=== PATIENT | female | born 1955 | race Caucasian/White ===

== ENCOUNTER 2018-02-09 13:46 | Outpatient (CLI) | payer OTHER ==
[~2018-02-09] VITALS: Ht 149.9 cm; Wt 61.7 kg
[~2018-02-09 13:46] MED LIST: CELE200C PO; GABA-488 PO; METO100T12 PO; METO50TA15 PO; MIRA50TA PO; PRIM50TA PO; ROSU10TA PO; TRAZ-190 PO; VALS80TA31 PO; VORT10TA PO
== END 2018-02-09 13:51 | disposition home or self-care (01) ==
LOC: PREOP 13:46
PROVIDERS: ATTEND Surgery
DX: Z01.818 Encounter for other preprocedural examination (principal)

== ENCOUNTER 2018-02-14 08:10 | Day surgery (SDC) | payer OTHER ==
[~2018-02-14] VITALS: Ht 149.9 cm; Wt 61.7 kg
--- OUTSIDE RECORDS SUMMARY | 2018-02-14 08:14 | XMS REPORT ---
Author Author ZORAIDA ACEVEDO Organization [facility] Address [address] [place] [address] Care Team Providers Care Feed Mill Supervisor Name Role Phone ZORAIDA ACEVEDO Unavailable PROBLEMS Type Condition ICD9-CM Code ONX15-RY Code Onset Dates Condition Status SNOMED Code Problem GERD (gastroesophageal reflux disease) K21.9 Active 688680125 Problem Tremor, unspecified R25.1 Active 62941484 Problem Family history of diabetes mellitus Z83.3 Active 580800921 Problem Anxiety F41.9 Active 73475397 Problem Arthralgia, unspecified joint M25.50 Active 35126050 Problem Back pain M54.9 Active 646235036 Problem Dysthymic disorder F34.1 Active 73190750 Problem Essential hypertension I10 Active 93749619 Problem Coarse tremors G25.2 Active 17387201 Problem Carpal tunnel syndrome 354.0 Active 07748979 Problem Polycythemia D75.1 Active 103875884 Problem Overactive bladder N32.81 Active 298553298 Problem Abnormal LFTs R79.89 Active 331346451 Problem Peripheral neuropathy G62.9 Active 62046426 Problem Hyperlipidemia E78.5 Active 29282941 Problem Reactive airway disease J45.909 Active 938226622680 Problem Insomnia G47.00 Active 611181103 Problem Female stress incontinence N39.3 Active 33616392 Problem Depression F32.9 Active 39241153 ALLERGIES No Information ENCOUNTERS Encounter Location Date Diagnosis [facility] [address] [facility] [id number], [place] [address] Jan, [facility] [address] [id number] [address] Jan, Overactive bladder N32.81 [facility] [address] [id number], [place] [address] Jan, Polycythemia D75.1 [place] [id number] [place] [address] 8[address] Jan, Polycythemia D75.1 [place] [address] [address] Dec, Unintentional weight loss R63.4 ; Diarrhea, unspecified type R19.7 ; Generalized abdominal pain R10.84 and Tobacco abuse Z72.[address] [address] Oct, Overactive bladder N32.81 and Reactive airway disease J45.[address] [address]- [address] Oct, Anxiety F41.9 and Financial problems Z59.[address] [address]- [address] Oct, Chest pain, unspecified type R07.9 ; Shortness of breath R06.02 ; Diarrhea, unspecified type R19.7 and Acute non-recurrent maxillary sinusitis J01.[address] [address]- [address] August, Hyperlipidemia E78.5 ; Essential hypertension I10 ; Tremor, unspecified R25.1 ; Overactive bladder N32.81 and Arthralgia, unspecified joint M25.[address] [address] May, Viral illness B34.[address] [address]- [address] Apr, Essential hypertension I10 ; Tremor, unspecified R25.1 ; Overactive bladder N32.81 ; Hyperlipidemia E78.5 and Reactive airway disease J45.[address] [address]- [address] Mar, [address] [place] [address] Feb, Dysthymic disorder F34.1 [place] [address] [address]- [address] Dec, Depression F32.9 ; Abnormal LFTs R79.89 ; Tremor, unspecified R25.1 and Essential hypertension I10 [place] [address] [address]- 3790 Nov, Abnormal LFTs R79.89 [place] [address] 09[address]- 0243 Nov, Overactive bladder N32.81 [place] [address] 35943- 4381 Nov, Dysthymic disorder F34.1 [place] [address] [address]- 4230 Nov, Abnormal LFTs R79.89 ; Overactive bladder N32.81 ; Essential hypertension I10 ; Hyperlipidemia E78.5 ; Elevated LFTs R79.89 ; Arthralgia, unspecified joint M25.50 ; Dysthymic disorder F34.1 and Reactive airway disease J45.909 [place] [address] [address]- [address] Jul, [place] [id number] [place] [address]- 7707 Jul, Reactive airway disease J45.909 and Depression F32.9 [place] [address] [address]94- 3508 Jul, Left arm pain M79.602 and Chest wall pain R07.89 [place] [address] [address]- [address] Jun, Abnormal LFTs R79.89 [place] [address] [address]74- 7029 Jun, Abnormal LFTs R79.89 [place] [id number] [place] [address] 22396- 1477 Jun, Essential hypertension I10 ; Tremor, unspecified R25.1 ; Hyperlipidemia E78.5 ; Reactive airway disease J45.909 ; Arthralgia, unspecified joint M25.50 and Abnormal LFTs R79.89 [place] [id number] [place] [address] 25858- 7244 May, Female stress incontinence N39.3 ; Hyperlipidemia E78.5 ; Peripheral neuropathy G62.9 ; Essential hypertension I10 ; Depression F32.9 and Tremor, unspecified R25.1 [place] [address] [address]- 3[address] May, Tremor, unspecified R25.1 ; Female stress incontinence N39.3 ; Hyperlipidemia E78.5 ; Peripheral neuropathy G62.9 ; Dysthymic disorder F34.1 ; Essential hypertension I10 ; GERD (gastroesophageal reflux disease) K21.9 and Depression F32.9 [place] [id number] [place] [address] 10138- 3113 Apr, Depression F32.9 [place] [address] 0[address]30- 6622 Mar, Sore throat J02.9 ; Coarse tremors G25.2 and Essential hypertension I10 [place] [address] 07702- 9069 Feb, Essential (primary) hypertension I10 ; Female stress incontinence N39.3 and Reactive airway disease J45.909 [place] [id number] [place] [address] 96328- 1328 Nov, Reactive airway disease J45.909 [place] [id number] [place] [address] 76107- 6591 Nov, Dysuria R30.0 ; Urinary tract infection, site unspecified N39.0 ; Tremor R25.1 ; Female stress incontinence N39.3 ; Reactive airway disease J45.909 ; Essential (primary) hypertension I10 and Carpal tunnel syndrome, unspecified laterality G56.00 [facility] [address] [address]- 1641 Nov, Female stress incontinence N39.3 [facility] [id number] [place] [address] 04741- 6117 Nov, [facility] [address] [address] Oct, Urinary tract infection, site not specified N39.0 ; Dysuria R30.0 and Hematuria, unspecified R31.9 [place] [address] 02486- 2609 Oct, Hypertension I10 ; Hyperlipidemia E78.5 and Headache, unspecified headache type R51 [place] [address] 79907- 2040 Sep, [place] [address] 24096- 1746 August, Female stress incontinence N39.3 [place] [address] 14547- 7761 August, Headache, unspecified headache type R51 [place] [address] 46241- 8816 August, Hyperglycemia R73.9 ; Overactive bladder N32.81 and Headache , unspecified headache type R51 [place] [address] [address]- 5435 Jul, Dysthymic disorder F34.1 [place] [address] 12595- 1003 Jul, Depression F32.9 [place] [address] 72613- 3705 Jul, Depression F32.9 and Back pain M54.9 [place] [address] 74166- 4269 Jul, Dysthymic disorder F34.1 [place] [address] 52332- 7627 Jul, Depression F32.9 ; Female stress incontinence N39.3 ; Hypertension I10 ; Hyperlipidemia E78.5 ; Tremor, unspecified R25.1 ; Peripheral neuropathy G62.9 ; Reactive airway disease J45.909 ; GERD ( gastroesophageal reflux disease) K21.9 ; Insomnia G47.00 and Family history of diabetes mellitus Z83.3 [place] [address] 30[address]- 9899 Apr, [place] [address] 6[address]21- 8124 Feb, [place] [address] 38237- 6134 Feb, Essential hypertension I10 ; Encounter for immunization Z23 ; Dysthymia F34.1 ; Tremor, unspecified R25.1 and Carpal tunnel syndrome, unspecified laterality G56.00 [place] [address] 71924- 4334 Feb, [place] [address] [address]82- 4790 Dec, Bronchitis [address] [place] [address] 19378- 9097 Nov, [place] [address] 62731- 3948 Nov, [place] [address] 97175- 4750 Oct, Overweight 278.02 [place] [address] 05553- 5335 Oct, [place] [address] 53146- 1683 Oct, Back pain 724.5 ; Hypertension 401.[address] [facility] [address] [facility] [id number], [place] [address] Sep, [facility] [address], [place] [address] August, [facility] [address], [place] [address] August, [facility] [address] [facility] [id number], [place] [address] August, Nicotine dependence 305.1 ; Back pain 724.[address] [facility] [address] [facility] [id number], [place] [address]23 Jul, [facility] [address], [place] [address]444 Jul, [facility] [address] [id number], [place] [address] 4188 Jun, [facility] [address], [place] [address] Jun, [facility] [address], [place] [address]- 0843 Jun, [facility] [address] [id number], [place] [address]- 5013 Jun, [facility] [address] [id number], [place] [address]- [address] Apr, [facility] [address] [id number] [address] Apr, [facility] [address] [id number], [place] [address]- 5173 Mar, [facility] [address] [id number] [address] Mar, [facility] [id number] [address]34 Mar, [facility] [address] [id number] [place] [address]- 2712 Mar, [facility] [place] [facility] [address] [id number] [place] [address] Mar, [facility] [place] [facility] [address] [id number] [place] [address] Mar, [facility] [place] [facility] [address] [id number] [place] [address]- 4027 Mar, [facility] [place] [facility] [address] [id number] [place] [address]- 4555 Mar, [facility] [place] [facility] [address] [id number] [place] [address]- 4497 Mar, [facility] [place] [facility] [address] [id number] [place] [address]- 4805 Mar, [facility] [place] [facility] [address] [id number] [place] [address]- 8806 Mar, [facility] [place] [facility] [address] [id number] [place] [address]- 0844 Mar, [facility] [place] [facility] [address] [facility] [id number] [place] [address]- 9262 Feb, [facility] [place] [facility] [address] [id number] [place] [address]- 3251 Feb, [facility] [place] [facility] [address] [id number] [place] [address]- 9877 Feb, [facility] [place] [facility] [address] [id number] [place] [address]- 9224 Feb, [facility] [place] [facility] [address] [id number] [place] [address]- 2330 Jan, [facility] [place] [facility] [address] [id number] [place] [address]- 3483 Jan, [facility] [place] [facility] [address] [id number] [place] [address]- 5850 30 Dec, 2013 [facility] [place] [facility] [address] [id number] [place] [address]- 9282 30 Dec, 2013 [facility] [place] [facility] [address] [id number] [place] [address]- 7599 Dec, 2013 [facility] [place] [facility] [address] [id number] [place] [address]- 2382 22 Dec, 2013 [facility] [place] [facility] [address] [id number] [place] [address]- 6475 08 Dec, 2013 [facility] [place] [facility] [address] [id number] [place] [address]- 3053 08 Dec, 2013 [facility] [place] [facility] [address] [id number] [place] [address]- 8848 Dec, 2013 [facility] [place] [facility] [address] [id number] [place] [address]- 1197 Dec, 2013 [facility] [place] [facility] [address] [id number] [place] [address]- 3295 Dec, 2013 [facility] [place] [facility] [address] [id number] [place] [address]- 1256 Dec, 2013 [facility] [place] [facility] [address] [id number] [place] [address]- 8496 Nov, [facility] [place] [facility] [address] [id number] [place] [address]- 9038 Nov, [facility] [place] [facility] [address] [id number] [place] [address]- 9134 Nov, [facility] [place] [facility] [address] [id number] [place] [address]- 1147 Nov, [facility] [place] [facility] [address] [id number] [place] [address]- 8174 Nov, [facility] [place] [facility] [address] [id number] [place] [address]- 9188 Nov, [facility] [place] [facility] [address] [id number] [place] [address]- 1645 Nov, [facility] [place] [facility] [address] [id number] [place] [address]- 8446 Nov, [facility] [place] [facility] [address] [id number] [place] [address]- 5332 Nov, [facility] [place] [facility] [address] [id number] [place] [address]- 6317 Nov, [facility] [place] [facility] [address] [id number] [place] [address]- 1615 Nov, [facility] [place] [facility] [address] [id number] [place] [address]- 0840 Nov, [facility] [place] [facility] [address] [id number] [place] [address]- 4540 Oct, [facility] [place] [facility] [address] [id number] [place] [address]- 5932 Oct, [facility] [place] [facility] [address] [id number] [place] [address]- 1462 August, [facility] [place] [facility] [address] [id number] [place] [address]- 3426 August, [facility] [place] [facility] [address] [id number] [place] [address]- 8928 Jul, [facility] [place] [facility] [address] [id number] [place] [address]- 1587 Jul, [facility] [place] [facility] [address] [id number] [place] [address]- 8595 Jun, [facility] [place] [facility] [address] [id number] [place] [address]- 1123 Jun, [facility] [place] [facility] [address] [id number] [place] [address]- 7338 Jun, [facility] [place] [facility] [address] [id number] [place] [address]- 2546 11 Jun, 2013 [facility] [address] [id number] [place] [address]- 1956 07 Jun, 2013 [facility] [place] [facility] [address] [id number] [place] [address]- 2546 07 Jun, 2013 [facility] [address] [id number] [place] [address]- 1386 Apr, [facility] [address] [id number] [place] [address]- 5256 Apr, [facility] [address] [id number] [place] [address]- 2351 Mar, [facility] [address] [id number] [place] [address]- 1996 Mar, [facility] [address] [id number] [place] [address]- 6221 Mar, [facility] [address] [id number] [place] [address]- 8273 Mar, [facility] [address] [id number] [place] [address]- 1824 Mar, [facility] [address] [id number] [place] [address]- 8978 Mar, [facility] [place] [facility] [address] [id number] [place] [address]- 5636 Mar, [facility] [address] [id number] [place] [address]- 1176 Mar, [facility] [place] [facility] [address] [id number] [place] [address]- 2546 Mar, [facility] [place] [facility] [address] [id number] [place] [address]- 2546 Mar, [facility] [place] [facility] [address] [id number] [place] [address]- 1861 Feb, [facility] [place] [facility] [address] [id number] [place] [address]- 0537 Feb, [facility] [place] [facility] [address] [id number] [place] [address]- 7324 Jan, [facility] [place] [facility] [address] [id number] [place] [address]- 0531 Jan, [facility] [place] [facility] [address] [id number] [place] [address]- 4577 Jan, [facility] [place] [facility] [address] [id number] [place] [address]- 6601 Nov, [facility] [place] [facility] [address] [id number] [place] [address]- 0577 Nov, [facility] [place] [facility] [address] [id number] [place] [address]- 6187 Nov, [facility] [place] [facility] [address] [id number] [place] [address]- 4744 Nov, [facility] [place] [facility] [address] [id number] [place] [address]- 7195 Apr, [facility] [place] [facility] [address] [id number] [place] [address]- 6255 Mar, [facility] [place] [facility] [address] [id number] [place] [address]- 9643 Mar, [facility] [place] [facility] [address] [id number], [place] [address]- 5692 Mar, [facility] [place] [facility] [address] [id number] [place] [address]- 5862 Mar, [facility] [place] [facility] [address] [id number] [place] [address]- 4308 Mar, [facility] [place] [facility] [address] [id number] [place] [address]- 9535 May, [facility] [place] [facility] [address] [id number], [place] [address]- [address] Mar, [facility] [address], [place] [address]- [address]163 Mar, [facility] [address], [place] [address]- 3713 Mar, [facility] [address], [place] [address]- 3076 Mar, [facility] [address] 84[address] Mar, [facility] [address], [place] [address]- [address]16 Feb, [facility] [address], [place] [address]- 64[address] Feb, [facility] [address], [place] [address]- 9604 Jan, IMMUNIZATIONS No Known Immunizations SOCIAL HISTORY Never Assessed REASON FOR VISIT therapeutic phlebotomy order PLAN OF CARE VITAL SIGNS MEDICATIONS Unknown Medications RESULTS No Results PROCEDURES No Known procedures INSTRUCTIONS MEDICATIONS ADMINISTERED No Known Medications MEDICAL (GENERAL) HISTORY Type Description Date Medical History hypertension Medical History chronic obstructive pulmonary disease (COPD) Medical History depression Medical History anxiety Medical History breast cancer (?) documented snf use of Tamoxifen in [facility] Medical History past hx of drug & ETOH abuse Surgical History appendectomy Surgical History cholecystectomy Surgical History carpal tunnel release Hospitalization History surgeries
--- OUTSIDE RECORDS SUMMARY | 2018-02-14 08:14 | XMS REPORT ---
Author Author ZORAIDA ACEVEDO Organization [facility] Address [address] [place] [address] Care Team Providers Care Pad Machine Feeder Name Role Phone ZORAIDA ACEVEDO Unavailable PROBLEMS Type Condition ICD9-CM Code SPK85-[place] Code Onset Dates Condition Status SNOMED Code Problem GERD (gastroesophageal reflux disease) K21.9 Active 940165013 Problem Tremor, unspecified R25.1 Active 99453294 Problem Family history of diabetes mellitus Z83.3 Active 996149222 Problem Anxiety F41.9 Active 60242909 Problem Arthralgia, unspecified joint M25.50 Active 97688548 Problem Back pain M54.9 Active 727886690 Problem Dysthymic disorder F34.1 Active 46901910 Problem Essential hypertension I10 Active 77715005 Problem Coarse tremors G25.2 Active 40941933 Problem Carpal tunnel syndrome 354.0 Active 16148785 Problem Polycythemia D75.1 Active 689031220 Problem Overactive bladder N32.81 Active 779668678 Problem Abnormal LFTs R79.89 Active 998729012 Problem Peripheral neuropathy G62.9 Active 11730371 Problem Hyperlipidemia E78.5 Active 03271998 Problem Reactive airway disease J45.909 Active 588699314068 Problem Insomnia G47.00 Active 121698140 Problem Female stress incontinence N39.3 Active 52025479 Problem Depression F32.9 Active 83143367 ALLERGIES No Information ENCOUNTERS Encounter Location Date Diagnosis [facility] [address] [facility] [id number] [address] Jan, [facility] [address] [id number] [address] Jan, Overactive bladder N32.81 [facility] [address] [id number], [place] [address] Jan, Polycythemia D75.1 [place] [id number] [place] [address] 94[address] Jan, Polycythemia D75.1 [place] [address] [address]- [address] Dec, Unintentional weight loss R63.4 ; Diarrhea, unspecified type R19.7 ; Generalized abdominal pain R10.84 and Tobacco abuse Z72.[address] [address]- [address] Oct, Overactive bladder N32.81 and Reactive airway disease J45.[address] [address]- 0850 Oct, Anxiety F41.9 and Financial problems Z59.[address] [address]- [address] Oct, Chest pain, unspecified type R07.9 ; Shortness of breath R06.02 ; Diarrhea, unspecified type R19.7 and Acute non-recurrent maxillary sinusitis J01.[address] [address]- [address] August, Hyperlipidemia E78.5 ; Essential hypertension I10 ; Tremor, unspecified R25.1 ; Overactive bladder N32.81 and Arthralgia, unspecified joint M25.[address] [address]- [address] May, Viral illness B34.[address] [address]- [address] Apr, Essential hypertension I10 ; Tremor, unspecified R25.1 ; Overactive bladder N32.81 ; Hyperlipidemia E78.5 and Reactive airway disease J45.[address] [address]- [address] Mar, [address] [place] [address] Feb, Dysthymic disorder F34.1 [place] [address] [address]- 99[address] Dec, Depression F32.9 ; Abnormal LFTs R79.89 ; Tremor, unspecified R25.1 and Essential hypertension I10 [place] [address] 7[address]- 0741 Nov, Abnormal LFTs R79.89 [place] [address] 13141- 6721 Nov, Overactive bladder N32.81 [place] [address] 44076- 9791 Nov, Dysthymic disorder F34.1 [place] [address] 22498- 3661 Nov, Abnormal LFTs R79.89 ; Overactive bladder N32.81 ; Essential hypertension I10 ; Hyperlipidemia E78.5 ; Elevated LFTs R79.89 ; Arthralgia, unspecified joint M25.50 ; Dysthymic disorder F34.1 and Reactive airway disease J45.909 [place] [address] 33196- 5098 Jul, [place] [id number] [place] [address]- 9627 Jul, Reactive airway disease J45.909 and Depression F32.9 [place] [address] 57[address]- 1874 Jul, Left arm pain M79.602 and Chest wall pain R07.89 [place] [address] 17794- 8603 Jun, Abnormal LFTs R79.89 [place] [address] 73[address]- 3761 Jun, Abnormal LFTs R79.89 [place] [id number] [place] [address] 49016- 2328 Jun, Essential hypertension I10 ; Tremor, unspecified R25.1 ; Hyperlipidemia E78.5 ; Reactive airway disease J45.909 ; Arthralgia, unspecified joint M25.50 and Abnormal LFTs R79.89 [place] [id number] [place] [address] 80323- 0296 May, Female stress incontinence N39.3 ; Hyperlipidemia E78.5 ; Peripheral neuropathy G62.9 ; Essential hypertension I10 ; Depression F32.9 and Tremor, unspecified R25.1 [place] [address] 48023- 0862 May, Tremor, unspecified R25.1 ; Female stress incontinence N39.3 ; Hyperlipidemia E78.5 ; Peripheral neuropathy G62.9 ; Dysthymic disorder F34.1 ; Essential hypertension I10 ; GERD (gastroesophageal reflux disease) K21.9 and Depression F32.9 [place] [id number] [place] [address] 9[address]30- 2877 Apr, Depression F32.9 [place] [address] 62713- 1180 Mar, Sore throat J02.9 ; Coarse tremors G25.2 and Essential hypertension I10 [place] [address] 38239- 8004 Feb, Essential (primary) hypertension I10 ; Female stress incontinence N39.3 and Reactive airway disease J45.909 [place] [id number] [place] [address] 70456- 6739 Nov, Reactive airway disease J45.909 [place] [id number] [place] [address] 17950- 9812 Nov, Dysuria R30.0 ; Urinary tract infection, site unspecified N39.0 ; Tremor R25.1 ; Female stress incontinence N39.3 ; Reactive airway disease J45.909 ; Essential (primary) hypertension I10 and Carpal tunnel syndrome, unspecified laterality G56.00 [facility] [address] 51402- 3101 Nov, Female stress incontinence N39.3 [facility] [id number] [place] [address] 49080- 0217 Nov, [facility] [address] [address] -[address] Oct, Urinary tract infection, site not specified N39.0 ; Dysuria R30.0 and Hematuria, unspecified R31.9 [place] [address] 20937- 9579 Oct, Hypertension I10 ; Hyperlipidemia E78.5 and Headache, unspecified headache type R51 [place] [address] 43299- 8384 Sep, [place] [address] 99528- 5242 August, Female stress incontinence N39.3 [place] [address] 40610- 4174 August, Headache, unspecified headache type R51 [place] [address] 94234- 3459 August, Hyperglycemia R73.9 ; Overactive bladder N32.81 and Headache , unspecified headache type R51 [place] [address] 53118- 4014 Jul, Dysthymic disorder F34.1 [place] [address] 73038- 0611 Jul, Depression F32.9 [place] [address] 98854- 6672 Jul, Depression F32.9 and Back pain M54.9 [place] [address] 36316- 9288 Jul, Dysthymic disorder F34.1 [place] [address] 83574- 0521 Jul, Depression F32.9 ; Female stress incontinence N39.3 ; Hypertension I10 ; Hyperlipidemia E78.5 ; Tremor, unspecified R25.1 ; Peripheral neuropathy G62.9 ; Reactive airway disease J45.909 ; GERD ( gastroesophageal reflux disease) K21.9 ; Insomnia G47.00 and Family history of diabetes mellitus Z83.3 [place] [address] 47497- 8098 Apr, [place] [address] 37465- 1648 Feb, [place] [address] 38292- 8845 Feb, Essential hypertension I10 ; Encounter for immunization Z23 ; Dysthymia F34.1 ; Tremor, unspecified R25.1 and Carpal tunnel syndrome, unspecified laterality G56.00 [place] [address] 95202- 7989 Feb, [place] [address] 16741- 5048 Dec, Bronchitis 490 [place] [address] 32295- 5602 Nov, [place] [address] 32951- 8380 Nov, [place] [address] 92707- 9059 Oct, Overweight 278.02 [place] [address] 05392- 1478 Oct, [place] [address] 55887- 4641 Oct, Back pain 724.5 ; Hypertension 401.9 and Nicotine addiction 305.1 [facility] [address] [facility] [id number] [address] Sep, [facility] [address], [place] [address] August, [facility] [address], [place] [address] 97[address] August, [facility] [address] [facility] [id number], [place] [address] 8[address] August, Nicotine dependence 305.1 ; Back pain 724.5 and Overweight 278.02 [facility] [address] [facility] [id number], [place] [address] 8[address] Jul, [facility] [address], [place] [address]- 2645 Jul, [facility] [address] [id number], [place] [address]- 5[address] Jun, [facility] [address], [place] [address]- 3715 Jun, [facility] [address], [place] [address]- 2345 Jun, [facility] [address] [id number], [place] [address]- 6404 Jun, [facility] [address] [id number], [place] [address]- 2238 Apr, [facility] [address] [id number] 9539 Apr, [facility] [id number], [place] [address]- 0707 Mar, [facility] [address] [id number] [address] Mar, [facility] [id number] [place] [address]- 0632 Mar, [facility] [address] [id number] [place] [address]- 3206 Mar, [facility] [place] [facility] [address] [id number] [place] [address] Mar, [facility] [place] [facility] [address] [id number] [place] [address] Mar, [facility] [place] [facility] [address] [id number] [place] [address]- 2343 Mar, [facility] [place] [facility] [address] [id number] [place] [address]- 7605 Mar, [facility] [place] [facility] [address] [id number] [place] [address]- 3094 Mar, [facility] [place] [facility] [address] [id number] [place] [address]- 3647 Mar, [facility] [place] [facility] [address] [id number] [place] [address]- 0707 Mar, [facility] [place] [facility] [address] [id number] [place] [address]- 8703 Mar, [facility] [place] [facility] [address] [facility] [id number] [place] [address]- 3013 Feb, [facility] [place] [facility] [address] [id number] [place] [address]- 2456 Feb, [facility] [place] [facility] [address] [id number] [place] [address]- 6399 Feb, [facility] [place] [facility] [address] [id number] [place] [address]- 4361 Feb, [facility] [place] [facility] [address] [id number] [place] [address]- 9614 Jan, [facility] [place] [facility] [address] [id number] [place] [address]- 8168 Jan, [facility] [place] [facility] [address] [id number] [place] [address]- 0520 30 Dec, 2013 [facility] [place] [facility] [address] [id number] [place] [address]- 0121 30 Dec, 2013 [facility] [place] [facility] [address] [id number] [place] [address]- 1280 Dec, 2013 [facility] [place] [facility] [address] [id number] [place] [address]- 2395 22 Dec, 2013 [facility] [place] [facility] [address] [id number] [place] [address]- 9072 08 Dec, 2013 [facility] [place] [facility] [address] [id number] [place] [address]- 5602 08 Dec, 2013 [facility] [place] [facility] [address] [id number] [place] [address]- 7182 Dec, 2013 [facility] [place] [facility] [address] [id number] [place] [address]- 4592 Dec, 2013 [facility] [place] [facility] [address] [id number] [place] [address]- 7720 Dec, 2013 [facility] [place] [facility] [address] [id number] [place] [address]- 6453 Dec, 2013 [facility] [place] [facility] [address] [id number] [place] [address]- 2458 Nov, [facility] [place] [facility] [address] [id number] [place] [address]- 4329 Nov, [facility] [place] [facility] [address] [id number] [place] [address]- 9723 Nov, [facility] [place] [facility] [address] [id number] [place] [address]- 9449 Nov, [facility] [place] [facility] [address] [id number] [place] [address]- 2203 Nov, [facility] [place] [facility] [address] [id number] [place] [address]- 5101 Nov, [facility] [place] [facility] [address] [id number] [place] [address]- 9862 Nov, [facility] [place] [facility] [address] [id number] [place] [address]- 5902 Nov, [facility] [place] [facility] [address] [id number] [place] [address]- 6211 Nov, [facility] [place] [facility] [address] [id number] [place] [address]- 1827 Nov, [facility] [place] [facility] [address] [id number] [place] [address]- 2502 Nov, [facility] [place] [facility] [address] [id number] [place] [address]- 3193 Nov, [facility] [place] [facility] [address] [id number] [place] [address]- 7010 Oct, [facility] [place] [facility] [address] [id number] [place] [address]- 8693 Oct, [facility] [place] [facility] [address] [id number] [place] [address]- 2762 August, [facility] [place] [facility] [address] [id number] [place] [address]- 0014 August, [facility] [place] [facility] [address] [id number] [place] [address]- 9490 Jul, [facility] [place] [facility] [address] [id number] [place] [address]- 2568 Jul, [facility] [place] [facility] [address] [id number] [place] [address]- 4641 Jun, [facility] [place] [facility] [address] [id number] [place] [address]- 4876 Jun, [facility] [place] [facility] [address] [id number] [place] [address]- 5011 Jun, [facility] [place] [facility] [address] [id number] [place] [address]- 2546 11 Jun, 2013 [facility] [address] [id number] [place] [address]- 6556 07 Jun, 2013 [facility] [place] [facility] [address] [id number] [place] [address]- 2546 07 Jun, 2013 [facility] [address] [id number] [place] [address]- 6266 Apr, [facility] [address] [id number] [place] [address]- 6736 Apr, [facility] [address] [id number] [place] [address]- 1721 Mar, [facility] [address] [id number] [place] [address]- 7496 Mar, [facility] [address] [id number] [place] [address]- 1685 Mar, [facility] [address] [id number] [place] [address]- 0566 Mar, [facility] [address] [id number] [place] [address]- 3513 Mar, [facility] [address] [id number] [place] [address]- 1707 Mar, [facility] [place] [facility] [address] [id number] [place] [address]- 4706 Mar, [facility] [address] [id number] [place] [address]- 1226 Mar, [facility] [place] [facility] [address] [id number] [place] [address]- 2546 Mar, [facility] [place] [facility] [address] [id number] [place] [address]- 2546 Mar, [facility] [place] [facility] [address] [id number] [place] [address]- 1832 Feb, [facility] [place] [facility] [address] [id number] [place] [address]- 1017 Feb, [facility] [place] [facility] [address] [id number] [place] [address]- 6544 Jan, [facility] [place] [facility] [address] [id number] [place] [address]- 6428 Jan, [facility] [place] [facility] [address] [id number] [place] [address]- 7511 Jan, [facility] [place] [facility] [address] [id number] [place] [address]- 1120 Nov, [facility] [place] [facility] [address] [id number] [place] [address]- 7228 Nov, [facility] [place] [facility] [address] [id number] [place] [address]- 4929 Nov, [facility] [place] [facility] [address] [id number] [place] [address]- 9972 Nov, [facility] [place] [facility] [address] [id number] [place] [address]- 9516 Apr, [facility] [place] [facility] [address] [id number] [place] [address]- 5783 Mar, [facility] [place] [facility] [address] [id number] [place] [address]- 3408 Mar, [facility] [place] [facility] [address] [id number], [place] [address]- 8055 Mar, [facility] [place] [facility] [address] [id number] [place] [address]- 2682 Mar, [facility] [place] [facility] [address] [id number] [place] [address]- 5580 Mar, [facility] [place] [facility] [address] [id number] [place] [address]- 6114 May, [facility] [place] [facility] [address] [facility] [id number], [place] [address]- 7440 Mar, [facility] [address] [id number], [place] [address]- 4400 Mar, [facility] [address] [id number] 1039 Mar, [facility] [address] 1874 Mar, [facility] [address]- 8636 Mar, [facility] [address] 0529 Feb, [facility] [address], [place] [address]- 5302 Feb, [facility] [address], [place] [address]- 5294 Jan, IMMUNIZATIONS No Known Immunizations SOCIAL HISTORY Never Assessed REASON FOR VISIT PALS-Myrbetric PLAN OF CARE VITAL SIGNS MEDICATIONS Medication Instructions Dosage Frequency Start Date End Date Duration Status Myrbetriq 50 MG Orally Once a day 1 tablet 24h August, 90 days Active RESULTS No Results PROCEDURES No Known procedures INSTRUCTIONS MEDICATIONS ADMINISTERED No Known Medications MEDICAL (GENERAL) HISTORY Type Description Date Medical History hypertension Medical History chronic obstructive pulmonary disease (COPD) Medical History depression Medical History anxiety Medical History breast cancer (?) documented jail use of Tamoxifen in [facility] Medical History past hx of drug & ETOH abuse Surgical History appendectomy Surgical History cholecystectomy Surgical History carpal tunnel release Hospitalization History surgeries
--- OUTSIDE RECORDS SUMMARY | 2018-02-14 08:15 | XMS REPORT ---
Author Author ZORAIDA ACEVEDO Organization [facility] Address [address] [place] [address] Care Team Providers Care Respiratory Therapy Aide Name Role Phone ZORAIDA ACEVEDO Unavailable PROBLEMS Type Condition ICD9-CM Code GQB96-MP Code Onset Dates Condition Status SNOMED Code Problem GERD (gastroesophageal reflux disease) K21.9 Active 469181005 Problem Tremor, unspecified R25.1 Active 60710792 Problem Family history of diabetes mellitus Z83.3 Active 263188853 Problem Anxiety F41.9 Active 37867214 Problem Arthralgia, unspecified joint M25.50 Active 31633378 Problem Back pain M54.9 Active 857254989 Problem Dysthymic disorder F34.1 Active 12664920 Problem Essential hypertension I10 Active 17659733 Problem Coarse tremors G25.2 Active 24049110 Problem Carpal tunnel syndrome 354.0 Active 31000466 Problem Polycythemia D75.1 Active 022713300 Problem Overactive bladder N32.81 Active 680403775 Problem Abnormal LFTs R79.89 Active 013691928 Problem Peripheral neuropathy G62.9 Active 84230426 Problem Hyperlipidemia E78.5 Active 96133234 Problem Reactive airway disease J45.909 Active 112146696876 Problem Insomnia G47.00 Active 764803680 Problem Female stress incontinence N39.3 Active 95459354 Problem Depression F32.9 Active 16396597 ALLERGIES No Information ENCOUNTERS Encounter Location Date Diagnosis [facility] [address] [facility] [id number] [address] Jan, [facility] [address] [id number] [address] Jan, Overactive bladder N32.81 [facility] [address] [id number] [address] Jan, Polycythemia D75.1 [place] [id number] [place] [address] 6[address] Jan, Polycythemia D75.1 [place] [address] [address] Dec, Unintentional weight loss R63.4 ; Diarrhea, unspecified type R19.7 ; Generalized abdominal pain R10.84 and Tobacco abuse Z72.[address] [address] Oct, Overactive bladder N32.81 and Reactive airway disease J45.[address] [address]- [address] Oct, Anxiety F41.9 and Financial problems Z59.[address] [address]- [address] Oct, Chest pain, unspecified type R07.9 ; Shortness of breath R06.02 ; Diarrhea, unspecified type R19.7 and Acute non-recurrent maxillary sinusitis J01.[address] [address]- [address] August, Hyperlipidemia E78.5 ; Essential hypertension I10 ; Tremor, unspecified R25.1 ; Overactive bladder N32.81 and Arthralgia, unspecified joint M25.[address] [address] May, Viral illness B34.[address] [address]- [address] Apr, Essential hypertension I10 ; Tremor, unspecified R25.1 ; Overactive bladder N32.81 ; Hyperlipidemia E78.5 and Reactive airway disease J45.[address] [address]- [address] Mar, [address] [place] [address] 26[address] Feb, Dysthymic disorder F34.1 [place] [address] [address]- [address]90 Dec, Depression F32.9 ; Abnormal LFTs R79.89 ; Tremor, unspecified R25.1 and Essential hypertension I10 [place] [address] [address]- 4989 Nov, Abnormal LFTs R79.89 [place] [address] 46[address]- 0535 Nov, Overactive bladder N32.81 [place] [address] 31946- 6648 Nov, Dysthymic disorder F34.1 [place] [address] [address]289- 6765 Nov, Abnormal LFTs R79.89 ; Overactive bladder N32.81 ; Essential hypertension I10 ; Hyperlipidemia E78.5 ; Elevated LFTs R79.89 ; Arthralgia, unspecified joint M25.50 ; Dysthymic disorder F34.1 and Reactive airway disease J45.909 [place] [address] [address]- [address] Jul, [place] [id number] [place] [address] 8[address]67- 6243 Jul, Reactive airway disease J45.909 and Depression F32.9 [place] [address] 235[address]- 2932 Jul, Left arm pain M79.602 and Chest wall pain R07.89 [place] [address] [address]- 8[address] Jun, Abnormal LFTs R79.89 [place] [address] 5[address]21- 4346 Jun, Abnormal LFTs R79.89 [place] [id number] [place] [address] 94[address]- 8926 Jun, Essential hypertension I10 ; Tremor, unspecified R25.1 ; Hyperlipidemia E78.5 ; Reactive airway disease J45.909 ; Arthralgia, unspecified joint M25.50 and Abnormal LFTs R79.89 [place] [id number] [place] [address] 80618- 8983 May, Female stress incontinence N39.3 ; Hyperlipidemia E78.5 ; Peripheral neuropathy G62.9 ; Essential hypertension I10 ; Depression F32.9 and Tremor, unspecified R25.1 [place] [address] [address]- 2765 May, Tremor, unspecified R25.1 ; Female stress incontinence N39.3 ; Hyperlipidemia E78.5 ; Peripheral neuropathy G62.9 ; Dysthymic disorder F34.1 ; Essential hypertension I10 ; GERD (gastroesophageal reflux disease) K21.9 and Depression F32.9 [place] [id number] [place] [address] 29984- 1648 Apr, Depression F32.9 [place] [address] 7[address]- 3225 Mar, Sore throat J02.9 ; Coarse tremors G25.2 and Essential hypertension I10 [place] [address] 9[address]97- 6557 Feb, Essential (primary) hypertension I10 ; Female stress incontinence N39.3 and Reactive airway disease J45.909 [place] [id number] [place] [address] 00677- 2688 Nov, Reactive airway disease J45.909 [place] [id number] [place] [address] 20971- 0734 Nov, Dysuria R30.0 ; Urinary tract infection, site unspecified N39.0 ; Tremor R25.1 ; Female stress incontinence N39.3 ; Reactive airway disease J45.909 ; Essential (primary) hypertension I10 and Carpal tunnel syndrome, unspecified laterality G56.00 [facility] [address] [address]- 9832 Nov, Female stress incontinence N39.3 [facility] [id number] [place] [address] 45272- 0750 Nov, [facility] [address] [address] Oct, Urinary tract infection, site not specified N39.0 ; Dysuria R30.0 and Hematuria, unspecified R31.9 [place] [address] 924[address]- 8388 Oct, Hypertension I10 ; Hyperlipidemia E78.5 and Headache, unspecified headache type R51 [place] [address] 04052- 2921 Sep, [place] [address] 269[address]- 2938 August, Female stress incontinence N39.3 [place] [address] 69715- 0483 August, Headache, unspecified headache type R51 [place] [address] 52381- 6044 August, Hyperglycemia R73.9 ; Overactive bladder N32.81 and Headache , unspecified headache type R51 [place] [address] 62373- 8162 Jul, Dysthymic disorder F34.1 [place] [address] 86366- 1731 Jul, Depression F32.9 [place] [address] 99955- 5002 Jul, Depression F32.9 and Back pain M54.9 [place] [address] 96067- 1417 Jul, Dysthymic disorder F34.1 [place] [address] 76084- 7901 Jul, Depression F32.9 ; Female stress incontinence N39.3 ; Hypertension I10 ; Hyperlipidemia E78.5 ; Tremor, unspecified R25.1 ; Peripheral neuropathy G62.9 ; Reactive airway disease J45.909 ; GERD ( gastroesophageal reflux disease) K21.9 ; Insomnia G47.00 and Family history of diabetes mellitus Z83.3 [place] [address] 8[address]- 0301 Apr, [place] [address] 50[address]- 6813 Feb, [place] [address] 34[address]- 7109 Feb, Essential hypertension I10 ; Encounter for immunization Z23 ; Dysthymia F34.1 ; Tremor, unspecified R25.1 and Carpal tunnel syndrome, unspecified laterality G56.00 [place] [address] 17976- 1581 Feb, [place] [address] 01257- 0223 Dec, Bronchitis 490 [place] [address] 99868- 2212 Nov, [place] [address] 70990- 9544 Nov, [place] [address] 64794- 2769 Oct, Overweight 278.02 [place] [address] 69769- 1453 Oct, [place] [address] 29362- 9620 Oct, Back pain 724.5 ; Hypertension 401.9 and Nicotine addiction 305.1 [facility] [address] [facility] [id number], [place] [address] 26[address] Sep, [facility] [address] [address] 26[address] August, [facility] [address] [address] 0914 August, [facility] [address] [facility] [id number], [place] [address] August, Nicotine dependence 305.1 ; Back pain 724.5 and Overweight 278.02 [facility] [address] [facility] [id number], [place] [address] 7842 Jul, [facility] [address] [address] 6[address] Jul, [facility] [id number] [address]- 6187 Jun, [facility] [address] [address]- 3774 Jun, [facility] [address] [address]- 9733 Jun, [facility] [address] [id number] [address]- 4022 Jun, [facility] [id number] [address]- 2556 Apr, [facility] [address] [id number] [address] Apr, [facility] [id number] [address]- 8234 Mar, [facility] [address] [id number] [address] Mar, [facility] [id number] [place] [address]- 9851 Mar, [facility] [address] [id number] [place] [address]- 3390 Mar, [facility] [place] [facility] [address] [id number] [place] [address] Mar, [facility] [place] [facility] [address] [id number] [place] [address] Mar, [facility] [place] [facility] [address] [id number] [place] [address]- 0612 Mar, [facility] [place] [facility] [address] [id number] [place] [address]- 0868 Mar, [facility] [place] [facility] [address] [id number] [place] [address]- 2009 Mar, [facility] [place] [facility] [address] [id number] [place] [address]- 3651 Mar, [facility] [place] [facility] [address] [id number] [place] [address]- 3169 Mar, [facility] [place] [facility] [address] [id number] [place] [address]- 3907 Mar, [facility] [place] [facility] [address] [facility] [id number] [place] [address]- 1697 Feb, [facility] [place] [facility] [address] [id number] [place] [address]- 5851 Feb, [facility] [place] [facility] [address] [id number] [place] [address]- 8503 Feb, [facility] [place] [facility] [address] [id number] [place] [address]- 0792 Feb, [facility] [place] [facility] [address] [id number] [place] [address]- 7888 Jan, [facility] [place] [facility] [address] [id number] [place] [address]- 5798 Jan, [facility] [place] [facility] [address] [id number] [place] [address]- 7272 30 Dec, 2013 [facility] [place] [facility] [address] [id number] [place] [address]- 8867 30 Dec, 2013 [facility] [place] [facility] [address] [id number] [place] [address]- 5610 Dec, 2013 [facility] [place] [facility] [address] [id number] [place] [address]- 1738 22 Dec, 2013 [facility] [place] [facility] [address] [id number] [place] [address]- 8836 08 Dec, 2013 [facility] [place] [facility] [address] [id number] [place] [address]- 4137 08 Dec, 2013 [facility] [place] [facility] [address] [id number] [place] [address]- 7597 Dec, 2013 [facility] [place] [facility] [address] [id number] [place] [address]- 4231 Dec, 2013 [facility] [place] [facility] [address] [id number] [place] [address]- 8802 Dec, 2013 [facility] [place] [facility] [address] [id number] [place] [address]- 7347 Dec, 2013 [facility] [place] [facility] [address] [id number] [place] [address]- 0915 Nov, [facility] [place] [facility] [address] [id number] [place] [address]- 6967 Nov, [facility] [place] [facility] [address] [id number] [place] [address]- 3678 Nov, [facility] [place] [facility] [address] [id number] [place] [address]- 5419 Nov, [facility] [place] [facility] [address] [id number] [place] [address]- 2421 Nov, [facility] [place] [facility] [address] [id number] [place] [address]- 3844 Nov, [facility] [place] [facility] [address] [id number] [place] [address]- 3238 Nov, [facility] [place] [facility] [address] [id number] [place] [address]- 6367 Nov, [facility] [place] [facility] [address] [id number] [place] [address]- 1674 Nov, [facility] [place] [facility] [address] [id number] [place] [address]- 0008 Nov, [facility] [place] [facility] [address] [id number] [place] [address]- 1205 Nov, [facility] [place] [facility] [address] [id number] [place] [address]- 3887 Nov, [facility] [place] [facility] [address] [id number] [place] [address]- 7590 Oct, [facility] [place] [facility] [address] [id number] [place] [address]- 9408 Oct, [facility] [place] [facility] [address] [id number] [place] [address]- 8232 August, [facility] [place] [facility] [address] [id number] [place] [address]- 8756 August, [facility] [place] [facility] [address] [id number] [place] [address]- 3934 Jul, [facility] [place] [facility] [address] [id number] [place] [address]- 4961 Jul, [facility] [place] [facility] [address] [id number] [place] [address]- 4338 Jun, [facility] [place] [facility] [address] [id number] [place] [address]- 4214 Jun, [facility] [place] [facility] [address] [id number] [place] [address]- 4012 Jun, [facility] [place] [facility] [address] [id number] [place] [address]- 2546 11 Jun, 2013 [facility] [address] [id number] [place] [address]- 1946 07 Jun, 2013 [facility] [place] [facility] [address] [id number] [place] [address]- 2546 07 Jun, 2013 [facility] [address] [id number] [place] [address]- 3646 Apr, [facility] [address] [id number] [place] [address]- 0236 Apr, [facility] [address] [id number] [place] [address]- 8773 Mar, [facility] [address] [id number] [place] [address]- 6746 Mar, [facility] [address] [id number] [place] [address]- 1531 Mar, [facility] [address] [id number] [place] [address]- 0610 Mar, [facility] [address] [id number] [place] [address]- 5674 Mar, [facility] [address] [id number] [place] [address]- 6843 Mar, [facility] [place] [facility] [address] [id number] [place] [address]- 2736 Mar, [facility] [address] [id number] [place] [address]- 6866 Mar, [facility] [place] [facility] [address] [id number] [place] [address]- 2546 Mar, [facility] [place] [facility] [address] [id number] [place] [address]- 2546 Mar, [facility] [place] [facility] [address] [id number] [place] [address]- 2589 Feb, [facility] [place] [facility] [address] [id number] [place] [address]- 2826 Feb, [facility] [place] [facility] [address] [id number] [place] [address]- 6116 Jan, [facility] [place] [facility] [address] [id number] [place] [address]- 2411 Jan, [facility] [place] [facility] [address] [id number] [place] [address]- 9308 Jan, [facility] [place] [facility] [address] [id number] [place] [address]- 5120 Nov, [facility] [place] [facility] [address] [id number] [place] [address]- 5893 Nov, [facility] [place] [facility] [address] [id number] [place] [address]- 6558 Nov, [facility] [place] [facility] [address] [id number] [place] [address]- 6859 Nov, [facility] [place] [facility] [address] [id number] [place] [address]- 6153 Apr, [facility] [place] [facility] [address] [id number] [place] [address]- 2156 Mar, [facility] [place] [facility] [address] [id number] [place] [address]- 7400 Mar, [facility] [place] [facility] [address] [id number] [address]- 6216 Mar, [facility] [place] [facility] [address] [id number] [place] [address]- 3622 Mar, [facility] [place] [facility] [address] [id number] [place] [address]- 6418 Mar, [facility] [place] [facility] [address] [id number] [place] [address]- 4150 May, [facility] [place] [facility] [address] [facility] [id number], [place] [address]- 3525 Mar, [facility] [address] [id number] [address]- 2854 Mar, [facility] [id number] [address]- 3052 Mar, [facility] [address] 4833 Mar, [facility] [address], [place] [address]- 5893 Mar, [facility] [address] [address]- 3552 Feb, [facility] [address] [address]- 3779 Feb, [facility] [address], [place] [address]- 0617 Jan, IMMUNIZATIONS No Known Immunizations SOCIAL HISTORY Never Assessed REASON FOR VISIT Lab results PLAN OF CARE VITAL SIGNS MEDICATIONS Medication Instructions Dosage Frequency Start Date End Date Duration Status Baby Aspirin 81 MG Orally Once a day 1 tablet 24h Jan, 30 day(s ) Active RESULTS No Results PROCEDURES No Known procedures INSTRUCTIONS MEDICATIONS ADMINISTERED No Known Medications MEDICAL (GENERAL) HISTORY Type Description Date Medical History hypertension Medical History chronic obstructive pulmonary disease (COPD) Medical History depression Medical History anxiety Medical History breast cancer (?) documented halfway use of Tamoxifen in [facility] Medical History past hx of drug & ETOH abuse Surgical History appendectomy Surgical History cholecystectomy Surgical History carpal tunnel release Hospitalization History surgeries
--- OUTSIDE RECORDS SUMMARY | 2018-02-14 08:15 | XMS REPORT ---
Author Author ZORAIDA ACEVEDO Organization [facility] Address [address] [place] [address] Care Team Providers Care Business Performance Advisor Name Role Phone ZORAIDA ACEVEDO Unavailable PROBLEMS Type Condition ICD9-CM Code VUE84-BX Code Onset Dates Condition Status SNOMED Code Problem GERD (gastroesophageal reflux disease) K21.9 Active 217306534 Problem Tremor, unspecified R25.1 Active 28082721 Problem Family history of diabetes mellitus Z83.3 Active 428730713 Problem Anxiety F41.9 Active 55250732 Problem Arthralgia, unspecified joint M25.50 Active 53165524 Problem Back pain M54.9 Active 045628911 Problem Dysthymic disorder F34.1 Active 47166545 Problem Essential hypertension I10 Active 15399900 Problem Coarse tremors G25.2 Active 04538983 Problem Abnormal LFTs R79.89 Active 979174322 Problem Carpal tunnel syndrome 354.0 Active 25818864 Problem Overactive bladder N32.81 Active 062566445 Problem Reactive airway disease J45.909 Active 174333826117 Problem Hyperlipidemia E78.5 Active 81513722 Problem Female stress incontinence N39.3 Active 50660116 Problem Insomnia G47.00 Active 666015781 Problem Peripheral neuropathy G62.9 Active 55336414 Problem Depression F32.9 Active 43193104 ALLERGIES No Known Allergies ENCOUNTERS Encounter Location Date Diagnosis [facility] [address] [id number] [address] Dec, [facility] [address] [id number] [address] Oct, Overactive bladder N32.81 and Reactive airway disease J45.909 [facility] [address] [id number] [address] 11 Jun, 2018 Anxiety F41.9 and Financial problems Z59.8 [place] [id number] [place] [address]19[address]184 Oct, Chest pain, unspecified type R07.9 ; Shortness of breath R06.02 ; Diarrhea, unspecified type R19.7 and Acute non-recurrent maxillary sinusitis J01.00 [place] [address] [address] August, Hyperlipidemia E78.5 ; Essential hypertension I10 ; Tremor, unspecified R25.1 ; Overactive bladder N32.81 and Arthralgia, unspecified joint M25.50 [place] [address] [address]- [address] May, Viral illness B34.9 [place] [address] [address] Apr, Essential hypertension I10 ; Tremor, unspecified R25.1 ; Overactive bladder N32.81 ; Hyperlipidemia E78.5 and Reactive airway disease J45.909 [place] [id number] [place] [address] 25521- 9911 Mar, [place] [address] [address]- [address] Feb, Dysthymic disorder F34.1 [place] [id number] [place] [address] 78747- 9271 Dec, Depression F32.9 ; Abnormal LFTs R79.89 ; Tremor, unspecified R25.1 and Essential hypertension I10 [place] [id number] [place] [address] 07053- 2978 Nov, Abnormal LFTs R79.89 [place] [address] 20013- 6766 Nov, Overactive bladder N32.81 [place] [address] 87240- 3279 Nov, Dysthymic disorder F34.1 [place] [id number] [place] [address] 22433- 1491 Nov, Abnormal LFTs R79.89 ; Overactive bladder N32.81 ; Essential hypertension I10 ; Hyperlipidemia E78.5 ; Elevated LFTs R79.89 ; Arthralgia, unspecified joint M25.50 ; Dysthymic disorder F34.1 and Reactive airway disease J45.909 [place] [address] [address]365- 9543 Jul, [place] [address] 32567- 1607 Jul, Reactive airway disease J45.909 and Depression F32.9 [place] [address] 95354- 8094 Jul, Left arm pain M79.602 and Chest wall pain R07.89 [place] [address] 47289- 8024 Jun, Abnormal LFTs R79.89 [place] [address] 82129- 0870 Jun, Abnormal LFTs R79.89 [place] [id number] [place] [address] 83935- 2633 Jun, Essential hypertension I10 ; Tremor, unspecified R25.1 ; Hyperlipidemia E78.5 ; Reactive airway disease J45.909 ; Arthralgia, unspecified joint M25.50 and Abnormal LFTs R79.89 [place] [id number] [place] [address] 58993- 0801 May, Female stress incontinence N39.3 ; Hyperlipidemia E78.5 ; Peripheral neuropathy G62.9 ; Essential hypertension I10 ; Depression F32.9 and Tremor, unspecified R25.1 [place] [id number] [place] [address] 61651- 4956 May, Tremor, unspecified R25.1 ; Female stress incontinence N39.3 ; Hyperlipidemia E78.5 ; Peripheral neuropathy G62.9 ; Dysthymic disorder F34.1 ; Essential hypertension I10 ; GERD (gastroesophageal reflux disease) K21.9 and Depression F32.9 [facility] [id number] [place] [address] 73435- 9557 Apr, Depression F32.9 [place] [address] 39013- 1063 Mar, Sore throat J02.9 ; Coarse tremors G25.2 and Essential hypertension I10 [place] [address] 47550- 4993 Feb, Essential (primary) hypertension I10 ; Female stress incontinence N39.3 and Reactive airway disease J45.909 [place] [id number] [place] [address] 52022- 1781 Nov, Reactive airway disease J45.909 [place] [id number] [place] [address] 50727- 5492 Nov, Dysuria R30.0 ; Urinary tract infection, site unspecified N39.0 ; Tremor R25.1 ; Female stress incontinence N39.3 ; Reactive airway disease J45.909 ; Essential (primary) hypertension I10 and Carpal tunnel syndrome, unspecified laterality G56.00 [facility] [id number] [place] [address] 20624- 5883 Nov, Female stress incontinence N39.3 [facility] [id number] [place] [address] 76164- 0968 Nov, [facility] [id number] [place] [address] 73810 -3419 Oct, Urinary tract infection, site not specified N39.0 ; Dysuria R30.0 and Hematuria, unspecified R31.9 [facility] [id number] [place] [address] 69577- 2817 Oct, Hypertension I10 ; Hyperlipidemia E78.5 and Headache, unspecified headache type R51 [place] [id number] [place] [address] 68190- 8815 Sep, [place] [address] 25098- 2747 August, Female stress incontinence N39.3 [place] [address] 28654- 2730 August, Headache, unspecified headache type R51 [place] [address] 19263- 2663 August, Hyperglycemia R73.9 ; Overactive bladder N32.81 and Headache , unspecified headache type R51 [place] [address] 09811- 6445 14 Jul, 2015 Dysthymic disorder F34.1 [place] [address] 54903- 7434 13 Jul, 2015 Depression F32.9 [place] [address] 07021- 8375 12 Jul, 2015 Depression F32.9 and Back pain M54.9 [place] [address] 52924- 3135 07 Jul, 2015 Dysthymic disorder F34.1 [place] [address] 16239- 4518 07 Jul, 2015 Depression F32.9 ; Female stress incontinence N39.3 ; Hypertension I10 ; Hyperlipidemia E78.5 ; Tremor, unspecified R25.1 ; Peripheral neuropathy G62.9 ; Reactive airway disease J45.909 ; GERD ( gastroesophageal reflux disease) K21.9 ; Insomnia G47.00 and Family history of diabetes mellitus Z83.3 [place] [id number] [place] [address] 10222- 4949 Apr, [place] [address] 66017- 8436 Feb, [facility] [id number] [place] [address] 85658- 7633 Feb, Essential hypertension I10 ; Encounter for immunization Z23 ; Dysthymia F34.1 ; Tremor, unspecified R25.1 and Carpal tunnel syndrome, unspecified laterality G56.00 [facility] [id number] [place] [address] 79001- 3131 Feb, [facility] [id number] [place] [address] 13448- 1313 Dec, Bronchitis 490 [facility] [address] 278883- 1978 Nov, [facility] [id number] [place] [address] 35243- 4756 Nov, [facility] [id number] [place] [address] 68566- 6182 Oct, Overweight 278.02 [facility] [id number] [place] [address] 15414- 4688 Oct, [facility] [id number] [place] [address] 46462- 8642 Oct, Back pain 724.5 ; Hypertension 401.9 and Nicotine addiction 305.1 [facility] [id number] [place] [address] 19380- 6989 Sep, [facility] [id number] [place] [address] 67145- 3837 August, [facility] [id number] [place] [address] 64703- 0214 August, [facility] [id number] [place] [address] 80344- 4474 August, Nicotine dependence 305.1 ; Back pain 724.5 and Overweight 278.02 [facility] [id number] [place] [address] 05484- 6115 14 Jul, 2014 [facility] [place] [facility] [address] [id number] [place] [address]- 1318 13 Jul, 2014 [facility] [place] [facility] [address] [id number] [place] [address]- 2437 17 Jun, 2014 [facility] [place] [facility] [address] [id number] [place] [address]- 5614 Jun, [facility] [place] [facility] [address] [id number] [place] [address]- 8687 Jun, [facility] [place] [facility] [address] [id number] [place] [address]- 0649 Jun, [facility] [place] [facility] [address] [id number] [place] [address]- 7439 Apr, [facility] [place] [facility] [address] [id number] [place] [address]- 6076 Apr, [facility] [place] [facility] [address] [id number] [place] [address]- 0525 Mar, [facility] [place] [facility] [address] [id number] [place] [address]- 5871 Mar, [facility] [place] [facility] [address] [id number] [place] [address]- 2994 Mar, [facility] [place] [facility] [address] [id number] [place] [address]- 8817 Mar, [facility] [place] [facility] [address] [id number] [address]- 5851 Mar, [facility] [place] [facility] [address] [id number] [place] [address]- 7676 Mar, [facility] [place] [facility] [address] [id number] [place] [address]- 1482 Mar, [facility] [place] [facility] [address] [id number] [place] [address]- 2760 Mar, [facility] [place] [facility] [address] [id number] [place] [address]- 9556 09 Mar, 2014 [facility] [place] [facility] [address] [id number] [place] [address]- 5133 Mar, [facility] [place] [facility] [address] [id number] [place] [address]- 6493 Mar, [facility] [place] [facility] [address] [id number] [place] [address]- 9936 Mar, [facility] [place] [facility] [address] [id number] [place] [address]- 2025 Feb, [facility] [place] [facility] [address] [id number] [place] [address]- 9721 Feb, [facility] [place] [facility] [address] [id number] [place] [address]- 0960 Feb, [facility] [place] [facility] [address] [id number] [place] [address]- 0681 Feb, [facility] [place] [facility] [address] [id number] [place] [address]- 2610 Jan, [facility] [place] [facility] [address] [id number] [place] [address]- 3632 Jan, [facility] [place] [facility] [address] [id number] [place] [address]- 3502 30 Dec, 2013 [facility] [place] [facility] [address] [id number] [place] [address]- 5078 30 Sep, 2013 [facility] [place] [facility] [address] [id number] [place] [address]- 2549 22 Sep, 2013 [facility] [place] [facility] [address] [id number] [place] [address]- 4825 22 Dec, 2013 [facility] [place] [facility] [address] [id number] [place] [address]- 3384 08 Sep, 2013 [facility] [place] [facility] [address] [id number] [place] [address]- 1133 08 Sep, 2013 [facility] [place] [facility] [address] [id number] [place] [address]- 3862 Dec, 2013 [facility] [place] [facility] [address] [id number] [place] [address]- 5045 Dec, [facility] [place] [facility] [address] [id number] [place] [address]- 9218 Dec, [facility] [place] [facility] [address] [id number] [place] [address]- 4088 Dec, [facility] [place] [facility] [address] [id number] [place] [address]- 1463 Nov, [facility] [place] [facility] [address] [id number] [place] [address]- 9830 Nov, [facility] [place] [facility] [address] [id number] [place] [address]- 5914 Nov, [facility] [place] [facility] [address] [id number] [place] [address]- 1037 Nov, [facility] [place] [facility] [address] [id number] [place] [address]- 5943 Nov, [facility] [place] [facility] [address] [id number] [place] [address]- 5681 Nov, [facility] [place] [facility] [address] [id number] [place] [address]- 4552 Nov, [facility] [place] [facility] [address] [id number] [place] [address]- 2461 Nov, [facility] [place] [facility] [address] [id number] [place] [address]- 6188 Nov, [facility] [place] [facility] [address] [id number] [place] [address]- 3344 Nov, [facility] [place] [facility] [address] [id number] [place] [address]- 1530 Nov, [facility] [place] [facility] [address] [id number] [place] [address]- 2546 Nov, [facility] [place] [facility] [address] [id number] [place] [address]- 6476 Oct, [facility] [place] [facility] [address] [id number] [place] [address]- 6236 Oct, [facility] [place] [facility] [address] [id number] [place] [address]- 5086 August, [facility] [place] [facility] [address] [id number] [place] [address]- 3716 August, [facility] [place] [facility] [address] [id number] [place] [address]- 0586 Jul, [facility] [place] [facility] [address] [id number] [place] [address]- 1588 Jul, [facility] [place] [facility] [address] [id number] [place] [address]- 6172 Jun, [facility] [place] [facility] [address] [id number] [place] [address]- 2311 Jun, [facility] [place] [facility] [address] [id number] [place] [address]- 6383 Jun, [facility] [place] [facility] [address] [id number] [place] [address]- 3213 Jun, [facility] [place] [facility] [address] [id number] [place] [address]- 3543 Jun, [facility] [place] [facility] [address] [id number] [place] [address]- 1278 Jun, [facility] [place] [facility] [address] [id number] [place] [address]- 6275 Apr, [facility] [place] [facility] [address] [id number] [place] [address]- 1936 Apr, [facility] [place] [facility] [address] [id number] [place] [address]- 2276 Mar, [facility] [place] [facility] [address] [id number] [place] [address]- 7468 Mar, [facility] [address] [id number] [place] [address]- 2746 Mar, [facility] [address] [id number] [place] [address]- 4796 Mar, [facility] [address] [id number] [place] [address]- 1056 Mar, [facility] [address] [id number] [place] [address]- 7263 Mar, [facility] [address] [id number] [place] [address]- 1978 Mar, [facility] [address] [id number] [place] [address]- 2816 Mar, [facility] [address] [id number] [place] [address]- 4866 Mar, [facility] [address] [id number] [place] [address]- 1149 Mar, [facility] [address] [id number] [place] [address]- 4618 Feb, [facility] [address] [id number] [place] [address]- 0142 Feb, [facility] [address] [id number] [place] [address]- 2306 Jan, [facility] [address] [id number] [place] [address]- 9116 Jan, [facility] [place] [facility] [address] [id number] [place] [address]- 8136 30 Jan, 2013 [facility] [address] [id number] [place] [address]- 2546 Nov, [facility] [address] [id number] [place] [address]- 4023 Nov, [facility] [address] [id number] [place] [address]- 2726 Nov, [facility] [place] [facility] [address] [id number] [place] [address]- 1116 Nov, [facility] [place] [facility] [address] [id number] [place] [address]- 7256 Apr, [facility] [place] [facility] [address] [id number] [place] [address]- 5806 Mar, [facility] [address] [id number] [place] [address]- 9236 Mar, [facility] [place] [facility] [address] [id number] [place] [address]- 1636 Mar, [facility] [place] [facility] [address] [id number] [place] [address]- 7276 Mar, [facility] [place] [facility] [address] [id number] [place] [address]- 0481 Mar, [facility] [place] [facility] [address] [id number] [place] [address]- 0314 May, [facility] [place] [facility] [address] [id number] [place] [address]- 3900 Mar, [facility] [place] [facility] [address] [id number] [place] [address] 2546 Mar, [facility] [place] [facility] [address] [id number] [place] [address]- 2545 Mar, [facility] [place] [facility] [address] [id number] [place] [address]- 7506 Mar, [facility] [place] [facility] [address] [id number] [place] [address]- 3026 Mar, [facility] [place] [facility] [address] [id number] [place] [address]- 3839 Feb, [facility] [place] [facility] [address] [id number] [place] [address]- 4026 Feb, [facility] [address] [facility] [address] [id number] [place] [address]- 0760 Jan, IMMUNIZATIONS No Known Immunizations SOCIAL HISTORY Never Assessed REASON FOR VISIT Depression WB-MA, PT has a sinus infection that has been present the past 2 weeks, PT has shortness of breath and appears lethargic with little energy PLAN OF CARE Activity Details Follow Up 2 - 3 Days Reason:sinusitis Pending Test CMP Pending Test CBC Future/Pending Procedure EKG, TRACING (IN-HOUSE) VITAL SIGNS Height 60 in 2017-10-31 Weight 148 lbs 2017-10-31 Temperature 99.4 degrees Fahrenheit 2017-10-31 Heart Rate 96 bpm 2017-10-31 Respiratory Rate 20 2017-10-31 Oximetry on room air:92 % 2017-10-31 BMI 28.90 kg/m2 2017-10-31 Blood pressure systolic 134 mmHg 2017-10-31 Blood pressure diastolic 88 mmHg 2017-10-31 MEDICATIONS Medication Instructions Dosage Frequency Start Date End Date Duration Status Trintellix 10 MG Orally Once a day 1 tablet 24h Nov, 90 days Active Cyclobenzaprine HCl 5 MG TAKE ONE TABLET BY MOUTH ONCE DAILY NEEDED FOR HEADACHE 20 Active Trazodone HCl 100 MG Orally Once a day 1 tablet at bedtime 24h 30 days Active Zofran 8 MG Orally twice a day as needed 1/2 - 1 tablet May, Active Diovan 80 MG Orally Once a day 1 tablet 24h Jun, 30 days Active Metoprolol Tartrate 50 mg Orally Twice a day 1 tablet (Take with 100mg Tablet ) 12h Nov, 90 days Active Celebrex 200 mg Orally Once a day 1 capsule with food 24h 90 days Active Crestor 10 mg Orally Once a day 1 tablet 24h Jun, 90 days Active Loxapine Succinate 10 MG Orally Twice a day 1 capsule 12h 30 days Active Zyrtec Allergy 10 MG Orally Once a day 1 tablet 24h 30 days Active Breo Ellipta 100-25 MCG/INH Inhalation Once a day 1 puff 24h Jun, Active Myrbetriq 50 mg Orally Once a day 1 tablet 24h August, 90 days Active Neurontin 300 MG Orally Once a day 1 capsule at bedtime 24h August, 30 days Active Levaquin 500 mg Orally Once a day 1 tablet 24h Oct, Oct, 10 day(s) Active Primidone 50 mg Orally Once a day 1 tablet 24h Mar, 90 days Active Combivent Respimat 20-100 MCG/ACT Inhalation Four times a day 1 puff 6h Nov, Active Metoprolol Tartrate 100 MG Orally Twice a day 1 tablet (Take with 50mg Tablet) 12h 90 days Active RESULTS Name Result Date Reference Range Xray : KUB (IN HOUSE) 2017-10-31 Xray : Chest 2 View (IN HOUSE) 2017-10-31 PROCEDURES Procedure Date Ordered Result Body Site ELECTROCARDIOGRAM, TRACING October 31, 2017 X-RAY EXAM CHEST 2 VIEWS October 31, 2017 COMPREHEN METABOLIC PANEL October 31, 2017 X-RAY EXAM ABDOMEN 1 VIEW October 31, 2017 COMPLETE CBC W/AUTO DIFF WBC October 31, 2017 INSTRUCTIONS MEDICATIONS ADMINISTERED No Known Medications MEDICAL (GENERAL) HISTORY Type Description Date Medical History hypertension Medical History chronic obstructive pulmonary disease (COPD) Medical History depression Medical History anxiety Medical 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
--- OUTSIDE RECORDS SUMMARY | 2018-02-14 08:16 | XMS REPORT ---
Author Author ZORAIDA ACEVEDO Organization [facility] Address [address] [place] [address] Care Team Providers Care Bulb Planter Name Role Phone ZORAIDA ACEVEDO Unavailable PROBLEMS Type Condition ICD9-CM Code QYM49-CX Code Onset Dates Condition Status SNOMED Code Problem GERD (gastroesophageal reflux disease) K21.9 Active 274350340 Problem Tremor, unspecified R25.1 Active 41518542 Problem Family history of diabetes mellitus Z83.3 Active 930916232 Problem Anxiety F41.9 Active 07730260 Problem Arthralgia, unspecified joint M25.50 Active 65448507 Problem Back pain M54.9 Active 823150619 Problem Dysthymic disorder F34.1 Active 75182746 Problem Essential hypertension I10 Active 77669431 Problem Coarse tremors G25.2 Active 94092997 Problem Abnormal LFTs R79.89 Active 593818694 Problem Carpal tunnel syndrome 354.0 Active 41872248 Problem Overactive bladder N32.81 Active 188872997 Problem Reactive airway disease J45.909 Active 440009973622 Problem Hyperlipidemia E78.5 Active 28696035 Problem Female stress incontinence N39.3 Active 18663997 Problem Insomnia G47.00 Active 160928848 Problem Peripheral neuropathy G62.9 Active 96420299 Problem Depression F32.9 Active 92060447 ALLERGIES No Known Allergies ENCOUNTERS Encounter Location Date Diagnosis [facility] [address] [id number], [place] [address] Dec, [facility] [address] [id number] [address] Oct, Overactive bladder N32.81 and Reactive airway disease J45.909 [facility] [address] [id number] [address] 11 Jun, 2018 Anxiety F41.9 and Financial problems Z59.8 [place] [place] [id number] [place] [address]160- 1230 Oct, Chest pain, unspecified type R07.9 ; Shortness of breath R06.02 ; Diarrhea, unspecified type R19.7 and Acute non-recurrent maxillary sinusitis J01.00 [place] [address] [address] August, Hyperlipidemia E78.5 ; Essential hypertension I10 ; Tremor, unspecified R25.1 ; Overactive bladder N32.81 and Arthralgia, unspecified joint M25.50 [place] [address] [address]- [address] May, Viral illness B34.9 [place] [address] 63[address]- 4223 Apr, Essential hypertension I10 ; Tremor, unspecified R25.1 ; Overactive bladder N32.81 ; Hyperlipidemia E78.5 and Reactive airway disease J45.909 [place] [id number] [place] [address] 93700- 0848 Mar, [place] [address] 18305- 8671 Feb, Dysthymic disorder F34.1 [place] [id number] [place] [address] 34008- 5315 Dec, Depression F32.9 ; Abnormal LFTs R79.89 ; Tremor, unspecified R25.1 and Essential hypertension I10 [place] [id number] [place] [address] 14651- 6618 Nov, Abnormal LFTs R79.89 [place] [address] 96005- 8384 Nov, Overactive bladder N32.81 [place] [address] 08850- 3193 Nov, Dysthymic disorder F34.1 [place] [id number] [place] [address] 47463- 0538 Nov, Abnormal LFTs R79.89 ; Overactive bladder N32.81 ; Essential hypertension I10 ; Hyperlipidemia E78.5 ; Elevated LFTs R79.89 ; Arthralgia, unspecified joint M25.50 ; Dysthymic disorder F34.1 and Reactive airway disease J45.909 [place] [address] 7[address]38- 1436 Jul, [place] [address] 04209- 4438 Jul, Reactive airway disease J45.909 and Depression F32.9 [place] [address] 39702- 0811 Jul, Left arm pain M79.602 and Chest wall pain R07.89 [place] [address] 42669- 0145 Jun, Abnormal LFTs R79.89 [place] [address] 38759- 0007 Jun, Abnormal LFTs R79.89 [place] [id number] [place] [address] 86669- 9942 Jun, Essential hypertension I10 ; Tremor, unspecified R25.1 ; Hyperlipidemia E78.5 ; Reactive airway disease J45.909 ; Arthralgia, unspecified joint M25.50 and Abnormal LFTs R79.89 [place] [id number] [place] [address] 97458- 4571 May, Female stress incontinence N39.3 ; Hyperlipidemia E78.5 ; Peripheral neuropathy G62.9 ; Essential hypertension I10 ; Depression F32.9 and Tremor, unspecified R25.1 [place] [id number] [place] [address] 25569- 0779 May, Tremor, unspecified R25.1 ; Female stress incontinence N39.3 ; Hyperlipidemia E78.5 ; Peripheral neuropathy G62.9 ; Dysthymic disorder F34.1 ; Essential hypertension I10 ; GERD (gastroesophageal reflux disease) K21.9 and Depression F32.9 [facility] [id number] [place] [address] 46018- 9035 Apr, Depression F32.9 [place] [address] 82218- 9800 Mar, Sore throat J02.9 ; Coarse tremors G25.2 and Essential hypertension I10 [place] [address] 60017- 4156 Feb, Essential (primary) hypertension I10 ; Female stress incontinence N39.3 and Reactive airway disease J45.909 [place] [id number] [place] [address] 83388- 1116 Nov, Reactive airway disease J45.909 [place] [id number] [place] [address] 12643- 2651 Nov, Dysuria R30.0 ; Urinary tract infection, site unspecified N39.0 ; Tremor R25.1 ; Female stress incontinence N39.3 ; Reactive airway disease J45.909 ; Essential (primary) hypertension I10 and Carpal tunnel syndrome, unspecified laterality G56.00 [facility] [id number] [place] [address] 53646- 9909 Nov, Female stress incontinence N39.3 [facility] [id number] [place] [address] 37740- 0558 Nov, [facility] [id number] [place] [address] 0[address]70 -7159 Oct, Urinary tract infection, site not specified N39.0 ; Dysuria R30.0 and Hematuria, unspecified R31.9 [facility] [id number] [place] [address] 37054- 9730 Oct, Hypertension I10 ; Hyperlipidemia E78.5 and Headache, unspecified headache type R51 [place] [id number] [place] [address] 20722- 3340 Sep, [place] [address] 95605- 2129 August, Female stress incontinence N39.3 [place] [address] 16541- 3667 August, Headache, unspecified headache type R51 [place] [address] 36424- 9701 August, Hyperglycemia R73.9 ; Overactive bladder N32.81 and Headache , unspecified headache type R51 [place] [address] 22168- 7378 14 Jul, 2015 Dysthymic disorder F34.1 [place] [address] 80840- 0066 13 Jul, 2015 Depression F32.9 [place] [address] 91491- 5812 12 Jul, 2015 Depression F32.9 and Back pain M54.9 [place] [address] 49312- 8811 07 Jul, 2015 Dysthymic disorder F34.1 [place] [address] 43091- 1936 07 Jul, 2015 Depression F32.9 ; Female stress incontinence N39.3 ; Hypertension I10 ; Hyperlipidemia E78.5 ; Tremor, unspecified R25.1 ; Peripheral neuropathy G62.9 ; Reactive airway disease J45.909 ; GERD ( gastroesophageal reflux disease) K21.9 ; Insomnia G47.00 and Family history of diabetes mellitus Z83.3 [place] [id number] [place] [address] 68337- 4188 Apr, [place] [address] 46223- 1376 Feb, [facility] [id number] [place] [address] 74255- 9738 Feb, Essential hypertension I10 ; Encounter for immunization Z23 ; Dysthymia F34.1 ; Tremor, unspecified R25.1 and Carpal tunnel syndrome, unspecified laterality G56.00 [facility] [id number] [place] [address] 98943- 1029 Feb, [facility] [id number] [place] [address] 56310- 0470 Dec, Bronchitis 490 [facility] [address] 669794- 6622 Nov, [facility] [id number] [place] [address] 15552- 7673 Nov, [facility] [id number] [place] [address] 74335- 2154 Oct, Overweight 278.02 [facility] [id number] [place] [address] 79392- 7942 Oct, [facility] [id number] [place] [address] 83650- 6044 Oct, Back pain 724.5 ; Hypertension 401.9 and Nicotine addiction 305.1 [facility] [id number] [place] [address] 11947- 4110 Sep, [facility] [id number] [place] [address] 18594- 7258 August, [facility] [id number] [place] [address] 54820- 7454 August, [facility] [id number] [place] [address] 63145- 9366 August, Nicotine dependence 305.1 ; Back pain 724.5 and Overweight 278.02 [facility] [id number] [place] [address] 58719- 2927 14 Jul, 2014 [facility] [place] [facility] [address] [id number] [place] [address]- 4015 13 Jul, 2014 [facility] [place] [facility] [address] [id number] [place] [address]- 2411 17 Jun, 2014 [facility] [place] [facility] [address] [id number] [place] [address]- 3484 Jun, [facility] [place] [facility] [address] [id number] [place] [address]- 8699 Jun, [facility] [place] [facility] [address] [id number] [place] [address]- 6782 Jun, [facility] [place] [facility] [address] [id number] [place] [address]- 3391 Apr, [facility] [place] [facility] [address] [id number] [place] [address]- 3907 Apr, [facility] [place] [facility] [address] [id number] [place] [address]- 0638 Mar, [facility] [place] [facility] [address] [id number] [place] [address]- 9528 Mar, [facility] [place] [facility] [address] [id number] [place] [address]- 0394 Mar, [facility] [place] [facility] [address] [id number] [place] [address]- 9288 Mar, [facility] [place] [facility] [address] [id number], [place] [address]- 3308 Mar, [facility] [place] [facility] [address] [id number] [place] [address]- 1587 Mar, [facility] [place] [facility] [address] [id number] [place] [address]- 0012 Mar, [facility] [place] [facility] [address] [id number] [place] [address]- 4783 Mar, [facility] [place] [facility] [address] [id number] [place] [address]- 3682 09 Mar, 2014 [facility] [place] [facility] [address] [id number] [place] [address]- 0186 Mar, [facility] [place] [facility] [address] [id number] [place] [address]- 7529 Mar, [facility] [place] [facility] [address] [id number] [place] [address]- 8882 Mar, [facility] [place] [facility] [address] [id number] [place] [address]- 2895 Feb, [facility] [place] [facility] [address] [id number] [place] [address]- 3003 Feb, [facility] [place] [facility] [address] [id number] [place] [address]- 0622 Feb, [facility] [place] [facility] [address] [id number] [place] [address]- 1542 Feb, [facility] [place] [facility] [address] [id number] [place] [address]- 3461 Jan, [facility] [place] [facility] [address] [id number] [place] [address]- 2204 Jan, [facility] [place] [facility] [address] [facility] [id number] [place] [address]- 9624 30 Dec, 2013 [facility] [place] [facility] [address] [id number] [place] [address]- 9670 30 Sep, 2013 [facility] [place] [facility] [address] [id number] [place] [address]- 2543 22 Sep, 2013 [facility] [place] [facility] [address] [id number] [place] [address]- 4750 22 Dec, 2013 [facility] [place] [facility] [address] [id number] [place] [address]- 1204 08 Sep, 2013 [facility] [place] [facility] [address] [id number] [place] [address]- 5577 08 Sep, 2013 [facility] [place] [facility] [address] [id number] [place] [address]- 4910 Dec, 2013 [facility] [place] [facility] [address] [id number] [place] [address]- 3976 Dec, [facility] [place] [facility] [address] [id number] [place] [address]- 9622 Dec, [facility] [place] [facility] [address] [id number] [place] [address]- 6175 Dec, [facility] [place] [facility] [address] [id number] [place] [address]- 5024 Nov, [facility] [place] [facility] [address] [id number] [place] [address]- 7622 Nov, [facility] [place] [facility] [address] [id number] [place] [address]- 5374 Nov, [facility] [place] [facility] [address] [id number] [place] [address]- 6886 Nov, [facility] [place] [facility] [address] [id number] [place] [address]- 8565 Nov, [facility] [place] [facility] [address] [id number] [place] [address]- 5606 Nov, [facility] [place] [facility] [address] [id number] [place] [address]- 9536 Nov, [facility] [place] [facility] [address] [id number] [place] [address]- 9338 Nov, [facility] [place] [facility] [address] [id number] [place] [address]- 7095 Nov, [facility] [place] [facility] [address] [id number] [place] [address]- 9236 Nov, [facility] [place] [facility] [address] [id number] [place] [address]- 4416 Nov, [facility] [place] [facility] [address] [id number] [place] [address]- 2546 Nov, [facility] [place] [facility] [address] [id number] [place] [address]- 7409 Oct, [facility] [place] [facility] [address] [id number] [place] [address]- 1166 Oct, [facility] [place] [facility] [address] [id number] [place] [address]- 9526 August, [facility] [place] [facility] [address] [id number] [place] [address]- 7216 August, [facility] [place] [facility] [address] [id number] [place] [address]- 7023 Jul, [facility] [place] [facility] [address] [id number] [place] [address]- 1355 Jul, [facility] [place] [facility] [address] [id number] [place] [address]- 7900 Jun, [facility] [place] [facility] [address] [id number] [place] [address]- 7044 Jun, [facility] [place] [facility] [address] [id number] [place] [address]- 8165 Jun, [facility] [place] [facility] [address] [id number] [place] [address]- 1701 Jun, [facility] [place] [facility] [address] [id number] [place] [address]- 9834 Jun, [facility] [place] [facility] [address] [id number] [place] [address]- 0237 Jun, [facility] [place] [facility] [address] [id number] [place] [address]- 9571 Apr, [facility] [place] [facility] [address] [id number] [place] [address]- 8104 Apr, [facility] [place] [facility] [address] [id number] [place] [address]- 2286 Mar, [facility] [place] [facility] [address] [id number] [place] [address]- 7704 Mar, [facility] [address] [id number] [place] [address]- 5376 Mar, [facility] [address] [id number] [place] [address]- 0896 Mar, [facility] [address] [id number] [place] [address]- 5296 Mar, [facility] [address] [id number] [place] [address]- 1000 Mar, [facility] [address] [id number] [place] [address]- 5474 Mar, [facility] [address] [id number] [place] [address]- 1646 Mar, [facility] [address] [id number] [place] [address]- 6436 Mar, [facility] [address] [id number] [place] [address]- 4235 Mar, [facility] [address] [id number] [place] [address]- 2008 Feb, [facility] [address] [id number] [place] [address]- 9553 Feb, [facility] [address] [id number] [place] [address]- 1016 Jan, [facility] [address] [id number] [place] [address]- 3046 Jan, [facility] [place] [facility] [address] [id number] [place] [address]- 4256 30 Jan, 2013 [facility] [address] [id number] [place] [address]- 2546 Nov, [facility] [address] [id number] [place] [address]- 4136 Nov, [facility] [address] [id number] [place] [address]- 2248 Nov, [facility] [place] [facility] [address] [id number] [place] [address]- 0216 Nov, [facility] [place] [facility] [address] [id number] [place] [address]- 5226 Apr, [facility] [place] [facility] [address] [id number] [place] [address]- 4286 Mar, [facility] [address] [id number] [place] [address]- 3286 Mar, [facility] [place] [facility] [address] [id number] [place] [address]- 2606 Mar, [facility] [place] [facility] [address] [id number] [place] [address]- 6856 Mar, [facility] [place] [facility] [address] [id number] [place] [address]- 7467 Mar, [facility] [place] [facility] [address] [id number] [place] [address]- 6221 May, [facility] [place] [facility] [address] [id number] [place] [address]- 5529 Mar, [facility] [place] [facility] [address] [id number] [place] [address] 2546 Mar, [facility] [place] [facility] [address] [id number] [place] [address]- 2547 Mar, [facility] [place] [facility] [address] [id number] [place] [address]- 8636 Mar, [facility] [place] [facility] [address] [id number] [place] [address]- 5796 Mar, [facility] [place] [facility] [address] [id number] [place] [address]- 8665 Feb, [facility] [place] [facility] [address] [id number] [place] [address]- 1586 Feb, [facility] [address] [facility] [id number], [place] [address]- 1621 Jan, IMMUNIZATIONS No Known Immunizations SOCIAL HISTORY Never Assessed REASON FOR VISIT Chest f/u -penelope,MA, head hurts, ears hurt, sore throat PLAN OF CARE Activity Details Follow Up 4 Weeks Reason:hypertension VITAL SIGNS Height 60 in 2017-11-02 Weight 148.5 lbs 2017-11-02 Temperature 98.3 degrees Fahrenheit 2017-11-02 Heart Rate 93 bpm 2017-11-02 Respiratory Rate 20 2017-11-02 BMI 29.00 kg/m2 2017-11-02 Blood pressure systolic 160 mmHg 2017-11-02 Blood pressure diastolic 102 mmHg 2017-11-02 MEDICATIONS Medication Instructions Dosage Frequency Start Date End Date Duration Status Neurontin 300 MG Orally Once a day 1 capsule at bedtime 24h August, 30 days Active Loxapine Succinate 10 MG Orally Twice a day 1 capsule 12h 30 days Active Zofran 8 MG Orally twice a day as needed 1/2 - 1 tablet May, Active Trazodone HCl 100 MG Orally Once a day 1 tablet at bedtime 24h 30 days Active Crestor 10 mg Orally Once a day 1 tablet 24h Jun, 90 days Active Myrbetriq 50 mg Orally Once a day 1 tablet 24h August, 90 days Active Levaquin 500 mg Orally Once a day 1 tablet 24h Oct, Oct, 10 day(s) Active Diovan 80 MG Orally Once a day 1 tablet 24h Jun, 30 days Active Primidone 50 mg Orally Once a day 1 tablet 24h Mar, 90 days Active Zyrtec Allergy 10 MG Orally Once a day 1 tablet 24h 30 days Active Combivent Respimat 20-100 MCG/ACT Inhalation Four times a day 1 puff 6h Nov, Active Metoprolol Tartrate 50 mg Orally Twice a day 1 tablet (Take with 100mg Tablet ) 12h Nov, 90 days Active Trintellix 10 MG Orally Once a day 1 tablet 24h Nov, 90 days Active Cyclobenzaprine HCl 5 MG TAKE ONE TABLET BY MOUTH ONCE DAILY NEEDED FOR HEADACHE 20 Active Celebrex 200 mg Orally Once a day 1 capsule with food 24h 90 days Active Breo Ellipta 100-25 MCG/INH Inhalation Once a day 1 puff 24h 13 Jun, 2016 Active Metoprolol Tartrate 100 MG Orally Twice a day 1 tablet (Take with 50mg Tablet) 12h 90 days Active RESULTS No Results PROCEDURES No Known procedures INSTRUCTIONS MEDICATIONS ADMINISTERED No Known Medications MEDICAL (GENERAL) HISTORY Type Description Date Medical History hypertension Medical History chronic obstructive pulmonary disease (COPD) Medical History depression Medical History anxiety Medical History breast cancer (?) documented fpc use of Tamoxifen in [facility] Medical History past hx of drug & ETOH abuse Surgical History appendectomy Surgical History cholecystectomy Surgical History carpal tunnel release Hospitalization History surgeries
--- OUTSIDE RECORDS SUMMARY | 2018-02-14 08:16 | XMS REPORT ---
Author Author ZORAIDA ACEVEDO Organization [facility] Address [address] [place] [address] Care Team Providers Care Prop Sawyer Name Role Phone ZORAIDA ACEVEOD Unavailable PROBLEMS Type Condition ICD9-CM Code TST96-RC Code Onset Dates Condition Status SNOMED Code Problem GERD (gastroesophageal reflux disease) K21.9 Active 819608018 Problem Tremor, unspecified R25.1 Active 06528911 Problem Family history of diabetes mellitus Z83.3 Active 471013145 Problem Anxiety F41.9 Active 06174194 Problem Arthralgia, unspecified joint M25.50 Active 70627507 Problem Back pain M54.9 Active 353650475 Problem Dysthymic disorder F34.1 Active 56013616 Problem Essential hypertension I10 Active 78269794 Problem Coarse tremors G25.2 Active 56105497 Problem Abnormal LFTs R79.89 Active 313162657 Problem Carpal tunnel syndrome 354.0 Active 49422487 Problem Overactive bladder N32.81 Active 187886304 Problem Reactive airway disease J45.909 Active 850133937043 Problem Hyperlipidemia E78.5 Active 01316130 Problem Female stress incontinence N39.3 Active 57418429 Problem Insomnia G47.00 Active 957299017 Problem Peripheral neuropathy G62.9 Active 80795618 Problem Depression F32.9 Active 81599506 ALLERGIES No Information ENCOUNTERS Encounter Location Date Diagnosis [facility] [id number] [address] Dec, [facility] [id number] [place] [address]254- [address]239 Oct, Overactive bladder N32.81 and Reactive airway disease J45.909 [facility] [address] [id number], [place] [address] Oct, Anxiety F41.9 and Financial problems Z59.8 [place] [id number] [place] [address]2284- 7751 Oct, Chest pain, unspecified type R07.9 ; Shortness of breath R06.02 ; Diarrhea, unspecified type R19.7 and Acute non-recurrent maxillary sinusitis J01.00 [place] [address] [address] August, Hyperlipidemia E78.5 ; Essential hypertension I10 ; Tremor, unspecified R25.1 ; Overactive bladder N32.81 and Arthralgia, unspecified joint M25.50 [place] [address] [address]- [address] May, Viral illness B34.9 [place] [address] [address]- [address] Apr, Essential hypertension I10 ; Tremor, unspecified R25.1 ; Overactive bladder N32.81 ; Hyperlipidemia E78.5 and Reactive airway disease J45.909 [place] [id number] [place] [address] 48657- 7926 Mar, [place] [address] [address]- [address] Feb, Dysthymic disorder F34.1 [place] [id number] [place] [address] 93321- 0363 Dec, Depression F32.9 ; Abnormal LFTs R79.89 ; Tremor, unspecified R25.1 and Essential hypertension I10 [place] [id number] [place] [address] 83468- 8647 Nov, Abnormal LFTs R79.89 [place] [address] [address]- 2274 Nov, Overactive bladder N32.81 [place] [id number] [place] [address] 89993- 5214 Nov, Dysthymic disorder F34.1 [place] [id number] [place] [address] 34310- 0324 Nov, Abnormal LFTs R79.89 ; Overactive bladder N32.81 ; Essential hypertension I10 ; Hyperlipidemia E78.5 ; Elevated LFTs R79.89 ; Arthralgia, unspecified joint M25.50 ; Dysthymic disorder F34.1 and Reactive airway disease J45.909 [place] [address] [address]- [address]93 Jul, [place] [address] 35647- 1230 Jul, Reactive airway disease J45.909 and Depression F32.9 [place] [address] 44159- 0831 Jul, Left arm pain M79.602 and Chest wall pain R07.89 [place] [address] 40702- 3809 Jun, Abnormal LFTs R79.89 [place] [address] 64243- 1155 Jun, Abnormal LFTs R79.89 [place] [id number] [place] [address] 08483- 7143 Jun, Essential hypertension I10 ; Tremor, unspecified R25.1 ; Hyperlipidemia E78.5 ; Reactive airway disease J45.909 ; Arthralgia, unspecified joint M25.50 and Abnormal LFTs R79.89 [place] [id number] [place] [address] 93460- 3834 May, Female stress incontinence N39.3 ; Hyperlipidemia E78.5 ; Peripheral neuropathy G62.9 ; Essential hypertension I10 ; Depression F32.9 and Tremor, unspecified R25.1 [place] [id number] [place] [address] 78663- 6741 13 May, 2016 Tremor, unspecified R25.1 ; Female stress incontinence N39.3 ; Hyperlipidemia E78.5 ; Peripheral neuropathy G62.9 ; Dysthymic disorder F34.1 ; Essential hypertension I10 ; GERD (gastroesophageal reflux disease) K21.9 and Depression F32.9 [facility] [id number] [place] [address] 13938- 8610 Apr, Depression F32.9 [place] [id number] 6[address]- 1855 Mar, Sore throat J02.9 ; Coarse tremors G25.2 and Essential hypertension I10 [place] [address] 71584- 4084 Feb, Essential (primary) hypertension I10 ; Female stress incontinence N39.3 and Reactive airway disease J45.909 [place] [id number] [place] [address] 85404- 2124 Nov, Reactive airway disease J45.909 [place] [address] 72364- 5170 Nov, Dysuria R30.0 ; Urinary tract infection, site unspecified N39.0 ; Tremor R25.1 ; Female stress incontinence N39.3 ; Reactive airway disease J45.909 ; Essential (primary) hypertension I10 and Carpal tunnel syndrome, unspecified laterality G56.00 [facility] [id number] [place] [address] 69227- 7516 Nov, Female stress incontinence N39.3 [facility] [id number] [place] [address] 50953- 7124 Nov, [facility] [id number] [place] [address] 63822 -1359 Oct, Urinary tract infection, site not specified N39.0 ; Dysuria R30.0 and Hematuria, unspecified R31.9 [facility] [id number] [place] [address] 24589- 0577 Oct, Hypertension I10 ; Hyperlipidemia E78.5 and Headache, unspecified headache type R51 [place] [id number] [place] [address] 15507- 2980 Sep, [place] [address] 03393- 3989 August, Female stress incontinence N39.3 [place] [address] 97152- 8306 August, Headache, unspecified headache type R51 [place] [address] 10015- 4907 August, Hyperglycemia R73.9 ; Overactive bladder N32.81 and Headache , unspecified headache type R51 [place] [address] 63710- 7020 14 Jul, 2015 Dysthymic disorder F34.1 [place] [address] 23412- 1668 13 Jul, 2015 Depression F32.9 [place] [address] 36851- 5043 12 Jul, 2015 Depression F32.9 and Back pain M54.9 [place] [id number] [place] [address] 72297- 2604 Jul, Dysthymic disorder F34.1 [place] [address] 20983- 4643 07 Jul, 2015 Depression F32.9 ; Female stress incontinence N39.3 ; Hypertension I10 ; Hyperlipidemia E78.5 ; Tremor, unspecified R25.1 ; Peripheral neuropathy G62.9 ; Reactive airway disease J45.909 ; GERD ( gastroesophageal reflux disease) K21.9 ; Insomnia G47.00 and Family history of diabetes mellitus Z83.3 [place] [id number] [place] [address] 81402- 1072 Apr, [place] [address] 31061- 3758 Feb, [facility] [id number] [place] [address] 12212- 6441 Feb, Essential hypertension I10 ; Encounter for immunization Z23 ; Dysthymia F34.1 ; Tremor, unspecified R25.1 and Carpal tunnel syndrome, unspecified laterality G56.00 [facility] [id number] [place] [address] 05284- 0032 Feb, [facility] [address] 00557- 4384 Dec, Bronchitis 490 [facility] [address] 483889- 7030 Nov, [facility] [id number] [place] [address] 21548- 8024 Nov, [facility] [id number] [place] [address] 94612- 3312 Oct, Overweight 278.02 [facility] [id number] [place] [address] 53119- 9277 Oct, [facility] [id number] [place] [address] 96421- 2584 Oct, Back pain 724.5 ; Hypertension 401.9 and Nicotine addiction 305.1 [facility] [id number] [place] [address] 83454- 7997 Sep, [facility] [id number] [place] [address] 00902- 5738 August, [facility] [id number] [place] [address] 92374- 2169 August, [facility] [id number] [place] [address] 28899- 1474 August, Nicotine dependence 305.1 ; Back pain 724.5 and Overweight 278.02 [facility] [id number] [place] [address] 69017- 9678 14 Jul, 2014 [facility] [place] [facility] [address] [id number] [place] [address]- 6412 13 Jul, 2014 [facility] [place] [facility] [address] [id number] [place] [address]- 3237 17 Jun, 2014 [facility] [place] [facility] [address] [id number] [place] [address]- 8687 17 Jun, 2014 [facility] [place] [facility] [address] [id number] [place] [address]- 6977 Jun, [facility] [place] [facility] [address] [id number] [place] [address]- 9028 Jun, [facility] [place] [facility] [address] [id number] [place] [address]- 3465 Apr, [facility] [place] [facility] [address] [id number] [place] [address]- 5949 Apr, [facility] [place] [facility] [address] [id number] [place] [address]- 5606 Mar, [facility] [place] [facility] [address] [id number] [place] [address]- 5678 Mar, [facility] [place] [facility] [address] [id number] [place] [address]- 9272 Mar, [facility] [place] [facility] [address] [id number] [place] [address]- 1607 Mar, [facility] [place] [facility] [address] [id number], [place] [address]- 0298 Mar, [facility] [place] [facility] [address] [id number] [place] [address] Mar, [facility] [place] [facility] [address] [id number] [place] [address]- 2912 Mar, [facility] [place] [facility] [address] [id number] [place] [address]- 6852 Mar, [facility] [place] [facility] [address] [id number] [place] [address]- 0812 09 Mar, 2014 [facility] [place] [facility] [address] [id number] [place] [address]- 3542 Mar, [facility] [place] [facility] [address] [id number] [place] [address]- 3358 Mar, [facility] [place] [facility] [address] [id number] [place] [address]- 4815 Mar, [facility] [place] [facility] [address] [id number] [place] [address]- 0191 Feb, [facility] [place] [facility] [address] [id number] [place] [address]- 2681 Feb, [facility] [place] [facility] [address] [id number] [place] [address]- 3020 Feb, [facility] [place] [facility] [address] [id number] [place] [address]- 6012 Feb, [facility] [place] [facility] [address] [id number] [place] [address]- 6426 Jan, [facility] [place] [facility] [address] [id number] [place] [address]- 8832 Jan, [facility] [place] [facility] [address] [id number] [place] [address]- 0089 30 Dec, 2013 [facility] [place] [facility] [address] [id number] [place] [address]- 1562 30 Dec, 2013 [facility] [place] [facility] [address] [id number] [place] [address]- 5282 22 Dec, 2013 [facility] [place] [facility] [address] [id number] [place] [address]- 3498 22 Dec, 2013 [facility] [place] [facility] [address] [id number] [place] [address]- 8696 08 Dec, 2013 [facility] [place] [facility] [address] [id number] [place] [address]- 4609 08 Dec, 2013 [facility] [place] [facility] [address] [id number] [place] [address]- 6042 Dec, 2013 [facility] [place] [facility] [address] [id number] [place] [address]- 0045 Dec, [facility] [place] [facility] [address] [id number] [place] [address]- 2695 Dec, [facility] [place] [facility] [address] [id number] [place] [address]- 3484 Dec, [facility] [place] [facility] [address] [id number] [place] [address]- 1183 Nov, [facility] [place] [facility] [address] [id number] [place] [address]- 2898 Nov, [facility] [place] [facility] [address] [id number] [place] [address]- 9305 Nov, [facility] [place] [facility] [address] [id number] [place] [address]- 0336 Nov, [facility] [place] [facility] [address] [id number] [place] [address]- 5730 Nov, [facility] [place] [facility] [address] [id number] [place] [address]- 5890 Nov, [facility] [place] [facility] [address] [id number] [place] [address]- 8263 Nov, [facility] [place] [facility] [address] [id number] [place] [address]- 8634 Nov, [facility] [place] [facility] [address] [id number] [place] [address]- 2353 Nov, [facility] [place] [facility] [address] [id number] [place] [address]- 4165 Nov, [facility] [place] [facility] [address] [id number] [place] [address]- 3709 Nov, [facility] [place] [facility] [address] [id number] [place] [address]- 1196 Nov, [facility] [place] [facility] [address] [id number] [place] [address]- 2883 Oct, [facility] [place] [facility] [address] [id number] [place] [address]- 3416 Oct, [facility] [place] [facility] [address] [id number] [place] [address]- 6086 August, [facility] [place] [facility] [address] [id number] [place] [address]- 4406 August, [facility] [place] [facility] [address] [id number] [place] [address]- 9677 Jul, [facility] [place] [facility] [address] [id number] [place] [address]- 7886 Jul, [facility] [place] [facility] [address] [id number] [place] [address]- 9596 Jun, [facility] [place] [facility] [address] [id number] [place] [address]- 7322 Jun, [facility] [place] [facility] [address] [id number] [place] [address]- 2063 Jun, [facility] [place] [facility] [address] [id number] [place] [address]- 8311 Jun, [facility] [place] [facility] [address] [id number] [place] [address]- 1917 Jun, [facility] [place] [facility] [address] [id number] [place] [address]- 3312 Jun, [facility] [place] [facility] [address] [id number] [place] [address]- 6806 Apr, [facility] [place] [facility] [address] [id number] [place] [address]- 7996 Apr, [facility] [place] [facility] [address] [id number] [place] [address]- 8936 Mar, [facility] [place] [facility] [address] [id number] [place] [address]- 8487 Mar, [facility] [address] [id number] [place] [address]- 5686 Mar, [facility] [address] [id number] [place] [address]- 8066 Mar, [facility] [address] [id number] [place] [address]- 9996 Mar, [facility] [address] [id number] [place] [address]- 9757 Mar, [facility] [address] [id number] [place] [address]- 0537 Mar, [facility] [address] [id number] [place] [address]- 8533 Mar, [facility] [address] [id number] [place] [address]- 6154 Mar, [facility] [address] [id number] [place] [address]- 5187 Mar, [facility] [address] [id number] [place] [address]- 6659 Feb, [facility] [address] [id number] [place] [address]- 1109 Feb, [facility] [address] [id number] [place] [address]- 6176 Jan, [facility] [address] [id number] [place] [address]- 5304 Jan, [facility] [place] [facility] [address] [id number] [place] [address]- 7716 30 Jan, 2013 [facility] [place] [facility] [address] [id number] [place] [address]- 2546 Nov, [facility] [address] [id number] [place] [address]- 7196 Nov, [facility] [address] [id number] [place] [address]- 0156 Nov, [facility] [place] [facility] [address] [id number] [place] [address]- 5226 Nov, [facility] [place] [facility] [address] [id number] [place] [address]- 8626 Apr, [facility] [place] [facility] [address] [id number] [place] [address]- 6166 Mar, [facility] [place] [facility] [address] [id number] [place] [address]- 8246 Mar, [facility] [place] [facility] [address] [id number] [place] [address]- 0586 Mar, [facility] [place] [facility] [address] [id number] [place] [address]- 4906 Mar, [facility] [place] [facility] [address] [id number] [place] [address]- 0716 Mar, [facility] [place] [facility] [address] [id number] [place] [address]- 1884 May, [facility] [place] [facility] [address] [id number] [place] [address]- 6186 Mar, [facility] [place] [facility] [address] [id number] [place] [address] 2546 Mar, [facility] [place] [facility] [address] [id number], [place] [address] 2546 Mar, [facility] [place] [facility] [address] [id number] [place] [address]- 2546 Mar, [facility] [place] [facility] [address] [id number] [place] [address]- 2546 Mar, [facility] [place] [facility] [address] [facility] [id number], [place] [address]- 1556 Feb, [facility] [place] [facility] [address] [id number], [place] [address]- 6126 Feb, [facility] [address] [facility] [id number] [place] [address]- 3932 Jan, IMMUNIZATIONS No Known Immunizations SOCIAL HISTORY Never Assessed REASON FOR VISIT PALS/ Breo & Myrbetric PLAN OF CARE VITAL SIGNS MEDICATIONS Medication Instructions Dosage Frequency Start Date End Date Duration Status Myrbetriq 50 MG Orally Once a day 1 tablet 24h August, 90 days Active Breo Ellipta 100-25 MCG/INH Inhalation Once a day 1 puff 24h Jun, 90 days Active RESULTS No Results PROCEDURES No Known procedures INSTRUCTIONS MEDICATIONS ADMINISTERED No Known Medications MEDICAL (GENERAL) HISTORY Type Description Date Medical History hypertension Medical History chronic obstructive pulmonary disease (COPD) Medical History depression Medical History anxiety Medical History breast cancer (?) documented fci use of Tamoxifen in S Medical History past hx of drug & ETOH abuse Surgical History appendectomy Surgical History cholecystectomy Surgical History carpal tunnel release Hospitalization History surgeries
--- OUTSIDE RECORDS SUMMARY | 2018-02-14 08:17 | XMS REPORT ---
Author Author ZORAIDA ACEVEDO Organization [facility] Address [address] [place] [address] Care Team Providers Care Outside Cutter Name Role Phone ZORAIDA ACEVEDO Unavailable PROBLEMS Type Condition ICD9-CM Code MGW01-HA Code Onset Dates Condition Status SNOMED Code Problem GERD (gastroesophageal reflux disease) K21.9 Active 787144836 Problem Tremor, unspecified R25.1 Active 04939105 Problem Family history of diabetes mellitus Z83.3 Active 784047170 Problem Anxiety F41.9 Active 71308434 Problem Arthralgia, unspecified joint M25.50 Active 24492570 Problem Back pain M54.9 Active 355123408 Problem Dysthymic disorder F34.1 Active 56945380 Problem Essential hypertension I10 Active 87873898 Problem Coarse tremors G25.2 Active 95623426 Problem Abnormal LFTs R79.89 Active 282950784 Problem Carpal tunnel syndrome 354.0 Active 87616693 Problem Overactive bladder N32.81 Active 874254879 Problem Reactive airway disease J45.909 Active 572851906619 Problem Hyperlipidemia E78.5 Active 67227002 Problem Female stress incontinence N39.3 Active 50978014 Problem Insomnia G47.00 Active 852121645 Problem Peripheral neuropathy G62.9 Active 00603892 Problem Depression F32.9 Active 90348018 ALLERGIES No Information ENCOUNTERS Encounter Location Date Diagnosis [facility] [id number] [address] Dec, [facility] [id number] [place] [address]881- 8324 Oct, Overactive bladder N32.81 and Reactive airway disease J45.909 [facility] [id number] [address] Oct, Anxiety F41.9 and Financial problems Z59.8 [place] [id number] [place] [address] 6[address]40- 4966 Oct, Chest pain, unspecified type R07.9 ; Shortness of breath R06.02 ; Diarrhea, unspecified type R19.7 and Acute non-recurrent maxillary sinusitis J01.00 [place] [address] [address] August, Hyperlipidemia E78.5 ; Essential hypertension I10 ; Tremor, unspecified R25.1 ; Overactive bladder N32.81 and Arthralgia, unspecified joint M25.50 [place] [address] [address]- [address] May, Viral illness B34.9 [place] [address] 34455- 4372 Apr, Essential hypertension I10 ; Tremor, unspecified R25.1 ; Overactive bladder N32.81 ; Hyperlipidemia E78.5 and Reactive airway disease J45.909 [place] [id number] [place] [address] 8[address]19- 9818 Mar, [place] [address] 72785- 8995 Feb, Dysthymic disorder F34.1 [place] [id number] [place] [address] 19173- 5519 Dec, Depression F32.9 ; Abnormal LFTs R79.89 ; Tremor, unspecified R25.1 and Essential hypertension I10 [place] [id number] [place] [address] 91639- 3144 Nov, Abnormal LFTs R79.89 [place] [address] 38385- 7372 Nov, Overactive bladder N32.81 [place] [id number] [place] [address] 07542- 4992 Nov, Dysthymic disorder F34.1 [place] [id number] [place] [address] 33296- 8661 Nov, Abnormal LFTs R79.89 ; Overactive bladder N32.81 ; Essential hypertension I10 ; Hyperlipidemia E78.5 ; Elevated LFTs R79.89 ; Arthralgia, unspecified joint M25.50 ; Dysthymic disorder F34.1 and Reactive airway disease J45.909 [place] [address] 70078- 9397 Jul, [place] [address] 95062- 4793 Jul, Reactive airway disease J45.909 and Depression F32.9 [place] [address] 06325- 5605 Jul, Left arm pain M79.602 and Chest wall pain R07.89 [place] [address] 98048- 3346 Jun, Abnormal LFTs R79.89 [place] [address] 07762- 6934 Jun, Abnormal LFTs R79.89 [place] [id number] [place] [address] 71009- 4095 Jun, Essential hypertension I10 ; Tremor, unspecified R25.1 ; Hyperlipidemia E78.5 ; Reactive airway disease J45.909 ; Abnormal LFTs R79.89 and Arthralgia, unspecified joint M25.50 [place] [id number] [place] [address] 91222- 7880 May, Female stress incontinence N39.3 ; Hyperlipidemia E78.5 ; Peripheral neuropathy G62.9 ; Essential hypertension I10 ; Depression F32.9 and Tremor, unspecified R25.1 [place] [id number] [place] [address] 05780- 9006 13 May, 2016 Tremor, unspecified R25.1 ; Female stress incontinence N39.3 ; Hyperlipidemia E78.5 ; Peripheral neuropathy G62.9 ; Dysthymic disorder F34.1 ; Essential hypertension I10 ; GERD (gastroesophageal reflux disease) K21.9 and Depression F32.9 [facility] [id number] [place] [address] 53955- 1496 Apr, Depression F32.9 [place] [address] 16263- 0994 Mar, Sore throat J02.9 ; Coarse tremors G25.2 and Essential hypertension I10 [place] [address] 10307- 6119 Feb, Essential (primary) hypertension I10 ; Female stress incontinence N39.3 and Reactive airway disease J45.909 [place] [id number] [place] [address] 06570- 1199 Nov, Reactive airway disease J45.909 [place] [address] 30707- 1704 Nov, Dysuria R30.0 ; Urinary tract infection, site unspecified N39.0 ; Tremor R25.1 ; Female stress incontinence N39.3 ; Reactive airway disease J45.909 ; Essential (primary) hypertension I10 and Carpal tunnel syndrome, unspecified laterality G56.00 [facility] [id number] [place] [address] 80717- 8539 Nov, Female stress incontinence N39.3 [facility] [id number] [place] [address] 43418- 8469 Nov, [facility] [id number] [place] [address] 40739 -7044 Oct, Urinary tract infection, site not specified N39.0 ; Dysuria R30.0 and Hematuria, unspecified R31.9 [facility] [id number] [place] [address] 71681- 0696 Oct, Hypertension I10 ; Hyperlipidemia E78.5 and Headache, unspecified headache type R51 [place] [id number] [place] [address] 50972- 7552 Sep, [place] [address] 29314- 7608 August, Female stress incontinence N39.3 [place] [address] 02591- 6274 August, Headache, unspecified headache type R51 [place] [address] 47984- 3667 August, Hyperglycemia R73.9 ; Overactive bladder N32.81 and Headache , unspecified headache type R51 [place] [address] 03857- 2575 14 Jul, 2015 Dysthymic disorder F34.1 [place] [address] 01235- 6545 13 Jul, 2015 Depression F32.9 [place] [address] 08784- 6433 12 Jul, 2015 Depression F32.9 and Back pain M54.9 [place] [id number] [place] [address] 73880- 0717 Jul, Dysthymic disorder F34.1 [place] [address] 03007- 8186 07 Jul, 2015 Depression F32.9 ; Female stress incontinence N39.3 ; Hypertension I10 ; Hyperlipidemia E78.5 ; Tremor, unspecified R25.1 ; Peripheral neuropathy G62.9 ; Reactive airway disease J45.909 ; GERD ( gastroesophageal reflux disease) K21.9 ; Insomnia G47.00 and Family history of diabetes mellitus Z83.3 [place] [id number] [place] [address] 34752- 6415 Apr, [place] [address] 02459- 7652 Feb, [facility] [id number] [place] [address] 45977- 5054 Feb, Encounter for immunization Z23 ; Essential hypertension I10 ; Dysthymia F34.1 ; Tremor, unspecified R25.1 and Carpal tunnel syndrome, unspecified laterality G56.00 [facility] [id number] [place] [address] 81936- 9132 Feb, [facility] [id number] [place] [address] 739378- 9790 Dec, Bronchitis 490 [facility] [address] 020829- 2630 Nov, [facility] [id number] [place] [address] 03999- 0573 Nov, [facility] [id number] [place] [address] 14205- 8958 Oct, Overweight 278.02 [facility] [id number] [place] [address] 70817- 4671 Oct, [facility] [id number] [place] [address] 35521- 6198 Oct, Back pain 724.5 ; Hypertension 401.9 and Nicotine addiction 305.1 [facility] [id number] [place] [address] 94405- 5654 Sep, [facility] [id number] [place] [address] 74478- 4041 August, [facility] [id number] [place] [address] 37609- 6148 August, [facility] [id number] [place] [address] 95205- 9791 August, Nicotine dependence 305.1 ; Back pain 724.5 and Overweight 278.02 [facility] [id number] [place] [address] 81612- 0083 14 Jul, 2014 [facility] [place] [facility] [address] [id number] [place] [address]- 8956 13 Jul, 2014 [facility] [place] [facility] [address] [id number] [place] [address]- 0645 17 Jun, 2014 [facility] [place] [facility] [address] [id number] [place] [address]- 9748 17 Jun, 2014 [facility] [place] [facility] [address] [id number] [place] [address]- 7016 Jun, [facility] [place] [facility] [address] [id number] [place] [address]- 6393 Jun, [facility] [place] [facility] [address] [id number] [place] [address]- 3448 Apr, [facility] [place] [facility] [address] [id number] [place] [address]- 0105 Apr, [facility] [place] [facility] [address] [id number] [place] [address]- 6157 Mar, [facility] [place] [facility] [address] [id number] [place] [address]- 3859 Mar, [facility] [place] [facility] [address] [id number] [place] [address]- 8301 Mar, [facility] [place] [facility] [address] [id number] [place] [address]- 5928 Mar, [facility] [place] [facility] [address] [id number] [address]- 4641 Mar, [facility] [place] [facility] [address] [id number] [place] 8417 Mar, [facility] [place] [facility] [address] [id number] [place] [address]- 4797 Mar, [facility] [place] [facility] [address] [id number] [place] [address]- 7267 Mar, [facility] [place] [facility] [address] [id number] [place] [address]- 7347 09 Mar, 2014 [facility] [place] [facility] [address] [id number] [place] [address]- 5332 Mar, [facility] [place] [facility] [address] [id number] [place] [address]- 4648 Mar, [facility] [place] [facility] [address] [id number] [place] [address]- 4134 Mar, [facility] [place] [facility] [address] [id number] [place] [address]- 9797 Feb, [facility] [place] [facility] [address] [id number] [place] [address]- 2162 Feb, [facility] [place] [facility] [address] [id number] [place] [address]- 6647 Feb, [facility] [place] [facility] [address] [id number] [place] [address]- 4587 Feb, [facility] [place] [facility] [address] [id number] [place] [address]- 6991 Jan, [facility] [place] [facility] [address] [id number] [place] [address]- 3539 Jan, [facility] [place] [facility] [address] [id number] [place] [address]- 6795 30 Dec, 2013 [facility] [place] [facility] [address] [id number] [place] [address]- 4890 30 Dec, 2013 [facility] [place] [facility] [address] [id number] [place] [address]- 6563 22 Dec, 2013 [facility] [place] [facility] [address] [id number] [place] [address]- 7178 22 Dec, 2013 [facility] [place] [facility] [address] [id number] [place] [address]- 8823 08 Dec, 2013 [facility] [place] [facility] [address] [id number] [place] [address]- 5445 08 Dec, 2013 [facility] [place] [facility] [address] [id number] [place] [address]- 8530 Dec, 2013 [facility] [place] [facility] [address] [id number] [place] [address]- 6427 Dec, [facility] [place] [facility] [address] [id number] [place] [address]- 7338 Dec, [facility] [place] [facility] [address] [id number] [place] [address]- 7609 Dec, [facility] [place] [facility] [address] [id number] [place] [address]- 4467 Nov, [facility] [place] [facility] [address] [id number] [place] [address]- 9432 Nov, [facility] [place] [facility] [address] [id number] [place] [address]- 9637 Nov, [facility] [place] [facility] [address] [id number] [place] [address]- 0255 Nov, [facility] [place] [facility] [address] [id number] [place] [address]- 2441 Nov, [facility] [place] [facility] [address] [id number] [place] [address]- 3590 Nov, [facility] [place] [facility] [address] [id number] [place] [address]- 0370 Nov, [facility] [place] [facility] [address] [id number] [place] [address]- 0633 Nov, [facility] [place] [facility] [address] [id number] [place] [address]- 8657 Nov, [facility] [place] [facility] [address] [id number] [place] [address]- 5662 Nov, [facility] [place] [facility] [address] [id number] [place] [address]- 7787 Nov, [facility] [place] [facility] [address] [id number] [place] [address]- 0466 Nov, [facility] [place] [facility] [address] [id number] [place] [address]- 7114 Oct, [facility] [place] [facility] [address] [id number] [place] [address]- 2236 Oct, [facility] [place] [facility] [address] [id number] [place] [address]- 7296 August, [facility] [place] [facility] [address] [id number] [place] [address]- 6816 August, [facility] [place] [facility] [address] [id number] [place] [address]- 1699 Jul, [facility] [place] [facility] [address] [id number] [place] [address]- 0686 Jul, [facility] [place] [facility] [address] [id number] [place] [address]- 9386 Jun, [facility] [place] [facility] [address] [id number] [place] [address]- 6110 Jun, [facility] [place] [facility] [address] [id number] [place] [address]- 4862 Jun, [facility] [place] [facility] [address] [id number] [place] [address]- 5934 Jun, [facility] [place] [facility] [address] [id number] [place] [address]- 1122 Jun, [facility] [place] [facility] [address] [id number] [place] [address]- 7924 Jun, [facility] [place] [facility] [address] [id number] [place] [address]- 1366 Apr, [facility] [place] [facility] [address] [id number] [place] [address]- 2366 Apr, [facility] [place] [facility] [address] [id number] [place] [address]- 2766 Mar, [facility] [place] [facility] [address] [id number] [place] [address]- 5622 Mar, [facility] [address] [id number] [place] [address]- 9806 Mar, [facility] [address] [id number] [place] [address]- 2366 Mar, [facility] [address] [id number] [place] [address]- 8996 Mar, [facility] [address] [id number] [place] [address]- 6133 Mar, [facility] [address] [id number] [place] [address]- 2780 Mar, [facility] [address] [id number] [place] [address]- 1993 Mar, [facility] [address] [id number] [place] [address]- 5879 Mar, [facility] [address] [id number] [place] [address]- 9467 Mar, [facility] [address] [id number] [place] [address]- 8699 Feb, [facility] [address] [id number] [place] [address]- 1061 Feb, [facility] [address] [id number] [place] [address]- 4236 Jan, [facility] [address] [id number] [place] [address]- 3134 Jan, [facility] [place] [facility] [address] [id number] [place] [address]- 8696 30 Jan, 2013 [facility] [place] [facility] [address] [id number] [place] [address]- 2546 Nov, [facility] [address] [id number] [place] [address]- 5656 Nov, [facility] [address] [id number] [place] [address]- 5296 Nov, [facility] [place] [facility] [address] [id number] [place] [address]- 4386 Nov, [facility] [place] [facility] [address] [id number] [place] [address]- 6096 Apr, [facility] [place] [facility] [address] [id number] [place] [address]- 6006 Mar, [facility] [place] [facility] [address] [id number] [place] [address]- 7646 Mar, [facility] [place] [facility] [address] [id number] [place] [address]- 2576 Mar, [facility] [place] [facility] [address] [id number] [place] [address]- 4426 Mar, [facility] [place] [facility] [address] [id number] [place] [address]- 3596 Mar, [facility] [place] [facility] [address] [id number] [place] [address]- 4675 May, [facility] [place] [facility] [address] [id number] [place] [address]- 0646 Mar, [facility] [place] [facility] [address] [id number] [place] [address] 2546 Mar, [facility] [place] [facility] [address] [id number] [address] 2546 Mar, [facility] [place] [facility] [address] [id number] [place] [address]- 2546 Mar, [facility] [place] [facility] [address] [id number] [place] [address]- 2546 Mar, [facility] [place] [facility] [address] [facility] [id number] [address]- 7486 Feb, [facility] [place] [facility] [address] [id number] [address]- 2546 Feb, [facility] [address] [facility] [id number] [place] [address]- 2546 Jan, IMMUNIZATIONS No Known Immunizations SOCIAL HISTORY Never Assessed REASON FOR VISIT Repository Medication PLAN OF CARE VITAL SIGNS MEDICATIONS Medication Instructions Dosage Frequency Start Date End Date Duration Status Celebrex 200 mg Orally Once a day 1 capsule with food 24h 90 days Active Myrbetriq 50 mg Orally Once a day 1 tablet 24h August, 90 days Active Diovan 80 MG Orally Once a day 1 tablet 24h Jun, 30 days Active Primidone 50 mg Orally Once a day 1 tablet 24h Mar, 90 days Active Metoprolol Tartrate 50 mg Orally Twice a day 1 tablet (Take with 100mg Tablet ) 12h Nov, 90 days Active Metoprolol Tartrate 100 MG Orally Twice a day 1 tablet (Take with 50mg Tablet) 12h 90 days Active Crestor 10 mg Orally Once a day 1 tablet 24h Jun, 90 days Active RESULTS No Results PROCEDURES No Known procedures INSTRUCTIONS MEDICATIONS ADMINISTERED No Known Medications MEDICAL (GENERAL) HISTORY Type Description Date Medical History hypertension Medical History chronic obstructive pulmonary disease (COPD) Medical History depression Medical History anxiety Medical History breast cancer (?) documented [facility] use of Tam[facility] in [facility] Medical History past hx of drug & ETOH abuse Surgical History appendectomy Surgical History cholecystectomy Surgical History carpal tunnel release Hospitalization History surgeries
--- OUTSIDE RECORDS SUMMARY | 2018-02-14 08:17 | XMS REPORT ---
Author ZORAIDA Pena Organization [employer] Address Unknown Phone Unavailable Care Team Providers Care Profiler Operator Name Role Phone ZORAIDA ACEVEDO CP Unavailable Allergies No Known Allergies Problems Problem Type Condition Code Onset Dates Condition Status Problem Intestinal infection due to other organism, NEC 008.8 Active Problem Special screening examination, human papillomavirus [HPV] V73.81 Active Problem Routine gynecological examination V72.31 Active Problem Counseling on substance use and abuse V65.42 Active Problem Postmenopausal atrophic vaginitis 627.3 Active Problem Hypertension 401.9 Active Problem Special screening for malignant neoplasms, colon V76.51 Active Problem Special screening for osteoporosis V82.81 Active Problem Screening for malignant neoplasm of the cervix V76.2 Active Problem Unspecified breast screening V76.10 Active Problem Urgency of urination 788.63 Active Problem Female stress incontinence 625.6 Active Problem PPV23 (PNEUMOVAX) DX V03.82 Active Problem Need for prophylactic vaccination and inoculation, Influenza V04.81 Active Problem Urinary tract infection, site not specified 599.0 Active Problem Carpal tunnel syndrome 354.0 Active Problem Acute gastritis without mention of hemorrhage 535.00 Active Problem Acute sinusitis, unspecified 461.9 Active Medications No Known Medications Results No Known Results Summary Purpose [employer] Submission
--- OUTSIDE RECORDS SUMMARY | 2018-02-14 08:17 | XMS REPORT ---
Author BENJI [facility] eClinicalWorks Address Unknown Phone Unavailable Care Team Providers Care Tooth Cutter Spur Name Role Phone BENJI LAUREANO CP Unavailable Allergies, Adverse Reactions, Alerts Substance Reaction Event Type N.K.D.A. Info Not Available Non Drug Allergy Problems Problem Type Condition Code Onset Dates Condition Status Problem Reactive airway disease J45.909 Active Problem Tremor, unspecified R25.1 Active Problem Peripheral neuropathy G62.9 Active Problem Dysthymic disorder F34.1 Active Problem Hypertension I10 Active Problem Back pain M54.9 Active Problem Depression F32.9 Active Problem Hyperlipidemia E78.5 Active Problem Female stress incontinence N39.3 Active Problem Family history of diabetes mellitus Z83.3 Active Assessment Urinary tract infection, site not specified N39.0 Active Problem Carpal tunnel syndrome 354.0 Active Assessment Hematuria, unspecified R31.9 Active Problem Insomnia G47.00 Active Assessment Dysuria R30.0 Active Problem GERD (gastroesophageal reflux disease) K21.9 Active Medications Medication Code System Code Instructions Start Date End Date Status Dosage Celebrex [facility] [address]-46 200 MG Orally Once a day August 05, 2015 1 capsule Loxapine Succinate [facility] [address]-00 10 mg Orally (PLEASE VOUCHER) Once a day 1 capsule Fluoxetine HCl [facility] [address]-81 60 mg Orally Once a day July 31, 2015 1 tablet in the morning Lisinopril [facility] [address]-22 10 MG Orally 2 times a day Apr 02, 2014 2 tablets Metoprolol Tartrate [facility] [address]-01 100 MG Orally Twice a day 1 tablet Symbicort [facility] [address]-97 160-4.5 MCG/ACT Inhalation (PLEASE VOUCHER) 2 times a day 2 puffs Lovastatin [facility] [address]-23 40 mg Orally Once a day Apr 02, 2014 1 tablet Zyrtec Allergy [facility] 94097108719 10 mg Orally Once a day 1 tablet as needed for headache Myrbetriq NDC [address]-16 25 MG Orally Once a day 1 tablet Myrbetriq [facility] [address]-22 50 MG Orally Once a day September 23, 2015 1 tablet Proventil HFA [facility] [address]-71 108 (90 Base) MCG/ACT Inhalation every 4 hrs November 21, 2014 2 puffs as needed Bactrim DS [facility] [address]-70 800-160 MG Orally Twice a day November 01, 2015 November 11, 2015 1 tablet Cyclobenzaprine HCl [facility] [address]-35 5 mg Orally as needed for headache September 16, 2015 1 tablet Neurontin [facility] [address]-63 100 MG Orally Once a day September 16, 2015 3 tablets at bedtime Trazodone HCl [facility] [address]-62 100 MG Orally (PLEASE VOUCHER) Once a day September 10, 2014 1 tablet at bedtime Nexium [facility] [address]-06 40 mg Orally (PLEASE VOUCHER) Once a day June 1 capsule Prozac [facility] [address]-03 20 mg Orally Once a day August 06, 2015 3 capsules in the morning Procedures Procedure Coding System Code Date URINALYSIS, AUTO, W/O SCOPE CPT-4 20023 November 01, 2015 URINE CULTURE/COLONY COUNT CPT-4 29130 November 01, 2015 Office Visit, Est Pt., Level 3 CPT-4 89688 November 01, 2015 Vital Signs Date/Time: November 01, 2015 Cardiac Monitoring Heart Rate 68 bpm Weight 163.2 lbs Height 60 in Blood Pressure Diastolic 88 mmHg Blood Pressure Systolic 150 mmHg Results No Known Results Summary Purpose eClinicalWorks Submission
--- OUTSIDE RECORDS SUMMARY | 2018-02-14 08:17 | XMS REPORT ---
Author Author ZORAIDA ACEVEDO [facility] Address [address] [place] [address] Care Team Providers Care Opener Name Role Phone ZORAIDA ACEVEDO Unavailable PROBLEMS Type Condition ICD9-CM Code FKT13-IY Code Onset Dates Condition Status SNOMED Code Problem Depression F32.9 Active 03761592 Problem Family history of diabetes mellitus Z83.3 Active 246927669 Problem GERD (gastroesophageal reflux disease) K21.9 Active 310761461 Problem Arthralgia, unspecified joint M25.50 Active 39784954 Problem Coarse tremors G25.2 Active 94568546 Problem Dysthymic disorder F34.1 Active 79821741 Problem Tremor, unspecified R25.1 Active 28014514 Problem Essential hypertension I10 Active 25950247 Problem Back pain M54.9 Active 046098872 Problem Carpal tunnel syndrome 354.0 Active 13991598 Problem Overactive bladder N32.81 Active 255387636 Problem Female stress incontinence N39.3 Active 96447423 Problem Peripheral neuropathy G62.9 Active 72622118 Problem Abnormal LFTs R79.89 Active 278027157 Problem Hyperlipidemia E78.5 Active 84354174 Problem Reactive airway disease J45.909 Active 811381009967 Problem Insomnia G47.00 Active 501323644 ALLERGIES No Information SOCIAL HISTORY Never Assessed PLAN OF CARE VITAL SIGNS MEDICATIONS Medication Instructions Dosage Frequency Start Date End Date Duration Status Myrbetriq 50 mg Orally Once a day 1 tablet 24h August, 30 days Active Lovastatin 40 mg Orally Once a day 1 tablet 24h Mar, 30 days Active Neurontin 100 mg Orally Once a day 3 tablets at bedtime 24h August, 30 days Active Metoprolol Tartrate 100 mg Orally Twice a day 1 tablet (Take with 50mg Tablet) 12h 30 days Active Primidone 50 mg Orally Once a day 1 1/2 tablet 24h Mar, 30 days Active Fluoxetine HCl 60 mg Orally Once a day 1 tablet 24h 14 May, 2016 30 days Active Lisinopril 10 mg Orally 2 times a day 2 tablets 12h 09 Mar, 2014 30 days Active Celebrex 200 mg Orally Once a day 1 capsule with food 24h 30 days Active Metoprolol Tartrate 50 mg Orally Twice a day 1 tablet (Take with 100mg Tablet ) 12h 24 Nov, 2015 30 days Active RESULTS No Results PROCEDURES No Known procedures IMMUNIZATIONS No Known Immunizations MEDICAL (GENERAL) HISTORY Type Description Date Medical History hypertension Medical History chronic obstructive pulmonary disease (COPD) Medical History depression Medical History anxiety Medical History breast cancer (?) 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
--- OUTSIDE RECORDS SUMMARY | 2018-02-14 08:17 | XMS REPORT ---
Author Author ZORAIDA ACEVEDO Organization eClinicalWorks Address Unknown Phone Unavailable Care Team Providers Care Quality Control Analyst Name Role Phone ZORAIDA ACEVEDO CP Unavailable Allergies No Known Allergies Problems Problem Type Condition ICD-9 Code Onset Dates Condition Status Problem Intestinal [...] Active Problem Female stress incontinence 625.6 Active Assessment Bronchitis 490 Active Problem PPV23 (PNEUMOVAX) DX V03.82 Active Problem Need for prophylactic vaccination and inoculation, Influenza V04.81 Active Problem Urinary tract infection, site not specified 599.0 Active Problem Carpal tunnel syndrome 354.0 Active Problem Acute gastritis without mention of hemorrhage 535.00 Active Problem Acute sinusitis, unspecified 461.9 Active Medications Medication Code System Code Instructions Start Date End Date Status Dosage Zithromax [facility] [address]-93 250 MG Orally Once a day Dec 26, 2014 Dec 31, 2014 2 tablets on the first day, then 1 tablet daily for 4 days Results No Known Results Summary Purpose eClinicalWorks Submission
--- OUTSIDE RECORDS SUMMARY | 2018-02-14 08:18 | XMS REPORT ---
Author ZORAIDA Pena Organization eClinicalWorks Address Unknown Phone Unavailable Care Team Providers Care Chief Pilot Name Role Phone ZORAIDA ACEVEDO CP Unavailable [...] history of diabetes mellitus Z83.3 Active Assessment Reactive airway disease J45.909 Active Problem Overactive bladder N32.81 Active Problem Carpal tunnel syndrome 354.0 Active Assessment Female stress incontinence N39.3 Active Problem Insomnia G47.00 Active Assessment Essential (primary) hypertension I10 Active Problem GERD (gastroesophageal reflux disease) K21.9 Active Medications Medication Code System Code Instructions Start Date End Date Status Dosage Fluoxetine HCl [facility] [address]-89 60 mg Orally Once a day July 31, 2015 1 tablet in the morning Lovastatin [facility] [address]-49 40 mg Orally Once a day Apr 02, 2014 1 tablet Metoprolol Tartrate [facility] [address]-51 100 MG Orally Twice a day (Take with 50mg Tablet) 1 tablet Neurontin [facility] [address]-12 100 MG Orally Once a day September 16, 2015 3 tablets at bedtime Metoprolol Tartrate [facility] [address]-73 50 mg Orally Twice a day (Take with 100mg Tablet) Dec 17, 2015 1 tablet Lisinopril [facility] [address]-58 10 MG Orally 2 times a day Apr 02, 2014 2 tablets Results No Known Results Summary Purpose eClinicalWorks Submission
--- OUTSIDE RECORDS SUMMARY | 2018-02-14 08:18 | XMS REPORT ---
Author Author ZORAIDA ACEVEDO Organization eClinicalWorks Address Unknown Phone Unavailable Care Team Providers Care Tax Accounting Manager Name Role Phone ZORAIDA ACEVEDO CP Unavailable [...] Instructions Start Date End Date Status Dosage Loxapine Succinate [facility] [address]-20 10 MG Orally Once a day PLEASE VOUCHER Mar 11, 2015 1 capsule Results No Known Results Summary Purpose eClinicalWorks Submission
--- OUTSIDE RECORDS SUMMARY | 2018-02-14 08:18 | XMS REPORT ---
Author Author ZORAIDA ACEVEDO Organization [facility] Address [address] [place] [address] Care Team Providers Care Shaper Hand Name Role Phone ZORAIDA ACEVEDO Unavailable PROBLEMS Type Condition ICD9-CM Code QUK84-MT Code Onset Dates Condition Status SNOMED Code Problem Depression F32.9 Active 74162810 Problem Family history of diabetes mellitus Z83.3 Active 323423218 Problem GERD (gastroesophageal reflux disease) K21.9 Active 234763770 Problem Arthralgia, unspecified joint M25.50 Active 27369689 Problem Coarse tremors G25.2 Active 99345007 Problem Dysthymic disorder F34.1 Active 56235001 Problem Tremor, unspecified R25.1 Active 69273546 Problem Essential hypertension I10 Active 50115694 Problem Back pain M54.9 Active 812433022 Problem Carpal tunnel syndrome 354.0 Active 74291931 Problem Overactive bladder N32.81 Active 745598638 Problem Female stress incontinence N39.3 Active 49273536 Problem Peripheral neuropathy G62.9 Active 53030491 Problem Abnormal LFTs R79.89 Active 031336370 Problem Hyperlipidemia E78.5 Active 02673784 Problem Reactive airway disease J45.909 Active 645863707309 Problem Insomnia G47.00 Active [id number] ALLERGIES No Information ENCOUNTERS Encounter Location Date Diagnosis [facility] [id number] [place] [address] 74210- 6178 May, Viral illness B34.9 [place] [address] [place] [address] 03186- 6157 Apr, Essential hypertension I10 ; Tremor, unspecified R25.1 ; Overactive bladder N32.81 ; Hyperlipidemia E78.5 and Reactive airway disease J45.909 [place] [address] [place] [address] 55988- 7244 Mar, [place] [address] [place] [id number] [place] [address] 25838- 3912 Feb, Dysthymic disorder F34.1 [place] [address] [place] [id number] [place] [address] 26122- 1493 Dec, Depression F32.9 ; Abnormal LFTs R79.89 ; Tremor, unspecified R25.1 and Essential hypertension I10 [place] [address] 32379- 8928 Nov, Abnormal LFTs R79.89 [place] [address] 90203- 8875 Nov, Overactive bladder N32.81 [place] [address] [place] [id number] [place] [address] 06289- 8922 Nov, Dysthymic disorder F34.1 [place] [address] [place] [id number] [place] [address] 46580- 7189 Nov, Abnormal LFTs R79.89 ; Overactive bladder N32.81 ; Essential hypertension I10 ; Hyperlipidemia E78.5 ; Elevated LFTs R79.89 ; Arthralgia, unspecified joint M25.50 ; Dysthymic disorder F34.1 and Reactive airway disease J45.909 [place] [address] [place] [address] 79021- 7008 Jul, [place] [address] [place] [id number] [place] [address] 49693- 2593 Jul, Reactive airway disease J45.909 and Depression F32.9 [place] [address] [place] [id number] [place] [address] 75031- 6668 Jul, Left arm pain M79.602 and Chest wall pain R07.89 [place] [address] [place] [address] 50351- 8223 Jun, Abnormal LFTs R79.89 [place] [address] [place] [id number] [place] [address] 22900- 5032 14 Jun, 2016 Abnormal LFTs R79.89 [place] [address] 30013- 2124 13 Jun, 2016 Essential hypertension I10 ; Tremor, unspecified R25.1 ; Hyperlipidemia E78.5 ; Reactive airway disease J45.909 ; Arthralgia, unspecified joint M25.50 and Abnormal LFTs R79.89 [place] [address] 42671- 2973 May, Female stress incontinence N39.3 ; Hyperlipidemia E78.5 ; Peripheral neuropathy G62.9 ; Essential hypertension I10 ; Depression F32.9 and Tremor, unspecified R25.[address] 19426- 5983 May, Tremor, unspecified R25.1 ; Female stress incontinence N39.3 ; Hyperlipidemia E78.5 ; Peripheral neuropathy G62.9 ; Dysthymic disorder F34.1 ; Essential hypertension I10 ; GERD (gastroesophageal reflux disease) K21.9 and Depression F32.[address] 14277- 9706 Apr, Depression F32.9 [place] [address] 19716- 2350 Mar, Sore throat J02.9 ; Coarse tremors G25.2 and Essential hypertension I10 [place] [address] [place] [id number] [place] [address] 42657- 5047 Feb, Essential (primary) hypertension I10 ; Female stress incontinence N39.3 and Reactive airway disease J45.909 [place] [address] 40468- 2919 Nov, Reactive airway disease J45.909 [place] [address] 82049- 9465 Nov, Dysuria R30.0 ; Urinary tract infection, site unspecified N39.0 ; Tremor R25.1 ; Female stress incontinence N39.3 ; Reactive airway disease J45.909 ; Essential (primary) hypertension I10 and Carpal tunnel syndrome, unspecified laterality G56.00 [facility] [address] [place] [id number] [place] [address] 39164- 8727 Nov, Female stress incontinence N39.3 [facility] [address] 90034- 8354 Nov, [facility] [address] 81453 -0447 Oct, Urinary tract infection, site not specified N39.0 ; Dysuria R30.0 and Hematuria, unspecified R31.9 [place] [address] 28127- 7540 Oct, Hypertension I10 ; Hyperlipidemia E78.5 and Headache, unspecified headache type R51 [place] [address] 98612- 3410 Sep, [place] [address] 83327- 6300 August, Female stress incontinence N39.3 [facility] [address] [place] [id number] [place] [address] 11736- 9143 August, Headache, unspecified headache type R51 [place] [address] 19608- 0575 August, Hyperglycemia R73.9 ; Overactive bladder N32.81 and Headache , unspecified headache type R51 [place] [address] 71547- 3678 14 Jul, 2015 Dysthymic disorder F34.1 [place] [address] [place] [id number] [place] [address] 26345- 9938 13 Jul, 2015 Depression F32.9 [place] [address] 72276- 1681 Jul, Depression F32.9 and Back pain M54.9 [place] [address] 41013- 1682 Jul, Dysthymic disorder F34.1 [place] [address] 25526- 1758 Jul, Depression F32.9 ; Female stress incontinence N39.3 ; Hypertension I10 ; Hyperlipidemia E78.5 ; Tremor, unspecified R25.1 ; Peripheral neuropathy G62.9 ; Reactive airway disease J45.909 ; GERD ( gastroesophageal reflux disease) K21.9 ; Insomnia G47.00 and Family history of diabetes mellitus Z83.3 [place] [address] 58942- 7872 Apr, [place] [address] 37797- 0215 Feb, [place] [address] 87870- 2345 Feb, Essential hypertension I10 ; Encounter for immunization Z23 ; Dysthymia F34.1 ; Tremor, unspecified R25.1 and Carpal tunnel syndrome, unspecified laterality G56.00 [place] [address] 52604- 3402 Feb, [place] [address] 78994- 4178 Dec, Bronchitis 490 [place] [address] 17919- 1412 Nov, [place] [address] 85915- 0176 Nov, [place] [address] 81844- 2787 Oct, Overweight 278.02 [place] [address] 05226- 9859 Oct, [facility] [address] [facility] [id number] [address] 3369 Oct, Back pain 724.5 ; Hypertension 401.9 and Nicotine addiction 305.1 [facility] [address] [facility] [id number], [place] [address]- 4897 Sep, [facility] [address] [facility] [id number], [place] [address]- 0534 August, [facility] [address] [facility] [id number], [place] [address]- 6406 August, [facility] [address] [facility] [id number] [place] [address] 71793- 2900 August, Nicotine dependence 305.1 ; Back pain 724.5 and Overweight 278.02 [facility] [address] [address]- 1209 Jul, [facility] [address] [address]- 9322 Jul, [facility] [address] [address]- 9461 Jun, [facility] [address] [address]- 9418 Jun, [facility] [address] [address]- 2511 Jun, [facility] [address] [address]- 5136 Jun, [facility] [address] [place] [id number] [address]- 8215 Apr, [facility] [address] [facility] [id number], [place] [address]- 4056 Apr, [facility] [address] [place] [id number] [address]- 5040 Mar, [facility] [address] [place] [address]- 8384 Mar, [facility] [place] [facility] [address] [id number] [place] [address]- 4499 Mar, [facility] [place] [facility] [address] [id number] [place] [address]- 9055 Mar, [facility] [place] [facility] [address] [id number] [place] 1552 Mar, [facility] [place] [facility] [address] [id number] [place] [address]- 8810 Mar, [facility] [place] [facility] [address] [id number] [place] 5695 Mar, [facility] [place] [facility] [address] [id number] [place] [address]- 4282 Mar, [facility] [place] [facility] [address] [id number] [place] [address]- 9680 Mar, [facility] [place] [facility] [address] [id number] [place] [address]- 7339 Mar, [facility] [place] [facility] [address] [id number] [place] [address]- 5002 Mar, [facility] [place] [facility] [address] [id number] [place] [address]- 3673 Mar, [facility] [place] [facility] [address] [id number] [place] [address]- 7368 Feb, [facility] [place] [facility] [address] [id number], [place] [address]- 1648 Feb, [facility] [place] [facility] [address] [id number] [place] [address]- 0768 Feb, [facility] [place] [facility] [address] [id number] [place] [address]- 9596 Feb, [facility] [place] [facility] [address] [id number], [place] [address]- 7877 Jan, [facility] [place] [facility] [address] [id number] [place] [address]- 0776 07 Jan, 2014 [facility] [place] [facility] [address] [id number] [place] [address]- 2596 30 Dec, 2013 [facility] [place] [facility] [address] [id number] [place] [address] 2546 30 Dec, 2013 [facility] [place] [facility] [address] [id number] [place] [address] 2546 22 Dec, 2013 [facility] [place] [facility] [address] [id number] [place] [address] 2543 22 Dec, 2013 [facility] [place] [facility] [address] [id number] [place] [address]- 2436 08 Dec, 2013 [facility] [place] [facility] [address] [id number] [place] [address]- 7409 08 Dec, 2013 [facility] [place] [facility] [address] [id number] [place] [address]- 6388 04 Dec, 2013 [facility] [place] [facility] [address] [id number] [place] [address]- 0328 04 Dec, 2013 [facility] [place] [facility] [address] [id number] [place] [address]- 4391 02 Dec, 2013 [facility] [place] [facility] [address] [id number] [place] [address]- 3329 Dec, 2013 [facility] [place] [facility] [address] [id number] [place] [address]- 0220 Nov, [facility] [place] [facility] [address] [id number] [place] [address]- 2547 Nov, [facility] [place] [facility] [address] [id number] [place] [address]- 254 Nov, [facility] [place] [facility] [address] [id number] [place] [address]- 2547 Nov, [facility] [place] [facility] [address] [id number] [place] [address]- 2549 Nov, [facility] [place] [facility] [address] [id number] [place] [address]- 8865 Nov, [facility] [place] [facility] [address] [id number] [place] [address]- 4477 Nov, [facility] [place] [facility] [address] [id number] [place] [address]- 0787 Nov, [facility] [place] [facility] [address] [id number] [place] [address]- 6887 Nov, [facility] [place] [facility] [address] [id number] [place] [address]- 3393 Nov, [facility] [place] [facility] [address] [id number] [place] [address]- 5339 Nov, [facility] [place] [facility] [address] [id number] [place] [address]- 1359 Nov, [facility] [place] [facility] [address] [id number] [place] [address]- 7467 Oct, [facility] [place] [facility] [address] [id number] [place] [address]- 2432 Oct, [facility] [place] [facility] [address] [id number] [place] [address]- 7512 August, [facility] [place] [facility] [address] [id number] [place] [address]- 4024 August, [facility] [place] [facility] [address] [id number] [place] [address]- 8951 Jul, [facility] [place] [facility] [address] [id number] [place] [address]- 8242 Jul, [facility] [place] [facility] [address] [id number] [place] [address]- 5473 Jun, [facility] [place] [facility] [address] [id number] [place] [address]- 3760 Jun, [facility] [place] [facility] [address] [id number] [place] [address]- 5207 11 Jun, 2013 [facility] [address] [id number] [place] [address]- 1546 11 Jun, 2013 [facility] [place] [facility] [address] [id number] [place] [address]- 1516 07 Jun, 2013 [facility] [address] [id number] [place] [address]- 2816 07 Jun, 2013 [facility] [place] [facility] [address] [id number] [place] [address]- 2044 20 Apr, 2013 [facility] [address] [id number] [place] [address]- 3408 Apr, [facility] [address] [id number] [place] [address]- 9024 Mar, [facility] [address] [id number] [place] [address]- 9301 Mar, [facility] [address] [id number] [place] [address]- 1850 Mar, [facility] [place] [facility] [address] [id number] [place] [address]- 0988 Mar, [facility] [address] [id number] [place] [address]- 8384 Mar, [facility] [place] [facility] [address] [id number] [place] [address]- 3676 Mar, [facility] [place] [facility] [address] [id number] [place] [address]- 5246 Mar, [facility] [place] [facility] [address] [id number] [place] [address]- 9566 Mar, [facility] [place] [facility] [address] [id number] [place] [address]- 1386 Mar, [facility] [place] [facility] [address] [id number] [place] [address]- 7618 Mar, [facility] [place] [facility] [address] [id number] [place] [address]- 5464 Feb, [facility] [place] [facility] [address] [id number] [place] [address]- 0932 Feb, [facility] [place] [facility] [address] [id number] [place] [address]- 2018 Jan, [facility] [place] [facility] [address] [id number] [place] [address]- 5549 Jan, [facility] [address] [id number] [place] [address]- 9418 Jan, [facility] [place] [facility] [address] [id number] [place] [address]- 5014 Nov, [facility] [address] [id number] [place] [address]- 5174 Nov, [facility] [address] [id number] [place] [address]- 8149 Nov, [facility] [address] [id number] [place] [address]- 2889 Nov, [facility] [address] [id number] [place] [address]- 1623 Apr, [facility] [place] [facility] [address] [id number] [place] [address]- 1690 Mar, [facility] [place] [facility] [address] [id number] [place] [address]- 4076 Mar, [facility] [place] [facility] [address] [id number] [place] [address]- 4633 Mar, [facility] [place] [facility] [address] [id number] [place] [address]- 7396 Mar, [facility] [place] [facility] [address] [id number] [place] [address]- 2546 Mar, [facility] [place] [facility] [address] [id number], [place] [address]- 4256 May, [facility] [address] 3665 Mar, [facility] [address] [facility] [id number], [place] [address]- 5208 Mar, [facility] [address] [place] [id number] 4999 Mar, [facility] [address] [address]- 2418 Mar, [facility] [id number] [address] Mar, [facility] [address], [place] [address]- 4104 Feb, [facility] [address] [address]- 2050 Feb, [facility] [id number] 8178 Jan, IMMUNIZATIONS No Known Immunizations SOCIAL HISTORY Never Assessed REASON FOR VISIT PALS/Trintellix PLAN OF CARE VITAL SIGNS MEDICATIONS Medication Instructions Dosage Frequency Start Date End Date Duration Status Trintellix 10 MG Orally Once a day 1 tablet 24h Nov, 90 days Active RESULTS No Results PROCEDURES No Known procedures INSTRUCTIONS MEDICATIONS ADMINISTERED No Known Medications MEDICAL (GENERAL) HISTORY Type Description Date Medical History hypertension Medical History chronic obstructive pulmonary disease (COPD) Medical History depression Medical History anxiety Medical History breast cancer (?) documented aerospace technician use of Tamoxifen in [facility] Medical History past hx of drug & ETOH abuse Surgical History appendectomy Surgical History cholecystectomy Surgical History carpal tunnel release Hospitalization History surgeries
--- OUTSIDE RECORDS SUMMARY | 2018-02-14 08:18 | XMS REPORT ---
Author Author ZORAIDA ACEVEDO Organization [employer] Address Unknown Phone Unavailable Care Team Providers Care Furniture Lumber Production Worker Name Role Phone ZORAIDA ACEVEDO CP Unavailable [...] Family history of diabetes mellitus Z83.3 Active Problem Overactive bladder N32.81 Active Problem Carpal tunnel syndrome 354.0 Active Problem Insomnia G47.00 Active Assessment Reactive airway disease J45.909 Active Problem GERD (gastroesophageal reflux disease) K21.9 Active Medications Medication Code System Code Instructions Start Date End Date Status Dosage Proventil HFA [facility] [address]-77 108 (90 Base) MCG/ACT Inhalation every 4 hrs November 21, 2014 2 puffs as needed Results No Known Results Summary Purpose [employer] Submission
--- OUTSIDE RECORDS SUMMARY | 2018-02-14 08:18 | XMS REPORT ---
Author ZORAIDA P[facility] [employer] Address Unknown Phone Unavailable Care Team Providers Care Crew Trainer Name Role Phone ZORAIDA ACEVEDO Unavailable Allergies, Adverse Reactions, Alerts Substance Reaction Event Type N.K.D.A. Info Not Available Non Drug Allergy Problems Problem Type Condition Code Onset Dates Condition Status Problem GERD (gastroesophageal reflux disease) K21.9 Active Problem Peripheral neuropathy G62.9 Active Problem Reactive airway disease J45.909 Active Problem Hypertension I10 Active Assessment Insomnia G47.00 Active Problem Female stress incontinence N39.3 Active Assessment Family history of diabetes mellitus Z83.3 Active Problem Dysthymic disorder F34.1 Active Problem Hyperlipidemia E78.5 Active Problem Tremor, unspecified R25.1 Active Problem Family history of diabetes mellitus Z83.3 Active Problem Depression F32.9 Active Assessment Peripheral neuropathy G62.9 Active Assessment Tremor, unspecified R25.1 Active Assessment GERD (gastroesophageal reflux disease) K21.9 Active Assessment Reactive airway disease J45.909 Active Assessment Female stress incontinence N39.3 Active Assessment Depression F32.9 Active Assessment Hyperlipidemia E78.5 Active Problem Carpal tunnel syndrome 354.0 Active Assessment Hypertension I10 Active Problem Insomnia G47.00 Active Medications Medication Code System Code Instructions Start Date End Date Status Dosage Lovastatin [facility] [address]-79 40 mg Orally Once a day Apr 02, 2014 1 tablet Proventil HFA [facility] [address]-87 108 (90 Base) MCG/ACT Inhalation every 4 hrs November 21, 2014 2 puffs as needed Nexium [facility] [address]-69 40 mg Orally (PLEASE VOUCHER) Once a day June 1 capsule Trazodone HCl [facility] [address]-73 100 MG Orally (PLEASE VOUCHER) Once a day September 10, 2014 1 tablet at bedtime Myrbetriq [facility] [address]-46 25 MG Orally (PLEASE VOUCHER) Once a day Dec 31, 2013 August 30, 2015 1 tablet Fluoxetine NDC 0 60 mg by oral route Once a day Apr 05, 2014 1 Capsule Symbicort [facility] [address]-78 160-4.5 MCG/ACT Inhalation (PLEASE VOUCHER) 2 times a day 2 puffs Lisinopril [facility] [address]-83 20 mg Orally 2 times a day Apr 02, 2014 1 tablet Metoprolol Tartrate [facility] [address]-52 100 MG Orally Twice a day 1 tablet Celebrex [facility] [address]-53 200 mg Apr 05, 2014 1 capsule by Oral route 1 time per day Loxapine Succinate [facility] [address]-04 10 mg Orally (PLEASE VOUCHER) Once a day 1 capsule Procedures Procedure Coding System Code Date COMPREHEN METABOLIC PANEL CPT-4 00622 July 31, 2015 GLYCATED HEMOGLOBIN TEST CPT-4 56017 July 31, 2015 LIPID PANEL CPT-4 65356 July 31, 2015 VENIPUNCT, ROUTINE* CPT-4 86967 July 31, 2015 ASSAY OF INSULIN CPT-4 89109 July 31, 2015 Office Visit, Est Pt., Level 3 CPT-4 91829 July 31, 2015 Vital Signs Date/Time: July 31, 2015 Temperature 99.1 F Weight 156.7 lbs Height 60 in BMI 30.60 Index Blood Pressure Diastolic 84 mmHg Blood Pressure Systolic 142 mmHg Cardiac Monitoring Heart Rate 84 bpm Results No Known Results Summary Purpose [employer] Submission
--- OUTSIDE RECORDS SUMMARY | 2018-02-14 08:19 | XMS REPORT ---
Author Author ZORAIDA ACEVEDO Organization [employer] Address Unknown Phone Unavailable Care Team Providers Care Hazardous Substances Scientist Name Role Phone ZORAIDA ACEVEDO CP Unavailable [...] Instructions Start Date End Date Status Dosage Demond [facility] [place] [id number] 15 MG Dec 31, 2013 0.5 tablet by Oral route 1 time per day take at hs Results No Known Results Summary Purpose [employer] Submission
--- OUTSIDE RECORDS SUMMARY | 2018-02-14 08:19 | XMS REPORT ---
Author Author ZORAIDA ACEVEDO Organization [facility] Address [address] [place] [address] Care Team Providers Care Ed Manager Name Role Phone ZORAIDA ACEVEDO Unavailable PROBLEMS Type Condition ICD9-CM Code [id number] Code Onset Dates Condition Status SNOMED Code Problem Depression F32.9 Active 09326236 Problem Family history of diabetes mellitus Z83.3 Active 240326380 Problem GERD (gastroesophageal reflux disease) K21.9 Active 234222745 Problem Arthralgia, unspecified joint M25.50 Active 74107086 Problem Coarse tremors G25.2 Active 96182345 Problem Dysthymic disorder F34.1 Active 60168703 Problem Tremor, unspecified R25.1 Active 05301183 Problem Essential hypertension I10 Active 12257874 Problem Back pain M54.9 Active 563032174 Problem Carpal tunnel syndrome 354.0 Active 72863292 Problem Overactive bladder N32.81 Active 795083432 Problem Female stress incontinence N39.3 Active 46816702 Problem Peripheral neuropathy G62.9 Active 27371713 Problem Abnormal LFTs R79.89 Active 076656450 Problem Hyperlipidemia E78.5 Active 38110891 Problem Reactive airway disease J45.909 Active 462448898927 Problem Insomnia G47.00 Active 974332021 ALLERGIES No Information SOCIAL HISTORY Never Assessed PLAN OF CARE VITAL SIGNS MEDICATIONS No Known Medications RESULTS No Results PROCEDURES No Known procedures IMMUNIZATIONS No Known Immunizations MEDICAL (GENERAL) HISTORY Type Description Date Medical History hypertension Medical History chronic obstructive pulmonary disease (COPD) Medical History depression Medical History anxiety Medical History breast cancer (?) documented terminal [place] use of Tamoxifen in [place] Medical History past hx of drug & ETOH abuse Surgical History appendectomy Surgical History cholecystectomy Surgical History carpal tunnel release Hospitalization History surgeries
--- OUTSIDE RECORDS SUMMARY | 2018-02-14 08:19 | XMS REPORT ---
Author ZORAIDA Pena [facility] eClinicalWorks Address Unknown Phone Unavailable Care Team Providers Care Car Hostler Name Role Phone ZORAIDA ACEVEDO CP Unavailable Allergies, Adverse Reactions, Alerts Substance Reaction Event Type N.K.D.A. Info Not Available Non Drug Allergy Problems Problem Type Condition Code Onset Dates Condition Status Problem Intestinal infection due to other organism, NEC 008.8 Active Problem Special screening examination, human papillomavirus [HPV] V73.81 Active Problem Routine gynecological examination V72.31 Active Problem Counseling on substance use and abuse V65.42 Active Assessment Dysthymia F34.1 Active Problem Postmenopausal atrophic vaginitis 627.3 Active Assessment Tremor, unspecified R25.1 Active Assessment Carpal tunnel syndrome, unspecified laterality G56.00 Active Problem Hypertension 401.9 Active Problem Special screening for malignant neoplasms, colon V76.51 Active Problem Special screening for osteoporosis V82.81 Active Problem Screening for malignant neoplasm of the cervix V76.2 Active Problem Unspecified breast screening V76.10 Active Problem Urgency of urination 788.63 Active Problem Female stress incontinence 625.6 Active Assessment Encounter for immunization Z23 Active Assessment Essential hypertension I10 Active Problem PPV23 (PNEUMOVAX) DX V03.82 Active Problem Need for prophylactic vaccination and inoculation, Influenza V04.81 Active Problem Urinary tract infection, site not specified 599.0 Active Problem Carpal tunnel syndrome 354.0 Active Problem Acute gastritis without mention of hemorrhage 535.00 Active Problem Acute sinusitis, unspecified 461.9 Active Medications Medication Code System Code Instructions Start Date End Date Status Dosage Symbicort [facility] [address]-27 160-4.5 MCG/ACT Inhalation Twice a day [address] [facility] [address]-22 40 mg Once a day Apr 05, 2014 1 capsule by Oral route 1 time per day Proventil HFA [facility] [address]-30 108 (90 Base) MCG/ACT Inhalation every 4 hrs November 21, 2014 2 puffs as needed Myrbetriq [facility] [address]-46 25 MG Dec 31, 2013 1 Tablet 1 time per day Nexium [facility] [address]-21 40 MG Once a day July 09, 2014 take 1 capsule (40 mg) by oral route once daily Trazodone HCl [facility] [address]-26 100 MG Orally Once a day September 10, 2014 1 tablet at bedtime conjugated estrogens NDC 0 0.625 mg/gram Nov 28, 2013 insert 0.5 gram by vaginal route twice weekly Ventolin HFA [facility] [address]-52 108 (90 Base) MCG/ACT Inhalation every 4 hrs 2 puffs as needed Procedures Procedure Coding System Code Date FLUARIX QUAD (3 & UP)-GSK-2014 CPT-4 70471 Mar 11, 2015 PCV CPT-4 36298 Mar 11, 2015 Office Visit, Est Pt., Level 3 CPT-4 96131 Mar 11, 2015 IMMUNIZATION ADMIN, EACH ADD (please include units) CPT-4 92067 Mar 11, 2015 SINGLE IMMUNIZATION ADMIN CPT-4 23454 Mar 11, 2015 Vital Signs Date/Time: Mar 11, 2015 Temperature 98.7 F Weight 160.7 lbs Height 60 in BMI 31.38 Index Blood Pressure Diastolic 80 mmHg Blood Pressure Systolic 122 mmHg Cardiac Monitoring Heart Rate 62 bpm Results No Known Results Immunizations Vaccine Administration Date FLUARIX QUAD (3 & UP)-GSK-2014Mar 11, 2015 PCV 13 Mar 11, 2015 Summary Purpose eClinicalWorks Submission
--- OUTSIDE RECORDS SUMMARY | 2018-02-14 08:19 | XMS REPORT ---
Author Author ZORAIDA ACEVEDO Organization [facility] Address [address] [place] [address] Care Team Providers Care Electromedical Equipment Technician Name Role Phone ZORAIDA ACEVEDO Unavailable PROBLEMS Type Condition ICD9-CM Code [id number] Code Onset Dates Condition Status SNOMED Code Problem Depression F32.9 Active 41002949 Problem Family history of diabetes mellitus Z83.3 Active 828017598 Problem GERD (gastroesophageal reflux disease) K21.9 Active 280449940 Problem Arthralgia, unspecified joint M25.50 Active 42841953 Problem Coarse tremors G25.2 Active 04924376 Problem Dysthymic disorder F34.1 Active 24608347 Problem Tremor, unspecified R25.1 Active 77173139 Problem Essential hypertension I10 Active 93058314 Problem Back pain M54.9 Active 839229410 Problem Carpal tunnel syndrome 354.0 Active 05368606 Problem Overactive bladder N32.81 Active 340677332 Problem Female stress incontinence N39.3 Active 54941684 Problem Peripheral neuropathy G62.9 Active 91292092 Problem Abnormal LFTs R79.89 Active 224759925 Problem Hyperlipidemia E78.5 Active 37053788 Problem Reactive airway disease J45.909 Active 842695362970 Problem Insomnia G47.00 Active 182640867 ALLERGIES Unknown Allergies SOCIAL HISTORY No smoking Hx information available PLAN OF CARE VITAL SIGNS MEDICATIONS Medication Instructions Dosage Frequency Start Date End Date Duration Status Cyclobenzaprine HCl 5 mg Orally Once a day 1 tablet as needed for headache 24h 20 days Active Zyrtec Allergy 10 MG Orally Once a day 1 tablet 24h 30 days Active Prozac 20 MG Orally Once a day 3 capsules in the morning 24h Jul, 90 days Active Metoprolol Tartrate 100 MG Orally Twice a day (Take with 50mg Tablet) 1 tablet 90 days Active Loxapine Succinate 10 MG Orally Twice a day 1 capsule 12h 30 days Active RESULTS No Results PROCEDURES No Known procedures IMMUNIZATIONS No Known Immunizations
--- OUTSIDE RECORDS SUMMARY | 2018-02-14 08:19 | XMS REPORT ---
Author ZORAIDA Pena [facility] eClinicalWorks Address Unknown Phone Unavailable Care Team Providers Care Camp Housekeeper Name Role Phone ZORAIDA ACEVEDO CP Unavailable [...] history of diabetes mellitus Z83.3 Active Assessment Female stress incontinence N39.3 Active Problem Carpal tunnel syndrome 354.0 Active Problem Insomnia G47.00 Active Problem GERD (gastroesophageal reflux disease) K21.9 Active Medications Medication Code System Code Instructions Start Date End Date Status Dosage Proventil HFA [facility] [address]-68 108 (90 Base) MCG/ACT Inhalation every 4 hrs November 21, 2014 2 puffs as needed Nexium [facility] [address]-27 40 mg Orally (PLEASE VOUCHER) Once a day June 1 capsule Zyrtec Allergy [facility] 18739158395 10 mg Orally Once a day 1 tablet as needed for headache Prozac [facility] [address]-05 20 mg Orally Once a day August 06, 2015 3 capsules in the morning Metoprolol Tartrate [facility] [address]-89 100 MG Orally Twice a day 1 tablet Myrbetriq [facility] [address]-19 50 mg Orally Once a day September 23, 2015 1 tablet Neurontin [facility] [address]-28 100 MG Orally Once a day September 16, 2015 3 tablets at bedtime Fluoxetine HCl [facility] [address]-83 60 mg Orally Once a day July 31, 2015 1 tablet in the morning Cyclobenzaprine HCl [facility] [address]-25 5 mg Orally as needed for headache September 16, 2015 1 tablet Lisinopril [facility] [address]-40 10 MG Orally 2 times a day Apr 02, 2014 2 tablets Myrbetriq [facility] 85143448007 25 MG September 19, 2015 TAKE 1 TABLET (25MG) BY MOUTH DAILY Trazodone HCl [facility] [address]-35 100 MG Orally (PLEASE VOUCHER) Once a day September 10, 2014 1 tablet at bedtime Lovastatin [facility] [address]-67 40 mg Orally Once a day Apr 02, 2014 1 tablet Symbicort [facility] [address]-49 160-4.5 MCG/ACT Inhalation (PLEASE VOUCHER) 2 times a day 2 puffs Loxapine Succinate [facility] [address]-55 10 mg Orally (PLEASE VOUCHER) Once a day 1 capsule Celebrex [facility] [address]-61 200 MG Orally Once a day August 05, 2015 1 capsule Results No Known Results Summary Purpose eClinicalWorks Submission
--- OUTSIDE RECORDS SUMMARY | 2018-02-14 08:19 | XMS REPORT ---
Author Author ZORAIDA ACEVEDO [facility] Address [address] [place] [address] Care Team Providers Care Rn Observation Name Role Phone ZORAIDA ACEVEDO Unavailable PROBLEMS Type Condition ICD9-CM Code [id number] Code Onset Dates Condition Status SNOMED Code Problem Depression F32.9 Active 44744365 Problem Family history of diabetes mellitus Z83.3 Active 362811723 Problem GERD (gastroesophageal reflux disease) K21.9 Active 407188344 Problem Arthralgia, unspecified joint M25.50 Active 12687738 Problem Coarse tremors G25.2 Active 22714800 Problem Dysthymic disorder F34.1 Active 32337900 Problem Tremor, unspecified R25.1 Active 27567921 Problem Essential hypertension I10 Active 50423379 Problem Back pain M54.9 Active 512179003 Problem Carpal tunnel syndrome 354.0 Active 34878825 Problem Overactive bladder N32.81 Active 190368594 Problem Female stress incontinence N39.3 Active 19459440 Problem Peripheral neuropathy G62.9 Active 57353819 Problem Abnormal LFTs R79.89 Active 154539932 Problem Hyperlipidemia E78.5 Active 11938989 Problem Reactive airway disease J45.909 Active 022154212011 Problem Insomnia G47.00 Active 550624488 ALLERGIES No Known Allergies SOCIAL HISTORY Never Assessed PLAN OF CARE Activity Details Follow Up prn Reason: VITAL SIGNS Height 60 in 2016-08-02 Weight 160 lbs 2016-08-02 Temperature 98.2 degrees Fahrenheit 2016-08-02 Heart Rate 64 bpm 2016-08-02 Respiratory Rate 20 2016-08-02 Oximetry on room air:92 % 2016-08-02 BMI 31.24 kg/m2 2016-08-02 Blood pressure systolic 170 mmHg 2016-08-02 Blood pressure diastolic 110 mmHg 2016-08-02 MEDICATIONS Medication Instructions Dosage Frequency Start Date End Date Duration Status Celebrex 200 mg Orally Once a day 1 capsule with food 24h 30 days Active Loxapine Succinate 10 MG Orally Twice a day 1 capsule 12h 30 days Active Myrbetriq 50 mg Orally Once a day 1 tablet 24h August, 30 days Active Metoprolol Tartrate 100 mg Orally Twice a day 1 tablet (Take with 50mg Tablet) 12h 30 days Active Trazodone HCl 100 MG Orally Once a day 1 tablet at bedtime 24h 30 days Active Cyclobenzaprine HCl 5 MG Orally Once a day 1 tablet as needed for headache 24h 30 days Active Metoprolol Tartrate 50 mg Orally Twice a day 1 tablet (Take with 100mg Tablet ) 12h 24 Nov, 2015 30 days Active Diovan 80 MG Orally Once a day 1 tablet 24h Jun, 90 days Active Crestor 10 MG Orally Once a day 1 tablet 24h Jun, 90 days Active Breo Ellipta 100-25 MCG/INH Inhalation Once a day 1 puff 24h Jun, Active Fluoxetine HCl 60 mg Orally Once a day 1 tablet 24h 14 May, 2016 30 days Active Primidone 50 MG Orally Once a day 2 tablet 24h Mar, 30 days Active Neurontin 300 MG Orally Once a day 1 capsule at bedtime 24h August, 30 days Active RESULTS Name Result Date Reference Range Xray : Forearm, Left 2 views (IN HOUSE) 2016-08-02 PROCEDURES Procedure Date Ordered Result Body Site MEASURE BLOOD OXYGEN LEVEL August 02, 2016 X-RAY EXAM OF FOREARM August 02, 2016 IMMUNIZATIONS No Known Immunizations MEDICAL (GENERAL) HISTORY Type Description Date Medical History hypertension Medical History chronic obstructive pulmonary disease (COPD) Medical History depression Medical History anxiety Medical History breast cancer (?) documented senior care use of Tamoxifen in [facility] Medical History past hx of drug & ETOH abuse Surgical History appendectomy Surgical History cholecystectomy Surgical History carpal tunnel release Hospitalization History surgeries
--- OUTSIDE RECORDS SUMMARY | 2018-02-14 08:19 | XMS REPORT ---
Author Author ZORAIDA ACEVEDO [facility] Address [address] [place] [address] Care Team Providers Care Web Content Editor Name Role Phone ZORAIDA ACEVEDO Unavailable PROBLEMS Type Condition ICD9-CM Code [id number] Code Onset Dates Condition Status SNOMED Code Problem Hyperlipidemia E78.5 Active 16657394 Problem Family history of diabetes mellitus Z83.3 Active 861303949 Problem Depression F32.9 Active 15906531 Problem Arthralgia, unspecified joint M25.50 Active 78040906 Problem Coarse tremors G25.2 Active 57676550 Problem Dysthymic disorder F34.1 Active 06684458 Problem Female stress incontinence N39.3 Active 88968184 Problem Essential hypertension I10 Active 34996451 Problem Back pain M54.9 Active 586474849 Problem Abnormal LFTs R79.89 Active 298361963 Problem Overactive bladder N32.81 Active 087391412 Problem GERD (gastroesophageal reflux disease) K21.9 Active 206215268 Problem Reactive airway disease J45.909 Active 319099406631 Problem Carpal tunnel syndrome 354.0 Active 01359505 Problem Peripheral neuropathy G62.9 Active 22590355 Problem Insomnia G47.00 Active 732411190 Problem Tremor, unspecified R25.1 Active 37880584 ALLERGIES Substance Reaction Event Type Date Status N.K.D.A. Unknown Non Drug Allergy Mar, Unknown SOCIAL HISTORY No smoking Hx information available PLAN OF CARE Activity Details Follow Up 4 Weeks Reason:tremor VITAL SIGNS Height 60 in 2016-04-22 Weight 160.5 lbs 2016-04-22 Temperature 98.1 degrees Fahrenheit 2016-04-22 Heart Rate 76 bpm 2016-04-22 Respiratory Rate 20 2016-04-22 BMI 31.34 kg/m2 2016-04-22 Blood pressure systolic 156 mmHg 2016-04-22 Blood pressure diastolic 106 mmHg 2016-04-22 MEDICATIONS Medication Instructions Dosage Frequency Start Date End Date Duration Status Myrbetriq 50 mg Orally Once a day 1 tablet 24h August, 90 days Active Fluoxetine HCl 60 mg Orally Once a day 1 tablet in the morning 24h 07 Jul, 2015 90 days Active Flovent HFA 44 MCG/ACT Inhalation Twice a day 2 puffs 12h Nov, Active Zyrtec Allergy 10 mg Orally Once a day 1 tablet as needed for headache 24h 30 Active Celebrex 200 MG TAKE ONE CAPSULE BY MOUTH DAILY 90 Active Cyclobenzaprine HCl 5 MG TAKE ONE TABLET BY MOUTH NEEDED FOR HEADACHE 20 Active Metoprolol Tartrate 50 mg Orally Twice a day (Take with 100mg Tablet) 1 tablet Nov, 90 days Active Trazodone HCl 100 MG TAKE ONE TABLET BY MOUTH AT BEDTIME 30 Active Loxapine Succinate 10 MG TAKE ONE CAPSULE BY MOUTH TWICE DAILY 30 Active Metoprolol Tartrate 100 MG Orally Twice a day (Take with 50mg Tablet) 1 tablet 90 days Active Lovastatin 40 mg Orally Once a day 1 tablet 24h Mar, 90 days Active Proventil HFA 108 (90 Base) MCG/ACT Inhalation every 4 hrs 2 puffs as needed 4h 30 Oct, 2014 90 days Active Prozac 20 mg Orally Once a day 3 capsules in the morning 24h Jul, 90 days Active Lisinopril 10 MG Orally 2 times a day 2 tablets 12h Mar, Active Primidone 50 MG Orally Once a day 1 tablet 24h Mar, 30 days Active Neurontin 100 MG Orally Once a day 3 tablets at bedtime 24h August, 90 days Active RESULTS Name Result Date Reference Range STREP A (IN HOUSE) 2016-04-22 STREP A Negative Control + Lot # [id number] Exp date PROCEDURES Procedure Date Ordered Related Diagnosis Body Site STREP A ASSAY W/OPTIC Apr 22, 2016 Office Visit, Est Pt., Level 3 Apr 22, 2016 IMMUNIZATIONS No Known Immunizations
--- OUTSIDE RECORDS SUMMARY | 2018-02-14 08:20 | XMS REPORT ---
Author Author ZORAIDA ACEVEDO Organization [facility] Address [address] [place] [address] Care Team Providers Care Dairy Scientist Name Role Phone ZORAIDA ACEVEDO Unavailable PROBLEMS Type Condition ICD9-CM Code YKR17-WS Code Onset Dates Condition Status SNOMED Code Problem Depression F32.9 Active 04159790 Problem Family history of diabetes mellitus Z83.3 Active 100002795 Problem GERD (gastroesophageal reflux disease) K21.9 Active 282735467 Problem Arthralgia, unspecified joint M25.50 Active 88668912 Problem Coarse tremors G25.2 Active 84376174 Problem Dysthymic disorder F34.1 Active 28448405 Problem Tremor, unspecified R25.1 Active 93981828 Problem Essential hypertension I10 Active 06504635 Problem Back pain M54.9 Active 819814959 Problem Carpal tunnel syndrome 354.0 Active 05304568 Problem Overactive bladder N32.81 Active 876937219 Problem Female stress incontinence N39.3 Active 38135831 Problem Peripheral neuropathy G62.9 Active 68407599 Problem Abnormal LFTs R79.89 Active 778780289 Problem Hyperlipidemia E78.5 Active 02361891 Problem Reactive airway disease J45.909 Active 997352886272 Problem Insomnia G47.00 Active 831577398 ALLERGIES No Information ENCOUNTERS Encounter Location Date Diagnosis [facility] [address] [id number], [place] [address] Oct, [facility] [id number] [place] [address] August, Hyperlipidemia E78.5 ; Essential hypertension I10 ; Tremor, unspecified R25.1 ; Overactive bladder N32.81 and Arthralgia, unspecified joint M25.50 [facility] [id number] [place] [address]- [address] May, Viral illness B34.9 [facility] [facility] [id number] [place] [address]- 2057 Apr, Essential hypertension I10 ; Tremor, unspecified R25.1 ; Overactive bladder N32.81 ; Hyperlipidemia E78.5 and Reactive airway disease J45.909 [address] [address] [address] Mar, [place] [address] [address]- [address] Feb, Dysthymic disorder F34.1 [place] [address] [address]- [address] Dec, Depression F32.9 ; Abnormal LFTs R79.89 ; Tremor, unspecified R25.1 and Essential hypertension I10 [place] [address] [address]- [address]99 Nov, Abnormal LFTs R79.89 [place] [address] [address]21- 5742 Nov, Overactive bladder N32.81 [place] [address] 29692- 1006 Nov, Dysthymic disorder F34.1 [place] [id number] [place] [address]- 8618 Nov, Abnormal LFTs R79.89 ; Overactive bladder N32.81 ; Essential hypertension I10 ; Hyperlipidemia E78.5 ; Elevated LFTs R79.89 ; Arthralgia, unspecified joint M25.50 ; Dysthymic disorder F34.1 and Reactive airway disease J45.909 [place] [id number] [place] [address]- 4600 Jul, [place] [id number] [place] [address] 93291- 6760 Jul, Reactive airway disease J45.909 and Depression F32.9 [place] [id number] [place] [address] 62162- 1366 Jul, Left arm pain M79.602 and Chest wall pain R07.89 [place] [address] 8[address]- 7527 20 Jun, 2016 Abnormal LFTs R79.89 [place] [address] 28691- 7449 14 Jun, 2016 Abnormal LFTs R79.89 [place] [address] 56693- 7221 13 Jun, 2016 Essential hypertension I10 ; Tremor, unspecified R25.1 ; Hyperlipidemia E78.5 ; Reactive airway disease J45.909 ; Arthralgia, unspecified joint M25.50 and Abnormal LFTs R79.89 [place] [address] 6[address]- 54[address] May, Female stress incontinence N39.3 ; Hyperlipidemia E78.5 ; Peripheral neuropathy G62.9 ; Essential hypertension I10 ; Depression F32.9 and Tremor, unspecified R25.1 [place] [address] 0[address]82- 6341 13 May, 2016 Tremor, unspecified R25.1 ; Female stress incontinence N39.3 ; Hyperlipidemia E78.5 ; Peripheral neuropathy G62.9 ; Dysthymic disorder F34.1 ; Essential hypertension I10 ; GERD (gastroesophageal reflux disease) K21.9 and Depression F32.9 [place] [id number] [place] [address] 31173- 8029 Apr, Depression F32.9 [place] [address] 59031- 8611 Mar, Sore throat J02.9 ; Coarse tremors G25.2 and Essential hypertension I10 [place] [address] 12548- 4975 Feb, Essential (primary) hypertension I10 ; Female stress incontinence N39.3 and Reactive airway disease J45.909 [facility] [id number] [place] [address] 73981- 1663 Nov, Reactive airway disease J45.909 [facility] [id number] [place] [address] 24746- 5912 Nov, Dysuria R30.0 ; Urinary tract infection, site unspecified N39.0 ; Tremor R25.1 ; Female stress incontinence N39.3 ; Reactive airway disease J45.909 ; Essential (primary) hypertension I10 and Carpal tunnel syndrome, unspecified laterality G56.00 [place] [address] 94756- 9533 Nov, Female stress incontinence N39.3 [facility] [address] 26914- 3[address] Nov, [facility] [address] [address] Oct, Urinary tract infection, site not specified N39.0 ; Dysuria R30.0 and Hematuria, unspecified R31.9 [place] [address] 50082- 5316 Oct, Hypertension I10 ; Hyperlipidemia E78.5 and Headache, unspecified headache type R51 [place] [id number] [place] [address] 21428- 1149 Sep, [facility] [address] 79235- 4036 August, Female stress incontinence N39.3 [facility] [id number] [place] [address] 88495- 6271 August, Headache, unspecified headache type R51 [facility] [id number] [place] [address] 59037- 8000 August, Hyperglycemia R73.9 ; Overactive bladder N32.81 and Headache , unspecified headache type R51 [place] [address] 86036- 9087 14 Jul, 2015 Dysthymic disorder F34.1 [place] [address] 22471- 6647 13 Jul, 2015 Depression F32.9 [place] [address] 07290- 1528 Jul, Depression F32.9 and Back pain M54.9 [place] [address] 89404- 4553 Jul, Dysthymic disorder F34.1 [place] [address] 37506- 7833 07 Jul, 2015 Depression F32.9 ; Female stress incontinence N39.3 ; Hypertension I10 ; Hyperlipidemia E78.5 ; Tremor, unspecified R25.1 ; Peripheral neuropathy G62.9 ; Reactive airway disease J45.909 ; GERD ( gastroesophageal reflux disease) K21.9 ; Insomnia G47.00 and Family history of diabetes mellitus Z83.3 [place] [address] 04917- 0594 Apr, [place] [address] 34[address]- 3637 Feb, [place] [address] 32480- 5386 Feb, Essential hypertension I10 ; Encounter for immunization Z23 ; Dysthymia F34.1 ; Tremor, unspecified R25.1 and Carpal tunnel syndrome, unspecified laterality G56.00 [place] [address] 47682- 3408 Feb, [place] [address] 56306- 2075 Dec, Bronchitis 490 [place] [address] 98211- 2523 Nov, [facility] [address] [facility] [id number], [place] [address] Nov, [facility] [address] [facility] [id number], [place] [address]861 Oct, Overweight 278.02 [facility] [address] [facility] [id number], [place] [address] 78[address] Oct, [facility] [address] [facility] [id number], [place] [address] 3618 Oct, Back pain 724.5 ; Hypertension 401.9 and Nicotine addiction 305.1 [facility] [address] [facility] [id number], [place] [address] 118[address] Sep, [facility] [id number], [place] [address] August, [facility] [address], [place] [address] August, [facility] [id number], [place] [address] August, Nicotine dependence 305.1 ; Back pain 724.5 and Overweight 278.02 [facility] [address] [facility] [id number], [place] [address]- 7085 Jul, [facility] [id number], [place] [address]- 2253 Jul, [facility] [address] [facility] [id number], [place] [address]- 5342 Jun, [facility] [address] [facility] [id number], [place] [address]- 0[address] Jun, [facility] [address] [facility] [id number] [address]- 2781 Jun, [facility] [id number], [place] [address]- 5491 Jun, [facility] [address] [facility] [id number] [place] [address]- 7843 Apr, [facility] [address] [id number] [place] [address]- 2425 Apr, [facility] [address] [id number] [place] [address]- 5707 Mar, [facility] [address] [id number] [place] [address]- 2171 Mar, [facility] [address] [id number] [place] [address]- 0719 Mar, [facility] [address] [id number] [place] [address]- 6857 Mar, [facility] [address] [id number] [place] [address] Mar, [facility] [address] [id number] [place] [address]- 2981 Mar, [facility] [address] [id number] [place] [address]- 3762 Mar, [facility] [place] [facility] [address] [id number] [place] [address]- 3496 Mar, [facility] [address] [id number] [place] [address]- 6065 Mar, [facility] [place] [facility] [address] [id number] [place] [address]- 0618 Mar, [facility] [place] [facility] [address] [id number] [place] [address]- 6382 Mar, [facility] [place] [facility] [address] [id number] [place] [address]- 1575 Mar, [facility] [place] [facility] [address] [id number] [place] [address]- 4298 Feb, [facility] [place] [facility] [address] [id number] [place] [address] Feb, [facility] [place] [facility] [address] [id number] [place] [address]- 3993 Feb, [facility] [place] [facility] [address] [id number] [place] [address]- 1054 Feb, [facility] [place] [facility] [address] [id number] [place] [address]- 7029 Jan, [facility] [place] [facility] [address] [id number] [place] [address]- 5846 Jan, [facility] [place] [facility] [address] [id number] [place] [address]- 2749 30 Dec, 2013 [facility] [place] [facility] [address] [id number] [place] [address]- 3516 30 Dec, 2013 [facility] [place] [facility] [address] [id number] [place] [address]- 3427 Dec, [facility] [place] [facility] [address] [id number] [place] [address]- 5966 Dec, [facility] [place] [facility] [address] [id number] [place] [address]- 5494 08 Dec, 2013 [facility] [place] [facility] [address] [id number], [place] [address]- 1296 08 Dec, 2013 [facility] [place] [facility] [address] [id number], [place] [address]- 7111 Dec, [facility] [place] [facility] [address] [id number], [place] [address]- 5056 04 Dec, 2013 [facility] [place] [facility] [address] [id number] [place] [address]- 2538 Dec, [facility] [place] [facility] [address] [id number] [place] [address]- 0068 Dec, [facility] [place] [facility] [address] [id number], [place] [address]- 4772 Nov, [facility] [place] [facility] [address] [id number], [place] [address]- 8868 Nov, [facility] [place] [facility] [address] [id number] [place] [address]- 8810 Nov, [facility] [place] [facility] [address] [id number] [place] [address]- 9275 Nov, [facility] [place] [facility] [address] [id number] [place] [address]- 1515 Nov, [facility] [place] [facility] [address] [id number] [place] [address]- 6409 Nov, [facility] [place] [facility] [address] [id number] [place] [address]- 1443 Nov, [facility] [place] [facility] [address] [id number] [place] [address]- 2754 Nov, [facility] [place] [facility] [address] [id number] [place] [address]- 9642 Nov, [facility] [place] [facility] [address] [id number] [place] [address]- 9019 Nov, [facility] [place] [facility] [address] [id number] [place] [address]- 3003 Nov, [facility] [place] [facility] [address] [id number] [place] [address]- 0796 Nov, [facility] [place] [facility] [address] [id number] [place] [address]- 6318 Oct, [facility] [place] [facility] [address] [id number] [place] [address]- 0088 Oct, [facility] [place] [facility] [address] [id number] [place] [address]- 1202 August, [facility] [place] [facility] [address] [id number] [place] [address]- 3431 August, [facility] [place] [facility] [address] [id number] [place] [address]- 3714 Jul, [facility] [place] [facility] [address] [id number] [place] [address]- 7219 23 Jul, 2013 [facility] [place] [facility] [address] [id number] [place] [address]- 2786 17 Jun, 2013 [facility] [place] [facility] [address] [id number] [place] [address]- 2546 17 Jun, 2013 [facility] [place] [facility] [address] [id number] [place] [address]- 4256 Jun, [facility] [place] [facility] [address] [id number] [place] [address]- 0066 Jun, [facility] [place] [facility] [address] [id number] [place] [address]- 9356 Jun, [facility] [place] [facility] [address] [id number] [place] [address]- 2956 Jun, [facility] [place] [facility] [address] [id number] [place] [address]- 5587 Apr, [facility] [place] [facility] [address] [id number] [place] [address]- 1787 Apr, [facility] [place] [facility] [address] [id number] [place] [address]- 5781 Mar, [facility] [place] [facility] [address] [id number] [place] [address]- 6400 Mar, [facility] [place] [facility] [address] [id number] [place] [address]- 1986 Mar, [facility] [place] [facility] [address] [id number] [place] [address]- 4466 Mar, [facility] [place] [facility] [address] [id number] [place] [address]- 3446 Mar, [facility] [place] [facility] [address] [id number] [place] [address]- 1296 Mar, [facility] [place] [facility] [address] [id number] [place] [address]- 9737 Mar, [facility] [place] [facility] [address] [id number] [place] [address]- 5571 Mar, [facility] [place] [facility] [address] [id number] [place] [address]- 9506 Mar, [facility] [place] [facility] [address] [id number] [place] [address]- 2546 Mar, [facility] [place] [facility] [address] [id number] [place] [address]- 7376 Feb, [facility] [place] [facility] [address] [id number] [place] [address]- 3000 Feb, [facility] [place] [facility] [address] [id number] [place] [address]- 3583 Jan, [facility] [place] [facility] [address] [id number] [place] [address]- 9570 Jan, [facility] [place] [facility] [address] [id number] [place] [address]- 4135 Jan, [facility] [place] [facility] [address] [id number] [place] [address]- 4362 Nov, [facility] [place] [facility] [address] [id number] [place] [address]- 0356 Nov, [facility] [place] [facility] [address] [id number], [place] [address]- 5846 Nov, [facility] [place] [facility] [address] [id number], [place] [address]- 8313 Nov, [facility] [place] [facility] [address] [id number] [place] [address]- 2340 Apr, [facility] [place] [facility] [address] [id number], [place] [address]- 5056 Mar, [facility] [place] [facility] [address] [id number] [place] [address]- 0315 Mar, [facility] [place] [facility] [address] [id number], [place] [address]- 5516 Mar, [facility] [address] [facility] [id number], [place] [address]- 0776 Mar, [facility] [address] [facility] [id number], [place] [address] 2546 Mar, [facility] [address] [facility] [id number], [place] [address] 2546 May, [facility] [address] [facility] [id number], [place] [address] 2546 Mar, [facility] [address], [place] [address] 2546 Mar, [facility] [address], [place] [address] 2546 Mar, [facility] [address], [place] [address] 2546 Mar, [facility] [address], [place] [address] 2547 Mar, [facility] [address], [place] [address] 2546 Feb, [facility] [address], [place] [address] 2546 Feb, [facility] [address] [id number], [place] [address] 2546 Jan, IMMUNIZATIONS No Known Immunizations SOCIAL HISTORY Never Assessed REASON FOR VISIT Repository Medication PLAN OF CARE VITAL SIGNS MEDICATIONS Medication Instructions Dosage Frequency Start Date End Date Duration Status Metoprolol Tartrate 50 MG Orally Twice a day 1 tablet (Take with 100mg Tablet ) 12h 24 Nov, 2015 90 days Active Diovan 80 MG Orally Once a day 1 tablet 24h 13 Jun, 2016 90 days Active Myrbetriq 50 mg Orally Once a day 1 tablet 24h 25 Apr, 2017 8 May, 2017 14 days Active Primidone 50 mg Orally Once a day 1 tablet 24h 29 Mar, 2016 90 days Active Metoprolol Tartrate 100 MG Orally Twice a day 1 tablet (Take with 50mg Tablet) 12h 90 days Active Crestor 10 MG Orally Once a day 1 tablet 24h 13 Jun, 2016 90 days Active Breo Ellipta 100-25 MCG/INH Inhalation Once a day 1 puff 24h Apr, May, 30 days Active RESULTS No Results PROCEDURES No Known procedures INSTRUCTIONS MEDICATIONS ADMINISTERED No Known Medications MEDICAL (GENERAL) HISTORY Type Description Date Medical History hypertension Medical History chronic obstructive pulmonary disease (COPD) Medical History depression Medical History anxiety Medical History breast cancer (?) 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
--- OUTSIDE RECORDS SUMMARY | 2018-02-14 08:20 | XMS REPORT ---
Author Author ZORAIDA ACEVEDO Organization [facility] [place] Address [address] [place] [address] Care Team Providers Care Shell Maker Lockstitch Name Role Phone ZORAIDA ACEVEDO Unavailable PROBLEMS Type Condition ICD9-CM Code [id number] Code Onset Dates Condition Status SNOMED Code Problem Depression F32.9 Active 51953720 Problem Family history of diabetes mellitus Z83.3 Active 069533221 Problem GERD (gastroesophageal reflux disease) K21.9 Active 810978646 Problem Arthralgia, unspecified joint M25.50 Active 67053569 Problem Coarse tremors G25.2 Active 42910989 Problem Dysthymic disorder F34.1 Active 97255986 Problem Tremor, unspecified R25.1 Active 37350814 Problem Essential hypertension I10 Active 65934064 Problem Back pain M54.9 Active 342332984 Problem Carpal tunnel syndrome 354.0 Active 40419169 Problem Overactive bladder N32.81 Active 851270191 Problem Female stress incontinence N39.3 Active 14210746 Problem Peripheral neuropathy G62.9 Active 21315257 Problem Abnormal LFTs R79.89 Active 433048094 Problem Hyperlipidemia E78.5 Active 30902670 Problem Reactive airway disease J45.909 Active 917720540296 Problem Insomnia G47.00 Active 591148414 ALLERGIES No Information SOCIAL HISTORY Never Assessed PLAN OF CARE VITAL SIGNS MEDICATIONS No Known Medications RESULTS No Results PROCEDURES No Known procedures IMMUNIZATIONS No Known Immunizations MEDICAL (GENERAL) HISTORY Type Description Date Medical History hypertension Medical History chronic obstructive pulmonary disease (COPD) Medical History depression Medical History anxiety Medical History 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
--- OUTSIDE RECORDS SUMMARY | 2018-02-14 08:21 | XMS REPORT ---
Author Author ZORAIDA ACEVEDO Organization [facility] Address [address] [place] [address] Care Team Providers Care Music Typographer Name Role Phone ZORAIDA ACEVEDO Unavailable PROBLEMS Type Condition ICD9-CM Code UTL74-LK Code Onset Dates Condition Status SNOMED Code Problem Depression F32.9 Active 17792361 Problem Family history of diabetes mellitus Z83.3 Active 775751119 Problem GERD (gastroesophageal reflux disease) K21.9 Active 414218581 Problem Arthralgia, unspecified joint M25.50 Active 78751560 Problem Coarse tremors G25.2 Active 73763069 Problem Dysthymic disorder F34.1 Active 41785824 Problem Tremor, unspecified R25.1 Active 56390303 Problem Essential hypertension I10 Active 16327395 Problem Back pain M54.9 Active 021355907 Problem Carpal tunnel syndrome 354.0 Active 60623023 Problem Overactive bladder N32.81 Active 721121784 Problem Female stress incontinence N39.3 Active 98458349 Problem Peripheral neuropathy G62.9 Active 57469871 Problem Abnormal LFTs R79.89 Active 579775602 Problem Hyperlipidemia E78.5 Active 30520169 Problem Reactive airway disease J45.909 Active 564162140544 Problem Insomnia G47.00 Active 951541195 ALLERGIES No Information ENCOUNTERS Encounter Location Date Diagnosis [facility] [id number] [address] Oct, [facility] [id number] [place] [address]- [address] May, Viral illness B34.9 [facility] [id number] [address] Apr, Essential hypertension I10 ; Tremor, unspecified R25.1 ; Overactive bladder N32.81 ; Hyperlipidemia E78.5 and Reactive airway disease J45.909 [address] [id number] [place] [address] 98386- 6074 Mar, [facility] [address] [address]18[address]- [address] Feb, Dysthymic disorder F34.1 [place] [address] [address] Dec, Depression F32.9 ; Abnormal LFTs R79.89 ; Tremor, unspecified R25.1 and Essential hypertension I10 [place] [address] [address]- [address] Nov, Abnormal LFTs R79.89 [place] [address] [address]- 3[address] Nov, Overactive bladder N32.81 [facility] [address] [address]- 4632 Nov, Dysthymic disorder F34.1 [facility] [facility] [id number] [place] [address] 0[address]- 4475 Nov, Abnormal LFTs R79.89 ; Overactive bladder N32.81 ; Essential hypertension I10 ; Hyperlipidemia E78.5 ; Elevated LFTs R79.89 ; Arthralgia, unspecified joint M25.50 ; Dysthymic disorder F34.1 and Reactive airway disease J45.909 [place] [id number] [place] [address] 93262- 0629 Jul, [place] [id number] [place] [address] 27435- 0395 Jul, Reactive airway disease J45.909 and Depression F32.9 [facility] [facility] [id number] [place] [address] 14837- 9255 Jul, Left arm pain M79.602 and Chest wall pain R07.89 [place] [address] [address]- [address] 20 Jun, 2016 Abnormal LFTs R79.89 [facility] [facility] [id number] [place] [address] 37432- 3639 14 Jun, 2016 Abnormal LFTs R79.89 [facility] [id number] [place] [address] 68178- 5676 13 Jun, 2016 Essential hypertension I10 ; Tremor, unspecified R25.1 ; Hyperlipidemia E78.5 ; Reactive airway disease J45.909 ; Arthralgia, unspecified joint M25.50 and Abnormal LFTs R79.89 [place] [id number] [place] [address] 41870- 2088 May, Female stress incontinence N39.3 ; Hyperlipidemia E78.5 ; Peripheral neuropathy G62.9 ; Essential hypertension I10 ; Depression F32.9 and Tremor, unspecified R25.1 [place] [address] [address]- [address] May, Tremor, unspecified R25.1 ; Female stress incontinence N39.3 ; Hyperlipidemia E78.5 ; Peripheral neuropathy G62.9 ; Dysthymic disorder F34.1 ; Essential hypertension I10 ; GERD (gastroesophageal reflux disease) K21.9 and Depression F32.9 [place] [id number] [place] [address] 46777- 8395 Apr, Depression F32.9 [place] [address] [address]- 3695 Mar, Sore throat J02.9 ; Coarse tremors G25.2 and Essential hypertension I10 [place] [address] 6[address]- 4684 Feb, Essential (primary) hypertension I10 ; Female stress incontinence N39.3 and Reactive airway disease J45.909 [place] [id number] [place] [address] 67663- 5964 Nov, Reactive airway disease J45.909 [place] [id number] [place] [address] 90440- 0869 Nov, Dysuria R30.0 ; Urinary tract infection, site unspecified N39.0 ; Tremor R25.1 ; Female stress incontinence N39.3 ; Reactive airway disease J45.909 ; Essential (primary) hypertension I10 and Carpal tunnel syndrome, unspecified laterality G56.00 [facility] [address] [address]- 5273 Nov, Female stress incontinence N39.3 [place] [id number] [place] [address] 35885- 0510 Nov, [facility] [address] [address] -[address] Oct, Urinary tract infection, site not specified N39.0 ; Dysuria R30.0 and Hematuria, unspecified R31.9 [place] [address] 78803- 5741 Oct, Hypertension I10 ; Hyperlipidemia E78.5 and Headache, unspecified headache type R51 [place] [address] 31[address]- 1602 Sep, [place] [id number] [place] [address] 53303- 5369 August, Female stress incontinence N39.3 [place] [id number] [place] [address] 97592- 6577 August, Headache, unspecified headache type R51 [place] [address] [address]- 9181 August, Hyperglycemia R73.9 ; Overactive bladder N32.81 and Headache , unspecified headache type R51 [place] [id number] [place] [address] 42942- 6397 Jul, Dysthymic disorder F34.1 [place] [address] 34091- 8342 Jul, Depression F32.9 [facility] [id number] [place] [address] 15310- 9624 Jul, Depression F32.9 and Back pain M54.9 [place] [id number] [place] [address] 18292- 2731 Jul, Dysthymic disorder F34.1 [place] [address] 538[address]- 2776 Jul, Depression F32.9 ; Female stress incontinence N39.3 ; Hypertension I10 ; Hyperlipidemia E78.5 ; Tremor, unspecified R25.1 ; Peripheral neuropathy G62.9 ; Reactive airway disease J45.909 ; GERD ( gastroesophageal reflux disease) K21.9 ; Insomnia G47.00 and Family history of diabetes mellitus Z83.3 [place] [address] 8[address]- 9588 Apr, [place] [address] 10721- 9713 Feb, [place] [address] 09835- 9751 Feb, Essential hypertension I10 ; Encounter for immunization Z23 ; Dysthymia F34.1 ; Tremor, unspecified R25.1 and Carpal tunnel syndrome, unspecified laterality G56.00 [place] [id number] [place] [address] 05563- 3732 Feb, [place] [id number] [place] [address] 08687- 9501 Dec, Bronchitis 490 [place] [address] 10959- 1109 Nov, [place] [id number] [place] [address] 51904- 1357 Nov, [place] [id number] [place] [address] 30545- 0972 Oct, Overweight 278.02 [facility] [address] [facility] [id number] [address] Oct, [facility] [address] [facility] [id number], [place] [address]- 6[address] Oct, Back pain 724.5 ; Hypertension 401.9 and Nicotine addiction 305.1 [facility] [address] [facility] [id number] [address] Sep, [facility] [address] [facility] [id number], [place] [address] 5[address] August, [facility] [address] [facility] [id number] [address]- 49[address] August, [facility] [id number] [address] August, Nicotine dependence 305.1 ; Back pain 724.5 and Overweight 278.02 [facility] [id number] [address]- 3973 Jul, [facility] [id number] [address]- 4624 Jul, [facility] [id number] [address]- 4263 Jun, [facility] [id number] [address]- 7464 Jun, [facility] [id number] [address]- 3648 Jun, [facility] [id number] [address]- 6480 Jun, [facility] [address] [facility] [id number] [address] Apr, [facility] [id number] [address]- 6954 Apr, [facility] [address] [address] Mar, [facility] [place] [facility] [address] [id number] [place] [address]- 4631 Mar, [facility] [place] [facility] [address] [id number] [place] [address]- 2650 Mar, [facility] [place] [facility] [address] [id number] [place] [address]- 6331 Mar, [facility] [place] [facility] [address] [id number] [place] [address]- 2845 Mar, [facility] [place] [facility] [address] [id number] [place] [address]- 3100 Mar, [facility] [place] [facility] [address] [id number] [place] [address]- 6742 Mar, [facility] [place] [facility] [address] [id number] [place] [address]- 5214 Mar, [facility] [place] [facility] [address] [id number] [place] [address]- 9903 Mar, [facility] [place] [facility] [address] [id number] [place] [address]- 1509 Mar, [facility] [place] [facility] [address] [id number] [place] [address]- 5941 Mar, [facility] [place] [facility] [address] [id number] [place] [address]- 6304 Mar, [facility] [place] [facility] [address] [id number] [address]- 4291 Feb, [facility] [place] [facility] [address] [id number] [place] [address]- 3720 Feb, [facility] [place] [facility] [address] [id number] [place] [address]- 2397 Feb, [facility] [place] [facility] [address] [id number] [place] [address]- 4372 Feb, [facility] [place] [facility] [address] [id number] [place] [address]- 1790 07 Jan, 2013 [facility] [place] [facility] [address] [id number] [place] [address]- 9076 07 Jan, 2014 [facility] [place] [facility] [address] [id number] [place] [address]- 1816 30 Dec, 2013 [facility] [place] [facility] [address] [id number] [place] [address] 2546 30 Dec, 2013 [facility] [place] [facility] [address] [id number] [place] [address] 2548 22 Dec, 2013 [facility] [place] [facility] [address] [id number] [place] [address]- 4213 22 Dec, 2013 [facility] [place] [facility] [address] [id number] [place] [address]- 9405 08 Dec, 2013 [facility] [place] [facility] [address] [id number] [place] [address]- 0574 08 Dec, 2013 [facility] [place] [facility] [address] [id number] [place] [address]- 2167 04 Dec, 2013 [facility] [place] [facility] [address] [id number] [place] [address]- 2545 04 Dec, 2013 [facility] [place] [facility] [address] [id number] [place] [address]- 3805 Dec, 2013 [facility] [place] [facility] [address] [id number] [place] [address]- 2548 Dec, 2013 [facility] [place] [facility] [address] [id number] [place] [address]- 7150 Nov, [facility] [place] [facility] [address] [id number] [place] [address]- 2546 Nov, [facility] [place] [facility] [address] [id number] [place] [address]- 2005 Nov, [facility] [place] [facility] [address] [id number] [place] [address]- 3587 Nov, [facility] [place] [facility] [address] [id number] [place] [address]- 1055 Nov, [facility] [place] [facility] [address] [id number] [place] [address]- 6653 Nov, [facility] [place] [facility] [address] [id number] [place] [address]- 9996 Nov, [facility] [place] [facility] [address] [id number] [place] [address]- 0371 Nov, [facility] [place] [facility] [address] [id number] [place] [address]- 5716 Nov, [facility] [place] [facility] [address] [id number] [place] [address]- 9760 Nov, [facility] [place] [facility] [address] [id number] [place] [address]- 3420 Nov, [facility] [place] [facility] [address] [id number] [place] [address]- 9587 Nov, [facility] [place] [facility] [address] [id number] [place] [address]- 5707 Oct, [facility] [place] [facility] [address] [id number] [place] [address]- 1837 Oct, [facility] [place] [facility] [address] [id number] [place] [address]- 8058 August, [facility] [place] [facility] [address] [id number] [place] [address]- 7500 August, [facility] [place] [facility] [address] [id number] [place] [address]- 1683 Jul, [facility] [place] [facility] [address] [id number] [place] [address]- 1193 Jul, [facility] [place] [facility] [address] [id number] [place] [address]- 1635 Jun, [facility] [place] [facility] [address] [id number] [place] [address]- 4950 17 Jun, 2013 [facility] [address] [id number] [place] [address]- 3056 11 Jun, 2013 [facility] [place] [facility] [address] [id number] [place] [address]- 6896 11 Jun, 2013 [facility] [place] [facility] [address] [id number] [place] [address]- 4506 07 Jun, 2013 [facility] [place] [facility] [address] [id number] [place] [address]- 4416 07 Jun, 2013 [facility] [place] [facility] [address] [id number] [place] [address]- 7013 20 Apr, 2013 [facility] [place] [facility] [address] [id number] [place] [address]- 1233 Apr, [facility] [address] [id number] [place] [address]- 9106 Mar, [facility] [address] [id number] [place] [address]- 0312 Mar, [facility] [place] [facility] [address] [id number] [place] [address]- 3429 Mar, [facility] [place] [facility] [address] [id number] [place] [address]- 7250 Mar, [facility] [place] [facility] [address] [id number] [place] [address]- 2546 Mar, [facility] [place] [facility] [address] [id number] [place] [address]- 5748 Mar, [facility] [place] [facility] [address] [id number] [place] [address]- 7016 Mar, [facility] [place] [facility] [address] [id number] [place] [address]- 2496 Mar, [facility] [place] [facility] [address] [id number] [place] [address]- 1413 Mar, [facility] [place] [facility] [address] [id number] [place] [address]- 2546 Mar, [facility] [place] [facility] [address] [id number] [place] [address]- 5781 Feb, [facility] [place] [facility] [address] [id number] [place] [address]- 0116 Feb, [facility] [place] [facility] [address] [id number] [place] [address]- 8036 Jan, [facility] [address] [id number] [place] [address]- 9935 Jan, [facility] [place] [facility] [address] [id number] [place] [address]- 8756 Jan, [facility] [address] [id number] [place] [address]- 2574 Nov, [facility] [address] [id number] [place] [address]- 4925 Nov, [facility] [address] [id number] [place] [address]- 9454 Nov, [facility] [address] [id number] [place] [address]- 0034 Nov, [facility] [place] [facility] [address] [id number] [place] [address]- 4631 Apr, [facility] [place] [facility] [address] [id number] [place] [address]- 3394 Mar, [facility] [place] [facility] [address] [id number] [place] [address]- 0436 Mar, [facility] [place] [facility] [address] [id number] [place] [address]- 9436 Mar, [facility] [place] [facility] [address] [id number] [place] [address]- 0396 Mar, [facility] [place] [facility] [address] [id number], [place] [address]- 3286 Mar, [facility] [address] [address]- 5323 May, [facility] [address] [facility] [id number] 7945 Mar, [facility] [address] [address]- 8164 Mar, [facility] [address] 0807 Mar, [facility] [address] 9485 Mar, [facility] [address] 376[address] Mar, [facility] [address]- [address] Feb, [facility] [address] [address]- 6832 Feb, [facility] [address] [address]- 5725 Jan, IMMUNIZATIONS No Known Immunizations SOCIAL HISTORY [...] (?) documented [facility] use of Tamoxifen in [facility] Medical History past hx of drug & ETOH abuse Surgical History appendectomy Surgical History cholecystectomy Surgical History carpal tunnel release Hospitalization History surgeries
--- OUTSIDE RECORDS SUMMARY | 2018-02-14 08:21 | XMS REPORT ---
Author IRAIDA Petersen Organization [employer] Address Unknown Phone Unavailable Care Team Providers Care Skull Grinder Name Role Phone IRAIDA STEVENS CP Unavailable Allergies No Known Allergies Problems [...] history of diabetes mellitus Z83.3 Active Assessment Dysthymic disorder F34.1 Active Problem Carpal tunnel syndrome 354.0 Active Problem Insomnia G47.00 Active Problem GERD (gastroesophageal reflux disease) K21.9 Active Medications No Known Medications Procedures Procedure Coding System Code Date Psychotherapy, patient &/family, 30 minutes, established patient CPT-4 46279 August 07, 2015 Results No Known Results Summary Purpose [employer] Submission
--- OUTSIDE RECORDS SUMMARY | 2018-02-14 08:21 | XMS REPORT ---
Author Author ZORAIDA ACEVEDO [facility] Address [address] [place] [address] Care Team Providers Care Supervisor Rose Grading Name Role Phone ZORAIDA ACEVEDO Unavailable PROBLEMS Type Condition ICD9-CM Code RVD45-SW Code Onset Dates Condition Status SNOMED Code Problem Depression F32.9 Active 44303020 Problem Family history of diabetes mellitus Z83.3 Active 384106943 Problem GERD (gastroesophageal reflux disease) K21.9 Active 617033363 Problem Arthralgia, unspecified joint M25.50 Active 68857296 Problem Coarse tremors G25.2 Active 60045669 Problem Dysthymic disorder F34.1 Active 62436843 Problem Tremor, unspecified R25.1 Active 45015760 Problem Essential hypertension I10 Active 04669999 Problem Back pain M54.9 Active 209568930 Problem Carpal tunnel syndrome 354.0 Active 06426902 Problem Overactive bladder N32.81 Active 792126849 Problem Female stress incontinence N39.3 Active 55740315 Problem Peripheral neuropathy G62.9 Active 38670621 Problem Abnormal LFTs R79.89 Active 147049894 Problem Hyperlipidemia E78.5 Active 96799851 Problem Reactive airway disease J45.909 Active 812691529813 Problem Insomnia G47.00 Active 961003769 ALLERGIES No Known Allergies SOCIAL HISTORY Never Assessed PLAN OF CARE Activity Details Follow Up 3 Months Reason:BP VITAL SIGNS Height 60 in 2016-07-05 Weight 157.8 lbs 2016-07-05 Temperature 97.5 degrees Fahrenheit 2016-07-05 Heart Rate 64 bpm 2016-07-05 Respiratory Rate 20 2016-07-05 BMI 30.81 kg/m2 2016-07-05 Blood pressure systolic 190 mmHg 2016-07-05 Blood pressure diastolic 100 mmHg 2016-07-05 MEDICATIONS Medication Instructions Dosage Frequency Start Date End Date Duration Status Zyrtec Allergy 10 MG Orally Once a day 1 tablet 24h 30 days Active Symbicort 160-4.5 MCG/ACT Inhalation (PLEASE VOUCHER) 2 times a day 2 puffs 12h 90 days Active Metoprolol Tartrate 50 mg Orally Twice a day 1 tablet (Take with 100mg Tablet ) 12h Nov, 30 days Active Flovent HFA 44 MCG/ACT Inhalation Twice a day 2 puffs 12h Nov, Active Fluoxetine HCl 60 mg Orally Once a day 1 tablet 24h 14 May, 2016 30 days Active Primidone 50 MG Orally Once a day 2 tablet 24h Mar, 30 days Active Neurontin 300 MG Orally Once a day 1 capsule at bedtime 24h August, 30 days Active Celebrex 200 mg Orally Once a day 1 capsule with food 24h 30 days Active Crestor 10 MG Orally Once a day 1 tablet 24h Jun, 90 days Active Proventil HFA 108 (90 Base) MCG/ACT Inhalation every 4 hrs 2 puffs as needed 4h Oct, 90 days Active Myrbetriq 50 mg Orally Once a day 1 tablet 24h August, 30 days Active Cyclobenzaprine HCl 5 MG Orally Once a day 1 tablet as needed for headache 24h 30 days Active Metoprolol Tartrate 100 mg Orally Twice a day 1 tablet (Take with 50mg Tablet) 12h 30 days Active Trazodone HCl 100 MG Orally Once a day 1 tablet at bedtime 24h 30 days Active Diovan 80 MG Orally Once a day 1 tablet 24h Jun, 90 days Active Loxapine Succinate 10 MG Orally Twice a day 1 capsule 12h 30 days Active Breo Ellipta 100-25 MCG/INH Inhalation Once a day 1 puff 24h Jun, Active RESULTS Name Result Date Reference Range LIPID PANEL 2016-07-05 Cholesterol, Total 154 100-199 Triglycerides 128 0-149 HDL Cholesterol 44 >39 VLDL Cholesterol Marek 26 5-40 LDL Cholesterol Calc 84 0-99 Comment: Written Authorization 2016-07-05 Written Authorization Written Authorization 2016-07-05 Written Authorization [facility] 2016-07-05 Glucose, Serum 101 65-99 BUN 13 8-27 Creatinine, Serum 0.92 0.57-1.00 eGFR If NonAfricn Am 68 >59 eGFR If Africn Am 78 >59 BUN/Creatinine Ratio 14 11-26 Sodium, Serum 145 134-144 Potassium, Serum 4.5 3.5-5.2 Chloride, Serum 95 96-106 Carbon Dioxide, Total 30 18-29 Calcium, Serum 9.4 8.7-10.3 Protein, Total, Serum 7.6 6.0-8.5 Albumin, Serum 4.5 3.6-4.8 Globulin, Total 3.1 1.5-4.5 A/G Ratio 1.5 1.2-2.2 Bilirubin, Total 0.5 0.0-1.2 Alkaline Phosphatase, S 90 39-117 AST (SGOT) 87 0-40 ALT (SGPT) 101 0-32 HEPATITIS PROFILE 2016-07-05 Hep A Ab, IgM Negative Negative HBsAg Screen Negative Negative Hep B Core Ab, IgM Negative Negative Hep C Virus Ab <0.1 0.0-0.9 PROCEDURES Procedure Date Ordered Result Body Site LIPID PANEL July 05, 2016 COMPREHEN METABOLIC PANEL July 05, 2016 VENIPUNCT, ROUTINE* July 05, 2016 ACUTE HEPATITIS PANEL July 05, 2016 IMMUNIZATIONS No Known Immunizations MEDICAL (GENERAL) HISTORY Type Description Date Medical History hypertension Medical History chronic obstructive pulmonary disease (COPD) Medical History depression Medical History anxiety Medical History breast cancer (?) 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
--- OUTSIDE RECORDS SUMMARY | 2018-02-14 08:21 | XMS REPORT ---
Author Author ZORAIDA ACEVEDO Organization [employer] Address Unknown Phone Unavailable Care Team Providers Care Rail Doweling Machine Operator Name Role Phone ZORAIDA ACEVEDO CP [...] Start Date End Date Status Dosage Lovastatin [facility] [address]-99 40 MG Once a day Repository Apr 02, 2014 1 tablet by Oral route 1 time per day Repository Meds Metoprolol Tartrate [facility] [address]-37 100 MG Twice a day Repository TAKE ONE TABLET BY MOUTH TWICE DAILY Results No Known Results Summary Purpose [employer] Submission
--- OUTSIDE RECORDS SUMMARY | 2018-02-14 08:22 | XMS REPORT ---
Author Author ZORAIDA ACEVEDO Organization [facility] Address [address] [place] [address] Care Team Providers Care Director Speech And Hearing Name Role Phone ZORAIDA ACEVEDO Unavailable PROBLEMS Type Condition ICD9-CM Code MRU80-MR Code Onset Dates Condition Status SNOMED Code Problem Depression F32.9 Active 23185438 Problem Family history of diabetes mellitus Z83.3 Active 279188188 Problem GERD (gastroesophageal reflux disease) K21.9 Active 485021685 Problem Arthralgia, unspecified joint M25.50 Active 58737560 Problem Coarse tremors G25.2 Active 35180853 Problem Dysthymic disorder F34.1 Active 08745368 Problem Tremor, unspecified R25.1 Active 66141214 Problem Essential hypertension I10 Active 07996875 Problem Back pain M54.9 Active 554565822 Problem Carpal tunnel syndrome 354.0 Active 54271685 Problem Overactive bladder N32.81 Active 478416031 Problem Female stress incontinence N39.3 Active 82394082 Problem Peripheral neuropathy G62.9 Active 69469070 Problem Abnormal LFTs R79.89 Active 168145617 Problem Hyperlipidemia E78.5 Active 62441517 Problem Reactive airway disease J45.909 Active 545412233496 Problem Insomnia G47.00 Active 240113074 ALLERGIES No Information ENCOUNTERS Encounter Location Date Diagnosis [facility] [address] [id number] [address] Oct, [facility] [id number] [place] [address] August, Hyperlipidemia E78.5 ; Essential hypertension I10 ; Tremor, unspecified R25.1 ; Overactive bladder N32.81 and Arthralgia, unspecified joint M25.50 [facility] [id number] [place] [address]208- 4589 May, Viral illness B34.9 [facility] [id number] [place] [address]82- 4804 Apr, Essential hypertension I10 ; Tremor, unspecified R25.1 ; Overactive bladder N32.81 ; Hyperlipidemia E78.5 and Reactive airway disease J45.909 [address] [place] [address] [address]- [address] Mar, [place] [address] [address]67- 6[address] Feb, Dysthymic disorder F34.1 [address] [place] [address] [address]- [address] Dec, Depression F32.9 ; Abnormal LFTs R79.89 ; Tremor, unspecified R25.1 and Essential hypertension I10 [address] [address] [address]- [address]447 Nov, Abnormal LFTs R79.89 [place] [address] 44168- 2437 Nov, Overactive bladder N32.81 [address] [place] [address] 67257- 2482 Nov, Dysthymic disorder F34.1 [place] [id number] [place] [address] 53004- 1810 Nov, Abnormal LFTs R79.89 ; Overactive bladder N32.81 ; Essential hypertension I10 ; Hyperlipidemia E78.5 ; Elevated LFTs R79.89 ; Arthralgia, unspecified joint M25.50 ; Dysthymic disorder F34.1 and Reactive airway disease J45.909 [facility] [id number] [place] [address] 07563- 6365 Jul, [place] [id number] [place] [address] 51517- 2561 Jul, Reactive airway disease J45.909 and Depression F32.9 [place] [id number] [place] [address] 84666- 9893 Jul, Left arm pain M79.602 and Chest wall pain R07.89 [place] [address] 9[address]44- 7984 20 Jun, 2016 Abnormal LFTs R79.89 [place] [address] 48008- 8636 14 Jun, 2016 Abnormal LFTs R79.89 [address] [place] [address] 70843- 8573 13 Jun, 2016 Essential hypertension I10 ; Tremor, unspecified R25.1 ; Hyperlipidemia E78.5 ; Reactive airway disease J45.909 ; Arthralgia, unspecified joint M25.50 and Abnormal LFTs R79.89 [address] [place] [address] 767[address]- 4778 May, Female stress incontinence N39.3 ; Hyperlipidemia E78.5 ; Peripheral neuropathy G62.9 ; Essential hypertension I10 ; Depression F32.9 and Tremor, unspecified R25.1 [place] [address] 55585- 9566 13 May, 2016 Tremor, unspecified R25.1 ; Female stress incontinence N39.3 ; Hyperlipidemia E78.5 ; Peripheral neuropathy G62.9 ; Dysthymic disorder F34.1 ; Essential hypertension I10 ; GERD (gastroesophageal reflux disease) K21.9 and Depression F32.9 [address] [id number] [place] [address] 02937- 7756 Apr, Depression F32.9 [place] [address] 32389- 0440 Mar, Sore throat J02.9 ; Coarse tremors G25.2 and Essential hypertension I10 [place] [address] 26420- 9123 Feb, Essential (primary) hypertension I10 ; Female stress incontinence N39.3 and Reactive airway disease J45.909 [facility] [id number] [place] [address] 85717- 8073 Nov, Reactive airway disease J45.909 [facility] [id number] [place] [address] 67010- 8669 Nov, Dysuria R30.0 ; Urinary tract infection, site unspecified N39.0 ; Tremor R25.1 ; Female stress incontinence N39.3 ; Reactive airway disease J45.909 ; Essential (primary) hypertension I10 and Carpal tunnel syndrome, unspecified laterality G56.00 [address] [place] [address] 10543- 7842 Nov, Female stress incontinence N39.3 [facility] [address] 19279- 9026 Nov, [facility] [address] [address] Oct, Urinary tract infection, site not specified N39.0 ; Dysuria R30.0 and Hematuria, unspecified R31.9 [address] [address] 17986- 6236 Oct, Hypertension I10 ; Hyperlipidemia E78.5 and Headache, unspecified headache type R51 [place] [id number] [place] [address] 24252- 0837 Sep, [facility] [address] 86163- 6566 August, Female stress incontinence N39.3 [facility] [id number] [place] [address] 95563- 7648 August, Headache, unspecified headache type R51 [facility] [id number] [place] [address] 41771- 7862 August, Hyperglycemia R73.9 ; Overactive bladder N32.81 and Headache , unspecified headache type R51 [place] [address] 94227- 2423 14 Jul, 2015 Dysthymic disorder F34.1 [place] [address] 36981- 7293 13 Jul, 2015 Depression F32.9 [place] [address] 82530- 9575 Jul, Depression F32.9 and Back pain M54.9 [place] [address] 64831- 5496 Jul, Dysthymic disorder F34.1 [place] [address] 43958- 8571 07 Jul, 2015 Depression F32.9 ; Female stress incontinence N39.3 ; Hypertension I10 ; Hyperlipidemia E78.5 ; Tremor, unspecified R25.1 ; Peripheral neuropathy G62.9 ; Reactive airway disease J45.909 ; GERD ( gastroesophageal reflux disease) K21.9 ; Insomnia G47.00 and Family history of diabetes mellitus Z83.3 [place] [address] 48[address]- 2281 Apr, [place] [address] 75537- 6409 Feb, [place] [address] 87275- 5397 Feb, Essential hypertension I10 ; Encounter for immunization Z23 ; Dysthymia F34.1 ; Tremor, unspecified R25.1 and Carpal tunnel syndrome, unspecified laterality G56.00 [place] [address] 55244- 5714 Feb, [place] [address] 35483- 7184 Dec, Bronchitis 490 [place] [address] 15375- 2420 Nov, [facility] [address] [facility] [id number] [address] Nov, [facility] [address] [facility] [id number], [place] [address] Oct, Overweight 278.02 [facility] [address] [facility] [id number], [place] [address]- 4816 Oct, [facility] [address] [facility] [id number], [place] [address]- 2806 Oct, Back pain 724.5 ; Hypertension 401.9 and Nicotine addiction 305.1 [facility] [address] [facility] [id number], [place] [address] 295[address] Sep, [facility] [address] [id number] [address] 78[address] August, [facility] [address] [address] August, [facility] [id number], [place] [address] 6766 August, Nicotine dependence 305.1 ; Back pain 724.5 and Overweight 278.02 [facility] [address] [facility] [id number], [place] [address]- [address]356 Jul, [facility] [address] [id number], [place] [address]- 5116 Jul, [facility] [address] [facility] [id number], [place] [address]- 6767 Jun, [facility] [address] [facility] [id number], [place] [address]- 4774 Jun, [facility] [address] [facility] [id number], [place] [address]- 8141 Jun, [facility] [address] [id number], [place] [address]- 7831 Jun, [facility] [address] [facility] [id number] [place] [address]- 9567 Apr, [facility] [address] [id number] [place] [address]- 0143 Apr, [facility] [address] [id number] [place] [address]- 3882 Mar, [facility] [address] [id number] [place] [address]- 4458 Mar, [facility] [address] [id number] [place] [address]- 2174 Mar, [facility] [address] [id number] [place] [address]- 4583 Mar, [facility] [address] [id number] [place] [address] Mar, [facility] [address] [id number] [place] [address]- 1516 Mar, [facility] [address] [id number] [place] [address]- 3103 Mar, [facility] [place] [facility] [address] [id number] [place] [address]- 1826 Mar, [facility] [address] [id number] [place] [address]- 6042 Mar, [facility] [place] [facility] [address] [id number] [place] [address]- 4732 Mar, [facility] [place] [facility] [address] [id number] [place] [address]- 6327 Mar, [facility] [place] [facility] [address] [id number] [place] [address]- 5227 Mar, [facility] [place] [facility] [address] [id number] [place] [address]- 6402 Feb, [facility] [place] [facility] [address] [id number] [place] [address] Feb, [facility] [place] [facility] [address] [id number] [place] [address]- 7281 Feb, [facility] [place] [facility] [address] [id number] [place] [address]- 4820 Feb, [facility] [place] [facility] [address] [id number] [place] [address]- 2558 Jan, [facility] [place] [facility] [address] [id number] [place] [address]- 6302 Jan, [facility] [place] [facility] [address] [id number] [place] [address]- 6134 30 Dec, 2013 [facility] [place] [facility] [address] [id number] [place] [address]- 3037 30 Dec, 2013 [facility] [place] [facility] [address] [id number] [place] [address]- 3744 Dec, [facility] [place] [facility] [address] [id number] [place] [address]- 5001 Dec, [facility] [place] [facility] [address] [id number] [place] [address]- 0984 08 Dec, 2013 [facility] [place] [facility] [address] [id number], [place] [address]- 2764 08 Dec, 2013 [facility] [place] [facility] [address] [id number], [place] [address]- 1508 Dec, [facility] [place] [facility] [address] [id number], [place] [address]- 6100 04 Dec, 2013 [facility] [place] [facility] [address] [id number] [place] [address]- 1599 Dec, [facility] [place] [facility] [address] [id number] [place] [address]- 7156 Dec, [facility] [place] [facility] [address] [id number], [place] [address]- 2419 Nov, [facility] [place] [facility] [address] [id number], [place] [address]- 9886 Nov, [facility] [place] [facility] [address] [id number] [place] [address]- 8379 Nov, [facility] [place] [facility] [address] [id number] [place] [address]- 2033 Nov, [facility] [place] [facility] [address] [id number] [place] [address]- 4472 Nov, [facility] [place] [facility] [address] [id number] [place] [address]- 1508 Nov, [facility] [place] [facility] [address] [id number] [place] [address]- 3151 Nov, [facility] [place] [facility] [address] [id number] [place] [address]- 3540 Nov, [facility] [place] [facility] [address] [id number] [place] [address]- 8132 Nov, [facility] [place] [facility] [address] [id number] [place] [address]- 3569 Nov, [facility] [place] [facility] [address] [id number] [place] [address]- 1307 Nov, [facility] [place] [facility] [address] [id number] [place] [address]- 0367 Nov, [facility] [place] [facility] [address] [id number] [place] [address]- 4796 Oct, [facility] [place] [facility] [address] [id number] [place] [address]- 0337 Oct, [facility] [place] [facility] [address] [id number] [place] [address]- 5494 August, [facility] [place] [facility] [address] [id number] [place] [address]- 8924 August, [facility] [place] [facility] [address] [id number] [place] [address]- 0346 Jul, [facility] [place] [facility] [address] [id number] [place] [address]- 3293 23 Jul, 2013 [facility] [place] [facility] [address] [id number] [place] [address]- 4916 17 Jun, 2013 [facility] [place] [facility] [address] [id number] [place] [address]- 2546 17 Jun, 2013 [facility] [place] [facility] [address] [id number] [place] [address]- 5746 Jun, [facility] [place] [facility] [address] [id number] [place] [address]- 6826 Jun, [facility] [place] [facility] [address] [id number] [place] [address]- 8856 Jun, [facility] [place] [facility] [address] [id number] [place] [address]- 4526 Jun, [facility] [place] [facility] [address] [id number] [place] [address]- 9756 Apr, [facility] [place] [facility] [address] [id number] [place] [address]- 1208 Apr, [facility] [place] [facility] [address] [id number] [place] [address]- 5746 Mar, [facility] [place] [facility] [address] [id number] [place] [address]- 9060 Mar, [facility] [place] [facility] [address] [id number] [place] [address]- 6786 Mar, [facility] [place] [facility] [address] [id number] [place] [address]- 0526 Mar, [facility] [place] [facility] [address] [id number] [place] [address]- 4496 Mar, [facility] [place] [facility] [address] [id number] [place] [address]- 5876 Mar, [facility] [place] [facility] [address] [id number] [place] [address]- 0080 Mar, [facility] [place] [facility] [address] [id number] [place] [address]- 9844 Mar, [facility] [place] [facility] [address] [id number] [place] [address]- 8336 Mar, [facility] [place] [facility] [address] [id number] [place] [address]- 2546 Mar, [facility] [place] [facility] [address] [id number] [place] [address]- 7133 Feb, [facility] [place] [facility] [address] [id number] [place] [address]- 5786 Feb, [facility] [place] [facility] [address] [id number] [place] [address]- 4484 Jan, [facility] [place] [facility] [address] [id number] [place] [address]- 1417 Jan, [facility] [place] [facility] [address] [id number] [place] [address]- 8882 Jan, [facility] [place] [facility] [address] [id number] [place] [address]- 1993 Nov, [facility] [place] [facility] [address] [id number] [place] [address]- 2156 Nov, [facility] [place] [facility] [address] [id number], [place] [address]- 6516 Nov, [facility] [place] [facility] [address] [id number], [place] [address]- 9438 Nov, [facility] [place] [facility] [address] [id number] [place] [address]- 4548 Apr, [facility] [place] [facility] [address] [id number], [place] [address]- 0906 Mar, [facility] [place] [facility] [address] [id number] [place] [address]- 6740 Mar, [facility] [place] [facility] [address] [address]- 4[address] Mar, [facility] [address] [address] Mar, [facility] [address] [address]- 9055 Mar, [facility] [address] [address]- 1497 May, [facility] [address] [address]70 Mar, [facility] [id number] [place] [address] 676254- 9652 Mar, [facility] [id number] [place] [address] 89906- 9868 Mar, [facility] [id number] [place] [address] 30257- 6549 Mar, [facility] [address] [address] Mar, [facility] [address] [address] Feb, [facility] [address] [address] Feb, [facility] [address] [address]- 7518 Jan, IMMUNIZATIONS No Known Immunizations SOCIAL HISTORY Never Assessed REASON FOR VISIT Refill request PLAN OF CARE VITAL SIGNS MEDICATIONS Medication Instructions Dosage Frequency Start Date End Date Duration Status Cyclobenzaprine HCl 5 mg Orally Once a day 1 tablet as needed for headache 24h 20 Active RESULTS No Results PROCEDURES No Known procedures INSTRUCTIONS MEDICATIONS ADMINISTERED No Known Medications MEDICAL (GENERAL) HISTORY Type Description Date Medical History hypertension Medical History chronic obstructive pulmonary disease (COPD) Medical History depression Medical History anxiety Medical History breast cancer (?) documented nursing home use of Tamoxifen in [facility] Medical History past hx of drug & ETOH abuse Surgical History appendectomy Surgical History cholecystectomy Surgical History carpal tunnel release Hospitalization History surgeries
--- OUTSIDE RECORDS SUMMARY | 2018-02-14 08:22 | XMS REPORT ---
Author ZORAIDA Pena Organization [employer] Address Unknown Phone Unavailable Care Team Providers Care [employer]orer [employer] Name Role Phone ZORAIDA ACEVEDO CP Unavailable [...] history of diabetes mellitus Z83.3 Active Assessment Depression F32.9 Active Problem Carpal tunnel syndrome 354.0 Active Problem Insomnia G47.00 Active Assessment Back pain M54.9 Active Problem GERD (gastroesophageal reflux disease) K21.9 Active Medications Medication Code System Code Instructions Start Date End Date Status Dosage Celebrex NDC [address]-37 200 MG Orally Once a day August 05, 2015 1 capsule Fluoxetine NDC 0 60 mg by oral route Once a day Apr 05, 2014 1 Capsule Results No Known Results Summary Purpose [employer] Submission
--- OUTSIDE RECORDS SUMMARY | 2018-02-14 08:22 | XMS REPORT ---
Author Author ZORAIDA ACEVEDO [facility] Address [address] [place] [address] Care Team Providers Care Farmworker [employer] Name Role Phone ZORAIDA ACEVEDO Unavailable PROBLEMS Type Condition ICD9-CM Code JEB86-JQ Code Onset Dates Condition Status SNOMED Code Problem Depression F32.9 Active 41903215 Problem Family history of diabetes mellitus Z83.3 Active 689537502 Problem GERD (gastroesophageal reflux disease) K21.9 Active 851879090 Problem Arthralgia, unspecified joint M25.50 Active 98627261 Problem Coarse tremors G25.2 Active 89115524 Problem Dysthymic disorder F34.1 Active 85291273 Problem Tremor, unspecified R25.1 Active 31704419 Problem Essential hypertension I10 Active 33982536 Problem Back pain M54.9 Active 597208073 Problem Carpal tunnel syndrome 354.0 Active 64655516 Problem Overactive bladder N32.81 Active 945878108 Problem Female stress incontinence N39.3 Active 15251311 Problem Peripheral neuropathy G62.9 Active 75138647 Problem Abnormal LFTs R79.89 Active 357099770 Problem Hyperlipidemia E78.5 Active 47929969 Problem Reactive airway disease J45.909 Active 768624626255 Problem Insomnia G47.00 Active 031458227 ALLERGIES No Known Allergies SOCIAL HISTORY Never Assessed PLAN OF CARE Activity Details Follow Up 4 Weeks Reason:tremors and fasting labs VITAL SIGNS Height 60 in 2016-06-07 Weight 161.1 lbs 2016-06-07 Temperature 98.2 degrees Fahrenheit 2016-06-07 Heart Rate 74 bpm 2016-06-07 Respiratory Rate 20 2016-06-07 BMI 31.46 kg/m2 2016-06-07 Blood pressure systolic 146 mmHg 2016-06-07 Blood pressure diastolic 85 mmHg 2016-06-07 MEDICATIONS Medication Instructions Dosage Frequency Start Date End Date Duration Status Myrbetriq 50 mg Orally Once a day 1 tablet 24h August, Dec, 56 days Active Loxapine Succinate 10 MG Orally Twice a day 1 capsule 12h 30 days Active Flovent HFA 44 MCG/ACT Inhalation Twice a day 2 puffs 12h Nov, Active Neurontin 100 MG Orally Once a day 3 tablets at bedtime 24h August, 60 days Active Primidone 50 mg Orally Once a day 1 1/2 tablet 24h Mar, Active Celebrex 200 MG Orally Once a day 1 capsule with food 24h 90 days Active Lisinopril 10 MG Orally 2 times a day 2 tablets 12h Mar, 45 days Active Lovastatin 40 mg Orally Once a day 1 tablet 24h Mar, 90 days Active Metoprolol Tartrate 100 MG Orally Twice a day 1 tablet (Take with 50mg Tablet) 12h 90 days Active Zyrtec Allergy 10 MG Orally Once a day 1 tablet 24h 30 days Active Trazodone HCl 100 MG Orally Once a day 1 tablet at bedtime 24h 30 days Active Proventil HFA 108 (90 Base) MCG/ACT Inhalation every 4 hrs 2 puffs as needed 4h Oct, 90 days Active Fluoxetine HCl 60 MG Orally Once a day 1 tablet 24h 14 May, 2016 90 days Active Cyclobenzaprine HCl 5 MG Orally Once a day 1 tablet as needed for headache 24h 30 days Active Nexium 40 mg Orally Once a day 1 capsule 24h Jun, 42 days Active Metoprolol Tartrate 50 MG Orally Twice a day 1 tablet (Take with 100mg Tablet ) 12h Nov, 90 days Active RESULTS No Results PROCEDURES No Known procedures IMMUNIZATIONS No Known Immunizations MEDICAL (GENERAL) HISTORY Type Description Date Medical History hypertension Medical History chronic obstructive pulmonary disease (COPD) Medical History depression Medical History anxiety Medical History breast cancer (?) documented intermediate use of Tamoxifen in [facility] Medical History past hx of drug & ETOH abuse Surgical History appendectomy Surgical History cholecystectomy Surgical History carpal tunnel release Hospitalization History surgeries
--- OUTSIDE RECORDS SUMMARY | 2018-02-14 08:22 | XMS REPORT ---
Author ZORAIDA Pena Organization [employer] Address Unknown Phone Unavailable Care Team Providers Care Cell Feed Department Supervisor Name Role Phone ZORAIDA ACEVEDO CP Unavailable [...] Instructions Start Date End Date Status Dosage Prozac [facility] [address]-60 20 mg Orally Once a day August 06, 2015 3 capsules in the morning Results No Known Results Summary Purpose [employer] Submission
--- OUTSIDE RECORDS SUMMARY | 2018-02-14 08:23 | XMS REPORT | Continuity of Care Document ---
Author Author [facility] Address Unknown Phone Unavailable Allergies Active Description Code Type Severity Reaction Onset Reported/Identified Relationship to Patient Clinical Status Yes NKANo Known Allergies NKA Miscellaneous Allergy Unknown N/A 07/26/2005 Medications There is no data. Problems Date Dx Coded Attending Type Code Diagnosis Diagnosed By 11/02/2007 SCOTT ACEVEDO APRNA S 296.90 EPISODIC MOOD DISORDERS 11/02/2007 JOSÉ MIGUEL ACEVEDO APRNNDA S 401.9 UNSPECIFIED ESSENTIAL HYPERTENSION 11/02/2007 JOSÉ MIGUEL ACEVEDO APRNNDA S V58.69 MEDICATION HIGH RISK 11/02/2007 SKELTON DO, ARETHA K 296.90 EPISODIC MOOD DISORDERS 11/02/2007 SKELTON DO, ARETHA K 401.9 UNSPECIFIED ESSENTIAL HYPERTENSION 11/02/2007 SKELTON DO, ARETHA K V58.69 MEDICATION HIGH RISK 11/02/2007 KRISTINA ABREU ZORAIDA S 296.90 EPISODIC MOOD DISORDERS 11/02/2007 JOSÉ MIGUEL ACEVEDO APRNNDA S 401.9 UNSPECIFIED ESSENTIAL HYPERTENSION 11/02/2007 KRISTINA ABREU ZORAIDA S V58.69 MEDICATION HIGH RISK 11/02/2007 JOSÉ MIGUEL ACEVEDO APRNNDA S 296.90 EPISODIC MOOD DISORDERS 11/02/2007 JOSÉ MIGUEL ACEVEDO APRNNDA S 401.9 UNSPECIFIED ESSENTIAL HYPERTENSION 11/02/2007 KRISTINA ABREU ZORAIDA S V58.69 MEDICATION HIGH RISK 11/02/2007 KRISTINA ABREU ZORAIDA S 296.90 EPISODIC MOOD DISORDERS 11/02/2007 KRISTINA ABREU ZORAIDA S 401.9 UNSPECIFIED ESSENTIAL HYPERTENSION 11/02/2007 KRISTINA ABREU ZORAIDA S V58.69 MEDICATION HIGH RISK 11/02/2007 KRISTINA ABREU ZORAIDA S 296.90 EPISODIC MOOD DISORDERS 11/02/2007 KRISTINA ABREU ZORAIDA S 401.9 UNSPECIFIED ESSENTIAL HYPERTENSION 11/02/2007 KRISTINA FIRST COAT OPERATOR, ZORAIDA S V58.69 MEDICATION HIGH RISK 11/02/2007 WHITE DDS, TORY J 296.90 EPISODIC MOOD DISORDERS 11/02/2007 WHITE DDS, TORY J 401.9 UNSPECIFIED ESSENTIAL HYPERTENSION 11/02/2007 WHITE DDS, TORY J V58.69 MEDICATION HIGH RISK 11/02/2007 KRISTINA LRN, ZORAIDA S 296.90 EPISODIC MOOD DISORDERS 11/02/2007 KRISTINA LRN, ZORAIDA S 401.9 UNSPECIFIED ESSENTIAL HYPERTENSION 11/02/2007 KRISTINA FIRST COAT OPERATOR, ZORAIDA S V58.69 MEDICATION HIGH RISK 11/02/2007 RANDEE FIRST COAT OPERATOR, MARIKA A 296.90 EPISODIC MOOD DISORDERS 11/02/2007 RANDEE FIRST COAT OPERATOR, MARIKA A 401.9 UNSPECIFIED ESSENTIAL HYPERTENSION 11/02/2007 RANDEE FIRST COAT OPERATOR, MARIKA A V58.69 MEDICATION HIGH RISK 11/02/2007 RANDEE LRN, MARIKA A 296.90 EPISODIC MOOD DISORDERS 11/02/2007 RANDEE FIRST COAT OPERATOR, MARIKA A 401.9 UNSPECIFIED ESSENTIAL HYPERTENSION 11/02/2007 RANDEE FIRST COAT OPERATOR, MARIKA A V58.69 MEDICATION HIGH RISK 11/02/2007 RANDEE LRN, MARIKA A 296.90 EPISODIC MOOD DISORDERS 11/02/2007 RANDEE FIRST COAT OPERATOR, MARIKA A 401.9 UNSPECIFIED ESSENTIAL HYPERTENSION 11/02/2007 RANDEE LRN, MARIKA A V58.69 MEDICATION HIGH RISK 11/02/2007 KRISTINA ABREU, ZORAIDA S 296.90 EPISODIC MOOD DISORDERS 11/02/2007 KRISTINA LRN, ZORAIDA S 401.9 UNSPECIFIED ESSENTIAL HYPERTENSION 11/02/2007 KRISTINA FIRST COAT OPERATOR, ZORAIDA S V58.69 MEDICATION HIGH RISK 11/02/2007 KRISTINA LRN, ZORAIDA S 296.90 EPISODIC MOOD DISORDERS 11/02/2007 KRISTINA FIRST COAT OPERATOR, ZORAIDA S 401.9 UNSPECIFIED ESSENTIAL HYPERTENSION 11/02/2007 KRISTINA FIRST COAT OPERATOR, ZORAIDA S V58.69 MEDICATION HIGH RISK 11/02/2007 KRISTINA LRN, ZORAIDA S 296.90 EPISODIC MOOD DISORDERS 11/02/2007 KRISTINA LRN, ZORAIDA S 401.9 UNSPECIFIED ESSENTIAL HYPERTENSION 11/02/2007 KRISTINA FIRST COAT OPERATOR, ZORAIDA S V58.69 MEDICATION HIGH RISK 11/02/2007 KRISTINA FIRST COAT OPERATOR, ZORAIDA S 296.90 EPISODIC MOOD DISORDERS 11/02/2007 KRISTINA FIRST COAT OPERATOR, ZORAIDA S 401.9 UNSPECIFIED ESSENTIAL HYPERTENSION 11/02/2007 KRISTINA FIRST COAT OPERATOR, ZORAIDA S V58.69 MEDICATION HIGH RISK 11/02/2007 KRISTINA FIRST COAT OPERATOR, ZORAIDA S 296.90 EPISODIC MOOD DISORDERS 11/02/2007 KRISTINA FIRST COAT OPERATOR, ZORAIDA S 401.9 UNSPECIFIED ESSENTIAL HYPERTENSION 11/02/2007 KRISTINA FIRST COAT OPERATOR, ZORAIDA S V58.69 MEDICATION HIGH RISK 11/13/2007 KRISTINA FIRST COAT OPERATOR, ZORAIDA S V25.49 SURVEILLANCE OF OTHER CONTRACEPTIVE METHOD 11/13/2007 ARETHA SKELTON DO V25.49 SURVEILLANCE OF OTHER CONTRACEPTIVE METHOD 11/13/2007 KRISTINA FIRST COAT OPERATOR, ZORAIDA S V25.49 SURVEILLANCE OF OTHER CONTRACEPTIVE METHOD 11/13/2007 KRISTINA ABREU ZORAIDA S V25.49 SURVEILLANCE OF OTHER CONTRACEPTIVE METHOD 11/13/2007 KRISTINA FIRST COAT OPERATOR ZORAIDA S V25.49 SURVEILLANCE OF OTHER CONTRACEPTIVE METHOD 11/13/2007 KRISTINA FIRST COAT OPERATOR, ZORAIDA S V25.49 SURVEILLANCE OF OTHER CONTRACEPTIVE METHOD 11/13/2007 TORY BELL DDS V25.49 SURVEILLANCE OF OTHER CONTRACEPTIVE METHOD 11/13/2007 KRISTINA FIRST COAT OPERATOR ZORAIDA S V25.49 SURVEILLANCE OF OTHER CONTRACEPTIVE METHOD 11/13/2007 RANDEE FIRST COAT OPERATOR, MARIKA A V25.49 SURVEILLANCE OF OTHER CONTRACEPTIVE METHOD 11/13/2007 RANDEE FIRST COAT OPERATOR, MARIKA A V25.49 SURVEILLANCE OF OTHER CONTRACEPTIVE METHOD 11/13/2007 RANDEE FIRST COAT OPERATOR, MARIKA A V25.49 SURVEILLANCE OF OTHER CONTRACEPTIVE METHOD 11/13/2007 KRISTINA FIRST COAT OPERATOR, ZORAIDA S V25.49 SURVEILLANCE OF OTHER CONTRACEPTIVE METHOD 11/13/2007 KRISTINA FIRST COAT OPERATOR ZORAIDA S V25.49 SURVEILLANCE OF OTHER CONTRACEPTIVE METHOD 11/13/2007 KRISTINA FIRST COAT OPERATOR, ZORAIDA S V25.49 SURVEILLANCE OF OTHER CONTRACEPTIVE METHOD 11/13/2007 KRISTINA FIRST COAT OPERATOR, ZORAIDA S V25.49 SURVEILLANCE OF OTHER CONTRACEPTIVE METHOD 11/13/2007 JOSÉ MIGUEL ACEVEDO APRNNDA S V25.49 SURVEILLANCE OF OTHER CONTRACEPTIVE METHOD 12/07/2007 JOSÉ MIGUEL ACEVEDO APRNNDA S 719.43 PAIN IN JOINT INVOLVING FOREARM 12/07/2007 ARETHA SKELTON DO 719.43 PAIN IN JOINT INVOLVING FOREARM 12/07/2007 JOSÉ MIGUEL ACEVEDO APRNNDA S 719.43 PAIN IN JOINT INVOLVING FOREARM 12/07/2007 JOSÉ MIGUEL ACEVEDO APRNNDA S 719.43 PAIN IN JOINT INVOLVING FOREARM 12/07/2007 JOSÉ MIGUEL ACEVEDO APRNNDA S 719.43 PAIN IN JOINT INVOLVING FOREARM 12/07/2007 JOSÉ MIGUEL ACEVEDO APRNNDA S 719.43 PAIN IN JOINT INVOLVING FOREARM 12/07/2007 TORY BELL DDS 719.43 PAIN IN JOINT INVOLVING FOREARM 12/07/2007 JOSÉ MIGUEL ACEVEDO APRNNDA S 719.43 PAIN IN JOINT INVOLVING FOREARM 12/07/2007 SUSAN JEFF APRNIDI A 719.43 PAIN IN JOINT INVOLVING FOREARM 12/07/2007 RANDEE ABREU MARIKA A 719.43 PAIN IN JOINT INVOLVING FOREARM 12/07/2007 SUSAN JEFF APRNIDI A 719.43 PAIN IN JOINT INVOLVING FOREARM 12/07/2007 SCOTT ACEVEDO APRNA S 719.43 PAIN IN JOINT INVOLVING FOREARM 12/07/2007 JOSÉ MIGUEL ACEVEDO APRNNDA S 719.43 PAIN IN JOINT INVOLVING FOREARM 12/07/2007 JOSÉ MIGUEL ACEVEDO APRNNDA S 719.43 PAIN IN JOINT INVOLVING FOREARM 12/07/2007 JOSÉ MIGUEL ACEVEDO APRNNDA S 719.43 PAIN IN JOINT INVOLVING FOREARM 12/07/2007 JOSÉ MIGUEL ACEVEDO APRNNDA S 719.43 PAIN IN JOINT INVOLVING FOREARM 05/27/2008 JOSÉ MIGUEL ACEVEDO APRNNDA S 300.00 anxiety 05/27/2008 ARETHA SKELTON DO 300.00 anxiety 05/27/2008 JOSÉ MIGUEL ACEVEDO APRNNDA S 300.00 anxiety 05/27/2008 JOSÉ MIGUEL ACEVEDO APRNNDA S 300.00 anxiety 05/27/2008 JOSÉ MIGUEL ACEVEDO APRNNDA S 300.00 anxiety 05/27/2008 KRISTINA FIRST COAT OPERATOR, ZORAIDA S 300.00 anxiety 05/27/2008 WHITE DDS, TORY J 300.00 anxiety 05/27/2008 KRISTINA FIRST COAT OPERATOR, ZORAIDA S 300.00 anxiety 05/27/2008 RANDEE FIRST COAT OPERATOR, MARIKA A 300.00 anxiety 05/27/2008 RANDEE FIRST COAT OPERATOR, MARIKA A 300.00 anxiety 05/27/2008 RANDEE FIRST COAT OPERATOR, MARIKA A 300.00 anxiety 05/27/2008 KRISTINA FIRST COAT OPERATOR, ZORAIDA S 300.00 ANXIETY 05/27/2008 KRISTINA FIRST COAT OPERATOR, ZORAIDA S 300.00 ANXIETY 05/27/2008 KRISTINA FIRST COAT OPERATOR, ZORAIDA S 300.00 ANXIETY 05/27/2008 KRISTINA FIRST COAT OPERATOR, ZORAIDA S 300.00 ANXIETY 05/27/2008 KRISTINA FIRST COAT OPERATOR, ZORAIDA S 300.00 ANXIETY 06/25/2008 KRISTINA ABREU, ZORAIDA S 296.30 CHRONIC MAJOR DEPRESSION 06/25/2008 JOSÉ MIGUEL ACEVEDO APRNNDA S 401.1 ESSENTIAL HYPERTENSION BENIGN 06/25/2008 SKELTON DO, ARETHA K 296.30 CHRONIC MAJOR DEPRESSION 06/25/2008 SKELTON DO, ARETHA K 401.1 ESSENTIAL HYPERTENSION BENIGN 06/25/2008 KRISTINA ABREU, ZORAIDA S 296.30 CHRONIC MAJOR DEPRESSION 06/25/2008 KRISTINA ABREU, ZORAIDA S 401.1 ESSENTIAL HYPERTENSION BENIGN 06/25/2008 KRISTINA ABREU, ZORAIDA S 296.30 CHRONIC MAJOR DEPRESSION 06/25/2008 KRISTINA ABREU ZORAIDA S 401.1 ESSENTIAL HYPERTENSION BENIGN 06/25/2008 KRISTINA ABREU, ZORAIDA S 296.30 CHRONIC MAJOR DEPRESSION 06/25/2008 KRISTINA ABREU, ZORAIDA S 401.1 ESSENTIAL HYPERTENSION BENIGN 06/25/2008 KRISTINA ABREU, ZORAIDA S 296.30 CHRONIC MAJOR DEPRESSION 06/25/2008 KRISTINA ABREU ZORAIDA S 401.1 ESSENTIAL HYPERTENSION BENIGN 06/25/2008 WHITE DDS, TORY J 296.30 CHRONIC MAJOR DEPRESSION 06/25/2008 WHITE DDS, TORY J 401.1 ESSENTIAL HYPERTENSION BENIGN 06/25/2008 KRISTINA ABREU ZORAIDA S 296.30 CHRONIC MAJOR DEPRESSION 06/25/2008 KRISTINA FIRST COAT OPERATOR, ZORAIDA S 401.1 ESSENTIAL HYPERTENSION BENIGN 06/25/2008 RANDEE FIRST COAT OPERATOR, MARIKA A 296.30 CHRONIC MAJOR DEPRESSION 06/25/2008 RANDEE FIRST COAT OPERATOR, MARIKA A 401.1 ESSENTIAL HYPERTENSION BENIGN 06/25/2008 RANDEE FIRST COAT OPERATOR, MARIKA A 296.30 CHRONIC MAJOR DEPRESSION 06/25/2008 RANDEE FIRST COAT OPERATOR, MARIKA A 401.1 ESSENTIAL HYPERTENSION BENIGN 06/25/2008 RANDEE FIRST COAT OPERATOR, MARIKA A 296.30 CHRONIC MAJOR DEPRESSION 06/25/2008 RANDEE FIRST COAT OPERATOR, MARIKA A 401.1 ESSENTIAL HYPERTENSION BENIGN 06/25/2008 KRISTINA FIRST COAT OPERATOR, ZORAIDA S 296.30 CHRONIC MAJOR DEPRESSION 06/25/2008 KRISTINA FIRST COAT OPERATOR, ZORAIDA S 401.1 ESSENTIAL HYPERTENSION BENIGN 06/25/2008 KRISTINA FIRST COAT OPERATOR, ZORAIDA S 296.30 CHRONIC MAJOR DEPRESSION 06/25/2008 KRISTINA FIRST COAT OPERATOR, ZORAIDA S 401.1 ESSENTIAL HYPERTENSION BENIGN 06/25/2008 KRISTINA FIRST COAT OPERATOR, ZORAIDA S 296.30 CHRONIC MAJOR DEPRESSION 06/25/2008 KRISTINA FIRST COAT OPERATOR, ZORAIDA S 401.1 ESSENTIAL HYPERTENSION BENIGN 06/25/2008 KRISTINA FIRST COAT OPERATOR, ZORAIDA S 296.30 CHRONIC MAJOR DEPRESSION 06/25/2008 KRISTINA FIRST COAT OPERATOR, ZORAIDA S 401.1 ESSENTIAL HYPERTENSION BENIGN 06/25/2008 KRISTINA FIRST COAT OPERATOR, ZORADIA S 296.30 CHRONIC MAJOR DEPRESSION 06/25/2008 KRISTINA FIRST COAT OPERATOR, ZORAIDA S 401.1 ESSENTIAL HYPERTENSION BENIGN 02/19/2009 KRISTINA FIRST COAT OPERATOR, ZORAIDA S 564.00 CONSTIPATION, UNSPECIFIED 02/19/2009 KRISTINA FIRST COAT OPERATOR, ZORAIDA S V72.31 Pelvic Exam (Internal) 02/19/2009 SKELTON DO, ARETHA K 564.00 CONSTIPATION, UNSPECIFIED 02/19/2009 SKELTON DO, ARETHA K V72.31 Pelvic Exam (Internal) 02/19/2009 KRISTINA LRN, ZORAIDA S 564.00 CONSTIPATION, UNSPECIFIED 02/19/2009 KRISTINA FIRST COAT OPERATOR, ZORAIDA S V72.31 PELVIC EXAM (INTERNAL) 02/19/2009 KRISTINA LRN, ZORAIDA S 564.00 CONSTIPATION, UNSPECIFIED 02/19/2009 KRISTINA FIRST COAT OPERATOR, ZORAIDA S V72.31 PELVIC EXAM (INTERNAL) 02/19/2009 KRISTINA FIRST COAT OPERATOR, ZORAIDA S 564.00 CONSTIPATION, UNSPECIFIED 02/19/2009 KRISTINA FIRST COAT OPERATOR, ZORAIDA S V72.31 PELVIC EXAM (INTERNAL) 02/19/2009 KRISTINA FIRST COAT OPERATOR, ZORAIDA S 564.00 CONSTIPATION, UNSPECIFIED 02/19/2009 KRISTINA FIRST COAT OPERATOR, ZORAIDA S V72.31 PELVIC EXAM (INTERNAL) 02/19/2009 WHITE DDS, TORY J 564.00 CONSTIPATION, UNSPECIFIED 02/19/2009 WHITE DDS, TORY J V72.31 PELVIC EXAM (INTERNAL) 02/19/2009 KRISTINA FIRST COAT OPERATOR, ZORAIDA S 564.00 CONSTIPATION, UNSPECIFIED 02/19/2009 KRISTINA FIRST COAT OPERATOR, ZORAIDA S V72.31 PELVIC EXAM (INTERNAL) 02/19/2009 RANDEE FIRST COAT OPERATOR, MARIKA A 564.00 CONSTIPATION, UNSPECIFIED 02/19/2009 RANDEE FIRST COAT OPERATOR, MARIKA A V72.31 PELVIC EXAM (INTERNAL) 02/19/2009 RANDEE FIRST COAT OPERATOR, MARIKA A 564.00 CONSTIPATION, UNSPECIFIED 02/19/2009 RANDEE FIRST COAT OPERATOR, MARIKA A V72.31 PELVIC EXAM (INTERNAL) 02/19/2009 RANDEE FIRST COAT OPERATOR, MARIKA A 564.00 CONSTIPATION, UNSPECIFIED 02/19/2009 RANDEE FIRST COAT OPERATOR, MARIKA A V72.31 PELVIC EXAM (INTERNAL) 02/19/2009 KRISTINA FIRST COAT OPERATOR, ZORAIDA S 564.00 CONSTIPATION, UNSPECIFIED 02/19/2009 KRISTINA FIRST COAT OPERATOR, ZORAIDA S V72.31 PELVIC EXAM (INTERNAL) 02/19/2009 KRISTINA FIRST COAT OPERATOR, ZORAIDA S 564.00 CONSTIPATION, UNSPECIFIED 02/19/2009 KRISTINA FIRST COAT OPERATOR, ZORAIDA S V72.31 PELVIC EXAM (INTERNAL) 02/19/2009 KRISTINA FIRST COAT OPERATOR, ZORAIDA S 564.00 CONSTIPATION, UNSPECIFIED 02/19/2009 KRISTINA FIRST COAT OPERATOR, ZORAIDA S V72.31 PELVIC EXAM (INTERNAL) 02/19/2009 KRISTINA FIRST COAT OPERATOR, ZORAIDA S 564.00 CONSTIPATION, UNSPECIFIED 02/19/2009 KRISTINA FIRST COAT OPERATOR, ZORAIDA S V72.31 PELVIC EXAM (INTERNAL) 02/19/2009 KRISTINA FIRST COAT OPERATOR, ZORAIDA S 564.00 CONSTIPATION, UNSPECIFIED 02/19/2009 KRISTINA FIRST COAT OPERATOR, ZORAIDA S V72.31 PELVIC EXAM (INTERNAL) 05/21/2009 KRISTINA FIRST COAT OPERATOR, ZORAIDA S 462 sore throat 05/21/2009 SKELTON DO, ARETHA K 462 sore throat 05/21/2009 KRISTINA FIRST COAT OPERATOR, ZORAIDA S 462 SORE THROAT 05/21/2009 KRISTINA FIRST COAT OPERATOR, ZORAIDA S 462 SORE THROAT 05/21/2009 KRISTINA FIRST COAT OPERATOR, ZORAIDA S 462 SORE THROAT 05/21/2009 KRISTINA FIRST COAT OPERATOR, ZORAIDA S 462 SORE THROAT 05/21/2009 WHITE DDS, TORY J 462 SORE THROAT 05/21/2009 KRISTINA FIRST COAT OPERATOR, ZORAIDA S 462 SORE THROAT 05/21/2009 RANDEE FIRST COAT OPERATOR, MARIKA A 462 SORE THROAT 05/21/2009 RANDEE FIRST COAT OPERATOR, MARIKA A 462 SORE THROAT 05/21/2009 RANDEE FIRST COAT OPERATOR, MARIKA A 462 SORE THROAT 05/21/2009 KRISTINA FIRST COAT OPERATOR, ZORAIDA S 462 SORE THROAT 05/21/2009 KRISTINA FIRST COAT OPERATOR, ZORAIDA S 462 SORE THROAT 05/21/2009 KRISTINA FIRST COAT OPERATOR, ZORAIDA S 462 SORE THROAT 05/21/2009 KRISTINA FIRST COAT OPERATOR, ZORAIDA S 462 SORE THROAT 05/21/2009 KRISTINA FIRST COAT OPERATOR, ZORAIDA S 462 SORE THROAT 04/16/2010 KRISTINA FIRST COAT OPERATOR, ZORAIDA S 466.0 ACUTE BRONCHITIS 04/16/2010 SKELTON DO, ARETHA K 466.0 ACUTE BRONCHITIS 04/16/2010 KRISTINA FIRST COAT OPERATOR, ZORAIDA S 466.0 ACUTE BRONCHITIS 04/16/2010 KRISTINA FIRST COAT OPERATOR, ZORAIDA S 466.0 ACUTE BRONCHITIS 04/16/2010 KRISTINA FIRST COAT OPERATOR, ZORAIDA S 466.0 ACUTE BRONCHITIS 04/16/2010 KRISTINA FIRST COAT OPERATOR, ZORAIDA S 466.0 ACUTE BRONCHITIS 04/16/2010 WHITE DDS, TORY J 466.0 ACUTE BRONCHITIS 04/16/2010 KRISTINA FIRST COAT OPERATOR, ZORAIDA S 466.0 ACUTE BRONCHITIS 04/16/2010 RANDEE FIRST COAT OPERATOR, MARIKA A 466.0 ACUTE BRONCHITIS 04/16/2010 RANDEE FIRST COAT OPERATOR, MARIKA A 466.0 ACUTE BRONCHITIS 04/16/2010 RANDEE FIRST COAT OPERATOR, MARIKA A 466.0 ACUTE BRONCHITIS 04/16/2010 KRISTINA FIRST COAT OPERATOR, ZORAIDA S 466.0 ACUTE BRONCHITIS 04/16/2010 KRISTINA FIRST COAT OPERATOR, ZORAIDA S 466.0 ACUTE BRONCHITIS 04/16/2010 KRISTINA FIRST COAT OPERATOR, ZORAIDA S 466.0 ACUTE BRONCHITIS 04/16/2010 KRISTINA FIRST COAT OPERATOR, ZORAIDA S 466.0 ACUTE BRONCHITIS 04/16/2010 KRISTINA FIRST COAT OPERATOR, ZORAIDA S 466.0 ACUTE BRONCHITIS 04/23/2010 KRISTINA FIRST COAT OPERATOR, ZORAIDA S 482.9 BACTERIAL PNEUMONIA UNSPECIFIED 04/23/2010 ARETHA SKELTON DO K 482.9 BACTERIAL PNEUMONIA UNSPECIFIED 04/23/2010 KRISTINA FIRST COAT OPERATOR, ZORAIDA S 482.9 BACTERIAL PNEUMONIA UNSPECIFIED 04/23/2010 KRISTINA FIRST COAT OPERATOR, ZORAIDA S 482.9 BACTERIAL PNEUMONIA UNSPECIFIED 04/23/2010 KRISTINA FIRST COAT OPERATOR, ZORAIDA S 482.9 BACTERIAL PNEUMONIA UNSPECIFIED 04/23/2010 KRISTINA FIRST COAT OPERATOR, ZORAIDA S 482.9 BACTERIAL PNEUMONIA UNSPECIFIED 04/23/2010 WHITE DDS, TORY J 482.9 BACTERIAL PNEUMONIA UNSPECIFIED 04/23/2010 KRISTINA FIRST COAT OPERATOR, ZORAIDA S 482.9 BACTERIAL PNEUMONIA UNSPECIFIED 04/23/2010 RANDEE FIRST COAT OPERATOR, MARIKA A 482.9 BACTERIAL PNEUMONIA UNSPECIFIED 04/23/2010 RANDEE FIRST COAT OPERATOR, MARIKA A 482.9 BACTERIAL PNEUMONIA UNSPECIFIED 04/23/2010 RANDEE FIRST COAT OPERATOR, MARIKA A 482.9 BACTERIAL PNEUMONIA UNSPECIFIED 04/23/2010 KRISTINA FIRST COAT OPERATOR, ZORAIDA S 482.9 BACTERIAL PNEUMONIA UNSPECIFIED 04/23/2010 KRISTINA FIRST COAT OPERATOR, ZORAIDA S 482.9 BACTERIAL PNEUMONIA UNSPECIFIED 04/23/2010 KRISTINA FIRST COAT OPERATOR, ZORAIDA S 482.9 BACTERIAL PNEUMONIA UNSPECIFIED 04/23/2010 KRISTINA FIRST COAT OPERATOR, ZORAIDA S 482.9 BACTERIAL PNEUMONIA UNSPECIFIED 04/23/2010 KRISTINA FIRST COAT OPERATOR, ZORAIDA S 482.9 BACTERIAL PNEUMONIA UNSPECIFIED 05/05/2010 KRISTINA FIRST COAT OPERATOR, ZORAIDA S 786.2 COUGH 05/05/2010 SKELTON DO, ARETHA K 786.2 COUGH 05/05/2010 KRISTINA FIRST COAT OPERATOR, ZORAIDA S 786.2 COUGH 05/05/2010 KRISTINA FIRST COAT OPERATOR, ZORAIDA S 786.2 COUGH 05/05/2010 KRISTINA FIRST COAT OPERATOR, ZORAIDA S 786.2 COUGH 05/05/2010 KRISTINA FIRST COAT OPERATOR, ZORAIDA S 786.2 COUGH 05/05/2010 RAY DDS, TORY J 786.2 COUGH 05/05/2010 KRISTINA FIRST COAT OPERATOR, ZORAIDA S 786.2 COUGH 05/05/2010 RANDEE FIRST COAT OPERATOR, MARIKA A 786.2 COUGH 05/05/2010 RANDEE FIRST COAT OPERATOR, MARIKA A 786.2 COUGH 05/05/2010 RANDEE FIRST COAT OPERATOR, MARIKA A 786.2 COUGH 05/05/2010 KRISTINA FIRST COAT OPERATOR, ZORAIDA S 786.2 COUGH 05/05/2010 KRISTINA FIRST COAT OPERATOR, ZORAIDA S 786.2 COUGH 05/05/2010 KRISTINA FIRST COAT OPERATOR, ZORAIDA S 786.2 COUGH 05/05/2010 KRISTINA FIRST COAT OPERATOR, ZORAIDA S 786.2 COUGH 05/05/2010 KRISTINA FIRST COAT OPERATOR, ZORAIDA S 786.2 COUGH 05/07/2010 KRISTINA FIRST COAT OPERATOR, ZORAIDA S 535.00 ACUTE GASTRITIS (WITHOUT HEMORRHAGE) 05/07/2010 KRISTINA FIRST COAT OPERATOR, ZORAIDA S 786.52 PAINFUL RESPIRATION 05/07/2010 SKELTON DO, ARETHA K 535.00 ACUTE GASTRITIS (WITHOUT HEMORRHAGE) 05/07/2010 SKELTON DO, ARETHA K 786.52 PAINFUL RESPIRATION 05/07/2010 KRISTINA FIRST COAT OPERATOR, ZORAIDA S 535.00 ACUTE GASTRITIS (WITHOUT HEMORRHAGE) 05/07/2010 KRISTINA FIRST COAT OPERATOR, ZORAIDA S 786.52 PAINFUL RESPIRATION 05/07/2010 KRISTINA FIRST COAT OPERATOR, ZORAIDA S 535.00 ACUTE GASTRITIS (WITHOUT HEMORRHAGE) 05/07/2010 KRISTINA FIRST COAT OPERATOR, ZORAIDA S 786.52 PAINFUL RESPIRATION 05/07/2010 KRISTINA FIRST COAT OPERATOR, ZORAIDA S 535.00 ACUTE GASTRITIS (WITHOUT HEMORRHAGE) 05/07/2010 KRISTINA FIRST COAT OPERATOR, ZORAIDA S 786.52 PAINFUL RESPIRATION 05/07/2010 KRISTINA FIRST COAT OPERATOR, ZORAIDA S 535.00 ACUTE GASTRITIS (WITHOUT HEMORRHAGE) 05/07/2010 KRISTINA FIRST COAT OPERATOR, ZORAIDA S 786.52 PAINFUL RESPIRATION 05/07/2010 WHITE DDS, TORY J 535.00 ACUTE GASTRITIS (WITHOUT HEMORRHAGE) 05/07/2010 WHITE DDS, TORY J 786.52 PAINFUL RESPIRATION 05/07/2010 KRISTINA FIRST COAT OPERATOR, ZORAIDA S 535.00 ACUTE GASTRITIS (WITHOUT HEMORRHAGE) 05/07/2010 KRISTINA FIRST COAT OPERATOR, ZORAIDA S 786.52 PAINFUL RESPIRATION 05/07/2010 RANDEE FIRST COAT OPERATOR, MARIKA A 535.00 ACUTE GASTRITIS (WITHOUT HEMORRHAGE) 05/07/2010 RANDEE FIRST COAT OPERATOR, MARIKA A 786.52 PAINFUL RESPIRATION 05/07/2010 RANDEE FIRST COAT OPERATOR, MARIKA A 535.00 ACUTE GASTRITIS (WITHOUT HEMORRHAGE) 05/07/2010 RANDEE FIRST COAT OPERATOR, MARIKA A 786.52 PAINFUL RESPIRATION 05/07/2010 RANDEE FIRST COAT OPERATOR, MARIKA A 535.00 ACUTE GASTRITIS (WITHOUT HEMORRHAGE) 05/07/2010 RANDEE FIRST COAT OPERATOR, MARIKA A 786.52 PAINFUL RESPIRATION 05/07/2010 KRISTINA FIRST COAT OPERATOR, ZORAIDA S 535.00 ACUTE GASTRITIS (WITHOUT HEMORRHAGE) 05/07/2010 KRISTINA FIRST COAT OPERATOR, ZORAIDA S 786.52 PAINFUL RESPIRATION 05/07/2010 KRISTINA FIRST COAT OPERATOR, ZORAIDA S 535.00 ACUTE GASTRITIS (WITHOUT HEMORRHAGE) 05/07/2010 KRISTINA FIRST COAT OPERATOR, ZORAIDA S 786.52 PAINFUL RESPIRATION 05/07/2010 KRISTINA FIRST COAT OPERATOR, ZORAIDA S 535.00 ACUTE GASTRITIS (WITHOUT HEMORRHAGE) 05/07/2010 KRISTINA FIRST COAT OPERATOR, ZORAIDA S 786.52 PAINFUL RESPIRATION 05/07/2010 KRISTINA FIRST COAT OPERATOR, ZORAIDA S 535.00 ACUTE GASTRITIS (WITHOUT HEMORRHAGE) 05/07/2010 KRISTINA FIRST COAT OPERATOR, ZORAIDA S 786.52 PAINFUL RESPIRATION 05/07/2010 JOSÉ MIGUEL ACEVEDO APRNNDA S 535.00 ACUTE GASTRITIS (WITHOUT HEMORRHAGE) 05/07/2010 JOSÉ MIGUEL ACEVEDO APRNNDA S 786.52 PAINFUL RESPIRATION 03/14/2013 NAFISA GARZAARETHA K V04.81 FLU SHOT 03/14/2013 JOSÉ MIGUEL ACEVEDO APRNNDA S V04.81 FLU SHOT 03/14/2013 JOSÉ MIGUEL ACEVEDO APRNNDA S V04.81 FLU SHOT 03/14/2013 JOSÉ MIGUEL ACEVEDO APRNNDA S V04.81 FLU SHOT 03/14/2013 JOSÉ MIGUEL ACEVEDO APRNNDA S V04.81 FLU SHOT 03/14/2013 WHITE MAHENDRA, TORY J V04.81 FLU SHOT 03/14/2013 JOSÉ MIGUEL ACEVEDO APRNNDA S V04.81 FLU SHOT 03/14/2013 RANDEEKASIE ABREU, MARIKA A V04.81 FLU SHOT 03/14/2013 RANDEE ABREU MARIKA A V04.81 FLU SHOT 03/14/2013 RANDEEKASIE ABREU, MARIKA A V04.81 FLU SHOT 03/14/2013 JOSÉ MIGUEL ACEVEDO APRNNDA S V04.81 FLU SHOT 03/14/2013 JOSÉ MIGUEL ACEVEDO APRNNDA S V04.81 FLU SHOT 03/14/2013 JOSÉ MIGUEL ACEVEDO APRNNDA S V04.81 FLU SHOT 03/14/2013 JOSÉ MIGUEL ACEVEDO APRNNDA S V04.81 FLU SHOT 03/14/2013 JOSÉ MIGUEL ACEVEDO APRNNDA S V04.81 FLU SHOT 05/14/2013 JOSÉ MIGUEL ACEVEDO APRNNDA S 625.6 STRESS INCONTINENCE FEMALE 05/14/2013 JOSÉ MIGUEL ACEEVDO APRNNDA S 625.6 STRESS INCONTINENCE FEMALE 05/14/2013 KRISTINA ABREU ZORAIDA S 625.6 STRESS INCONTINENCE FEMALE 05/14/2013 RAY CASTILLOS, TORY J 625.6 STRESS INCONTINENCE FEMALE 05/14/2013 JOSÉ MIGUEL ACEVEDO APRNNDA S 625.6 STRESS INCONTINENCE FEMALE 05/14/2013 RANDEEKASIE ABREU, MARIKA A 625.6 STRESS INCONTINENCE FEMALE 05/14/2013 RANDEEKASIE ABREU, MARIKA A 625.6 STRESS INCONTINENCE FEMALE 05/14/2013 RANDEE APRN, MARIKA A 625.6 STRESS INCONTINENCE FEMALE 05/14/2013 KRISTINA FIRST COAT OPERATOR, ZORAIDA S 625.6 STRESS INCONTINENCE FEMALE 05/14/2013 KRISTINA FIRST COAT OPERATOR, ZORAIDA S 625.6 STRESS INCONTINENCE FEMALE 05/14/2013 KRISTINA FIRST COAT OPERATOR, ZORAIDA S 625.6 STRESS INCONTINENCE FEMALE 05/14/2013 KRISTINA FIRST COAT OPERATOR, ZORAIDA S 625.6 STRESS INCONTINENCE FEMALE 05/14/2013 KRISTINA FIRST COAT OPERATOR, ZORAIDA S 625.6 STRESS INCONTINENCE FEMALE 07/03/2013 KRISTINA FIRST COAT OPERATOR, ZORAIDA S 461.9 SINUSITIS ACUTE 07/03/2013 WHITE DDS, TORY J 461.9 SINUSITIS ACUTE 07/03/2013 KRISTINA FIRST COAT OPERATOR, ZORAIDA S 461.9 SINUSITIS ACUTE 07/03/2013 RANDEE FIRST COAT OPERATOR, MARIKA A 461.9 SINUSITIS ACUTE 07/03/2013 RANDEE FIRST COAT OPERATOR, MARIKA A 461.9 SINUSITIS ACUTE 07/03/2013 RANDEE FIRST COAT OPERATOR, MARIKA A 461.9 SINUSITIS ACUTE 07/03/2013 KRISTINA FIRST COAT OPERATOR, ZORAIDA S 461.9 SINUSITIS ACUTE 07/03/2013 KRISTINA FIRST COAT OPERATOR, ZORAIDA S 461.9 SINUSITIS ACUTE 07/03/2013 KRISTINA FIRST COAT OPERATOR, ZORAIDA S 461.9 SINUSITIS ACUTE 07/03/2013 KRISTINA FIRST COAT OPERATOR, ZORAIDA S 461.9 SINUSITIS ACUTE 07/03/2013 KRISTINA FIRST COAT OPERATOR, ZORAIDA S 461.9 SINUSITIS ACUTE 11/06/2013 KRISTINA FIRST COAT OPERATOR, ZORAIDA S 535.00 ACUTE GASTRITIS (WITHOUT HEMORRHAGE) 11/06/2013 KRISTINA FIRST COAT OPERATOR, ZORAIDA S 599.0 URINARY TRACT INFECTION 11/06/2013 RANDEE FIRST COAT OPERATOR, MARIKA A 535.00 ACUTE GASTRITIS (WITHOUT HEMORRHAGE) 11/06/2013 RANDEE FIRST COAT OPERATOR, MARIKA A 599.0 URINARY TRACT INFECTION 11/06/2013 RANDEE FIRST COAT OPERATOR, MARIKA A 535.00 ACUTE GASTRITIS (WITHOUT HEMORRHAGE) 11/06/2013 RANDEE FIRST COAT OPERATOR, MARIKA A 599.0 URINARY TRACT INFECTION 11/06/2013 RANDEE FIRST COAT OPERATOR, MARIKA A 535.00 ACUTE GASTRITIS (WITHOUT HEMORRHAGE) 11/06/2013 MARIKA JEFF APRN A 599.0 URINARY TRACT INFECTION 11/06/2013 KRISTINA FIRST COAT OPERATOR, ZORAIDA S 535.00 ACUTE GASTRITIS (WITHOUT HEMORRHAGE) 11/06/2013 KRISTINA FIRST COAT OPERATOR, ZORAIDA S 599.0 URINARY TRACT INFECTION 11/06/2013 KRISTINA FIRST COAT OPERATOR, ZORAIDA S 535.00 ACUTE GASTRITIS (WITHOUT HEMORRHAGE) 11/06/2013 KRISTINA FIRST COAT OPERATOR, ZORAIDA S 599.0 URINARY TRACT INFECTION 11/06/2013 KRISTINA FIRST COAT OPERATOR, ZORAIDA S 535.00 ACUTE GASTRITIS (WITHOUT HEMORRHAGE) 11/06/2013 KRISTINA FIRST COAT OPERATOR, ZORAIDA S 599.0 URINARY TRACT INFECTION 11/06/2013 KRISTINA FIRST COAT OPERATOR, ZORAIDA S 535.00 ACUTE GASTRITIS (WITHOUT HEMORRHAGE) 11/06/2013 KRISTINA FIRST COAT OPERATOR, ZORAIDA S 599.0 URINARY TRACT INFECTION 11/06/2013 KRISTINA ABREU, ZORAIDA S 535.00 ACUTE GASTRITIS (WITHOUT HEMORRHAGE) 11/06/2013 KRISTINA LRN, ZORAIDA S 599.0 URINARY TRACT INFECTION 11/28/2013 MARIKA JEFF APRN A 627.3 POSTMENOPAUSAL ATROPHIC VAGINITIS 11/28/2013 MARIKA JEFF APRN V65.42 COUNSELING - SMOKING CESSATION 11/28/2013 MARIKA JEFF APRN A V72.31 INTAKE COORDINATOR EXAM, ROUTINE 11/28/2013 MARIKA JEFF APRN V73.81 HPV SCREENING 11/28/2013 MARIKA JEFF APRN A V76.10 BREAST CANCER SCREENING 11/28/2013 MARIKA JEFF APRN A V76.2 CERVICAL CANCER SCREENING (PAP SMEAR) 11/28/2013 MARIKA JEFF APRN V76.51 COLON CANCER SCREENING 11/28/2013 MARIKA JEFF APRN A V82.81 SPECIAL SCREENING FOR OSTEOPOROSIS 11/28/2013 MARIKA JEFF APRN A 627.3 POSTMENOPAUSAL ATROPHIC VAGINITIS 11/28/2013 MARIKA JEFF APRN A V65.42 COUNSELING - SMOKING CESSATION 11/28/2013 MARIKA JEFF APRN A V72.31 INTAKE COORDINATOR EXAM, ROUTINE 11/28/2013 RANDEE ABREU, MARIKA A V73.81 HPV SCREENING 11/28/2013 RNADEE ABREU, MARIKA A V76.10 BREAST CANCER SCREENING 11/28/2013 RANDEE ABREU, MARIKA A V76.2 CERVICAL CANCER SCREENING (PAP SMEAR) 11/28/2013 RANDEE LRN, MARIKA A V76.51 COLON CANCER SCREENING 11/28/2013 RANDEE LRElver MARIKA A V82.81 SPECIAL SCREENING FOR OSTEOPOROSIS 11/28/2013 RANDEE LRN, MARIKA A 627.3 POSTMENOPAUSAL ATROPHIC VAGINITIS 11/28/2013 RANDEE ABREU, MARIKA A V65.42 COUNSELING - SMOKING CESSATION 11/28/2013 RANDEE ABREU, MARIKA A V72.31 INTAKE COORDINATOR EXAM, ROUTINE 11/28/2013 RANDEE ABREU, MARIKA A V73.81 HPV SCREENING 11/28/2013 RANDEE LRN, MARIKA A V76.10 BREAST CANCER SCREENING 11/28/2013 RANDEE LRElver MARIKA A V76.2 CERVICAL CANCER SCREENING (PAP SMEAR) 11/28/2013 RANDEE LRElver MARIKA A V76.51 COLON CANCER SCREENING 11/28/2013 RANDEE LRElver MARIKA A V82.81 SPECIAL SCREENING FOR OSTEOPOROSIS 11/28/2013 JOSÉ MIGUEL ACEVEDO APRNNDA S 627.3 POSTMENOPAUSAL ATROPHIC VAGINITIS 11/28/2013 JOSÉ MIGUEL ACEVEDO APRNNDA S V65.42 COUNSELING - SMOKING CESSATION 11/28/2013 JOSÉ MIGUEL ACEVEDO APRNNDA S V72.31 INTAKE COORDINATOR EXAM, ROUTINE 11/28/2013 JOSÉ MIGUEL ACEVEDO APRNNDA S V73.81 HPV SCREENING 11/28/2013 KRISTINA ABREU ZORAIDA S V76.10 BREAST CANCER SCREENING 11/28/2013 KRISTINA ABREU ZORAIDA S V76.2 CERVICAL CANCER SCREENING (PAP SMEAR) 11/28/2013 KRISTINA ABREU ZORAIDA S V76.51 COLON CANCER SCREENING 11/28/2013 KRISTINA ABREU ZORAIDA S V82.81 SPECIAL SCREENING FOR OSTEOPOROSIS 11/28/2013 JOSÉ MIGUEL ACEVEDO APRNNDA S 627.3 POSTMENOPAUSAL ATROPHIC VAGINITIS 11/28/2013 KRISTINA FIRST COAT OPERATOR, ZORAIDA S V65.42 COUNSELING - SMOKING CESSATION 11/28/2013 KRISTINA FIRST COAT OPERATOR, ZORAIDA S V72.31 INTAKE COORDINATOR EXAM, ROUTINE 11/28/2013 KRISTINA FIRST COAT OPERATOR, ZORAIDA S V73.81 HPV SCREENING 11/28/2013 KRISTINA FIRST COAT OPERATOR, ZORAIDA S V76.10 BREAST CANCER SCREENING 11/28/2013 KRISTINA FIRST COAT OPERATOR, ZORAIDA S V76.2 CERVICAL CANCER SCREENING (PAP SMEAR) 11/28/2013 KRISTINA FIRST COAT OPERATOR, ZORAIDA S V76.51 COLON CANCER SCREENING 11/28/2013 KRISTINA FIRST COAT OPERATOR, ZORAIDA S V82.81 SPECIAL SCREENING FOR OSTEOPOROSIS 11/28/2013 KRISTINA FIRST COAT OPERATOR, ZORAIDA S 627.3 POSTMENOPAUSAL ATROPHIC VAGINITIS 11/28/2013 KRISTINA FIRST COAT OPERATOR, ZORAIDA S V65.42 COUNSELING - SMOKING CESSATION 11/28/2013 KRISTINA FIRST COAT OPERATOR, ZORAIDA S V72.31 INTAKE COORDINATOR EXAM, ROUTINE 11/28/2013 KRISTINA FIRST COAT OPERATOR, ZORAIDA S V73.81 HPV SCREENING 11/28/2013 KRISTINA FIRST COAT OPERATOR, ZORAIDA S V76.10 BREAST CANCER SCREENING 11/28/2013 KRISTINA FIRST COAT OPERATOR, ZORAIDA S V76.2 CERVICAL CANCER SCREENING (PAP SMEAR) 11/28/2013 KRISTINA FIRST COAT OPERATOR, ZORAIDA S V76.51 COLON CANCER SCREENING 11/28/2013 KRISTINA FIRST COAT OPERATOR, ZORAIDA S V82.81 SPECIAL SCREENING FOR OSTEOPOROSIS 11/28/2013 KRISTINA FIRST COAT OPERATOR, ZORAIDA S 627.3 POSTMENOPAUSAL ATROPHIC VAGINITIS 11/28/2013 KRISTINA FIRST COAT OPERATOR, ZORAIDA S V65.42 COUNSELING - SMOKING CESSATION 11/28/2013 KRISTINA FIRST COAT OPERATOR, ZORAIDA S V72.31 INTAKE COORDINATOR EXAM, ROUTINE 11/28/2013 KRISTINA FIRST COAT OPERATOR, ZORAIDA S V73.81 HPV SCREENING 11/28/2013 KRISTINA FIRST COAT OPERATOR, ZORAIDA S V76.10 BREAST CANCER SCREENING 11/28/2013 KRISTINA FIRST COAT OPERATOR, ZORAIDA S V76.2 CERVICAL CANCER SCREENING (PAP SMEAR) 11/28/2013 KRISTINA FIRST COAT OPERATOR, ZORAIDA S V76.51 COLON CANCER SCREENING 11/28/2013 JOSÉ MIGUEL ACEVEDO APRNNDA S V82.81 SPECIAL SCREENING FOR OSTEOPOROSIS 11/28/2013 JOSÉ MIGUEL ACEVEDO APRNNDA S 627.3 POSTMENOPAUSAL ATROPHIC VAGINITIS 11/28/2013 JOSÉ MIGUEL ACEVEDO APRNNDA S V65.42 COUNSELING - SMOKING CESSATION 11/28/2013 JOSÉ MIGUEL ACEVEDO APRNNDA S V72.31 INTAKE COORDINATOR EXAM, ROUTINE 11/28/2013 JOSÉ MIGUEL ACEVEDO APRNNDA S V73.81 HPV SCREENING 11/28/2013 KRISTINA ABREU ZORAIDA S V76.10 BREAST CANCER SCREENING 11/28/2013 JOSÉ MIGUEL ACEVEDO APRNNDA S V76.2 CERVICAL CANCER SCREENING (PAP SMEAR) 11/28/2013 JOSÉ MIGUEL ACEVEDO APRNNDA S V76.51 COLON CANCER SCREENING 11/28/2013 JOSÉ MIGUEL ACEVEDO APRNNDA S V82.81 SPECIAL SCREENING FOR OSTEOPOROSIS 01/14/2014 KRISTINA FIRST COAT OPERATOR, ZORAIDA S 788.63 URINARY URGENCY 01/14/2014 KRISTINA LRN, ZORAIDA S 788.63 URINARY URGENCY 01/14/2014 KRISTINA FIRST COAT OPERATOR, ZORAIDA S 788.63 URINARY URGENCY 01/14/2014 KRISTINA FIRST COAT OPERATOR, ZORAIDA S 788.63 URINARY URGENCY 01/14/2014 KRISTINA FIRST COAT OPERATOR, ZORAIDA S 788.63 URINARY URGENCY 01/29/2014 KRISTINA ABREU, ZORAIDA S 008.8 GASTROENTERITIS, VIRAL 01/29/2014 KRISTINA FIRST COAT OPERATOR, ZORAIDA S 008.8 GASTROENTERITIS, VIRAL 01/29/2014 KRISTINA LRN, ZORAIDA S 008.8 GASTROENTERITIS, VIRAL 01/29/2014 KRISTINA FIRST COAT OPERATOR, ZORAIDA S 008.8 GASTROENTERITIS, VIRAL 03/05/2014 KRISTINA LRN, ZORAIDA S 354.0 CARPAL TUNNEL SYNDROME 03/05/2014 JOSÉ MIGUEL ACEVEDO APRNNDA S V03.82 PPV23 (PNEUMOVAX) DX 03/05/2014 JOSÉ MIGUEL ACEVEDO APRNNDA S V04.81 FLU SHOT 03/05/2014 KRISTINA ABREU, ZORAIDA S 354.0 CARPAL TUNNEL SYNDROME 03/05/2014 JOSÉ MIGUEL ACEVEDO APRNNDA S V03.82 PPV23 (PNEUMOVAX) DX 03/05/2014 SCOTT ACEVEDO APRNA S V04.81 FLU SHOT 03/05/2014 SCOTT ACEVEDO APRNA S 354.0 CARPAL TUNNEL SYNDROME 03/05/2014 SCOTT ACEVEDO APRNA S V03.82 PPV23 (PNEUMOVAX) DX 03/05/2014 SCOTT ACEVEDO APRNA S V04.81 FLU SHOT 08/07/2014 SCOTT ACEVEDO APRNA S 496 COPD 08/07/2014 SCOTT ACEVEDO APRNA S 724.5 BACK PAIN, GENERAL 08/07/2014 SCOTT ACEVEDO APRNA S 783.1 WEIGHT GAIN ABNORMAL 08/07/2014 ZORAIDA ACEVEDO APRN S V15.82 NICOTINE ABUSE 12/20/2016 MARIKA JEFF APRN Ot V76.12 OTH SCREEN MAMMO-MALIGN NEOPLASM OF DESIREE 02/07/2018 MARIKA JEFF FIRST COAT OPERATOR Ot V76.12 OTH SCREEN MAMMO-MALIGN NEOPLASM OF DESIREE 02/08/2018 SAJAN KIMBROUGH DO Ot Z01.818 ENCOUNTER FOR OTHER PREPROCEDURAL EXAMIN 02/09/2018 SAJAN KIMBROUGH DO Ot Z01.818 ENCOUNTER FOR OTHER PREPROCEDURAL EXAMIN 02/09/2018 SAJAN KIMBROUGH DO Ot Z01.818 ENCOUNTER FOR OTHER PREPROCEDURAL EXAMIN 02/13/2018 SAJAN KIMBROUGH DO Ot Z01.818 ENCOUNTER FOR OTHER PREPROCEDURAL EXAMIN Procedures Code Description [place] [address] ROUTINE VENIPUNCTURE 04/10/2013 07537 LIPID PANEL 04/10/2013 62491 CBC 04/10/2013 5728085 GFR CALC (RESULT ONLY) 04/10/2013 38047 CMP 04/10/2013 65293 TSH 04/10/2013 85224 ROUTINE VENIPUNCTURE 06/29/2013 31386 CMP 06/29/2013 24591 LIPID PANEL 06/29/2013 0274496 GFR CALC (RESULT ONLY) 06/29/2013 35059 UA W/ CULTURE IF INDICATED 11/06/2013 50682 MAMMOGRAM, SCREENING 11/28/2013 91124 PAP SMEAR 11/28/2013 Q0091 PAP SMEAR OBTAIN SMEAR 11/28/2013 19871 BONE MINERAL DENSITY, HEEL US (IN HOUSE) 11/28/2013 13037 HEMOCCULT 11/30/2013 05901 HEMOCCULT 11/30/2013 89514 OXIMETRY 08/07/2014 Results Test Result Range Comp. Metabolic Panel (14) - 07/05/16 14:02 Glucose, Serum 101 mg/dL 65-99 BUN 13 mg/dL 8-27 Creatinine, Serum 0.92 mg/dL 0.57-1.00 eGFR If NonAfricn Am 68 mL/min/1.73 >59 eGFR If Africn Am 78 mL/min/1.73 >59 BUN/Creatinine Ratio 14 11-26 Sodium, Serum 145 mmol/L 134-144 Potassium, Serum 4.5 mmol/L 3.5-5.2 Chloride, Serum 95 mmol/L 96-106 Carbon Dioxide, Total 30 mmol/L 18-29 Calcium, Serum 9.4 mg/dL 8.7-10.3 Protein, Total, Serum 7.6 g/dL 6.0-8.5 Albumin, Serum 4.5 g/dL 3.6-4.8 Globulin, Total 3.1 g/dL 1.5-4.5 A/G Ratio 1.5 1.2-2.2 Bilirubin, Total 0.5 mg/dL 0.0-1.2 Alkaline Phosphatase, S 90 IU/L 39-117 AST (SGOT) 87 IU/L 0-40 ALT (SGPT) 101 IU/L 0-32 Lipid Panel - 07/05/16 14:02 Cholesterol, Total 154 mg/dL 100-199 Triglycerides 128 mg/dL 0-149 HDL Cholesterol 44 mg/dL >39 VLDL Cholesterol Marek 26 mg/dL 5-40 LDL Cholesterol Calc 84 mg/dL 0-99 Hepatitis Panel (4) - 07/05/16 14:02 HBsAg Screen Negative Negative Hep A Ab, IgM Negative Negative Hep B Core Ab, IgM Negative Negative Hep C Virus Ab <0.1 s/co ratio 0.0-0.9 Written Authorization - 07/05/16 14:02 Written Authorization Comment Comp. Metabolic Panel (14) - 11/24/16 09:16 Glucose, Serum 98 mg/dL 65-99 BUN 11 mg/dL 8-27 Creatinine, Serum 0.84 mg/dL 0.57-1.00 eGFR If NonAfricn Am 76 mL/min/1.73 >59 eGFR If Africn Am 87 mL/min/1.73 >59 BUN/Creatinine Ratio 13 12-28 Sodium, Serum 145 mmol/L 134-144 Potassium, Serum 4.8 mmol/L 3.5-5.2 Chloride, Serum 97 mmol/L 96-106 Carbon Dioxide, Total 28 mmol/L 18-29 Calcium, Serum 9.4 mg/dL 8.7-10.3 Protein, Total, Serum 7.2 g/dL 6.0-8.5 Albumin, Serum 3.9 g/dL 3.6-4.8 Globulin, Total 3.3 g/dL 1.5-4.5 A/G Ratio 1.2 1.2-2.2 Bilirubin, Total 0.3 mg/dL 0.0-1.2 Alkaline Phosphatase, S 99 IU/L 39-117 AST (SGOT) 114 IU/L 0-40 ALT (SGPT) 136 IU/L 0-32 CRP - 01/16/18 11:20 C-REACTIVE PROTEIN 10.7 mg/L <8.0 Encounters ACCT No. Visit Date/Time Discharge Status Pt. Type Provider Facility Loc./Unit Complaint [id number] 08/07/2014 12:58:00 08/07/2014 23:59:59 [facility] Outpatient ZORAIDA ACEVEDO APRN [id number] 04/24/2014 10:57:00 04/24/2014 23:59:59 [facility] Outpatient ZORAIDA ACEVEDO APRN [id number] 03/05/2014 09:44:00 03/05/2014 23:59:59 [facility] Outpatient ZORAIDA ACEVEDO APRN [id number] 01/29/2014 11:33:00 01/29/2014 23:59:59 CLS Outpatient ZORAIDA ACEVEDO APRN [id number] 12/31/2013 09:40:00 12/31/2013 23:59:59 CLS Outpatient ZORAIDA ACEVEDO APRN [id number] 11/30/2013 15:37:00 11/30/2013 23:59:59 CLS Outpatient MARIKA JEFF APRN [id number] 11/28/2013 10:11:00 11/28/2013 23:59:59 CLS Outpatient MARIKA JEFF APRN [id number] 11/28/2013 10:11:00 11/28/2013 23:59:59 CLS Outpatient SUSAN JEFF APRNOJ Buckley [id number] 11/06/2013 13:21:00 11/06/2013 23:59:59 CLS Outpatient KRISTINA LRNZORAIDA Fabby [id number] 07/30/2013 12:43:00 07/30/2013 23:59:59 CLS Outpatient RAY CASTILLOTORY Sequeira Christopher [id number] 07/03/2013 13:57:00 07/03/2013 23:59:59 CLS Outpatient KRISTINA LRNZORAIDA Fabby [id number] 06/29/2013 09:39:00 06/29/2013 23:59:59 CLS Outpatient KRISTINA FIRST COAT OPERATORJOSÉ MIGUELZORAIDA S [id number] 05/14/2013 08:56:00 05/14/2013 23:59:59 CLS Outpatient KRISTINA FIRST COAT OPERATORJOSÉ MIGUELZORAIDA Fabby [id number] 04/10/2013 10:37:00 04/10/2013 23:59:59 CLS Outpatient KRISTINA LRNZORAIDA Fabby [id number] 03/14/2013 09:58:00 03/14/2013 23:59:59 CLS Outpatient ARETHA SKELTON DO [id number] 11/24/2011 13:32:00 11/24/2011 23:59:59 CLS Outpatient KRISTINA FIRST COAT OPERATORZORAIDA S [id number] 11/25/2016 08:06:00 Document Registration [id number] 02/09/2018 13:46:00 02/09/2018 13:51:00 DIS Outpatient SAJAN KIMBROUGH DO [facility] PREOP COLONOSCOPY/EGD [id number] 12/20/2016 08:45:00 12/20/2016 23:59:59 CLS Preadmit ZORAIDA ACEVEDOP [facility] RAD ABN LFT'S [id number] 12/05/2013 09:23:00 12/05/2013 23:59:59 CLS Outpatient RANDEESUSANMARIKA A FIRST COAT OPERATOR [facility] RAD SCREENING [id number] 02/14/2018 08:10:00 ACT Outpatient SAJAN KIMBROUGH DO [facility] ENDO UNINTENTIONAL WEIGHT LOSS/DIARRHEA/GERD/ FAMILY HX [id number] 07/06/2016 06:08:00 Document Registration [id number] 07/08/2016 05:05:00 Document Registration [id number] 11/02/2017 11:20:00 11/02/2017 23:59:59 [facility] Outpatient ZORAIDA ACEVEDO APRN [facility] [id number] 01/16/2018 10:00:00 Document Registration
[2018-02-14] MEDS ORDERED: LACTATED RINGERS 1,000 ML IV STA (08:24)
[2018-02-14] MEDS ORDERED: LACTATED RINGERS 1,000 ML IV ONE (08:30)
[2018-02-14 08:45] VITALS: BP 181/116
--- NOTE | 2018-02-14 09:29 | Progress Note-Pre Operative ---
Pre-Operative Progress Note H&P Reviewed The H&P was reviewed, patient examined and no changes noted. Date Seen by Provider: Feb 14, 2018 Time Seen by Provider: : Date H&P Reviewed: Feb 14, 2018 Time H&P Reviewed: 09:28 Pre-Operative Diagnosis: unintentional weight loss, diarrhea,gerd,abdominal pain diffuse,family hx c SAJAN KIMBROUGH DO Feb 14, 2018 09:29
[2018-02-14] MEDS ORDERED: meTOprolol 5 MG/5 ML (LOPRESSOR) VIAL IV ONE (09:30)
[2018-02-14] MEDS ORDERED: MIDAZOLAM 2 MG/2 ML (VERSED) VIAL ONE (10:06)
[2018-02-14] MEDS ORDERED: PROPOFOL INJECTION 50 ML IV ONE (10:06)
[2018-02-14 11:05] VITALS: BP 181/82
--- NOTE | 2018-02-14 11:06 | Progress Note-Post Operative ---
Post-Operative Progess Note Surgeon (s)/Head Machinist (s) Surgeon SAJAN KIMBROUGH DO Head Machinist: na Pre-Operative Diagnosis unintentional weight loss, diarrhea,gerd,abdominal pain diffuse,family hx c Post-Operative Diagnosis gastritis, duodenitis, small hiatal hernia, colon polyps Procedure & Operative Findings Date of Procedure 02/14/18 Procedure Performed/Findings egd c biopsy duodenum, antrum, colonoscopy with hot bx polypectomy x 3 Anesthesia Type per pneumatic tester Estimated Blood Loss Estimated blood loss (mL): none Specimens/Packing Specimens Removed duodenum, antrum, sigmoid polyp x 2 rectal polyp x 1 SAJAN KIMBROUGH DO Feb 14, 2018 11:06
[2018-02-14] MEDS ORDERED: PANT40TA2 PO (11:08)
[2018-02-14] MEDS ORDERED: SUCR1TAB36 PO (11:08)
--- NOTE | 2018-02-14 11:09 | Discharge Inst-Simple/Standard ---
Discharge Inst-Standard Discharge Medications New, Converted or Re-Newed RX: Transmitted to Pharmacy Patient Instructions/Follow Up Plan of Care/Instructions/FU: 2 weeks yaneth Activity as Tolerated: Yes Discharge Diet: Regular Diet SAJAN KIMBROUGH DO Feb 14, 2018 11:08
[2018-02-14] MEDS ORDERED: HURRICAINE EXT TUBE (BENZOCAINE) ONE (11:17)
[2018-02-14] MEDS ORDERED: HURRICAINE EXT TUBE (BENZOCAINE) XX ONE (11:30)
[2018-02-14 11:35] VITALS: BP 152/105
[2018-02-14 11:45] VITALS: BP 152/105
--- NOTE | 2018-02-14 13:24 | OPERATIVE REPORT ---
DATE OF SERVICE: PREPROCEDURE DIAGNOSES: Unintentional weight loss, diarrhea, gastroesophageal reflux disease, abdominal pain diffuse and family history of colon cancer. POSTOPERATIVE DIAGNOSIS: Gastritis, duodenitis, small hiatal hernia and colon polyps. PROCEDURES: EGD with biopsy of the duodenum and antrum, colonoscopy with hot biopsy polypectomy x 3. SURGEON: Sajan Aquino DO. ANESTHESIA: Per RADIOTELEGRAPH OPERATOR SERVICER. ESTIMATED BLOOD LOSS: None. COMPLICATIONS: None. INDICATIONS: The patient is a 62-year-old female with diffuse abdominal pain, unintentional weight loss, diarrhea and GERD. She also has a family history of colon cancer. She understands the risks and benefits of procedures and wished to proceed with procedure. Consent was signed and on the chart. DESCRIPTION OF PROCEDURE: The patient was taken to the endoscopy suite and placed in the left lateral recumbent position. Timeout was performed. Scope was inserted in the mouth, down the esophagus, stomach and into the duodenum. The first portion had significant erythematous changes. Biopsy was obtained. No polyps, masses or ulcerations. Scope was then slowly retracted back and the stomach was further insufflated. Erythematous changes were present diffusely. Biopsies of the antrum were obtained. Scope was retroflexed noting a small hiatal hernia. No polyps, masses or ulcerations. Scope was returned to its normal position, slowly withdrawn to the distal esophagus, which had no polyps, masses, ulcerations or erythematous changes. Scope was slowly retracted back until completely removed. Digital rectal exam was performed. There were no palpable polyps, masses or ulcerations. The scope was inserted in the rectum and advanced all the way to the cecum with minimal difficulty. Prep was adequate. Scope was slowly then retracted back. No polyps, masses or ulcerations within the cecum, ascending, transverse and descending colon. Within the sigmoid colon, two small polyps were present, which hot biopsy polypectomy was performed. Scope was continuously retracted back into the rectum where the scope was retroflexed noting no other pathology except for one small polyp. No masses or ulcerations. Hot biopsy polypectomy was performed. Scope was returned to its normal position, slowly withdrawn until completely removed. The patient tolerated the procedure well without any complications. She was taken to the recovery room in stable condition. RECOMMENDATIONS: The patient will follow up on pathology in 2 weeks. She will be started on Protonix 40 mg daily and Carafate 1 gram four times a day and see how she is doing. She will need a repeat colonoscopy in 5 years due to polyps and family history of colon cancer. If she has any problems prior to that, she should be reevaluated at that time. Job ID: [id number] DocumentID: [id number] Dictated Date: 02/14/2018 11:12:15 Yarn Carrier Date: 02/14/2018 13:24:04 Dictated By: SAJAN AQUINO DO
== END 2018-02-14 11:45 | disposition home or self-care (01) ==
LOC: ENDO 08:10
PROVIDERS: ATTEND Surgery
DX: D12.5 Benign neoplasm of sigmoid colon (principal); K62.1 Rectal polyp; R19.7 Diarrhea, unspecified; K29.70 Gastritis, unspecified, without bleeding; K29.80 Duodenitis without bleeding; K21.9 Gastro-esophageal reflux disease without esophagitis; K44.9 Diaphragmatic hernia without obstruction or gangrene; I10 Essential (primary) hypertension; J44.9 Chronic obstructive pulmonary disease, unspecified; F17.210 Nicotine dependence, cigarettes, uncomplicated; Z79.899 Other long term (current) drug therapy; Z80.0 Family history of malignant neoplasm of digestive organs

== ENCOUNTER → 2018-03-03 | Outpatient (CLI) | payer OTHER ==
[~2018-03-03] MED LIST changes: +IOHEXOL 350 MG/ML 100 ML (OMNIPAQUE 350) VIAL IV ONE; +NS 250 ML (IVPB) BAG IV ONE; +PANT40TA2 PO; +RECEIVED CONTRAST (Hold Metformin) IV SCH; +SUCR1TAB36 PO
[2018-03-03 12:10] LABS: BASOPHILS % (AUTO) 1 % (0-10); EOSINOPHILS # (AUTO) 0.1 10^3/uL (0.0-0.3); EOSINOPHILS % (AUTO) 1 % (0-10); HEMATOCRIT 54 % (35-52); HEMOGLOBIN 18.3 G/DL (11.5-16.0); LYMPHOCYTES # (AUTO) 3.1 X 10^3 (1.0-4.0); LYMPHOCYTES % (AUTO) 36 % (12-44); MEAN CORPUSCULAR HEMOGLOBIN 31 PG (25-34); MEAN CORPUSCULAR HGB CONC 34 G/DL (32-36); MEAN CORPUSCULAR VOLUME 90 FL (80-99); MEAN PLATELET VOLUME 9.8 FL (7.4-10.4); MONOCYTES # (AUTO) 0.7 X 10^3 (0.0-1.0); MONOCYTES % (AUTO) 9 % (0-12); NEUTROPHILS # (AUTO) 4.5 X 10^3 (1.8-7.8); NEUTROPHILS % (AUTO) 53 % (42-75); PLATELET COUNT 219 10^3/uL (130-400); RED BLOOD COUNT 5.99 10^6/uL (4.35-5.85); RED CELL DISTRIBUTION WIDTH 14.2 % (10.0-14.5); WHITE BLOOD COUNT 8.5 10^3/uL (4.3-11.0)
[2018-03-03 12:37] LABS: ALANINE AMINOTRANSFERASE 46 U/L (0-55); ALBUMIN 4.2 GM/DL (3.2-4.5); ALKALINE PHOSPHATASE 84 U/L (40-136); BILIRUBIN,TOTAL 0.6 MG/DL (0.1-1.0); BUN/CREATININE RATIO 9; CALCIUM 9.9 MG/DL (8.5-10.1); CARBON DIOXIDE 28 MMOL/L (21-32); CHLORIDE 101 MMOL/L (98-107); CREATININE SERUM 0.75 MG/DL (0.60-1.30); GFR ESTIMATED > 60; GLUCOSE 109 MG/DL (70-105); POTASSIUM 3.3 MMOL/L (3.6-5.0); SODIUM 142 MMOL/L (135-145); TOTAL PROTEIN 8.1 GM/DL (6.4-8.2)
--- NOTE | 2018-03-03 13:02 | Diagnostic Imaging Report ---
PROCEDURE: CT abdomen and pelvis with contrast. TECHNIQUE: Multiple contiguous axial images were obtained through the abdomen and pelvis after administration of intravenous contrast. INDICATION: Abdominal pain and back pain. COMPARISON: No prior studies are available for comparison. FINDINGS: Lung bases are clear of acute infiltrates. Mild generalized low density is seen throughout the liver consistent with hepatic steatosis. No discrete liver mass is identified. The gallbladder is surgically absent. No biliary ductal dilatation is seen. The pancreas and spleen are unremarkable. No adrenal mass is identified. The kidneys are unremarkable. The aorta is non-aneurysmal. No central retroperitoneal or mesenteric lymphadenopathy is seen. The small and large bowel loops are normal in caliber. There is no ascites. The uterus and bladder are unremarkable. No iliac or inguinal lymphadenopathy is seen. The bony structures are nonacute. IMPRESSION: 1. Hepatic steatosis. 2. No acute feature in the abdomen or pelvis is identified. Dictated by: Dictated on workstation # [id number]
== END ==
LOC: RAD 11:18
PROVIDERS: ATTEND Surgery
DX: K76.0 Fatty (change of) liver, not elsewhere classified (principal); Z90.49 Acquired absence of other specified parts of digestive tract
CPT/HCPCS: 36415; 74177; 80053; 85025

== ENCOUNTER → 2020-09-05 | Outpatient (CLI) | payer MEDICARE, MEDICAID ==
[~2020-09-05] MED LIST changes: +AMLO-251 PO; +ASCO500C17 PO; +ASPI-999 PO; +CEFD300C3 PO; +CLOP75TA28 PO; +CYCL5TAB PO; +FLUT1BLS3 PO; +HYDR-700 PO; -IOHEXOL 350 MG/ML 100 ML (OMNIPAQUE 350) VIAL IV ONE; +LINA145C PO; +LISI20TA26 PO; +LORA10TA7 PO; +MULT-1067 PO; -NS 250 ML (IVPB) BAG IV ONE; +PRD20T PO; +PRIM50TA33 PO; -RECEIVED CONTRAST (Hold Metformin) IV SCH; -ROSU10TA PO; +ROSU10TA22 PO; +RT-ALBUTEROL SULF 2.5 MG/3 ML PRE-MIX VIAL INH ONE; +TOLT4CAP13 PO; -TRAZ-190 PO; +TRAZ-227 PO; +TRAZ150T72 PO
--- NOTE | 2020-09-05 11:52 | Diagnostic Imaging Report ---
EXAMINATION: CT chest without contrast (lung screening). TECHNIQUE: Multiple contiguous axial images were obtained through the chest without the use of intravenous contrast according to lung cancer screening protocol. All CT scans use one or more of the following dose optimizing techniques: automated exposure control, MA and/or KvP adjustment based on patient size and exam type or iterative reconstruction. HISTORY: [id number] history of smoking. COMPARISON: None available. FINDINGS: There is no edema or pneumonia. No pleural effusion. No pneumothorax. No suspicious nodules. Lungs are severely emphysematous. There is a small amount of mucous in the right mainstem bronchus. There is no axillary or supraclavicular lymphadenopathy. There is no mediastinal lymphadenopathy. Heart size is normal. There are moderate coronary artery calcifications. No pericardial effusion. Aorta is normal in caliber. Limited views of the upper abdomen are unremarkable. There are no suspicious osseous lesions. IMPRESSION: 1. No suspicious pulmonary nodules. LUNG-RADS CATEGORY: 1 MODIFIER: None. Dictated by: Dictated on workstation # [id number]
== END ==
LOC: RT 10:02
PROVIDERS: ATTEND Nurse Practitioner
DX: J44.9 Chronic obstructive pulmonary disease, unspecified (principal); F17.210 Nicotine dependence, cigarettes, uncomplicated
CPT/HCPCS: 71271; 94060; 94726; 94729

== ENCOUNTER → 2020-11-03 | Outpatient (CLI) | payer MEDICARE, MEDICAID ==
[~2020-11-03] MED LIST changes: -RT-ALBUTEROL SULF 2.5 MG/3 ML PRE-MIX VIAL INH ONE
[2020-11-03 09:13] LABS: ABG BASE EXCESS 3.7 MMOL/L (-2.5-2.5); ABG OXYGEN SATURATION 99 % (94-100); ABG PCO2 47 MMHG (35-45); ABG PO2 104 MMHG (79-93); ABG TCO2 29.6 MMOL/L (21.0-31.0)
[2020-11-03 09:14] LABS: ALLENS TEST YES-POS; INSPIRED O2 2L; PATIENT TEMP 36.8; VENTILATOR NO
== END ==
LOC: LAB
PROVIDERS: ATTEND Nurse Practitioner Family
DX: J44.9 Chronic obstructive pulmonary disease, unspecified (principal)
CPT/HCPCS: 36600; 82805

== ENCOUNTER → 2021-09-01 | Outpatient (CLI) | payer MEDICARE, MEDICAID ==
[~2021-09-01] MED LIST changes: -TOLT4CAP13 PO; +TOLT4CAP26 PO
--- NOTE | 2021-09-01 12:45 | Diagnostic Imaging Report ---
INDICATION: Screening, postmenopausal COMPARISON: None FINDINGS: AP Spine L1-L4: [BMD (g/cm2): 0.845] [T-Score: -3.0] [Z-Score: -1.0] [BMD Previous: na] [BMD % Change: na] LT Hip Neck: [BMD (g/cm2): 0.724] [T-Score: -2.3] [Z-Score: -0.6] LT Hip Total: [BMD (g/cm2):0.793] [T-Score:-1.7] [Z-Score: -0.3] [BMD Previous: na] [BMD % Change: na] RT Hip Neck: [BMD (g/cm2):0.715] [T-Score:-2.3] [Z-Score:-0.6] RT Hip Total: [BMD (g/cm2):0.706] [T-score:-2.4] [Z-Score:-1.0] [BMD Previous:na] [BMD % Change:na] *Indicates significant change from prior examination based on 95% confidence level. World Health Organization criteria for BMD interpretation classify patients as Normal (T-score at or above -1.0), Osteopenic (T-score between -1.0 and -2.5) or Osteoporotic (T-score at or below -2.5). LIMITATIONS AND MODIFICATION: None. FRACTURE RISK (FRAX SCORE): The ten year probability of (%): Major Osteoporotic Fracture: [13.3] Hip Fracture: [4.0] IMPRESSION: 1. Osteoporotic 2. See below National Osteoporosis Foundation guidelines on when to potentially initiate pharmacologic therapy. Based on the National Osteoporosis Foundation Guidelines, pharmacologic treatment should be initiated in any of the following, unless clinical conditions suggest otherwise: * Any patient with prior fragility fracture of the hip or vertebrae. A spine fracture indicates 5X risk for subsequent spine fracture and 2X risk for subsequent hip fracture. * Osteoporosis (T-score <-2.5). * Postmenopausal women and men age 50 and older with low bone mass/osteopenia (T-score between -1.0 and -2.5) by DXA and 10-year major osteoporotic fracture greater than 20% or a 10-year probability of hip fracture greater than 3%. These fracture risks are supplied above in the FRAX score, if applicable. * Clinician judgement and/or patient preferences may indicate treatment for people with 10-year fracture probabilities above or below these levels. Dictated by: Dictated on workstation # [id number]
== END ==
LOC: RAD 11:30
PROVIDERS: ATTEND Nurse Practitioner
DX: Z13.820 Encounter for screening for osteoporosis (principal); M81.0 Age-related osteoporosis without current pathological fracture; Z78.0 Asymptomatic menopausal state
CPT/HCPCS: 77080

== ENCOUNTER → 2021-10-12 | Outpatient (CLI) | payer MEDICARE, MEDICAID ==
[2021-10-12 12:13] LABS: ALBUMIN 3.9 GM/DL (3.2-4.5); BILIRUBIN,TOTAL 0.4 MG/DL (0.1-1.0); CALCIUM 9.2 MG/DL (8.5-10.1); CREATININE SERUM 0.83 MG/DL (0.60-1.30); TOTAL PROTEIN 6.9 GM/DL (6.4-8.2)
== END ==
LOC: CARD 11:14
PROVIDERS: ATTEND Internal Medicine Cardiovascular Disease
DX: I25.10 Atherosclerotic heart disease of native coronary artery without angina pectoris (principal); E78.2 Mixed hyperlipidemia; I10 Essential (primary) hypertension
CPT/HCPCS: 36415; 80053; 80061; 93306

== ENCOUNTER 2021-11-10 05:38 | Outpatient (CLI) | payer MEDICARE, MEDICAID ==
[~2021-11-10] VITALS: Ht 149.8 cm; Wt 55.4 kg
[~2021-11-10 05:38] MED LIST changes: +NF-CRES10T PO; -ROSU10TA22 PO
[2021-11-11] MEDS ORDERED: FLUT1DIS28 IH (15:44)
[2021-11-11] MEDS ORDERED: MONT5TAB24 PO (15:44)
[2021-11-11] MEDS ORDERED: UMEC62.5 IH (15:44)
[2021-11-11] MEDS ORDERED: MV-M1TAB20 PO (15:44)
[2021-11-11] MEDS ORDERED: VALS40TA9 PO (15:44)
[2021-11-11] MEDS ORDERED: RT-ALBUINH IH (15:44)
== END 2021-11-11 15:48 | disposition home or self-care (01) ==
LOC: PREOP 05:38
PROVIDERS: ATTEND Specialist
DX: Z01.818 Encounter for other preprocedural examination (principal)

== ENCOUNTER 2021-11-13 09:56 | Day surgery (SDC) | payer MEDICARE, MEDICAID ==
[~2021-11-13] VITALS: Ht 149.8 cm; Wt 55.4 kg
[~2021-11-13 09:56] MED LIST changes: +FLUT1DIS28 IH; +MONT5TAB24 PO; +MV-M1TAB20 PO; +RT-ALBUINH IH; +UMEC62.5 IH; +VALS40TA9 PO
[2021-11-13] MEDS: TETRACAINE 0.5% OPHTH SOLN 4 ML BTL (SINGLE DOSE ONLY) OU PRN ×4 (10:10→10:30)
[2021-11-13] MEDS ORDERED: MOXIFLOXACIN OPHTH SOLN 5 MG/ML 0.3 ML SYRINGE OP ONE (10:15)
[2021-11-13] MEDS ORDERED: TIMOLOL MALEATE 0.5% 5 ML (TIMOPTIC) BTL OU PRN (10:15)
[2021-11-13] MEDS ORDERED: POVIDONE (BETADINE) OPHTH SOLN 5% 30 ML OP ONE (10:15)
[2021-11-13] MEDS: PHENYLEPHRINE 10% OPHTH (NEO-SYN) 5 ML BTL OU SCH ×3 (10:17→10:30)
[2021-11-13] MEDS: TROPICAMIDE 1% OPH SOLN (MYDRIACYL) 15 ML BTL OP SCH ×3 (10:17→10:30)
[2021-11-13 10:24] VITALS: BP 115/80
--- NOTE | 2021-11-13 10:52 | Ophthalmologist Pre-Op Note ---
Pre-Operative Progress Note H&P Reviewed The H&P was reviewed, patient examined and no changes noted. Date H&P Reviewed: Nov 13, 2021 Time H&P Reviewed: 10:52 Pre-Op Dx Cataract, Left Eye EDWIN ANGELES MD Nov 13, 2021 10:52
[2021-11-13] MEDS ORDERED: MIDAZOLAM 2 MG/2 ML (VERSED) VIAL ONE (10:56)
--- NOTE | 2021-11-13 11:13 | Ophthalmology Operative Report ---
Cataract removal/placement IOL PREOPERATIVE DIAGNOSIS: Cataract Left Eye POSTOPERATIVE DIAGNOSIS: Cataract Left Eye PROCEDURE: Cataract removal and placement of posterior chamber implant, left eye SURGEON: Dino Angeles ANESTHESIA: Topical with sedation COMPLICATIONS: None ESTIMATED BLOOD LOSS: Minimal DESCRIPTION OF PROCEDURE: After proper informed consent was obtained, the patient, a 66 female, was taken to the Operating Room and the left eye was anesthetized with tetracaine. The left eye was then prepped and draped in the usual manner. A wire lid speculum was placed. A paracentesis was made at the left hand position. Preservative free lidocaine was injected into the anterior chamber followed by viscoelastic. A clear corneal incision was made in the temporal position. A capsulorrhexis was preformed and the central nuclear and cortical material were removed. The posterior capsule was polished and an Joo 20.0 [id number] was placed into the capsular bag. The residual viscoelastic was aspirated and balanced saline solution was injected into the anterior chamber. Moxifloxacin was injected into the anterior chamber. The wound was checked and found to be water tight. The patient tolerated the procedure well without complications. DINO ANGELES MD Nov 13, 2021 11:13
[2021-11-13 11:20] VITALS: BP 120/70
--- NOTE | 2021-11-13 13:10 | Anesthesia-General Post-Op ---
MAC Patient Condition Mental Status/LOC: Same as Preop Cardiovascular: Satisfactory Nausea/Vomiting: Absent Respiratory: Satisfactory Pain: Controlled Complications: Absent Post Op Complications Complications None Follow Up Care/Instructions Patient Instructions None needed. Anesthesiology Discharge Order Discharge Order Patient is doing well, no complaints, stable vital signs, no apparent adverse anesthesia problems. No complications reported per nursing. MARTHA COLBY CRNA Nov 13, 2021 13:10
[2021-11-13] MEDS ORDERED: acetaZOLAMIDE ER 500 MG CAP (DIAMOX SEQUELS) PO ONE (14:15)
== END 2021-11-13 11:30 | disposition home or self-care (01) ==
LOC: SDC 09:56
PROVIDERS: ATTEND Specialist
DX: H25.9 Unspecified age-related cataract (principal); F17.290 Nicotine dependence, other tobacco product, uncomplicated
CPT/HCPCS: 66984; V2632

== ENCOUNTER 2021-11-27 06:32 | Day surgery (SDC) | payer MEDICARE, MEDICAID ==
[~2021-11-27] VITALS: Ht 149.8 cm; Wt 55.4 kg
[2021-11-27 06:18] VITALS: BP 125/66
[2021-11-27] MEDS: TETRACAINE 0.5% OPHTH SOLN 4 ML BTL (SINGLE DOSE ONLY) OU PRN ×4 (06:43→07:07)
[2021-11-27] MEDS ORDERED: POVIDONE (BETADINE) OPHTH SOLN 5% 30 ML OP ONE (06:45)
[2021-11-27] MEDS ORDERED: MOXIFLOXACIN OPHTH SOLN 5 MG/ML 0.3 ML SYRINGE OP ONE (06:45)
[2021-11-27] MEDS ORDERED: TIMOLOL MALEATE 0.5% 5 ML (TIMOPTIC) BTL OU PRN (06:45)
[2021-11-27] MEDS: TROPICAMIDE 1% OPH SOLN (MYDRIACYL) 15 ML BTL OP SCH ×3 (06:57→07:07)
[2021-11-27] MEDS: PHENYLEPHRINE 10% OPHTH (NEO-SYN) 5 ML BTL OU SCH ×3 (06:57→07:07)
[2021-11-27] MEDS ORDERED: MIDAZOLAM 2 MG/2 ML (VERSED) VIAL ONE (07:46)
--- NOTE | 2021-11-27 07:55 | Ophthalmologist Pre-Op Note ---
Pre-Operative Progress Note H&P Reviewed The H&P was reviewed, patient examined and no changes noted. Date H&P Reviewed: Nov 27, 2021 Time H&P Reviewed: 07:55 Pre-Op Dx Cataract, Right Eye EDWIN ANGELES MD Nov 27, 2021 07:55
[2021-11-27] MEDS ORDERED: acetaZOLAMIDE ER 500 MG CAP (DIAMOX SEQUELS) PO ONE (08:00)
--- NOTE | 2021-11-27 08:21 | Ophthalmology Operative Report ---
Cataract removal/placement IOL PREOPERATIVE DIAGNOSIS: Cataract Right Eye POSTOPERATIVE DIAGNOSIS: Cataract Right Eye PROCEDURE: Cataract removal and placement of posterior chamber implant, right eye SURGEON: Dino Angeles ANESTHESIA: Topical with sedation COMPLICATIONS: None ESTIMATED BLOOD LOSS: Minimal DESCRIPTION OF PROCEDURE: After proper informed consent was obtained, the patient, a 66 female, was taken to the Operating Room and the right eye was anesthetized with tetracaine. The right eye was then prepped and draped in the usual manner. A wire lid speculum was placed. A paracentesis was made at the left hand position. Preservative free lidocaine was injected into the anterior chamber followed by viscoelastic. A clear corneal incision was made in the temporal position. A capsulorrhexis was preformed and the central nuclear and cortical material were removed. The posterior capsule was polished and Joo 22.5 [id number] IOL was placed into the capsular bag. The residual viscoelastic was aspirated and balanced saline solution was injected into the anterior chamber. Moxifloxacin was injected into the anterior chamber. The wound was checked and found to be water tight. The patient tolerated the procedure well without complications. DINO ANGELES MD Nov 27, 2021 08:21
[2021-11-27 08:30] VITALS: BP 109/52
--- NOTE | 2021-11-27 17:28 | Anesthesia-General Post-Op ---
MAC Patient Condition Mental Status/LOC: Same as Preop Cardiovascular: Satisfactory Nausea/Vomiting: Absent Respiratory: Satisfactory Pain: Controlled Complications: Absent Post Op Complications Complications None Follow Up Care/Instructions Patient Instructions None needed. Anesthesiology Discharge Order Discharge Order Patient is doing well, no complaints, stable vital signs, no apparent adverse anesthesia problems. No complications reported per nursing. SHEMAR MARTINES CRNA Nov 27, 2021 17:28
== END 2021-11-27 08:31 | disposition home or self-care (01) ==
LOC: SDC 06:32
PROVIDERS: ATTEND Specialist
DX: H25.9 Unspecified age-related cataract (principal); Z79.82 Long term (current) use of aspirin; F17.200 Nicotine dependence, unspecified, uncomplicated
CPT/HCPCS: 66984; V2632

== ENCOUNTER → 2023-01-25 | Outpatient (CLI) | payer MEDICARE, MEDICAID ==
[~2023-01-25] MED LIST changes: +ALBU2.5V4 INH; +ALBU8.5H6 IH; +DOXY100T2 PO; -MONT5TAB24 PO; +MONT5TAB25 PO; -RT-ALBUINH IH; +RT-ALBUINH INH
--- NOTE | 2023-01-25 17:05 | Diagnostic Imaging Report ---
INDICATION: 67-year-old post menopausal female with history of osteoporosis. Tobacco use. COMPARISON: 03/03/2018, 09/01/2021 FINDINGS: AP Spine L1-L4: [BMD (g/cm2): 0.823] [T-Score: -3.1] [Z-Score: -1.1] [BMD Previous: 0.845] [BMD % Change: -2.6] LT Hip Neck: [BMD (g/cm2): 0.741] [T-Score: -2.1] [Z-Score: -0.3] LT Hip Total: [BMD (g/cm2):0.771] [T-Score:-1.9] [Z-Score: -0.3] [BMD Previous: 0.793] [BMD % Change: -2.8] RT Hip Neck: [BMD (g/cm2):07.707] [T-Score:-2.4] [Z-Score:-0.6] RT Hip Total: [BMD (g/cm2):0.693] [T-score:-2.5] [Z-Score:-0.9] [BMD Previous:0.706] [BMD % Change:-1.8] *Indicates significant change from prior examination based on 95% confidence level. World Health Organization criteria for BMD interpretation classify patients as Normal (T-score at or above -1.0), Osteopenic (T-score between -1.0 and -2.5) or Osteoporotic (T-score at or below -2.5). LIMITATIONS AND MODIFICATION: None. FRACTURE RISK (FRAX SCORE): The ten year probability of (%): Major Osteoporotic Fracture: [13.8] Hip Fracture: [4.6] IMPRESSION: 1. Osteoporosis. 2. No significant change in bone mineral density since prior examination. 3. See below National Osteoporosis Foundation guidelines on when to potentially initiate pharmacologic therapy. Based on the National Osteoporosis Foundation Guidelines, pharmacologic treatment should be initiated in any of the following, unless clinical conditions suggest otherwise: * Any patient with prior fragility fracture of the hip or vertebrae. A spine fracture indicates 5X risk for subsequent spine fracture and 2X risk for subsequent hip fracture. * Osteoporosis (T-score <-2.5). * Postmenopausal women and men age 50 and older with low bone mass/osteopenia (T-score between -1.0 and -2.5) by DXA and 10-year major osteoporotic fracture greater than 20% or a 10-year probability of hip fracture greater than 3%. These fracture risks are supplied above in the FRAX score, if applicable. * Clinician judgement and/or patient preferences may indicate treatment for people with 10-year fracture probabilities above or below these levels. Dictated by: Dictated on workstation # [id number]
== END ==
LOC: RAD 13:30
PROVIDERS: ATTEND Pediatrics
DX: M81.0 Age-related osteoporosis without current pathological fracture (principal); Z78.0 Asymptomatic menopausal state; Z72.0 Tobacco use
CPT/HCPCS: 77080

== ENCOUNTER 2023-01-31 11:32 | Emergency (ER) | payer MEDICARE, MEDICAID ==
[~2023-01-31] VITALS: Ht 150 cm; Wt 53.0 kg
[~2023-01-31 11:32] MED LIST changes: -ALBU2.5V4 INH; -DOXY100T2 PO; -RT-ALBUINH INH
--- NOTE | 2023-01-31 12:39 | ED Respiratory ---
General Chief Complaint: Respiratory Problems Stated Complaint: DIFFICULTY BREATHING | TEMPERATURE FLUCTUATIONS Nursing Triage Note: PT STATES SOB AND WEAK FOR 3 DAYS, TASTE IS OFF, ON HOME O2, COPD, MID CHEST PAIN FOR 3 DAYS ALSO Source: patient Exam Limitations: no limitations History of Present Illness Date Seen by Provider: Jan 31, 2023 Time Seen by Provider: 13:21 Timing/Duration: getting worse Severity: mild Prior Episodes/Possible Cause: occasional episodes Modifying Factors: Improves With Activity Associated Symptoms: chest pain/soreness, wheezing, other (General weakness) Allergies and Home Medications Allergies Coded Allergies: NKANo Known Allergies (Verified Allergy, Unknown, 11/27/21) Patient Home Medication List Home Medication List Reviewed: Yes Albuterol Sulfate (Ventolin Hfa) 1 Puff Puff, 2 PUFF IH Q4H, (Reported) Entered as Reported by: OLE HURST on 11/11/21 1544 Albuterol Sulfate (Ventolin Hfa) 1 Puff Puff, 2 PUFF INH Q4H PRN for COUGH Prescribed by: Tara Kasper on 01/31/23 1320 Albuterol Sulfate (Albuterol Sulfate) 2.5 Mg/3 Ml (0.083 %) Vial.neb, 2.5 MG INH Q4H PRN for WHEEZING Prescribed by: Tara Kasper on 01/31/23 1326 Last Action: New Order Amlodipine Besylate (Amlodipine Besylate) 10 Mg Tablet, 10 MG PO DAILY Prescribed by: NEEL WANG on 09/07/19 1020 Aspirin (Aspirin) 81 Mg Tab.chew, 81 MG PO DAILY@0900 Prescribed by: NEEL WANG on 09/07/19 1020 Clopidogrel Bisulfate (Clopidogrel) 75 Mg Tablet, 75 MG PO DAILY Prescribed by: NEEL WANG on 09/07/19 1020 Cyclobenzaprine HCl (Cyclobenzaprine HCl) 5 Mg Tablet, 5 MG PO DAILY, (Reported) Entered as Reported by: BART GLOVER on 09/05/19 1501 Doxycycline Hyclate (Doxycycline Hyclate) 100 Mg Tablet, 100 MG PO BID Prescribed by: Tara Kasper on 01/31/23 1320 Fluticasone/Salmeterol (Advair 100-50 Diskus) Unknown Strength Blst.w.dev, Unknown Dose IH, (Reported) Entered as Reported by: OLE HURST on 11/11/21 1544 Gabapentin (Gabapentin) 300 Mg Capsule, 300 MG PO HS, (Reported) Entered as Reported by: EAN MONTEJO on 02/09/18 1340 Hydroxyzine HCl (Hydroxyzine HCl) 25 Mg Tablet, 25 MG PO Q6H PRN for ANXIETY, (Reported) Entered as Reported by: BART GLOVER on 09/05/19 1501 Linaclotide (Linzess) 145 Mcg Capsule, 145 MG PO DAILY, (Reported) Entered as Reported by: BART GLOVER on 09/05/19 1501 Lisinopril (Lisinopril) 20 Mg Tablet, 20 MG PO 1200, (Reported) Entered as Reported by: BART GLOVER on 09/05/19 1501 Loratadine (Loratadine) 10 Mg Tablet, 10 MG PO DAILY, (Reported) Entered as Reported by: BART GLOVER on 09/05/19 1501 Metoprolol Tartrate (Metoprolol Tartrate) 50 Mg Tablet, 50 MG PO BID Prescribed by: NEEL WANG on 09/07/19 1020 Montelukast Sodium (Montelukast Sodium) Unknown Strength Tab.chew, Unknown Dose PO, (Reported) Entered as Reported by: OLE HURST on 11/11/21 1544 Multivitamin/Iron/Folic Acid (Centrum Adults Tablet) 1 Each Tablet, 1 EACH PO DAILY, (Reported) Entered as Reported by: BART GLOVER on 09/05/19 1509 Mv-Mn/Iron/FA/Herbal Cmplx#190 (Vitamin D3 Complete Caplet) 18 Mg Iron-800 Mcg- 150 Mg Tablet, 1 EACH PO, (Reported) Entered as Reported by: OLE HURST on 11/11/21 1544 Prednisone (Prednisone) 20 Mg Tab, 40 MG PO DAILY Prescribed by: Tara Kasper on 01/31/23 1320 Trazodone HCl (Trazodone HCl) 150 Mg Tablet, 150 MG PO HS, (Reported) Entered as Reported by: BART GLOVER on 09/05/19 1607 Umeclidinium Mondamin (Incruse Ellipta) 62.5 Mcg/Actuation Blst.w.dev, 62.5 MCG IH UD, (Reported) Entered as Reported by: OLE HURST on 11/11/21 1544 Valsartan (Valsartan) Unknown Strength Tablet, Unknown Dose PO DAILY, (Reported) Entered as Reported by: OLE HURST on 11/11/21 154 Vortioxetine Hydrobromide (Trintellix) 10 Mg Tablet, 10 MG PO DAILY, (Reported) Entered as Reported by: EAN MONTEJO on 02/09/18 1340 Review of Systems Review of Systems Constitutional: chills, fever EENTM: no symptoms reported Respiratory: see HPI Cardiovascular: no symptoms reported, see HPI Gastrointestinal: no symptoms reported Genitourinary: no symptoms reported Musculoskeletal: no symptoms reported Skin: no symptoms reported Psychiatric/Neurological: No Symptoms Reported Hematologic/Lymphatic: No Symptoms Reported Immunological/Allergic: no symptoms reported All Other Systems Reviewed Negative Unless Noted: Yes Past [id number] Hx Patient Social History Tobacco Use?: Yes Tobacco type used: Cigarettes Smoking Status: Current Everyday Smoker Substance use?: No Alcohol Use?: No Seasonal Allergies Seasonal Allergies: No Past Medical History Surgery/Hospitalization HX: COPD, KETAN, [facility] Surgeries: Yes (CARPAL TUNNEL BILAT) Appendectomy, Gallbladder Respiratory: Yes COPD Cardiac: Yes High Cholesterol, Hypertension Neurological: Yes Headaches /Migraines Reproductive Disorders: No Sexually Transmitted Disease: No HIV/AIDS: No Gastrointestinal: Yes Gastroesophageal Reflux, Chronic Diarrhea Musculoskeletal: Yes Chronic Back Pain Endocrine: No Loss of Vision: Bilateral Hearing Impairment: Denies Cancer: No Psychosocial: Yes Anxiety, Depression Integumentary: No Blood Disorders: No Adverse Reaction/Blood Tranf: No (N/A) Family Medical History Colon cancer No Pertinent Family Hx Physical Exam Vital Signs - First Documented 01/31/23 01/31/23 12:05 13:15 Temp 37.1 Pulse 119 Resp 24 B/P (MAP) 141/104 (116) Pulse Ox 98 O2 Delivery Nasal Cannula O2 Flow Rate 3.00 Capillary Refill : Height: 4'11.00" Weight: 136lbs. 0.0oz. [id number]; 23.00 BMI Method: General Appearance: WD/WN, no apparent distress HEENT: normal ENT inspection Neck: non-tender, full range of motion Respiratory: chest non-tender, rales (Bibasilar), wheezing (Inspiratory and expiratory) Cardiovascular: regular rate, rhythm Gastrointestinal: non tender, soft Extremities: normal range of motion, non-tender, normal inspection, no pedal edema Neurologic/Psychiatric: shearing machine feeder II-XII nml as tested, no motor/sensory deficits, alert, normal mood/affect, oriented x 3 Skin: normal color, warm/dry Progress/Results/Core Measures Suspected Sepsis SIRS Temperature: Pulse: 119 Respiratory Rate: 24 Blood Pressure 141 /104 Mean: 116 Results/Orders Lab Results Laboratory Tests Test 01/31/23 12:06 Range/Units Influenza Type A (RT-PCR) Not Detected Not Detecte Influenza Type B (RT-PCR) Not Detected Not Detecte SARS-CoV-2 RNA (RT-PCR) Not Detected Not Detecte My Orders Orders - TARA KASPER W DO Ipratropium/Albuterol Inh Soln (Ipratrop (01/31/23 12:45) Dexamethasone Injection (Decadron Injec (01/31/23 12:45) Rt Request For Service (01/31/23 12:33) Chest 1 View, Ap/Pa Only (01/31/23 12:33) Covid 19 Inhouse Test (01/31/23 12:33) Svn Small Volume Nebulizer (01/31/23 12:33) Influenza A And B By Pcr (01/31/23 12:33) Medications Given in ED Current Medications Medications Dose Ordered Sig/Warren Route Start Time Stop Time Status Last Admin Dose Admin Albuterol/ Ipratropium 3 ml ONCE ONCE INH 01/31/23 12:45 01/31/23 12:46 DC 01/31/23 13:00 3 ML Dexamethasone Sodium Phosphate 20 mg ONCE ONCE IH 01/31/23 12:45 01/31/23 12:46 DC 01/31/23 13:00 20 MG Vital Signs/I&O 01/31/23 01/31/23 01/31/23 01/31/23 12:05 12:10 13:15 13:34 Temp 37.1 37.1 Pulse 119 102 Resp 24 22 B/P (MAP) 141/104 (116) 145/89 Pulse Ox 98 98 O2 Delivery Nasal Cannula Nasal Cannula Nasal Cannula Nasal Cannula O2 Flow Rate 3.00 2.50 2.00 2.50 2.00 Capillary Refill : Blood Pressure Mean: 116 Progress Note : Progress Note 1235 67-year-old female with a history of COPD who is on 2.5 L of oxygen via nasal cannula at home at all times presents with worsening shortness of breath and cough. States she just generally does not feel well. She denies being around anybody sick but did see her primary care and sat in his waiting room last week. No nausea vomiting or diarrhea. No rash she states she is getting hot and cold chills. She does have inspiratory and expiratory wheezes with mild basilar rhonchi bilaterally. She denies getting frequent bronchitis episodes. Mild chest pain intermittently states feels like pressure with increased work of breathing however currently no increased dyspnea on exertion. No significant respiratory distress. She states she generally just does not feel well. Will obtain chest x-ray, influenza and COVID screens provide Decadron as well as breathing treatment and reevaluate. Patient agrees. She is nontoxic-appearing and in no significant distress again does not appear septic. Diagnostic Imaging Diagonstic Imaging: Xray (nad. copd) Departure Impression Primary Impression: Bronchitis Disposition: HOME, SELF-CARE Condition: Improved Departure-Patient Inst. Referrals: BART TOLEDO DO (PCP/Family) Primary Care Physician Patient Instructions: Acute bronchitis Scripts Albuterol Sulfate (Albuterol Sulfate) 2.5 Mg/3 Ml (0.083 %) Vial.neb 2.5 MG INH Q4H PRN for WHEEZING for 30 Days, #120 EA 1 Refill Prov: TARA KASPER DO 01/31/23 Prednisone (Prednisone) 20 Mg Tab 40 MG PO DAILY for 5 Days, #5 TAB 0 Refills Prov: TARA KASPER DO 01/31/23 Doxycycline Hyclate (Doxycycline Hyclate) 100 Mg Tablet 100 MG PO BID for 7 Days, #14 TAB 0 Refills Prov: TARA KASPER DO 01/31/23 Albuterol Sulfate (VENTOLIN HFA) 1 Puff Puff 2 PUFF INH Q4H PRN for COUGH, #1 EA 1 Refill 1 PUFF = 90 MCG Prov: TARA KASPER DO 01/31/23 TARA KASPER DO Jan 31, 2023 12:38
[2023-01-31] MEDS ORDERED: RT-Ipratropium/Albuterol NEB 3 ML VIAL INH ONE (12:45)
[2023-01-31] MEDS ORDERED: dexAMETHasone INJ 4 MG/ML SDV IH ONE (12:45)
[2023-01-31] MEDS ORDERED: DOXY100T2 PO (13:20)
[2023-01-31] MEDS ORDERED: PRD20T PO (13:20)
[2023-01-31] MEDS ORDERED: RT-ALBUINH INH (13:20)
--- NOTE | 2023-01-31 13:20 | Diagnostic Imaging Report ---
INDICATION: Shortness of breath and weakness along with mid chest pain x3 days. TECHNIQUE: Single view chest 12:54 PM CORRELATION STUDY: 09/05/2019 FINDINGS: The heart size, mediastinal configuration and pulmonary vascularity are within normal limits. The lungs are hyperinflated but demonstrate no consolidating infiltrate. Minimal interstitial prominence and/or discoid atelectasis at the lung bases. There is no significant effusion or pneumothorax. IMPRESSION: 1. Mild prominent interstitial markings lung bases may be reflective of minimal discoid atelectasis and/or perhaps Reyes B lines with mild edema. No overt failure or significant consolidating infiltrate. Emphysematous change about the lung tovar. Dictated by: Dictated on workstation # [id number]
[2023-01-31] MEDS ORDERED: ALBU2.5V4 INH (13:26)
[2023-01-31 13:34] VITALS: BP 145/89
== END 2023-01-31 13:34 | disposition home or self-care (01) ==
LOC: EDUNIT# 11:32 → ER 11:34
DX: J44.9 Chronic obstructive pulmonary disease, unspecified (principal); F17.210 Nicotine dependence, cigarettes, uncomplicated; Z99.81 Dependence on supplemental oxygen; Z20.822 Contact with and (suspected) exposure to COVID-19
CPT/HCPCS: 71045; 87636; 94640

== ENCOUNTER 2023-03-12 08:53 | Inpatient (IN) | payer MEDICARE, MEDICAID ==
[~2023-03-12] VITALS: Ht 149 cm; Wt 50.4 kg
[2023-03-12] VITALS (18 sets, daily range): BP systolic 84–118; BP diastolic 35–93
[~2023-03-12 08:53] MED LIST changes: +ALBU2.5V4 INH; -ALBU8.5H6 IH; +ALBU8.5H6 INH; +DOXY100T2 PO; +RT-ALBUINH INH
[2023-03-12] MEDS ORDERED: RT-Ipratropium/Albuterol NEB 3 ML VIAL ONE (09:01)
[2023-03-12] MEDS ORDERED: NS IV 1000 ML 1,000 ML IV SCH ×2 (09:15→11:30)
[2023-03-12] MEDS ORDERED: ONDANSETRON INJECTION 4 MG/2 ML (SDV) IVP ONE (09:15)
[2023-03-12] MEDS ORDERED: RT-Ipratropium/Albuterol NEB 3 ML VIAL INH ONE ×2 (09:15→09:45)
[2023-03-12 09:18] LABS: BASOPHILS % (AUTO) 0 % (0-10); EOSINOPHILS % (AUTO) 0 % (0-10); HEMATOCRIT 35 % (35-52); HEMOGLOBIN 10.7 g/dL (11.5-16.0); LYMPHOCYTES # (AUTO) 1.6 10^3/uL (1.0-4.0); LYMPHOCYTES % (AUTO) 12 % (12-44); MEAN CORPUSCULAR HEMOGLOBIN 31 pg (25-34); MEAN CORPUSCULAR HGB CONC 31 g/dL (32-36); MEAN CORPUSCULAR VOLUME 99 fL (80-99); MEAN PLATELET VOLUME 9.6 fL (9.0-12.2); MONOCYTES # (AUTO) 1.3 10^3/uL (0.0-1.0); MONOCYTES % (AUTO) 9 % (0-12); NEUTROPHILS # (AUTO) 10.5 10^3/uL (1.8-7.8); NEUTROPHILS % (AUTO) 78 % (42-75); PLATELET COUNT 276 10^3/uL (130-400); WHITE BLOOD COUNT 13.4 10^3/uL (4.3-11.0)
--- NOTE | 2023-03-12 09:19 | ED General ---
General Chief Complaint: Altered Mental Status Stated Complaint: ALTERED MENTAL STATUS Nursing Triage Note: PT ARRIVED PER EMS. EMS CALLED FOR ALTERED MENTAL STATUS BUT PT IS LETHARGIC PT HAD DUONED FOR EMS. PT HAS SL INPLACE #20 L WRIST. NS INFUSING APPROX 200CC INFUSED. PT HAS SOA AND CHILLS. PT HAS COUGH. Source of Information: Patient, Old Records Exam Limitations: No Limitations History of Present Illness Date Seen by Provider: Mar 12, 2023 Time Seen by Provider: 08:54 Initial Comments This 67-year-old woman presents to the emergency room via EMS with complaints of dyspnea, generalized weakness, reported confusion, chills, cough, and wheezing. Symptoms started about 24 hours ago. Later in the patient's ER encounter the gentleman she lives with reported she seemed confused and was fumbling around with her medications this morning. There is concern for inappropriate medication use or overdose as a result. Patient later acknowledges that she was having difficulty this morning and could have possibly taken her medications inappropriately. EMS started a DuoNeb treatment but patient reported that it was giving her some "heartburn". DuoNeb was abandoned. Patient does have COPD and uses oxygen at 2 L/min. She does use inhaled medications at home. Review of her chart reveals an echocardiogram as recent as September 2021 which was normal. Stress test from 2019 was also normal. Patient uses nicotine patches but also continues to smoke. Bradycardia with a heart rate in the 40s is noted during assessment. Allergies and Home Medications Allergies Coded Allergies: NKANo Known Allergies (Verified Allergy, Unknown, 11/27/21) Patient Home Medication List Home Medication List Reviewed: Yes Albuterol Sulfate (Ventolin Hfa) 1 Puff Puff, 2 PUFF IH Q4H, (Reported) Entered as Reported by: OLE HURST on 11/11/21 1544 Albuterol Sulfate (Ventolin Hfa) 1 Puff Puff, 2 PUFF INH Q4H PRN for COUGH Prescribed by: Essence Kasper on 01/31/23 1320 Albuterol Sulfate (Albuterol Sulfate) 2.5 Mg/3 Ml (0.083 %) Vial.neb, 2.5 MG INH Q4H PRN for WHEEZING Prescribed by: Essence Kasper on 01/31/23 1326 Amlodipine Besylate (Amlodipine Besylate) 10 Mg Tablet, 10 MG PO DAILY Prescribed by: NEEL WANG on 09/07/19 1020 Aspirin (Aspirin) 81 Mg Tab.chew, 81 MG PO DAILY@0900 Prescribed by: NEEL WANG on 09/07/19 1020 Clopidogrel Bisulfate (Clopidogrel) 75 Mg Tablet, 75 MG PO DAILY Prescribed by: NEEL WANG on 09/07/19 1020 Cyclobenzaprine HCl (Cyclobenzaprine HCl) 5 Mg Tablet, 5 MG PO DAILY, (Reported) Entered as Reported by: BART GLOVER on 09/05/19 1501 Doxycycline Hyclate (Doxycycline Hyclate) 100 Mg Tablet, 100 MG PO BID Prescribed by: Essence Kasper on 01/31/23 1320 Fluticasone/Salmeterol (Advair 100-50 Diskus) Unknown Strength Blst.w.dev, Unknown Dose IH, (Reported) Entered as Reported by: OLE HURST on 11/11/21 1544 Gabapentin (Gabapentin) 300 Mg Capsule, 300 MG PO HS, (Reported) Entered as Reported by: EAN MONTEJO on 02/09/18 1340 Hydroxyzine HCl (Hydroxyzine HCl) 25 Mg Tablet, 25 MG PO Q6H PRN for ANXIETY, (Reported) Entered as Reported by: BART GLOVER on 09/05/19 1501 Linaclotide (Linzess) 145 Mcg Capsule, 145 MG PO DAILY, (Reported) Entered as Reported by: BART GLOVER on 09/05/19 1501 Lisinopril (Lisinopril) 20 Mg Tablet, 20 MG PO 1200, (Reported) Entered as Reported by: BART GLOVER on 09/05/19 1501 Loratadine (Loratadine) 10 Mg Tablet, 10 MG PO DAILY, (Reported) Entered as Reported by: BART GLOVER on 09/05/19 1501 Metoprolol Tartrate (Metoprolol Tartrate) 50 Mg Tablet, 50 MG PO BID Prescribed by: NEEL WANG on 09/07/19 1020 Montelukast Sodium (Montelukast Sodium) Unknown Strength Tab.chew, Unknown Dose PO, (Reported) Entered as Reported by: OLE HURST on 11/11/21 1544 Multivitamin/Iron/Folic Acid (Centrum Adults Tablet) 1 Each Tablet, 1 EACH PO DAILY, (Reported) Entered as Reported by: BART GLOVER on 09/05/19 1509 Mv-Mn/Iron/FA/Herbal Cmplx#190 (Vitamin D3 Complete Caplet) 18 Mg Iron-800 Mcg-1 50 Mg Tablet, 1 EACH PO, (Reported) Entered as Reported by: OLE HURST on 11/11/21 1544 Prednisone (Prednisone) 20 Mg Tab, 40 MG PO DAILY Prescribed by: Essence Kasper on 01/31/23 1320 Trazodone HCl (Trazodone HCl) 150 Mg Tablet, 150 MG PO HS, (Reported) Entered as Reported by: BART GLOVER on 09/05/19 1607 Umeclidinium [place] (Incruse Ellipta) 62.5 Mcg/Actuation Blst.w.dev, 62.5 MCG IH UD, (Reported) Entered as Reported by: OLE HURST on 11/11/21 1544 Valsartan (Valsartan) Unknown Strength Tablet, Unknown Dose PO DAILY, (Reported) Entered as Reported by: OLE HURST on 11/11/21 1544 Vortioxetine Hydrobromide (Trintellix) 10 Mg Tablet, 10 MG PO DAILY, (Reported) Entered as Reported by: EAN MONTEJO on 02/09/18 1340 Past Xrrhdff-Gjuxtf-Pgtpqt Hx Seasonal Allergies Seasonal Allergies: No Past Medical History Surgery/Hospitalization HX: COPD, KETAN, APPE Surgeries: Yes (CARPAL TUNNEL BILAT) Appendectomy, Gallbladder Respiratory: Yes COPD Cardiac: Yes High Cholesterol, Hypertension Neurological: Yes Headaches /Migraines Reproductive Disorders: No Sexually Transmitted Disease: No HIV/AIDS: No Gastrointestinal: Yes Gastroesophageal Reflux, Chronic Diarrhea Musculoskeletal: Yes Chronic Back Pain Endocrine: No Loss of Vision: Bilateral Hearing Impairment: Denies Cancer: No Psychosocial: Yes Anxiety, Depression Integumentary: No Blood Disorders: No Adverse Reaction/Blood Tranf: No (N/A) Family Medical History Colon cancer No Pertinent Family Hx Physical Exam-Suspected Sepsis Physical Exam Vital Signs Vital Signs - First Documented Capillary Refill : Less Than 3 Seconds Blood Pressure Mean: 53 Height, Weight, BMI Height: 4'11.00" Weight: 136lbs. 0.0oz. 61.806270ay; 23.00 BMI Method: Focused Exam Lactate Level 03/12/23 09:00: Lactic Acid Level 0.62 Lactic Acid Level Laboratory Tests Test 03/12/23 09:00 Lactic Acid Level 0.62 MMOL/L (0.50-2.00) Progress/Results/Core Measures Suspected Sepsis SIRS Temperature: Pulse: 46 Respiratory Rate: 18 Laboratory Tests 03/12/23 09:00: White Blood Count 13.4H Blood Pressure 90 /35 Mean: 53 03/12/23 09:00: Lactic Acid Level 0.62 Laboratory Tests 03/12/23 09:00: Creatinine 1.68H, INR Comment 1.0, Platelet Count 276, Total Bilirubin 0.3 Results/Orders Lab Results Laboratory Tests Test 03/12/23 09:00 03/12/23 09:15 03/12/23 09:20 03/12/23 11:15 Range/Units White Blood Count 13.4 H 4.3-11.0 10^3/uL Red Blood Count 3.48 L 3.80-5.11 10^6/uL Hemoglobin 10.7 L 11.5-16.0 g/dL Hematocrit 35 35-52 % Mean Corpuscular Volume 99 80-99 fL Mean Corpuscular Hemoglobin 31 25-34 pg Mean Corpuscular Hemoglobin Concent 31 L 32-36 g/dL Red Cell Distribution Width 13.2 10.0-14.5 % Platelet Count 276 130-400 10^3/uL Mean Platelet Volume 9.6 9.0-12.2 fL Immature Granulocyte % (Auto) 0 % Neutrophils (%) (Auto) 78 H 42-75 % Lymphocytes (%) (Auto) 12 12-44 % Monocytes (%) (Auto) 9 0-12 % Eosinophils (%) (Auto) 0 0-10 % Basophils (%) (Auto) 0 0-10 % Neutrophils # (Auto) 10.5 H 1.8-7.8 10^3/uL Lymphocytes # (Auto) 1.6 1.0-4.0 10^3/uL Monocytes # (Auto) 1.3 H 0.0-1.0 10^3/uL Eosinophils # (Auto) 0.0 0.0-0.3 10^3/uL Basophils # (Auto) 0.0 0.0-0.1 10^3/uL Immature Granulocyte # (Auto) 0.1 0.0-0.1 10^3/uL Prothrombin Time 14.1 12.2-14.7 SEC INR Comment 1.0 0.8-1.4 Activated Partial Thromboplast Time 39 H 24-35 SEC Sodium Level 135 135-145 MMOL/L Potassium Level 5.0 3.6-5.0 MMOL/L Chloride Level 97 L 98-107 MMOL/L Carbon Dioxide Level 30 21-32 MMOL/L Anion Gap 8 5-14 MMOL/L Blood Urea Nitrogen 23 H 7-18 MG/DL Creatinine 1.68 H 0.60-1.30 MG/DL Estimat Glomerular Filtration Rate 33 BUN/Creatinine Ratio 14 Glucose Level 129 H 70-105 MG/DL Lactic Acid Level 0.62 0.50-2.00 MMOL/L Calcium Level 8.1 L 8.5-10.1 MG/DL Corrected Calcium 8.2 L 8.5-10.1 MG/DL Magnesium Level 2.4 1.6-2.4 MG/DL Total Bilirubin 0.3 0.1-1.0 MG/DL Aspartate Amino Transf (AST/SGOT) 22 5-34 U/L Alanine Aminotransferase (ALT/SGPT) 23 0-55 U/L Alkaline Phosphatase 98 40-136 U/L Myoglobin 112.2 H 10.0-92.0 NG/ML Troponin I < 0.028 <0.028 NG/ML C-Reactive Protein High Sensitivity 0.32 0.00-0.50 MG/DL B-Type Natriuretic Peptide 1068.0 H <100.0 PG/ML Total Protein 6.8 6.4-8.2 GM/DL Albumin 3.9 3.2-4.5 GM/DL Serum Alcohol < 10 <10 MG/DL Arterial Blood pH 7.21 *L 7.37-7.43 Arterial Blood Partial Pressure CO2 76 *H 35-45 MMHG Arterial Blood Partial Pressure O2 184 H 79-93 MMHG Arterial Blood HCO3 30 H 23-27 MMOL/L Arterial Blood Total CO2 32.7 H 21.0-31.0 MMOL/L Arterial Blood Oxygen Saturation 99 94-100 % Arterial Blood Base Excess 0.4 -2.5-2.5 MMOL/L Blood Gas Ventilator Setting NO Blood Gas Inspired Oxygen 60% Influenza Type A (RT-PCR) Not Detected Not Detecte Influenza Type B (RT-PCR) Not Detected Not Detecte SARS-CoV-2 RNA (RT-PCR) Not Detected Not Detecte Glucometer 132 H 70-110 MG/DL Test 03/12/23 11:37 Range/Units Arterial Blood pH 7.21 *L 7.37-7.43 Arterial Blood Partial Pressure CO2 75 *H 35-45 MMHG Arterial Blood Partial Pressure O2 209 H 79-93 MMHG Arterial Blood HCO3 30 H 23-27 MMOL/L Arterial Blood Total CO2 32.3 H 21.0-31.0 MMOL/L Arterial Blood Oxygen Saturation 100 94-100 % Arterial Blood Base Excess 0.0 -2.5-2.5 MMOL/L Blood Gas Ventilator Setting NO Blood Gas Inspired Oxygen 60% My Orders Orders - SENA ANDERSON MD Ipratropium/Albuterol Inh Soln (Ipratrop (03/12/23 09:15) Svn Small Volume Nebulizer (03/12/23 09:03) Ipratropium/Albuterol Inh Soln (Ipratrop (03/12/23 09:01) Cbc And Automated Diff (03/12/23 09:03) Comprehensive Metabolic Panel (03/12/23 09:03) Blood Culture (03/12/23 09:03) Sputum Culture (03/12/23 09:03) Urinalysis (03/12/23 09:03) Urine Culture (03/12/23 09:03) Protime With Inr (03/12/23 09:03) Partial Thromboplastin Time (03/12/23 09:03) Chest 1 View, Ap/Pa Only (03/12/23 09:03) Ed Iv/Invasive Line Start (03/12/23 09:03) Vital Signs Adult Sepsis Patie Q15M (03/12/23 09:03) O2 (03/12/23 09:03) Remove Rings In Anticipation O (03/12/23 09:03) Lactic Acid Analyzer (03/12/23 09:03) Covid 19 Inhouse Test (03/12/23 09:03) Influenza A And B By Pcr (03/12/23 09:03) Bnp [place] (03/12/23 09:03) Hs C Reactive Protein (03/12/23 09:03) Ekg Tracing (03/12/23 09:05) Monitor-Rhythm Ecg Trace Only (03/12/23 09:05) Ns Iv 1000 Ml (Ns Iv 1000 Ml) (03/12/23 09:15) Ondansetron Injection (Ondansetron Inj (03/12/23 09:15) Magnesium (03/12/23 09:07) Myoglobin Serum (03/12/23 09:07) Lipid Panel (03/13/23 06:00) Troponin I Town[place] (03/12/23 09:07) Arterial Blood Gas (03/12/23 09:16) Code/Resuscitation (03/12/23 09:16) Cefepime Injection (Cefepime Injection) (03/12/23 09:30) Albuterol Pre-Mix Nebs (Rt) (Albuterol (03/12/23 09:31) Ipratropium/Albuterol Inh Soln (Ipratrop (03/12/23 09:45) Svn Small Volume Nebulizer (03/12/23 09:31) Svn Small Volume Nebulizer (03/12/23 09:31) Atropine Injection (Atropine Injection) (03/12/23 09:31) Ns Iv 500 Ml (Ns Iv 500 Ml) (03/12/23 10:45) Alcohol (03/12/23 10:39) Drug Screen Stat (Urine) (03/12/23 10:39) Ed Admission (Communication) (03/12/23 10:58) Norepinephrine 8 Mg/250 Ml (Norepinephri (03/12/23 11:19) Ns Iv 1000 Ml (Ns Iv 1000 Ml) (03/12/23 11:30) Norepinephrine 8 Mg/250 Ml (Norepinephri (03/12/23 11:30) Arterial Blood Gas (03/12/23 11:37) Ns (Ivpb) 250 Ml (S... W/Epinephrine 1 (03/12/23 11:45) Arterial Blood Gas (03/12/23 11:42) Arterial Blood Draw - Obtain (03/12/23 ) Medications Given in ED Current Medications Medications Dose Ordered Sig/Warren Route Start Time Stop Time Status Last Admin Dose Admin Albuterol/ Ipratropium 3 ml ONCE ONCE INH 03/12/23 09:45 03/12/23 09:46 DC 03/12/23 09:47 3 ML Cefepime HCl 2000 mg/Sodium Chloride 50 ml @ 100 mls/hr ONCE ONCE IV 03/12/23 09:30 03/12/23 09:59 DC 03/12/23 09:38 100 MLS/HR Ondansetron HCl 4 mg ONCE ONCE IVP 03/12/23 09:15 03/12/23 09:16 DC 03/12/23 09:15 4 MG Sodium Chloride 500 ml @ 0 mls/hr Q0M ONCE IV 03/12/23 10:45 03/12/23 10:46 DC 03/12/23 10:38 500 MLS/HR Vital Signs/I&O 03/12/23 03/12/23 03/12/23 03/12/23 08:57 08:57 08:57 09:19 Temp 35.7 Pulse 46 43 Resp 18 22 B/P (MAP) 90/35 (53) Pulse Ox 96 96 100 O2 Delivery Nasal Cannula Nasal Cannula Nasal Cannula O2 Flow Rate 5.00 2.00 2.00 60.00 03/12/23 11:30 Pulse 48 B/P (MAP) 81/38 Capillary Refill : Less Than 3 Seconds Blood Pressure Mean: 53 Progress Note #1: Time: 10:49 Progress Note Patient was immediately interviewed and examined upon arrival. Prompt interventions were pursued including DuoNeb treatment, high flow oxygen, and BiPAP. Upon reassessment she continued to have tight wheezing. An hour-long nebulizer treatment was then provided. She received Solu-Medrol 125 mg IV. Blood pressures were initially rather labile. She was having increasing episodes of hypotension as her ER visit progressed. A liter of normal saline w as administered. She continued to have hypotensive measurements. A second bolus of IV fluid 500 mL is now infusing. Patient has remained alert. She has developed some tremors which family reports have been present before today but are worse today. Patient has been afebrile and there is no overt sign of pneumonia. She was initially empirically treated with cefepime 2 g IV as sepsis was initially suspected. Blood cultures had been drawn. Lactic acid is normal. Godoy catheter was attempted but was not possible after multiple attempts by multiple nurses. A pure wick catheter is now being used to collect urine. Labs have been reviewed and interpreted by me in their entirety. CBC was notable for mild leukocytosis with WBC of 13.4 and mild anemia with hemoglobin of 10.7. ABG demonstrated acidosis and hypercarbia with pH of 7.21, PCO2 of 76, and PO2 of 184. CMP demonstrated evidence of acute kidney injury with BUN of 23 and creatinine of 1.68. This is elevated compared to patient's baseline on chart re view. Coag panel was unremarkable. Troponin was negative. CRP was 0.32 suggesting no significant bacterial infection. BNP was elevated at 1068. Although BNP was elevated, no heart failure was noted on chest x-ray and her prior echocardiograms were normal with relatively high ejection fractions. I discussed CODE STATUS with the patient. She requests a DNR. Chemical code with pressors and other cardiac medications as permissible, but she does not want chest compressions or intubation. She remained stable on BiPAP at this time. Patient continued to have bradycardia with heart rate as low as 38. She did not ultimately require atropine as of time of this update. Blood pressure at this time is 90/47 with a heart rate of 43. The second liter of normal saline is infusing. Progress Note #2: Time: 12:10 Progress Note Patient has decompensated and become persistently hypotensive and not responding to fluid boluses. Levophed drip has been initiated. Patient has also become unresponsive. Repeat ABG shows no significant change from the prior. We will need to adjust BiPAP settings to help with the hypercarbia. She has received 2 boluses of normal saline (1000 mL and 500 mL). She has another 1000 mL bolus running presently. Blood pressure has resuscitated and is presently 99/46. Dr. Cohen (general surgeon) has been consulted and is placing a central line. I have discussed her situation with the ER staff. Those present during our conversation about CODE STATUS believes she was a competent decision maker at that time. We are therefore honoring her DNR. Additionally, patient's daughter Matilde Paredes ([phone]) states she is the power of attorney lawyer and recently completed DNR paperwork with [facility]. We do have documentation of the power of attorney lawyer in her chart. Therefore, the daughter statements affirm the DNR status. I have discussed the case with the hospitalist team (Dr. Hardin and Dr. Reid) as well as the eICU platen grinder. Linen Folder requested that we repeat the ABG which was unchanged from prior. He also requested the norepinephrine be used as a backup pressor and epinephrine be used as the primary pressor. A repeat blood sugar was 132. ECG Initial ECG Impression Date: Mar 12, 2023 Initial ECG Impression Time: 09:15 Initial ECG Rate: 49 Initial ECG Rhythm: S.Mack Comment Sinus bradycardia with no ST elevation or depression. Right bundle branch block. Artifact obscures interpretation due to patient tremor. No axis deviation. Diagnostic Imaging Diagonstic Imaging: Xray Plain Films/CT/US/NM/MRI: chest Comments NAME: LIZZIE GREENE [facility] REC#: [id number] PT STATUS: REG ER : [id number] PHYSICIAN: SEAN ANDERSON MD ADMIT DATE: 03/12/23/ER Draft Date of Exam:03/12/23 CHEST 1 VIEW, AP/PA ONLY Indication: Shortness of air. Time of Exam: 9:13 AM Correlation is made with prior chest 01/31/2023. Heart size is stable. Lungs are clear. No infiltrates are detected. There is no effusion or pneumothorax. Impression: No acute cardiopulmonary process is detected. Dictated on workstation # [id number] Dict: 03/12/23928 Trans: 03/12/23929 [facility] [id number] Interpreted by: DRAKE BEE MD Departure Communication (Admissions) Time/Spoke to Admitting Phy: 10:43 Dr. Wright Impression Primary Impression: Acute respiratory failure with hypoxia and hypercapnia Additional Impressions: COPD exacerbation Bradycardia Accidental overdose Qualified Codes: T50.901A - Poisoning by unspecified drugs, medicaments and biological substances, accidental (unintentional), initial encounter Hypotension Qualified Codes: I95.9 - Hypotension, unspecified Acute kidney injury Unresponsive Disposition: ADMITTED INPATIENT Condition: Improved Admissions Decision to Admit Reason: Admit from ER (General) Decision to Admit/Date: Mar 12, 2023 Time/Decision to Admit Time: 10:43 Departure-Patient Inst. Referrals: BART TOLEDO DO (PCP/Family) Primary Care Physician Copy Copies To 1: BART TOLEDO JOSHUA T MD Mar 12, 2023 09:19
[2023-03-12 09:26] LABS: ALBUMIN 3.9 GM/DL (3.2-4.5); CHLORIDE 97 MMOL/L (98-107); SODIUM 135 MMOL/L (135-145)
[2023-03-12 09:26] LABS: ABG BASE EXCESS 0.4 MMOL/L (-2.5-2.5); ABG OXYGEN SATURATION 99 % (94-100); ABG PO2 184 MMHG (79-93); ABG TCO2 32.7 MMOL/L (21.0-31.0)
[2023-03-12 09:27] LABS: CALCIUM 8.1 MG/DL (8.5-10.1)
[2023-03-12 09:27] LABS: ABG PCO2 76 MMHG (35-45); ABG PH 7.21 (7.37-7.43)
[2023-03-12 09:28] LABS: INSPIRED O2 60%; VENTILATOR NO
[2023-03-12 09:29] LABS: GLUCOSE 129 MG/DL (70-105); PROTHROMBIN TIME PATIENT 14.1 SEC (12.2-14.7); TOTAL PROTEIN 6.8 GM/DL (6.4-8.2)
[2023-03-12 09:30] LABS: CARBON DIOXIDE 30 MMOL/L (21-32)
[2023-03-12] MEDS ORDERED: CEFEPIME INJECTION 2,000 MG in NS (IVPB) 50 ML 50 ML IV ONE (09:30)
--- NOTE | 2023-03-12 09:30 | Diagnostic Imaging Report ---
Indication: Shortness of air. Time of Exam: 9:13 AM Correlation is made with prior chest 01/31/2023. Heart size is stable. Lungs are clear. No infiltrates are detected. There is no effusion or pneumothorax. Impression: No acute cardiopulmonary process is detected. Dictated by: Dictated on workstation # [id number]
[2023-03-12 09:31] LABS: BILIRUBIN,TOTAL 0.3 MG/DL (0.1-1.0)
[2023-03-12] MEDS ORDERED: RT-ALBUTEROL SULF 2.5 MG/3 ML PRE-MIX VIAL INH STA (09:31)
[2023-03-12] MEDS ORDERED: ATROPINE INJECTION 0.4 MG/ML SDV ONE (09:31)
[2023-03-12 09:32] LABS: ALKALINE PHOSPHATASE 98 U/L (40-136)
[2023-03-12 09:33] LABS: CREATININE SERUM 1.68 MG/DL (0.60-1.30); GFR ESTIMATED 33
[2023-03-12 09:34] LABS: BUN/CREATININE RATIO 14
[2023-03-12 09:35] LABS: ALANINE AMINOTRANSFERASE 23 U/L (0-55); MAGNESIUM 2.4 MG/DL (1.6-2.4)
[2023-03-12] MEDS ORDERED: NS IV 500 ML 500 ML IV ONE (10:45)
[2023-03-12] MEDS ORDERED: NOREPINEPHRINE 8 MG/250 ML 250 ML IV ONE (11:19)
[2023-03-12] MEDS ORDERED: NOREPINEPHRINE 8 MG/250 ML 250 ML IV SCH (11:30)
[2023-03-12 11:45] LABS: ABG OXYGEN SATURATION 100 % (94-100); ABG PO2 209 MMHG (79-93); ABG TCO2 32.3 MMOL/L (21.0-31.0)
[2023-03-12] MEDS ORDERED: EPINEPHRINE IV SCH (11:45)
[2023-03-12] MEDS ORDERED: NS IV SCH (11:45)
--- NOTE | 2023-03-12 11:49 | History & Physical-Hospitalist ---
GHULAM BRUCE MD, RESIDENT 03/12/23 1149: History of Present Illness HPI/Chief Complaint CC: Altered mental status Patient is a 67-year-old female with a past medical history of COPD, hypertension who presented with shortness of breath and confusion. She was not responsive on my examination in the ED so much of the history is coming from ED physician. Per his report, symptoms that started about 24 hours ago when she started becoming quite confused. She was fumbling with her medications this morning and there is concerned that she may have inappropriately taken her medications or overdosed. On EMS arrival, patient was noted to be saturating in the 70s and was given a DuoNeb treatment. She was evaluated in the ED where she was noted to have signs of respiratory failure and thus was placed on BiPAP. Her blood pressures were noted to be quite labile and her heart rate was noted to be bradycardic concerning for possible medication misuse. Patient will be admitted to the ICU for further management. Of note she is DNR but is okay with chemical code. She uses 2 L of oxygen at baseline. Source: RN/MD Exam Limitations: clinical condition Date Seen 03/12/23 Time Seen by a Provider: 11:46 Attending Physician Hardy Adair DO PCP Admitting Physician: Attending Physician: Referring Physician Date of Admission Home Medications & Allergies Home Medications Reviewed patient Home Medication Reconciliation performed by pharmacy medication reconciliations injection molding technician and/or nursing. Patients Allergies have been reviewed. Allergies Allergies Coded Allergies NKANo Known Allergies (Verified Allergy, Unknown, 11/27/21) Past Nmzeixi-Odsdez-Mcmbqm Hx Patient Social History Tobacco Use?: Yes Tobacco type used: Cigarettes Smoking Status: Current Everyday Smoker Substance use?: No Alcohol Use?: No Pt feels they are or have been: No Immunizations Up To Date Date of Influenza Vaccine: Jan 03, 2017 First/Initial COVID19 Vaccinat: YES Second COVID19 Vaccination Noman: YES Date of Pneumonia Vaccine: Jan 03, 2017 Seasonal Allergies Seasonal Allergies: No Current Status Advance Directives: No Communicates: Verbally Primary Language: Spanish Preferred Spoken Language: Spanish Is interpretation needed?: No Implanted or Applied Medical D: None Past Medical History Surgeries: Appendectomy, Gallbladder COPD High Cholesterol, Hypertension Headaches /Migraines Sexually Transmitted Disease: No HIV/AIDS: No Gastroesophageal Reflux, Chronic Diarrhea Chronic Back Pain Loss of Vision: Bilateral Hearing Impairment: Denies Anxiety, Depression Blood Disorders: No Adverse Reaction/Blood Tranf: No (N/A) COPD HTN Tobacco use Family Medical History Colon cancer No Pertinent Family Hx Review of Systems ROS-Unable to Obtain: Unable to complete as patient is not responsive Constitutional: see HPI Physical Exam Physical Exam Vital Signs Vital Signs - First Documented Capillary Refill : Less Than 3 Seconds Height, Weight, BMI Height: 4'11.00" Weight: 136lbs. 0.0oz. 61.200050ft; 23.00 BMI Method: General Appearance: No Apparent Distress HEENT: Normal ENT Inspection, Other (On BiPAP) Neck: Normal Inspection, Non Tender Respiratory: Chest Non Tender, No Accessory Muscle Use, No Respiratory Distress, Rhonci Cardiovascular: Regular Rate, Rhythm, No Edema, No Murmur Gastrointestinal: Normal Bowel Sounds, Non Tender, Soft Extremity: No Pedal Edema Neurologic/Psychiatric: Other (Not responsive) Skin: Normal Color, Warm/Dry Results Results/Procedures Labs Laboratory Tests 03/12/23 09:00 Patient resulted labs reviewed. Imaging: Reviewed Imaging Films, Reviewed Imaging Report Imaging Chest x-ray (03/12/2023): Impression: No acute cardiopulmonary process is detected. Assessment/Plan Admission Diagnosis Acute hypoxic respiratory failure Admission Status: Inpatient Order (span 2 midnights) Reason for Inpatient Admission: BiPAP requirement, requiring pressors Diagnosis/Problems Diagnosis/Problems (1) Acute on chronic hypoxic respiratory failure Status: Acute Assessment & Plan: Patient presenting with acute on chronic hypoxic respiratory failure. Uses 2 L of oxygen at baseline but is requiring BiPAP due to saturations and signs of respiratory distress. ABG prior to BiPAP start is quite concerning. Plan: Continue BiPAP, wean as tolerated (2) Bradycardia Status: Acute Assessment & Plan: Patient noted to be bradycardic. May be secondary to medication misuse. Plan: Monitor on telemetry Follow-up UDS Atropine as needed for heart rates less than 35 (3) Hypotension Status: Acute Assessment & Plan: Patient quite hypotensive with labile blood pressures not responding to fluids. Requiring Levophed in the ED. Plan: Cardiology consulted, appreciate recommendations Recommend dopamine for pressures in the setting of bradycardia Qualifiers: Hypotension type: unspecified hypotension type Qualified Codes: I95.9 - Hypotension, unspecified (4) COPD exacerbation Status: Acute Assessment & Plan: Patient with possible COPD exacerbation due to worsening respiratory status. Evidence of leukocytosis on lab work however chest x-ray negative. Plan: Continue IV cefepime (5) Sepsis Status: Acute Assessment & Plan: Unclear source of infection at this time however patient is screening in for sepsis. Plan: Follow-up blood cultures Follow-up UA (6) Acute kidney injury Status: Acute Assessment & Plan: Patient noted to have CY with creatinine of 1.68. May be secondary to dehydration. Plan: Continue IV fluids. (7) Polypharmacy Status: Acute Assessment & Plan: Concern for polypharmacy due to medication misuse. We will continue to monitor vital signs as mentioned above. Unclear cause of symptoms at this time however patient takes many medications that may be contributing. (8) HTN (hypertension) Status: Chronic Assessment & Plan: Holding home medications KODY VILLANUEVA DO 03/12/231936: History of Present Illness HPI/Chief Complaint CC: AMS with resp failure HPI: This is a 67yoWF clinic patient of [facility] who apparently took too many pain pills and resulted in hypercapneic resp failure requiring biPAP and remains DNR and DNI per paper work and confirmed with daughter DPOA. We alexandra continue biPAP and Dr Cohen placed CL. Source: RN/MD Exam Limitations: clinical condition Past Xxfzuma-Tewxds-Zslizx Hx Patient Social History Marrital Status: single Family Medical History Colon cancer Review of Systems Constitutional: no symptoms reported Physical Exam Physical Exam General Appearance: Anxious, Chronically ill, Mild Distress Respiratory: Decreased Breath Sounds Cardiovascular: Regular Rate, Rhythm Assessment/Plan Admission Diagnosis Assessment: Acute hypercapneic respiratory failure OD Plan: DNR ICU BIPAP Admission Status: Inpatient Order (span 2 midnights) Reason for Inpatient Admission: resp failure GHULAM BRUCE MD, RESIDENT Mar 12, 2023 11:49 KODY VILLANUEVA DO Mar 12, 2023 19:37
[2023-03-12 11:50] LABS: ABG PH 7.21 (7.37-7.43)
[2023-03-12 11:51] LABS: ABG PCO2 75 MMHG (35-45); INSPIRED O2 60%; VENTILATOR NO
--- NOTE | 2023-03-12 12:29 | Diagnostic Imaging Report ---
EXAMINATION: Chest radiograph, portable AP view. DATE: 03/12/2023 12:12 PM INDICATION: 67-year-old female, central venous line placement. COMPARISON: March 12, 2023. FINDINGS: There is a left-sided central venous line with tip overlying the lower SVC. Heart size and mediastinal contours are unchanged. There is no identified pneumothorax. There is no large pleural effusion. There is no identified interval focal airspace consolidation. IMPRESSION: 1. Left-sided central venous line tip is near the level of the lower SVC. 2. No identified interval acute cardiopulmonary abnormality. Dictated by: Dictated on workstation # [id number]
--- NOTE | 2023-03-12 12:36 | CONSULTATION REPORT ---
DATE OF SERVICE: 03/12/2023 ADMITTING PHYSICIAN: Dr. Hardin. ATTENDING PRIMARY CARE PHYSICIAN: Dr. Hardy Adair. HISTORY OF PRESENT ILLNESS: The patient is a 67-year-old female with extensive past medical history including hypertension, COPD and is on a number of different medications. The patient was found to be unresponsive and per other reports, the patient was confused approximately 24 hours before presentation to the emergency department. The patient had likely inadvertently taken her own medications or overdosed. The patient found to be hypotensive and requiring vasopressors and require ICU admission and a central venous catheter. PAST MEDICAL HISTORY: Hypertension, hypercholesterolemia, COPD, gastroesophageal reflux disease, degenerative joint disease. PAST SURGICAL HISTORY: Appendectomy, laparoscopic cholecystectomy. ALLERGIES: No known drug allergies. MEDICATIONS: Albuterol, amlodipine, aspirin, Plavix, cyclobenzaprine, dicyclomine, fluticasone/salmeterol, gabapentin, hydroxyzine, [ ], lisinopril, loratadine, metoprolol, montelukast, multivitamin, prednisone, trazodone, valsartan, [ ]. SOCIAL HISTORY: Previous smoke, negative alcohol. FAMILY HISTORY: Noncontributory. VITAL SIGNS: Temperature 35.7, pulse 48, respirations 22, blood pressure 81/38, pulse ox 100% on high flow nasal cannula. REVIEW OF SYSTEMS: Well-nourished female, currently in no acute distress. She was experiencing shortness of breath and is confused, however, does answer some questions appropriately. No cough or sputum production. No chest pain, palpitations, diaphoresis. No nausea, vomiting, no diarrhea, constipation, no red blood per rectum, no dark tarry stools. No fever, chills, no recent inadvertent weight loss. All other review of systems negative. PHYSICAL EXAMINATION: CHEST: Distant breath sounds and scattered wheezes bilaterally. HEART: Regular. No murmurs. EXTREMITIES: No lower extremity edema. Negative Homans sign. HEENT: No scleral icterus. No cervical lymphadenopathy. ABDOMEN: Soft, nontender, nondistended. SKIN: Warm, dry. ASSESSMENT AND PLAN: A 67-year-old female with hypertension, likely secondary to medication overdose and requiring vasopressors. She will also require ICU admission and a central venous catheter, which we will proceed with placement. Job ID: [id number] DocumentID: [id number] Dictated Date: 03/12/2023 12:07:12 Biomedical Analytical Scientist Date: 03/12/2023 12:35:00 Dictated By: ALANA EASTON MD
[2023-03-12] MEDS ORDERED: NS IV 500 ML 500 ML IV PRN (13:00)
[2023-03-12] MEDS ORDERED: ATROPINE IJ PRN (13:00)
[2023-03-12] MEDS ORDERED: ENOXAPARIN 40 MG/0.4 ML SYRINGE SC SCH (13:00)
[2023-03-12] MEDS: CEFEPIME INJECTION 1,000 MG in NS (IVPB) 50 ML 50 ML IV SCH ×2 (13:38→21:08)
[2023-03-12] MEDS: NOREPINEPHRINE 8 MG/250 ML 250 ML IV SCH (13:39)
[2023-03-12] MEDS ORDERED: ATROPINE 1 MG/10 ML EMERGENCY SYRINGE IV ONE (13:45)
[2023-03-12] MEDS: NS IV SCH (14:11)
[2023-03-12] MEDS: EPINEPHRINE IV SCH (14:11)
[2023-03-12] MEDS ORDERED: CALCIUM GLUCONATE 1GM IVPB 100 ML IV ONE ×2 (14:15→15:45)
[2023-03-12] MEDS ORDERED: GLUCAGON EMERGENCY 1 MG/KIT IV ONE ×2 (14:15→15:45)
--- NOTE | 2023-03-12 14:22 | History & Physicial-Cardiolgy ---
HPI-Cardiology Cardiology Consultation: Date of Consultation 03/12/23 Date of Admission 03/12/2023 Attending Physician Bart Adair DO Admitting Physician Admitting Physician: Sherri Hardin DO Attending Physician: Sherri Hardin DO Consulting Physician STEVEN BRANCH MD HPI: Time Seen by a Provider: 14:15 Chief Complaint: Patient was admitted to emergency room with complaint of confusion, weakness, shortness of breath 67-year-old female with a past medical history of COPD, hypertension who presented with shortness of breath and confusion. As per mother she was confused for approximately 1 day. She is a heavy smoker, was at home on oxygen for a long time. Was found to be in severe bradycardia in the emergency room, down to 30s. There was a concern that she could have taken extra dose of metoprolol. In the emergency room was also found to be hypotensive. He was treated with IV fluids with suboptimal response. Was found to have high CO2 with a respiratory acidosis. As per patient wish she is not to be intubated, so BiPAP was used to resolve hypercapnia. Despite treatment patient condition in the emergency room worsened, patient stopped responding completely, her blood pressure went down. Patient was transferred to ICU. She was started on epinephrine drip. When I examined here patient started to respond. Was difficult to communicate with her because of BiPAP.. Systolic blood pressure was in the low 100. Heart rate is in the 50s, patient appears to be in sinus rhythm. Godoy catheter was not placed because of technical difficulties, so it is impossible to assess her urine output Review of Systems-Cardiology Review of Systems Constitutional: As described under HPI, chills, fever, lightheadedness, malaise, tiredness, weight loss, weight gain, other Eyes: As described under HPI Ears/Nose/Throat: As described under HPI Respiratory: shortness of breath, wheezing Cardiovascular: other Gastrointestinal: no symptoms reported Genitourinary: no symptoms reported Musculoskeletal: no symptoms reported Skin: no symptoms reported Psychiatric/Neurological: other (Confusion) KSY-Eycbpw-Grkmlz Hx Patient Social History Smoking Status: Current Everyday Smoker Alcohol Use?: No Pt feels they are or have been: No Tobacco type used: Cigarettes Immunizations Up To Date Date of Pneumonia Vaccine: Jan 03, 2017 Date of Influenza Vaccine: Jan 03, 2017 Past Medical History PMH As described under Assessment. Family Medical History Family Medical History: She denies any family h/o CAD. She reports her father had colon cancer. Family History: Colon cancer Allergies and Home Medications Allergies Coded Allergies: ARAANo Known Allergies (Verified Allergy, Unknown, 11/27/21) Patient Home Medication List Home Medication List Reviewed: Yes Albuterol Sulfate (Ventolin Hfa) 1 Puff Puff, 2 PUFF IH Q4H, (Reported) Entered as Reported by: OLE HURST on 11/11/21 1544 Albuterol Sulfate (Ventolin Hfa) 1 Puff Puff, 2 PUFF INH Q4H PRN for COUGH Prescribed by: Essence Kasper on 01/31/23 1320 Albuterol Sulfate (Albuterol Sulfate) 2.5 Mg/3 Ml (0.083 %) Vial.neb, 2.5 MG INH Q4H PRN for WHEEZING Prescribed by: Essence Kasper on 01/31/23 1326 Amlodipine Besylate (Amlodipine Besylate) 10 Mg Tablet, 10 MG PO DAILY Prescribed by: NEEL WANG on 09/07/19 1020 Aspirin (Aspirin) 81 Mg Tab.chew, 81 MG PO DAILY@0900 Prescribed by: NEEL WANG on 09/07/19 1020 Clopidogrel Bisulfate (Clopidogrel) 75 Mg Tablet, 75 MG PO DAILY Prescribed by: NEEL WANG on 09/07/19 1020 Cyclobenzaprine HCl (Cyclobenzaprine HCl) 5 Mg Tablet, 5 MG PO DAILY, (Reported) Entered as Reported by: BART GLOVER on 09/05/19 1501 Doxycycline Hyclate (Doxycycline Hyclate) 100 Mg Tablet, 100 MG PO BID Prescribed by: Essence Kasper on 01/31/23 1320 Fluticasone/Salmeterol (Advair 100-50 Diskus) Unknown Strength Blst.w.dev, Unknown Dose IH, (Reported) Entered as Reported by: OLE HURST on 11/11/21 1544 Gabapentin (Gabapentin) 300 Mg Capsule, 300 MG PO HS, (Reported) Entered as Reported by: EAN MONTEJO on 02/09/18 1340 Hydroxyzine HCl (Hydroxyzine HCl) 25 Mg Tablet, 25 MG PO Q6H PRN for ANXIETY, (Reported) Entered as Reported by: BART GLOVER on 09/05/19 1501 Linaclotide (Linzess) 145 Mcg Capsule, 145 MG PO DAILY, (Reported) Entered as Reported by: BART GLOVER on 09/05/19 1501 Lisinopril (Lisinopril) 20 Mg Tablet, 20 MG PO 1200, (Reported) Entered as Reported by: BART GLOVER on 09/05/19 1501 Loratadine (Loratadine) 10 Mg Tablet, 10 MG PO DAILY, (Reported) Entered as Reported by: BART GLOVER on 09/05/19 1501 Metoprolol Tartrate (Metoprolol Tartrate) 50 Mg Tablet, 50 MG PO BID Prescribed by: NEEL WANG on 09/07/19 1020 Montelukast Sodium (Montelukast Sodium) Unknown Strength Tab.chew, Unknown Dose PO, (Reported) Entered as Reported by: OLE HURST on 11/11/21 1544 Multivitamin/Iron/Folic Acid (Centrum Adults Tablet) 1 Each Tablet, 1 EACH PO DAILY, (Reported) Entered as Reported by: BART GLOVER on 09/05/19 1509 Mv-Mn/Iron/FA/Herbal Cmplx#190 (Vitamin D3 Complete Caplet) 18 Mg Iron-800 Mcg-150 Mg Tablet, 1 EACH PO, (Reported) Entered as Reported by: OLE HURST on 11/11/21 154 Prednisone (Prednisone) 20 Mg Tab, 40 MG PO DAILY Prescribed by: Essence Kasper on 01/31/23 1320 Trazodone HCl (Trazodone HCl) 150 Mg Tablet, 150 MG PO HS, (Reported) Entered as Reported by: BART GLOVER on 09/05/19 1607 Umeclidinium [place] (Incruse Ellipta) 62.5 Mcg/Actuation Blst.w.dev, 62.5 MCG IH UD, (Reported) Entered as Reported by: OLE HURST on 11/11/21 1544 Valsartan (Valsartan) Unknown Strength Tablet, Unknown Dose PO DAILY, (Reported) Entered as Reported by: OLE HURST on 11/11/21 1544 Vortioxetine Hydrobromide (Trintellix) 10 Mg Tablet, 10 MG PO DAILY, (Reported) Entered as Reported by: EAN MONTEJO on 02/09/18 1340 Physical Exam-Cardiology Physical Exam Vital Signs/I&O 03/12/23 03/12/23 03/12/23 03/12/23 08:57 08:57 08:57 09:19 Temp 35.7 Pulse 46 43 Resp 18 22 B/P (MAP) 90/35 (53) Pulse Ox 96 96 100 O2 Delivery Nasal Cannula Nasal Cannula Nasal Cannula O2 Flow Rate 5.00 2.00 2.00 60.00 03/12/23 03/12/23 03/12/23 03/12/23 11:30 13:00 13:00 13:01 Pulse 48 59 56 56 Resp 29 24 B/P (MAP) 81/38 97/64 (69) Pulse Ox 96 97 O2 Delivery NIV Bilevel O2 Flow Rate 40.00 40.00 03/12/23 13:46 Pulse 55 B/P (MAP) 84/35 Capillary Refill : Less Than 3 Seconds Constitutional: PERRL, other HEENT: PERRL Neck: non-tender, supple Respiratory: accessory muscle use, rhonchi, wheezing Cardiovascular: regular rate-rhythm, bradycardia Gastrointestinal: soft, round Extremities: normal range of motion, non-tender, no lower extremity edema bilateral Neurologic/Psychiatric: depressed affect, grossly intact Skin: pallor Data Review Labs Laboratory Tests 03/12/23 09:00: White Blood Count 13.4H, Red Blood Count 3.48L, Hemoglobin 10.7L, Hematocrit 35, Mean Corpuscular Volume 99, Mean Corpuscular Hemoglobin 31, Mean Corpuscular Hemoglobin Concent 31L, Red Cell Distribution Width 13.2, Platelet Count 276, Mean Platelet Volume 9.6, Immature Granulocyte % (Auto) 0, Neutrophils (%) (Auto) 78H, Lymphocytes (%) (Auto) 12, Monocytes (%) (Auto) 9, Eosinophils (%) (Auto) 0, Basophils (%) (Auto) 0, Neutrophils # (Auto) 10.5H, Lymphocytes # (Auto) 1.6, Monocytes # (Auto) 1.3H, Eosinophils # (Auto) 0.0, Basophils # (Auto) 0.0, Immature Granulocyte # (Auto) 0.1, Prothrombin Time 14.1, INR Comment 1.0, Activated Partial Thromboplast Time 39H, Sodium Level 135, Potassium Level 5.0, Chloride Level 97L, Carbon Dioxide Level 30, Anion Gap 8, Blood Urea Nitrogen 23H, Creatinine 1.68H, Estimat Glomerular Filtration Rate 33, BUN/Creatinine Ratio 14, Glucose Level 129H, Lactic Acid Level 0.62, Calcium Level 8.1L, Corrected Calcium 8.2L, Magnesium Level 2.4, Total Bilirubin 0.3, Aspartate Amino Transf (AST/SGOT) 22, Alanine Aminotransferase (ALT/SGPT) 23, Alkaline Phosphatase 98, Myoglobin 112.2H, Troponin I < 0.028, C-Reactive Pr otein High Sensitivity 0.32, B-Type Natriuretic Peptide 1068.0H, Total Protein 6.8, Albumin 3.9, Serum Alcohol < 10 03/12/23 09:15: Arterial Blood pH 7.21*L, Arterial Blood Partial Pressure CO2 76*H, Arterial Blood Partial Pressure O2 184H, Arterial Blood HCO3 30H, Arterial Blood Total CO2 32.7H, Arterial Blood Oxygen Saturation 99, Arterial Blood Base Excess 0.4, Blood Gas Ventilator Setting NO, Blood Gas Inspired Oxygen 60% 03/12/23 09:20: Influenza Type A (RT-PCR) Not Detected, Influenza Type B (RT-PCR) Not Detected, SARS-CoV-2 RNA (RT-PCR) Not Detected 03/12/23 11:15: Glucometer 132H 03/12/23 11:37: Arterial Blood pH 7.21*L, Arterial Blood Partial Pressure CO2 75*H, Arterial Blood Partial Pressure O2 209H, Arterial Blood HCO3 30H, Arterial Blood Total CO2 32.3H, Arterial Blood Oxygen Saturation 100, Arterial Blood Base Excess 0.0, Blood Gas Ventilator Setting NO, Blood Gas Inspired Oxygen 60% ECG Impression ECG Comment Sinus bradycardia, right bundle branch block, poor quality EKG : EKG Time: 11:00 A/P-Cardiology Assessment/Admission Diagnosis Severe bradycardia. Arterial hypotension. Hypercapnia. Mental status changes Admission Status: Inpatient Order (span 2 midnights) Reason for Inpatient Admission: Respiratory acidosis. Severe hypercapnia. Severe bradycardia. Arterial hypotension Plan Continue epinephrine for now, we will try to wean down. We will check echo. Possible pulmonary evaluation. Check troponin STEVEN BRANCH MD Mar 12, 2023 14:22
--- NOTE | 2023-03-12 14:39 | Tele-ICU Consult ---
History of Present Illness History of Present Illness Date Seen by Provider: Mar 12, 2023 Time Seen by Provider: 15:33 Date of Admission 03/12/23 History of Present Illness (Tele-ICU Physician , Progress Note ) Service provided via interactive audio and video telecommunications E-CARE sys tem to a patient admitted to ICU bed in [facility]. Patient is seen today due to persistent need of ICU care Available chart/ vitals / labs / Images reviewed Video assessment done using teleICU camera, rest of exam as per RN She is a 67-year-old female with past medical history of severe COPD, hypertension presented to the emergency room with a complaint of shortness of breath and confusion. According to the ER physician with whom I spoke to when she came to the emergency room she is pretty much with that she is awake alert and oriented apparently but her mental status slowly deteriorated. Her initial blood gas showed respiratory acidosis and she is placed on a BiPAP ventilation. Subsequently another blood gas done which showed also respiratory acidosis and I was contacted at that time and I have changed the BiPAP settings. According to the ER physician when she asked about the CODE STATUS she does not want to be intubated and CPR not to be done. This subsequently verified with the patient and mother and daughter and they agreed with a DNR status. She has multiple medical problems and on multiple medications. According to the family she was confused about her medications and if she may have taken extra pills especially antihypertensives. Heart rate blood pressure was low requiring fluid boluses and also her heart rate is low in the 30s requiring atropine with which her heart rate came up to 47. When I talked to the ER physician I advised him to start on epinephrine drip. She was given also DuoNeb nebulizer treatment she is admitted to the intensive care unit on BiPAP ventilation. At this time we are giving epinephrine drip as well as the Levophed drip. At this time I had a feeling that she might have overdosed with both calcium channel deb and beta-blockers. Her blood sugars also went down at some point requiring D50 W infusion. I did talk to the pharmacy and Juli 5 mg of glucagon IV push and 3 g of calcium gluconate. It does not seem she had any significant response. I will order additional doses. We do not have enough glucose to give IV infusion. Impression 1. Acute and chronic hypercarbic respiratory failure due to underlying COPD 2. Bradycardia and hypotension most likely due to calcium channel and beta-b locker overdose 3. Hyperglycemia secondary to beta-blockers also. 4. Possible COPD exacerbation. 5. Altered mental status secondary to hypercarbia, hypoglycemia. Recommendations 1. Continue BiPAP ventilation to 18/10 with FiO2 30-40% to keep saturation over 90% 2. We will continue IV fluid boluses 3. IV epinephrine and Levophed drip to keep MAP over 65 4. Frequent Accu-Cheks to monitor her blood sugars 5. We will give IV glucagon and calcium gluconate. 6. Cardiology consultation requested 7. Stat echocardiogram ordered. 8. We will repeat another blood gas in 2 or 3 hours later 9. DVT prophylaxis. 10. DNR/DNI status. Discussed with pharmacist and bedside RN. Coordination of care with primary care physician and bedside consultants. I am remotely monitoring this patient from Tele icu station in [place]. I am unable to do the bedside exam, and history/physical and pertinent information is taken from other notes in the computer and bedside staff. Certain portions of this document may have been dictated utilizing voice recognition technology such as [employer]. Inherent to this technology, typographical and grammatical errors may exist. As much as I am diligent to identify and correct to these mistakes, some errors may remain in the document. Critical care time devoted to this patient today is approximately is-40 minutes.- Allergies and Home Medications Allergies Coded Allergies: NKANo Known Allergies (Verified Allergy, Unknown, 11/27/21) Home Medications Albuterol Sulfate 1 Puff Puff, 2 PUFF IH Q4H, (Reported) 1 PUFF = 90 MCG Albuterol Sulfate 1 Puff Puff, 2 PUFF INH Q4H PRN for COUGH 1 PUFF = 90 MCG Prescribed by: Essence Kasper on 01/31/23 1320 Albuterol Sulfate 2.5 Mg/3 Ml (0.083 %) Vial.neb, 2.5 MG INH Q4H PRN for WHEEZING Prescribed by: Essence Kasper on 01/31/23 1326 Amlodipine Besylate 10 Mg Tablet, 10 MG PO DAILY Prescribed by: NEEL WANG on 09/07/19 1020 Aspirin 81 Mg Tab.chew, 81 MG PO DAILY@0900 Prescribed by: NEEL WAGN on 09/07/19 1020 Clopidogrel Bisulfate 75 Mg Tablet, 75 MG PO DAILY Prescribed by: NEEL WANG on 09/07/19 1020 Cyclobenzaprine HCl 5 Mg Tablet, 5 MG PO DAILY, (Reported) Doxycycline Hyclate 100 Mg Tablet, 100 MG PO BID Prescribed by: Essence Kasper on 01/31/23 1320 Gabapentin 300 Mg Capsule, 300 MG PO HS, (Reported) Hydroxyzine HCl 25 Mg Tablet, 25 MG PO Q6H PRN for ANXIETY, (Reported) Linaclotide 145 Mcg Capsule, 145 MG PO DAILY, (Reported) Lisinopril 20 Mg Tablet, 20 MG PO 1200, (Reported) Loratadine 10 Mg Tablet, 10 MG PO DAILY, (Reported) Metoprolol Tartrate 50 Mg Tablet, 50 MG PO BID Prescribed by: NEEL WANG on 09/07/19 1020 Multivitamin/Iron/Folic Acid 1 Each Tablet, 1 EACH PO DAILY, (Reported) Prednisone 20 Mg Tab, 40 MG PO DAILY Prescribed by: Essence Kasper on 01/31/23 1320 Trazodone HCl 150 Mg Tablet, 150 MG PO HS, (Reported) Umeclidinium Dwight 62.5 Mcg/Actuation Blst.w.dev, 62.5 MCG IH UD, (Reported) Valsartan Unknown Strength Tablet, Unknown Dose PO DAILY, (Reported) Vortioxetine Hydrobromide 10 Mg Tablet, 10 MG PO DAILY, (Reported) Past Medical/Social/Family Hx Patient Social History Tobacco Use?: Yes Tobacco type used: Cigarettes Smoking Status: Current Everyday Smoker Substance use?: No Alcohol Use?: No Pt stated abuse/neglect: No Immunizations Up To Date Influenza Vaccine Up-to-Date: No; Not Current First/Initial COVID19 Vaccinat: YES Second COVID19 Vaccination Noman: YES Date of Pneumonia Vaccine: Jan 03, 2017 Current Status Advance Directives: No Communicates: Verbally Primary Language: Luxembourgish Preferred Spoken Language: Luxembourgish Is interpretation needed?: No Implanted or Applied Medical D: None Past Medical History COPD HTN Tobacco use Review of Systems Constitutional: see HPI, weakness, other (ams) Focused Exam Lactate Level 03/12/23 09:00: Lactic Acid Level 0.62 Height, Weight, BMI Height: 4'11.00" Weight: 136lbs. 0.0oz. 61.579917pj; 23.00 BMI Method: Exam Exam Patient acknowledged, consented, and participated in this virtual visit which was conducted using real time audio/video Vital Signs Date Time Temp Pulse Resp B/P (MAP) Pulse Ox O2 Delivery O2 Flow Rate FiO2 03/12/23 13:46 55 84/35 03/12/23 13:01 56 24 97 40.00 03/12/23 13:00 56 29 97/64 (69) 96 NIV Bilevel 40.00 03/12/23 13:00 59 03/12/23 11:30 48 81/38 03/12/23 09:19 43 22 100 60.00 03/12/23 08:57 Nasal Cannula 2.00 03/12/23 08:57 35.7 46 18 90/35 (53) 96 Nasal Cannula 2.00 03/12/23 08:57 96 Nasal Cannula 5.00 Height & Weight Height: 4'11.00" Weight: 136lbs. 0.0oz. 61.518113de; 23.00 BMI Method: General Appearance: No Apparent Distress, Chronically ill, Moderate Distress HEENT: Normal ENT Inspection, Other (On BiPAP) Neck: Normal Inspection, Non Tender Respiratory: Chest Non Tender, No Accessory Muscle Use, No Respiratory Distress, Rhonci Cardiovascular: Regular Rate, Rhythm, No Edema, No Murmur Capillary Refill: Less Than 3 Seconds Extremity: No Pedal Edema Neurologic/Psychiatric: Other (Not responsive) Skin: Normal Color, Warm/Dry Results Lab Laboratory Tests 03/12/23 09:00 Assessment/Plan Assessment/Plan as above Critical Care: Critically Ill Patient Time spent with patient (mins): 40 DAGOBERTO ALLEN MD Mar 12, 2023 14:39
[2023-03-12] MEDS: CALCIUM GLUCONATE 1GM IVPB 100 ML IV SCH (14:44)
[2023-03-12] MEDS: NS IV 1000 ML 1,000 ML IV SCH (14:45)
[2023-03-12] MEDS ORDERED: GLUCAGON EMERGENCY 1 MG/KIT ONE (14:54)
[2023-03-12] MEDS ORDERED: RT-Ipratropium/Albuterol NEB 3 ML VIAL INH PRN (15:15)
[2023-03-12] MEDS ORDERED: DEXTROSE 50% 50 ML (IMS) SYR IV PRN (16:00)
[2023-03-12 16:36] LABS: CLARITY,URINE CLEAR; COLOR,URINE YELLOW
[2023-03-12 16:37] LABS: BACTERIA,URINE NEGATIVE /HPF; BILIRUBIN,URINE NEGATIVE (NEGATIVE); GLUCOSE, URINE (UA) NEGATIVE (NEGATIVE); HYALINE CASTS, URINE RARE /LPF; KETONES,URINE TRACE (NEGATIVE); LEUKOCYTE ESTERASE ,URINE NEGATIVE (NEGATIVE); NITRITE,URINE NEGATIVE (NEGATIVE); PROTEIN,URINE 1+ (NEGATIVE)
[2023-03-12 16:43] LABS: AMPHETAMINE SCREEN, URINE NEGATIVE (NEGATIVE); CANNABINOID SCREEN, URINE POSITIVE (NEGATIVE); COCAINE SCREEN URINE NEGATIVE (NEGATIVE)
[2023-03-12 16:44] LABS: BARBITURATE SCREEN URINE NEGATIVE (NEGATIVE); METHADONE STAT NEGATIVE (NEGATIVE); OPIATE SCREEN URINE NEGATIVE (NEGATIVE); OXYCODONE STAT NEGATIVE (NEGATIVE); TRICYCLIC ANTIDEPRESSANTS SCRE POSITIVE (NEGATIVE)
[2023-03-12 16:54] LABS: ABG BASE EXCESS 1.6 MMOL/L (-2.5-2.5); ABG OXYGEN SATURATION 99 % (94-100); ABG PCO2 58 MMHG (35-45); ABG PO2 129 MMHG (79-93)
[2023-03-12 16:55] LABS: INSPIRED O2 40%; VENTILATOR NO
[2023-03-12 16:57] LABS: ABG PH 7.31 (7.37-7.43)
[2023-03-12] MEDS ORDERED: diphenhydrAMINE INJ 50 MG/ML VIAL IVP ONE (17:30)
[2023-03-12] MEDS: RT-Ipratropium/Albuterol NEB 3 ML VIAL INH SCH ×2 (19:25→21:28)
--- NOTE | 2023-03-12 21:12 | OPERATIVE REPORT ---
DATE OF SERVICE: 03/12/2023 ATTENDING PRIMARY CARE PHYSICIAN: Dr. Hardy Adair. PREOPERATIVE DIAGNOSIS: Polypharmacy induced hypotension, COPD. POSTOPERATIVE DIAGNOSES: Polypharmacy induced hypotension, COPD. PROCEDURE: Placement left subclavian central venous catheter. SURGEON: Alana Easton MD GALVANIZER: Pilo Jordan APRN ANESTHESIA: Local. ESTIMATED BLOOD LOSS: Minimal. DISPOSITION: The patient tolerated the procedure well. INDICATIONS: The patient is a 67-year-old female with extensive past medical history as well as on multiple different medications. EMS reports that she was unresponsive and on the floor and there were other reports of the patient being extremely confused 24 hours previous and not knowing which medications she had taken or not taken. The patient was found to be hypotensive, requiring vasopressors and will require ICU admission as well as a central venous catheter. DESCRIPTION OF PROCEDURE: Chest and neck were prepped and draped in standard surgical fashion. 1% lidocaine was used to anesthetize the left subclavian region. The left subclavian vein was then cannulated with drawing of venous blood and the guidewire was then inserted. The cannulating needle removed and a skin incision made using 11 blade. A tract was then created using a venous dilator and through this opening, a triple lumen central venous catheter was placed over the guidewire using the Seldinger technique. Guidewire was then removed and all 3 ports deyanira venous blood and saline pushed in without any resistance. Catheter was then sutured to skin using 3-0 silk interrupted sutures. Catheter was then cleaned and covered with Op-Site. The patient tolerated the procedure well. We will get a post-procedure chest x-ray. Job ID: [id number] DocumentID: [id number] Dictated Date: 03/12/2023 12:22:50 Barrel Loader Date: 03/12/2023 21:09:00 Dictated By: ALANA EASTON MD
[2023-03-12] MEDS ORDERED: ALPRAZolam 0.25 MG TABLET PO ONE (22:45)
[2023-03-12] MEDS ORDERED: ALPRAZolam 0.25 MG TABLET ONE (22:45)
[2023-03-13] MEDS: NS IV 1000 ML 1,000 ML IV SCH ×3 (01:17→22:33)
[2023-03-13] MEDS: CEFEPIME INJECTION 1,000 MG in NS (IVPB) 50 ML 50 ML IV SCH ×3 (01:18→17:41)
[2023-03-13] MEDS: RT-Ipratropium/Albuterol NEB 3 ML VIAL INH SCH ×6 (01:55→21:19)
[2023-03-13] MEDS: NS IV SCH ×2 (03:03→16:04)
[2023-03-13] MEDS: EPINEPHRINE IV SCH ×2 (03:03→16:04)
[2023-03-13 04:45] LABS: BASOPHILS % (AUTO) 0 % (0-10); EOSINOPHILS % (AUTO) 0 % (0-10); HEMATOCRIT 33 % (35-52); HEMOGLOBIN 10.3 g/dL (11.5-16.0); LYMPHOCYTES # (AUTO) 1.6 10^3/uL (1.0-4.0); LYMPHOCYTES % (AUTO) 11 % (12-44); MEAN CORPUSCULAR HEMOGLOBIN 31 pg (25-34); MEAN CORPUSCULAR HGB CONC 31 g/dL (32-36); MEAN CORPUSCULAR VOLUME 99 fL (80-99); MEAN PLATELET VOLUME 9.4 fL (9.0-12.2); MONOCYTES # (AUTO) 1.2 10^3/uL (0.0-1.0); MONOCYTES % (AUTO) 8 % (0-12); NEUTROPHILS # (AUTO) 12.6 10^3/uL (1.8-7.8); NEUTROPHILS % (AUTO) 81 % (42-75); PLATELET COUNT 241 10^3/uL (130-400); WHITE BLOOD COUNT 15.6 10^3/uL (4.3-11.0)
[2023-03-13 04:54] LABS: POTASSIUM 4.4 MMOL/L (3.6-5.0)
[2023-03-13 04:55] LABS: ALBUMIN 3.8 GM/DL (3.2-4.5)
[2023-03-13 04:56] LABS: CALCIUM 7.8 MG/DL (8.5-10.1)
[2023-03-13 04:57] LABS: TOTAL PROTEIN 6.6 GM/DL (6.4-8.2)
[2023-03-13 04:59] LABS: BILIRUBIN,TOTAL 0.3 MG/DL (0.1-1.0)
[2023-03-13 05:00] LABS: PHOSPHORUS 2.9 MG/DL (2.3-4.7)
[2023-03-13 05:01] LABS: CREATININE SERUM 0.93 MG/DL (0.60-1.30)
[2023-03-13 05:05] LABS: MAGNESIUM 2.1 MG/DL (1.6-2.4)
[2023-03-13 05:10] LABS: BAND NEUTROPHILS 2 %; BASOPHILS % (MANUAL) 1 %; LYMPHOCYTES % (MANUAL) 11 %; MONOCYTES % (MANUAL) 5 %; NEUTROPHILS % (MANUAL) 81 %; NUCLEATED RED BLOOD CELLS 1; RBC MORPH NORMAL
[2023-03-13] MEDS: MAGNESIUM 1 GM/100 ML IVPB 100 ML IV SCH (06:21)
[2023-03-13] MEDS: POTASSIUM CL 10MEQ/50ML IVPB 50 ML IV SCH (06:21)
[2023-03-13] MEDS: POTASSIUM CHLORIDE 20 MEQ TABLET PO SCH (06:21)
[2023-03-13] MEDS ORDERED: dilTIAZem DRIP PRE-MIX 125 ML IV ONE (08:44)
[2023-03-13] MEDS: dilTIAZem DRIP PRE-MIX 125 ML IV SCH ×2 (08:46→14:54)
[2023-03-13] MEDS ORDERED: ENOXAPARIN 60 MG/0.6 ML SYRINGE SC SCH (09:00)
[2023-03-13] MEDS: RIVAROXABAN 20 MG TABLET PO SCH (09:48)
[2023-03-13] MEDS: FLUTICASONE/VILANTEROL 100/25 MCG (14 DOSES) IH SCH (10:04)
--- NOTE | 2023-03-13 10:21 | Progress Note ---
DEMOND BARRIOS MD,RESIDENT 03/13/23 1021: Subjective HPI/CC On Admission CC: AMS with resp failure HPI: This is a 67yoWF clinic patient of [facility] who apparently took too many pain pills and resulted in hypercapneic resp failure requiring biPAP and remains DNR and DNI per paper work and confirmed with daughter DPSAI. We alexandra continue biPAP and Dr Cohen placed CL. Subjective/Events-last exam Pt resting comfortably in bed this morning. Telemetry demonstrates atrial fibrillation with sustained HR 140s. She denies chest pain, palpitations, N/V, vision changes. She reports she is at her baseline respiratory efforts. SpO2 >90% on 5L HFNC this morning. Focused Exam Lactate Level 03/12/23 09:00: Lactic Acid Level 0.62 Objective Exam Vital Signs Vital Signs Date Time Temp Pulse Resp B/P (MAP) Pulse Ox O2 Delivery O2 Flow Rate FiO2 03/13/23 11:27 36.7 03/13/23 11:00 112 97 High Flow N/C 7.00 03/13/23 10:00 30 03/12/23 20:00 30 Capillary Refill : Less Than 3 Seconds General Appearance: No Apparent Distress HEENT: Normal ENT Inspection Respiratory: Wheezing Cardiovascular: Irregularly Irregular Gastrointestinal: Non Tender, Soft Neurologic/Psychiatric: Alert, Oriented x3, No Motor/Sensory Deficits Skin: Normal Color, Warm/Dry Lymphatic: No Adenopathy Results/Procedures Lab Laboratory Tests 03/13/23 04:30 Patient resulted labs reviewed. Imaging: Reviewed Imaging Films, Reviewed Imaging Report Assessment/Plan Assessment and Plan Assess & Plan/Chief Complaint (1) Acute on chronic hypoxic respiratory failure Status: Acute Assessment & Plan: Patient presenting with acute on chronic hypoxic respiratory failure. Uses 2 L of oxygen at baseline. ABG prior to BiPAP concerning. mildly improved 03/12 Plan: - Continue HFNC, currently 5L - BiPAP if in respiratory distress (2) Atrial fibrillation with RVR - HR 140s sustained this morning (03/13), telemetry demonstrating atrial fibrillation - Pt reports a remote h/o atrial fibrillation, reports being on daily pill for anticoagulation Plan: - EKG - demonstrates atrial fibrillation with RVR - Start Xarelto 20 mg daily - Cardiology consulted - Diltiazem drip started (3) Bradycardia - RESOLVED Status: Acute Assessment & Plan: Patient noted to be bradycardic. May be secondary to medication misuse. Plan: Monitor on telemetry Follow-up UDS Atropine as needed for heart rates less than 35 (4) Hypotension Status: Acute Assessment & Plan: Patient quite hypotensive with labile blood pressures not responding to fluids. Requiring Levophed in the ED. Plan: Cardiology consulted, appreciate recommendations Recommend dopamine for pressures in the setting of bradycardia Qualifiers: Hypotension type: unspecified hypotension type Qualified Codes: I95.9 - Hypotension, unspecified (5) COPD exacerbation Status: Acute Assessment & Plan: Patient with possible COPD exacerbation due to worsening respiratory status. Evidence of leukocytosis on lab work however chest x-ray negative. Plan: Continue IV cefepime (6) Sepsis Status: Acute Assessment & Plan: Unclear source of infection at this time however patient is screening in for sepsis. Plan: Follow-up blood cultures Follow-up UA (7) Acute kidney injury Status: Acute Assessment & Plan: Patient noted to have CY with creatinine of 1.68. May be secondary to dehydration. 03/13 Cr 0.98 Plan: Continue IV fluids. (8) Polypharmacy Status: Acute Assessment & Plan: Concern for polypharmacy due to medication misuse. We will continue to monitor vital signs as mentioned above. Unclear cause of symptoms at this time however patient takes many medications that may be contributing. (9) HTN (hypertension) Status: Chronic Assessment & Plan: Holding home medications KODY VILLANUEVA DO 03/13/23 1512: Subjective HPI/CC On Admission Date Seen by Provider: Mar 13, 2023 Time Seen by Provider: 09:00 Subjective/Events-last exam Patient seen and examined Wheezing noted we will start IV steroids She is prednisone dependent end-stage COPD Does not want to go back on the BiPAP Objective Exam General Appearance: Anxious, Chronically ill, Mild Distress Respiratory: Decreased Breath Sounds, Wheezing Cardiovascular: Irregularly Irregular Assessment/Plan Assessment and Plan Assess & Plan/Chief Complaint A-fib with RVR Acute hypercapnic respiratory failure Plan: Restart anticoagulation Diltiazem drip BiPAP IV steroids DEMOND BARRIOS MD,RESIDENT Mar 13, 2023 10:21 KODY VILLANUEVA DO Mar 13, 2023 15:12
--- NOTE | 2023-03-13 11:40 | Cardiology Progress Note ---
Subjective Date Seen by Provider: Mar 13, 2023 Time Seen by Provider: 11:33 Subjective/Events-last exam Feels much better. Alert oriented, sitting in the bed. Off BiPAP. Patient events this morning continue rapid atrial fibrillation with heart rate up to 130. Patient was started on Cardizem drip at 5 mg/h. Review of Systems General: No Chills, No Night Sweats, No Fatigue, No Malaise, No Appetite, No Other Pulmonary: Dyspnea Cardiovascular: Palpitations Gastrointestinal: No: Nausea, Vomiting, Abdominal Pain, Diarrhea, Constipation, Melena, Hematochezia, Other Genitourinary: No Dysuria, No Frequency, No Incontinence, No Hematuria, No Retention, No Other Musculoskeletal: No: other, neck pain, shoulder pain, arm pain, back pain, hand pain, leg pain, foot pain Neurological: No: Weakness, Numbness, Incoordination, Change in speech, Confusion, Seizures, Other Exam Vital Signs Vital Signs Date Time Temp Pulse Resp B/P (MAP) Pulse Ox O2 Delivery O2 Flow Rate FiO2 03/13/23 11:27 36.7 03/13/23 11:00 112 97 High Flow N/C 7.00 03/13/23 10:00 30 03/12/23 20:00 30 Physical Exam Alert oriented, no acute distress. Neck supple, no JVD. Lungs decreased breath sounds bilaterally, scattered rhonchi, mild diffuse wheezing. Heart: S1-S2, irregular rhythm, tachycardia, no murmurs heard. Abdomen soft , nontender, nondistended. Extremities no edema Labs Laboratory Tests Test 03/12/23 11:37 03/12/23 15:17 03/12/23 16:25 03/12/23 16:48 Range/Units Arterial Blood pH 7.21 *L 7.31 *L 7.37-7.43 Arterial Blood Partial Pressure CO2 75 *H 58 H 35-45 MMHG Arterial Blood Partial Pressure O2 209 H 129 H 79-93 MMHG Arterial Blood HCO3 30 H 29 H 23-27 MMOL/L Arterial Blood Total CO2 32.3 H 31.0 21.0-31.0 MMOL/L Arterial Blood Oxygen Saturation 100 99 94-100 % Arterial Blood Base Excess 0.0 1.6 -2.5-2.5 MMOL/L Blood Gas Ventilator Setting NO NO Blood Gas Inspired Oxygen 60% 40% Glucometer 171 H 70-110 MG/DL Urine Color YELLOW Urine Clarity CLEAR Urine pH 5.0 5-9 Urine Specific [place] >=1.030 1.016-1.022 Urine Protein 1+ H NEGATIVE Urine Glucose (UA) NEGATIVE NEGATIVE Urine Ketones TRACE H NEGATIVE Urine Nitrite NEGATIVE NEGATIVE Urine Bilirubin NEGATIVE NEGATIVE Urine Urobilinogen 0.2 < = 1.0 MG/DL Urine Leukocyte Esterase NEGATIVE NEGATIVE Urine RBC (Auto) NEGATIVE NEGATIVE Urine RBC NONE /HPF Urine WBC NONE /HPF Urine Squamous Epithelial Cells NONE /HPF Urine Crystals NONE /LPF Urine Bacteria NEGATIVE /HPF Urine Casts PRESENT /LPF Urine Hyaline Casts RARE /LPF Urine Mucus NEGATIVE /LPF Urine Culture Indicated CULTURE PENDING Urine Opiates Screen NEGATIVE NEGATIVE Urine Oxycodone Screen NEGATIVE NEGATIVE Urine Methadone Screen NEGATIVE NEGATIVE Urine Barbiturates Screen NEGATIVE NEGATIVE Ur Tricyclic Antidepressants Screen POSITIVE H NEGATIVE Urine Phencyclidine Screen NEGATIVE NEGATIVE Urine Amphetamines Screen NEGATIVE NEGATIVE Urine Methamphetamines Screen NEGATIVE NEGATIVE Urine Benzodiazepines Screen NEGATIVE NEGATIVE Urine Cocaine Screen NEGATIVE NEGATIVE Urine Cannabinoids Screen POSITIVE H NEGATIVE Test 03/12/23 17:02 03/13/23 04:30 Range/Units Glucometer 206 H 70-110 MG/DL White Blood Count 15.6 H 4.3-11.0 10^3/uL Red Blood Count 3.32 L 3.80-5.11 10^6/uL Hemoglobin 10.3 L 11.5-16.0 g/dL Hematocrit 33 L 35-52 % Mean Corpuscular Volume 99 80-99 fL Mean Corpuscular Hemoglobin 31 25-34 pg Mean Corpuscular Hemoglobin Concent 31 L 32-36 g/dL Red Cell Distribution Width 13.6 10.0-14.5 % Platelet Count 241 130-400 10^3/uL Mean Platelet Volume 9.4 9.0-12.2 fL Immature Granulocyte % (Auto) 1 % Neutrophils (%) (Auto) 81 H 42-75 % Lymphocytes (%) (Auto) 11 L 12-44 % Monocytes (%) (Auto) 8 0-12 % Eosinophils (%) (Auto) 0 0-10 % Basophils (%) (Auto) 0 0-10 % Neutrophils # (Auto) 12.6 H 1.8-7.8 10^3/uL Lymphocytes # (Auto) 1.6 1.0-4.0 10^3/uL Monocytes # (Auto) 1.2 H 0.0-1.0 10^3/uL Eosinophils # (Auto) 0.0 0.0-0.3 10^3/uL Basophils # (Auto) 0.0 0.0-0.1 10^3/uL Immature Granulocyte # (Auto) 0.1 0.0-0.1 10^3/uL Neutrophils % (Manual) 81 % Lymphocytes % (Manual) 11 % Monocytes % (Manual) 5 % Basophils % (Manual) 1 % Band Neutrophils 2 % Nucleated Red Blood Cells 1 Blood Morphology Comment NORMAL Sodium Level 141 135-145 MMOL/L Potassium Level 4.4 3.6-5.0 MMOL/L Chloride Level 107 98-107 MMOL/L Carbon Dioxide Level 24 21-32 MMOL/L Anion Gap 10 5-14 MMOL/L Blood Urea Nitrogen 19 H 7-18 MG/DL Creatinine 0.93 0.60-1.30 MG/DL Estimat Glomerular Filtration Rate 68 BUN/Creatinine Ratio 20 Glucose Level 133 H 70-105 MG/DL Calcium Level 7.8 L 8.5-10.1 MG/DL Corrected Calcium 8.0 L 8.5-10.1 MG/DL Phosphorus Level 2.9 2.3-4.7 MG/DL Magnesium Level 2.1 1.6-2.4 MG/DL Total Bilirubin 0.3 0.1-1.0 MG/DL Aspartate Amino Transf (AST/SGOT) 24 5-34 U/L Alanine Aminotransferase (ALT/SGPT) 23 0-55 U/L Alkaline Phosphatase 88 40-136 U/L Total Protein 6.6 6.4-8.2 GM/DL Albumin 3.8 3.2-4.5 GM/DL Triglycerides Level 118 <150 MG/DL Cholesterol Level 95 < 200 MG/DL LDL Cholesterol Direct 36 1-129 MG/DL VLDL Cholesterol 24 5-40 MG/DL HDL Cholesterol 37 L 40-60 MG/DL A/P-Cardiology Admission Diagnosis Paroxysmal atrial fibrillation. Possible sick sinus syndrome. History of hypertension Mental status changes secondary to hypercapnia. COPD. History of smoking Assessment/Plan Continue Cardizem drip, will give 1 mg of Cardizem extra bolus, will give an dose of digoxin IV for better heart rate control. Continue to monitor. We will start anticoagulation. If patient does not respond to Cardizem will consider to switch to amiodarone. Continue treatment of COPD as per medical team STEVEN BRANCH MD Mar 13, 2023 11:39
[2023-03-13] MEDS ORDERED: DIGOXIN INJECTION 0.25 MG/ML 2 ML AMPULE IV ONE (11:45)
--- NOTE | 2023-03-13 11:53 | Tele-ICU Progress Note ---
Subjective Date Seen by a Provider: Mar 13, 2023 Time Seen by a Provider: 11:53 Subjective/Events-last exam (Tele-ICU Physician , Progress Note ) Service provided via interactive audio and video telecommunications E-CARE system to a patient admitted to ICU bed in [facility]. Patient is seen today due to persistent need of ICU care Available chart/ vitals / labs / Images reviewed Video assessment done using teleICU camera, rest of exam as per RN Discussed with RN Events overnight : Afebrile hemodynamically stable Respiratory - 6l I/O =+ Drips: ns Pressors- no Hospital course: (03/12) 67F Admitted for AMS--found unresponsive after possible accidental OD on her own meds, Bradycardia, hypercapnia/COPD, CY with mild hyperkalemia. 03/13 - off bipap , A fib RVR - cardizem gtt , AAO A/P Acute resp hypercapneic failure - responded to BIPAP - off now on 6 L o2 , AAO AECOPD - steroids Iv , nebs ?possible aspiraiton vs LRTI - on abx Hypotension - off pressors - resolved Hypoxia - on 2l , at nigh 4 l ( now 6 L ) A fib RVR - on 03/13 - cardizem gtt 15 , - cards consulted - xarelto Emcephalopathy - due to Co2 retention CY - resolved with IVF - to stop IVF Lines : left SCL 03/12 , (Central Line Necessity Reviewed) Ly: ly OG: Nutrition: Analgesia: Anxiety/ delirium VTE Prophylaxis: xarelto Stress Ulcer Prophylaxis: Plans in collaboration with bedside consultants and IM MDs. Discussed with RN to reach out if any questions or concerns Case and care daily discussed on multidisciplinary rounds ( RN, PharmD, Hearing Impaired Teacher , Respiratory Therapy, foot worker ) A total of 22 minutes of critical care time was devoted to this patient today, required to treat and/or prevent further deterioration of critical care condition ( as above ) . I am remotely monitoring this patient from another state. I am unable to do the bedside exam, and history/physical and pertinent information is taken from other notes in the computer and bedside staff. Sepsis Event Evaluation Height, Weight, BMI Height: 4'11.00" Weight: 136lbs. 0.0oz. 61.530027ky; 22.52 BMI Method: Focused Exam Lactate Level 03/12/23 09:00: Lactic Acid Level 0.62 Exam Exam Patient acknowledged, consented, and participated in this virtual visit which was conducted using real time audio/video Vital Signs Date Time Temp Pulse Resp B/P (MAP) Pulse Ox O2 Delivery O2 Flow Rate FiO2 03/13/23 11:27 36.7 03/13/23 11:00 112 117/82 (94) 97 High Flow N/C 7.00 03/13/23 10:04 93 High Flow N/C 7.00 03/13/23 10:00 144 30 99/71 (81) 95 03/13/23 09:59 High Flow N/C 7.00 03/13/23 09:00 142 21 138/107 (119) 94 High Flow N/C 5.00 03/13/23 08:46 142 129/88 03/13/23 08:04 36.6 03/13/23 08:00 95 NIV Bilevel 2.00 03/13/23 08:00 86 24 124/74 (95) 94 High Flow N/C 5.00 03/13/23 07:00 92 31 94/74 (80) 93 High Flow N/C 5.00 03/13/23 07:00 93 03/13/23 06:31 94 High Flow N/C 5.00 03/13/23 06:00 88 27 133/78 (96) 95 High Flow N/C 5.00 03/13/23 05:00 90 33 104/73 (83) 94 High Flow N/C 5.00 03/13/23 04:00 95 High Flow N/C 5.00 03/13/23 04:00 87 30 103/91 (95) 96 High Flow N/C 5.00 03/13/23 03:00 86 30 107/65 (79) 92 High Flow N/C 5.00 03/13/23 02:00 86 26 130/64 (86) 100 High Flow N/C 5.00 03/13/23 01:56 94 High Flow N/C 5.00 03/13/23 01:00 76 20 122/55 (77) 96 High Flow N/C 5.00 03/13/23 00:58 81 03/13/23 00:00 77 26 107/87 (94) 97 High Flow N/C 5.00 03/13/23 00:00 36.2 03/12/23 23:59 93 High Flow N/C 5.00 03/12/23 23:00 79 17 115/53 (73) 96 High Flow N/C 5.00 03/12/23 22:20 High Flow N/C 5.00 03/12/23 22:00 79 30 109/60 (76) 96 NIV Bilevel 40.00 03/12/23 21:28 79 21 100 40.00 03/12/23 21:11 NIV Bilevel 40.00 03/12/23 21:00 71 15 122/89 (100) 94 NIV Bilevel 30.00 03/12/23 20:00 36.6 03/12/23 20:00 74 15 95/58 (70) 91 NIV Bilevel 30.00 03/12/23 20:00 95 NIV Bilevel 30 03/12/23 19:25 71 21 98 40.00 03/12/23 19:25 NIV Bilevel 30.00 03/12/23 19:21 70 03/12/23 19:00 76 22 87/71 (76) 99 NIV Bilevel 40.00 03/12/23 18:00 55 105/43 (61) 99 NIV Bilevel 40.00 03/12/23 17:00 58 25 109/61 (77) 95 NIV Bilevel 40.00 03/12/23 16:00 95 NIV Bilevel 2.00 03/12/23 16:00 58 20 101/76 (81) 96 NIV Bilevel 40.00 03/12/23 15:15 63 21 99/49 (66) 94 NIV Bilevel 03/12/23 15:07 35.7 62 95 03/12/23 15:00 62 21 96/52 (67) 94 03/12/23 15:00 62 36 100/50 (67) 95 NIV Bilevel 40.00 03/12/23 14:51 64 14 94 03/12/23 14:50 59 38 100/50 (82) 98 03/12/23 14:50 59 38 100/50 (82) 98 03/12/23 14:40 60 11 99/65 (72) 97 03/12/23 14:40 60 11 99/65 (72) 97 03/12/23 14:37 58 20 98 03/12/23 14:22 56 18 95 11/18/23 14:21 55 19 96 03/12/23 14:20 54 13 106/56 (82) 95 03/12/23 14:20 54 13 106/56 (82) 95 03/12/23 14:10 56 20 110/57 (75) 99 03/12/23 14:10 56 20 110/57 (75) 99 03/12/23 14:07 54 10 96 03/12/23 14:06 54 13 97 03/12/23 14:00 64 16 101/48 (69) 96 03/12/23 14:00 64 16 101/48 (69) 96 03/12/23 14:00 64 16 101/48 (69) 96 NIV Bilevel 40.00 03/12/23 13:52 54 21 97 03/12/23 13:51 55 20 96 03/12/23 13:50 54 20 100/93 (94) 97 03/12/23 13:50 54 20 100/93 (94) 97 03/12/23 13:46 55 84/35 03/12/23 13:40 58 16 84/35 (55) 96 03/12/23 13:40 58 16 84/35 (55) 96 03/12/23 13:37 58 24 98 03/12/23 13:36 55 18 96 03/12/23 13:30 55 25 107/67 (82) 95 03/12/23 13:30 55 25 107/67 (82) 95 03/12/23 13:22 59 22 99 03/12/23 13:21 55 23 97 03/12/23 13:20 55 17 107/68 (92) 96 03/12/23 13:20 55 17 107/68 (92) 96 03/12/23 13:10 60 22 102/69 (87) 95 03/12/23 13:10 60 22 102/69 (87) 95 03/12/23 13:07 68 23 97 03/12/23 13:06 125 42 95 03/12/23 13:01 56 24 97 40.00 03/12/23 13:00 56 29 97/64 (69) 96 03/12/23 13:00 56 29 97/64 (69) 96 03/12/23 13:00 56 29 97/64 (69) 96 NIV Bilevel 40.00 03/12/23 13:00 59 03/12/23 12:52 58 23 94 03/12/23 12:51 58 27 95 03/12/23 12:51 58 27 95 03/12/23 12:30 NIV Bilevel 60 I & O 03/13/23 06:59 Intake Total 3600 ml Output Total 1800 ml Balance 1800 ml Height & Weight Height: 4'11.00" Weight: 136lbs. 0.0oz. 61.219434ez; 22.52 BMI Method: General Appearance: No Apparent Distress HEENT: Normal ENT Inspection Neck: Normal Inspection, Non Tender Respiratory: Wheezing Cardiovascular: Irregularly Irregular Capillary Refill: Less Than 3 Seconds Extremity: No Pedal Edema Neurologic/Psychiatric: Alert, Oriented x3, No Motor/Sensory Deficits Skin: Normal Color, Warm/Dry Lymphatic: No Adenopathy Results Lab Laboratory Tests 03/12/23 09:00 03/13/23 04:30 Assessment/Plan Assessment/Plan 1 GARCIA SERRANO MD Mar 13, 2023 11:53
[2023-03-13] MEDS: methylPREDNISolone INJ 40 MG/ML VIAL IV SCH ×3 (12:28→23:47)
[2023-03-13] MEDS: NOREPINEPHRINE 8 MG/250 ML 250 ML IV SCH (14:25)
[2023-03-13] MEDS: CALCIUM GLUCONATE 1GM IVPB 100 ML IV SCH (14:50)
[2023-03-13] MEDS ORDERED: ACETAMINOPHEN 325 MG TABLET ONE (17:38)
[2023-03-13] MEDS: ACETAMINOPHEN 325 MG TABLET PO PRN (17:41)
[2023-03-14] MEDS: RT-Ipratropium/Albuterol NEB 3 ML VIAL INH SCH ×6 (01:57→22:09)
[2023-03-14] MEDS: CEFEPIME INJECTION 1,000 MG in NS (IVPB) 50 ML 50 ML IV SCH ×3 (02:48→17:16)
[2023-03-14] MEDS: dilTIAZem DRIP PRE-MIX 125 ML IV SCH ×2 (02:59→21:24)
[2023-03-14 04:26] LABS: BASOPHILS % (AUTO) 0 % (0-10); EOSINOPHILS % (AUTO) 0 % (0-10); HEMATOCRIT 32 % (35-52); HEMOGLOBIN 10.3 g/dL (11.5-16.0); LYMPHOCYTES # (AUTO) 0.5 10^3/uL (1.0-4.0); LYMPHOCYTES % (AUTO) 6 % (12-44); MEAN CORPUSCULAR HEMOGLOBIN 31 pg (25-34); MEAN CORPUSCULAR HGB CONC 32 g/dL (32-36); MEAN CORPUSCULAR VOLUME 97 fL (80-99); MEAN PLATELET VOLUME 9.5 fL (9.0-12.2); MONOCYTES # (AUTO) 0.1 10^3/uL (0.0-1.0); MONOCYTES % (AUTO) 1 % (0-12); NEUTROPHILS % (AUTO) 92 % (42-75); PLATELET COUNT 235 10^3/uL (130-400); WHITE BLOOD COUNT 7.6 10^3/uL (4.3-11.0)
[2023-03-14 04:32] LABS: ALBUMIN 3.8 GM/DL (3.2-4.5)
[2023-03-14 04:33] LABS: CALCIUM 8.1 MG/DL (8.5-10.1)
[2023-03-14 04:35] LABS: TOTAL PROTEIN 6.8 GM/DL (6.4-8.2)
[2023-03-14 04:36] LABS: BILIRUBIN,TOTAL 0.3 MG/DL (0.1-1.0)
[2023-03-14 04:38] LABS: CREATININE SERUM 0.8 MG/DL (0.60-1.30); PHOSPHORUS 1.9 MG/DL (2.3-4.7)
[2023-03-14 04:41] LABS: MAGNESIUM 2.2 MG/DL (1.6-2.4)
[2023-03-14] MEDS: EPINEPHRINE IV SCH ×2 (05:11→18:34)
[2023-03-14] MEDS: NS IV SCH ×2 (05:11→18:34)
[2023-03-14] MEDS: MAGNESIUM 1 GM/100 ML IVPB 100 ML IV SCH (05:11)
[2023-03-14] MEDS: POTASSIUM CL 10MEQ/50ML IVPB 50 ML IV SCH (05:11)
[2023-03-14] MEDS: POTASSIUM CHLORIDE 20 MEQ TABLET PO SCH (05:11)
[2023-03-14] MEDS: methylPREDNISolone INJ 40 MG/ML VIAL IV SCH ×3 (05:43→17:15)
--- NOTE | 2023-03-14 07:58 | Tele-ICU Progress Note ---
Subjective Date Seen by a Provider: Mar 14, 2023 Time Seen by a Provider: 07:57 Subjective/Events-last exam (Tele-ICU Physician , Progress Note ) Service provided via interactive audio and video telecommunications E-CARE system to a patient admitted to ICU bed in [facility]. Patient is seen today due to persistent need of ICU care I am remotely monitoring this patient from another state. I am unable to do the bedside exam, and history/physical and pertinent information is taken from other notes in the computer and bedside staff. Available chart/ vitals / labs / Images reviewed Video assessment done using teleICU camera, rest of exam as per RN Discussed with RN Events overnight : Admitted 03/12/23 with AMS from home after ? accidental OD on home meds, Carries Dx of COPD, ABG today 7.31/58/129, HCO3 29. Today Cr 0.8 BUN 18 Yesterday developed a fib with RVR and started on IV Cardizem, V rate this am is 82, rate is @ 5 c/o SOB when moves, SpO2 drops to 70's takes a while to recover, On home oxygen 2-2.5 but now on 6 lpm no CP, Sepsis Event Evaluation Height, Weight, BMI Height: 4'11.00" Weight: 136lbs. 0.0oz. 61.748165se; 22.52 BMI Method: Focused Exam Lactate Level 03/12/23 09:00: Lactic Acid Level 0.62 Exam Exam Patient acknowledged, consented, and participated in this virtual visit which was conducted using real time audio/video Vital Signs Date Time Temp Pulse Resp B/P (MAP) Pulse Ox O2 Delivery O2 Flow Rate FiO2 03/14/23 07:51 36.7 03/14/23 07:00 115 28 142/74 (96) 99 High Flow N/C 5.00 03/14/23 06:58 87 03/14/23 06:38 93 High Flow N/C 6.00 03/14/23 06:00 77 24 139/77 (91) 98 High Flow N/C 5.00 03/14/23 05:00 72 22 127/92 (96) 99 High Flow N/C 5.00 03/14/23 04:00 98 High Flow N/C 7.00 03/14/23 04:00 68 11 137/71 (83) 100 High Flow N/C 5.00 03/14/23 03:00 77 29 129/85 (107) 95 High Flow N/C 5.00 03/14/23 02:59 72 108/99 03/14/23 02:00 72 26 108/99 (102) 98 High Flow N/C 5.00 03/14/23 01:57 98 High Flow N/C 6.00 03/14/23 01:00 73 25 146/68 (89) 969 High Flow N/C 5.00 03/14/23 01:00 73 03/14/23 00:00 74 22 129/84 (97) 97 High Flow N/C 5.00 03/13/23 23:56 36.2 03/13/23 23:55 98 High Flow N/C 7.00 03/13/23 23:00 69 21 140/68 (93) 99 High Flow N/C 5.00 03/13/23 22:00 74 23 128/63 (95) 99 High Flow N/C 5.00 03/13/23 21:19 54 High Flow N/C 0.00 03/13/23 21:00 73 16 137/73 (100) 94 High Flow N/C 5.00 03/13/23 20:00 98 High Flow N/C 7.00 03/13/23 20:00 73 37 130/80 (95) 94 High Flow N/C 5.00 03/13/23 19:45 75 26 83/58 (72) 92 High Flow N/C 5.00 03/13/23 19:30 75 37 116/90 (100) 95 High Flow N/C 5.00 03/13/23 19:15 75 35 94/77 (85) 95 High Flow N/C 5.00 03/13/23 19:10 75 28 97 High Flow N/C 5.00 03/13/23 19:02 97 High Flow N/C 9.00 03/13/23 19:00 36.1 High Flow N/C 7.00 03/13/23 19:00 75 03/13/23 19:00 74 32 139/64 (108) 97 High Flow N/C 7.00 03/13/23 18:33 36.4 03/13/23 18:00 79 28 155/98 (127) 98 High Flow N/C 7.00 03/13/23 17:41 38.5 03/13/23 17:00 73 23 120/91 (101) 100 High Flow N/C 7.00 03/13/23 16:00 98 Nasal Cannula 6.00 03/13/23 16:00 77 26 128/84 (95) 97 High Flow N/C 7.00 03/13/23 15:00 73 29 115/92 (103) 98 High Flow N/C 7.00 03/13/23 14:54 75 127/69 03/13/23 14:00 93 137/90 (92) 94 High Flow N/C 7.00 03/13/23 13:50 93 High Flow N/C 7.00 03/13/23 13:00 90 14 129/74 (81) 97 High Flow N/C 7.00 03/13/23 12:32 98 03/13/23 12:00 95 NIV Bilevel 2.00 03/13/23 12:00 98 28 136/80 (91) 98 High Flow N/C 7.00 03/13/23 11:27 36.7 03/13/23 11:00 112 117/82 (94) 97 High Flow N/C 7.00 03/13/23 10:04 93 High Flow N/C 7.00 03/13/23 10:00 144 30 99/71 (81) 95 03/13/23 09:59 High Flow N/C 7.00 03/13/23 09:00 142 21 138/107 (119) 94 High Flow N/C 5.00 03/13/23 08:46 142 129/88 03/13/23 08:04 36.6 03/13/23 08:00 95 NIV Bilevel 2.00 03/13/23 08:00 86 24 124/74 (95) 94 High Flow N/C 5.00 I & O 03/14/23 06:59 Intake Total 950 ml Output Total 1875 ml Balance -925 ml Height & Weight Height: 4'11.00" Weight: 136lbs. 0.0oz. 61.739835lf; 22.52 BMI Method: General Appearance: Anxious, Chronically ill, Mild Distress HEENT: Normal ENT Inspection Neck: Normal Inspection, Non Tender Respiratory: Decreased Breath Sounds, Wheezing Cardiovascular: Irregularly Irregular Capillary Refill: Less Than 3 Seconds Gastrointestinal: normal bowel sounds, non tender, soft Extremity: No Pedal Edema Neurologic/Psychiatric: Alert, Oriented x3, No Motor/Sensory Deficits Skin: Normal Color, Warm/Dry Lymphatic: No Adenopathy Results Lab Laboratory Tests 03/12/23 09:00 03/13/23 04:30 03/14/23 04:15 Assessment/Plan Assessment/Plan Hypercapnia secondary to COPD, possibly from home med. now improved, still smoking 1 PPD, no interest in quitting, A fib with RVR which is under control with IV Cardizem, also on Xarelto for a fib 20 mg/d, On IV Medrol for COPD, will change to prednisone once wheezing is better Critical Care: Critically Ill Patient Time spent with patient (mins): 25 RONAK ALAN MD Mar 14, 2023 07:58
[2023-03-14] MEDS: RIVAROXABAN 20 MG TABLET PO SCH (08:09)
--- NOTE | 2023-03-14 08:29 | Progress Note ---
GHULAM BRUCE MD, RESIDENT 03/14/23 0829: Subjective Subjective/Events-last exam Patient doing well this morning. Was having some chills this a.m. and felt like she was going to have diarrhea but otherwise has no concerns today. She is denying any chest pain or palpitations at this time. Review of Systems General: No Chills HEENT: No Head Aches Pulmonary: No Dyspnea, No Cough Cardiovascular: No: Chest Pain, Palpitations Gastrointestinal: Diarrhea; No: Nausea, Vomiting, Constipation Genitourinary: No Dysuria Focused Exam Lactate Level 03/12/23 09:00: Lactic Acid Level 0.62 Objective Exam Last Set of Vital Signs Vital Signs Date Time Temp Pulse Resp B/P (MAP) Pulse Ox O2 Delivery O2 Flow Rate FiO2 03/14/23 08:00 84 32 104/57 (73) 98 High Flow N/C 5.00 03/14/23 07:51 36.7 03/12/23 20:00 30 Capillary Refill : Less Than 3 Seconds I&O Intake and Output 03/14/23 00:00 Intake Total 1500 ml Output Total 2750 ml Balance -1250 ml Intake Oral 1500 ml Output Urine Total 2750 ml General: Alert, Oriented X3, No Acute Distress HEENT: Atraumatic Neck: Supple Lungs: Clear to Auscultation, Normal Air Movement Heart: Regular Rate, No Murmurs Abdomen: Normal Bowel Sounds, Soft, No Tenderness Extremities: No Edema Neuro: Normal Speech Psych/Mental Status: Mental Status NL Results/Procedures Lab Laboratory Tests 03/14/23 04:15: White Blood Count 7.6, Red Blood Count 3.33L, Hemoglobin 10.3L, Hematocrit 32L, Mean Corpuscular Volume 97, Mean Corpuscular Hemoglobin 31, Mean Corpuscular Hemoglobin Concent 32, Red Cell Distribution Width 13.8, Platelet Count 235, Mean Platelet Volume 9.5, Immature Granulocyte % (Auto) 1, Neutrophils (%) (Auto) 92H, Lymphocytes (%) (Auto) 6L, Monocytes (%) (Auto) 1, Eosinophils (%) (Auto) 0, Basophils (%) (Auto) 0, Neutrophils # (Auto) 7.0, Lymphocytes # (Auto) 0.5L, Monocytes # (Auto) 0.1, Eosinophils # (Auto) 0.0, Basophils # (Auto) 0.0, Immature Granulocyte # (Auto) 0.0, Sodium Level 139, Potassium Level 4.0, Chloride Level 103, Carbon Dioxide Level 25, Anion Gap 11, Blood Urea Nitrogen 18, Creatinine 0.80, Estimat Glomerular Filtration Rate 81, BUN/Creatinine Ratio 23, Glucose Level 172H, Calcium Level 8.1L, Corrected Calcium 8.3L, Phosphorus Level 1.9L, Magnesium Level 2.2, Total Bilirubin 0.3, Aspartate Amino Transf (AST/SGOT) 31, Alanine Aminotransferase (ALT/SGPT) 24, Alkaline Phosphatase 88, Total Protein 6.8, Albumin 3.8 Microbiology 03/12/23 Urine Culture - Final, Complete NO GROWTH 03/12/23 Blood Culture - Preliminary, Resulted Assessment/Plan Assessment/Plan Admission Status: Inpatient Order (span 2 midnights) Reason for Inpatient Admission: Acute respiratory failure, hypotension, bradycardia (1) Acute on chronic hypoxic respiratory failure Status: Acute Assessment & Plan: Patient presenting with acute on chronic hypoxic respiratory failure. Uses 2 L of oxygen at baseline. ABG prior to BiPAP concerning. mildly improved 03/12 Plan: - Continue HFNC, currently 5L, wean as tolerated - BiPAP if in respiratory distress - Consulting PT/OT (2) Atrial fibrillation with RVR Status: Acute Assessment & Plan: HR 140s sustained this morning (03/13), telemetry demonstrating atrial fibrillation. Pt reports a remote h/o atrial fibrillation, reports being on daily pill for anticoagulation. Telemetry appears improved this morning. Plan: - Continue Xarelto 20 mg daily - Cardiology consulted - Diltiazem drip started (3) Bradycardia Status: Resolved Assessment & Plan: Patient noted to be bradycardic. May be secondary to medication misuse. Plan: Monitor on telemetry Atropine as needed for heart rates less than 35 (4) Hypotension Status: Resolved Assessment & Plan: Patient quite hypotensive on presentation with labile blood pressures not responding to fluids. Currently off pressors. Plan: Continue to monitor Qualifiers: Qualified Codes: I95.9 - Hypotension, unspecified (5) Sepsis Status: Resolved Assessment & Plan: Unclear source of infection at this time however patient is screening in for sepsis. UA negative. Plan: Blood cultures no growth to date (6) HTN (hypertension) Status: Chronic Assessment & Plan: Holding home medications (7) Polypharmacy Status: Acute Assessment & Plan: Concern for polypharmacy due to medication misuse. We will continue to monitor vital signs as mentioned above. Unclear cause of symptoms at this time however patient takes many medications that may be contributing. (8) COPD exacerbation Status: Acute Assessment & Plan: Patient with possible COPD exacerbation due to worsening respiratory status. Evidence of leukocytosis on lab work however chest x-ray negative. Plan: Continue IV cefepime Continue Decadron 40 mg every 6 hours yesterday Continue inhalers NEEL WANG MD 03/14/23 1520: Supervisory-Addendum Brief Supervisory Addendum I personally performed the [place] portions of the visit, discussed case with resident and concur with resident documentation of history, physical exam, assessment and treatment plan unless otherwise noted. GHULAM BRUCE MD, RESIDENT Mar 14, 2023 08:29 NEEL WANG MD Mar 14, 2023 15:20
[2023-03-14] MEDS: NS IV 1000 ML 1,000 ML IV SCH ×2 (10:41→22:06)
[2023-03-14] MEDS: FLUTICASONE/VILANTEROL 100/25 MCG (14 DOSES) IH SCH (10:59)
--- NOTE | 2023-03-14 11:40 | Physical Therapy Evaluation ---
PT Evaluation-General Medical Diagnosis Admission Date Mar 12, 2023 at 10:59 Medical Diagnosis: acute respiratory failure/hypoxia Onset Date: Mar 12, 2023 Therapy Diagnosis Therapy Diagnosis: generalized weakness/decreased pulmonary function Height/Weight Height (Feet): 4 Height (Inches): 11.00 Weight (Pounds): 136 Weight (Ounces): 0.0 Precautions Precautions/Isolations: Fall Prevention, Standard Precautions Referral Physician: Jaida Reason for Referral: Evaluation/Treatment Medical History Pertinent Medical History: COPD (2L ), HTN Current History EMS secondary to AMS/lethargy/accidental OD Reviewed History: Yes Social History Home: Single Level Current Living Status: Significant Other Prior Prior Level of Function SCALE: Activities may be completed with or without assistive devices. 4-Smgjfvloyj-kthfmyt completes the activity by him/herself with no assistance from a helper. 5-Set-up or Clean-up Assistance-helper sets up or cleans up; patient completes activity. [place] assists only prior to or following the activity. 4-Supervision or Touching Assistance-helper provides verbal cues and/or touching/steadying and/or contact guard assistance as patient completes activity. Assistance may be provided throughout the activity or intermittently. 3-Partial/Moderate Assistance-helper does LESS THAN HALF the effort. [place] lifts, holds or supports trunk or limbs, but provides less than half the effort. 2-Substantial/Maximal Assistance-helper does MORE THAN HALF the effort. [place] lifts or holds trunk or limbs and provides more than half the effort. 0-Bszbrokad-jnfpzr does ALL the effort. Patient does none of the effort to complete the activity. Or, the assistance of 2 or more helpers is required for the patient to complete the activity. If activity was not attempted, code reason: 7-Patient Refused. 9-Not Applicable-not attempted and the patient did not perform the activity before the current illness, exacerbation or injury. 10-Not Attempted due to Environmental Limitations-(lack of equipment, weather restraints, etc.). 88-Not Attempted due to Medical Conditions or Safety Concerns. Bed Mobility: 6 Transfers (B,C,W/C): 6 Gait: 6 Indoor Mobility (Ambulation): Independent Stairs: Independent Prior Devices Use: None PT Evaluation-Current Subjective Patient reluctantly agrees to therapy. Objective Patient Orientation: Normal For Age Attachments: Oxygen (6L NC HF), [place] Catheter, IV ROM/Strength ROM Lower Extremities bilateral LE WFL Strength Lower Extremities 3+/5 grossly bilateral LE all planes Integumentary/Posture Bladder Incontinence: Godoy Cath Posture WFL Neuromuscular (Tone, Coordination, Reflexes) grossly intact Sensory Vision: Functional Hearing: Functional Transfers Lying to Sitting/Side of Bed(Q: 4 Sit to Stand (QC): 4 Chair/Hvp-ov-Dgiee Xfer(QC): 4 Gait Mode of Locomotion: Walk Anticipated Mode of Locomotion: Walk Walk 10 feet (QC): 4 Gait Assistive Device: None Balance Sitting Static: Normal Sitting Dynamic: Normal Standing Static: Fair Standing Dynamic: Fair Assessment/Needs Patient will benefit from skilled PT to address functional strength and mobility to address pulmonary function. Patient appears very anxious during session with noted air hunger. Pursed lip breathing technique education implemented. Patient's SAO2 decreased to 84% on 6L NC HF increase O2 to 8L per RN with prolonged recovery. Patient currently on 6L O2 with SAO2 90%. RN notified. Rehab Potential: Fair Post Rehab Potential-Barriers: compliance PT Service Order Dispatcher Goals Service Order Dispatcher Goals PT Service Order Dispatcher Goals Time Frame: Mar 26, 2023 Roll Left & Right (QC): 6 Sit to Lying (QC): 6 Lying-Sitting on Side/Bed(QC): 6 Sit to Stand (QC): 6 Chair/Ngt-kh-Gipay Xfer(QC): 6 Toilet Transfer (QC): 6 Walk 10 feet (QC): 6 Walk 50ft with 2 Turns (QC): 6 PT Plan Problem List Problem List: Activity Tolerance, Functional Strength, Safety, Balance, Gait, Transfer, Bed Mobility Treatment/Plan Treatment Plan: Continue Plan of Care Treatment Plan: Bed Mobility, Education, Functional Activity Flavio, Functional Strength, Gait, Safety, Therapeutic Exercise, Transfers Treatment Duration: Mar 26, 2023 Frequency: 5 times per week Estimated Hrs Per Day: .25 hour per day Time Time In: 1110 Time Out: 1128 DATE: Mar 14, 2023 Total Billed Treatment Time: 18 [facility] MEDHAT JAM[facility] PT Mar 14, 2023 11:40
--- NOTE | 2023-03-14 11:41 | Occupational Therapy Eval ---
OT Evaluation-General/PLF Medical Diagnosis Admission Date Mar 12, 2023 at 10:59 Medical Diagnosis: COPD Onset Date: Mar 12, 2023 Therapy Diagnosis Therapy Diagnosis: SOA Height/Weight Height (Feet): 4 Height (Inches): 11.00 Weight (Pounds): 136 Weight (Ounces): 0.0 Precautions Precautions/Isolations: Fall Prevention, Standard Precautions Referral Referral Reason: Evaluation/Treatment Medical History Additional Medical History 67-year-old female with past medical history of severe COPD, hypertension presented to the emergency room with a complaint of shortness of breath and confusion. According to the ER physician with whom I spoke to when she came to the emergency room she is pretty much with that she is awake alert and oriented apparently but her mental status slowly deteriorated. Her initial blood gas showed respiratory acidosis and she is placed on a BiPAP ventilation. Subsequently another blood gas done which showed also respiratory acidosis and I was contacted at that time and I have changed the BiPAP settings. According to the ER physician when she asked about the CODE STATUS she does not want to be intubated and CPR not to be done. This subsequently verified with the patient and mother and daughter and they agreed with a DNR status. She has multiple medical problems and on multiple medications. According to the family she was confused about her medications and if she may have taken extra pills especially antihypertensives. Social History Home: Single Level Current Living Status: Significant Other Entry Into Home: Stairs Without Railing Steps Into Home: 2 ADL-Prior Level of Function SCALE: Activities may be completed with or without assistive devices. 1-Axuwcacmjo-svtpqus completes the activity by him/herself with no assistance from a helper. 5-Set-up or Clean-up Assistance-helper sets up or cleans up; patient completes activity. [place] assists only prior to or following the activity. 4-Supervision or Touching Assistance-helper provides verbal cues and/or touching/steadying and/or contact guard assistance as patient completes activity. Assistance may be provided throughout the activity or intermittently. 3-Partial/Moderate Assistance-helper does LESS THAN HALF the effort. [place] lifts, holds or supports trunk or limbs, but provides less than half the effort. 2-Substantial/Maximal Assistance-helper does MORE THAN HALF the effort. [place] lifts or holds trunk or limbs and provides more than half the effort. 8-Vxrjoykjg-obmwoy does ALL the effort. Patient does none of the effort to complete the activity. Or, the assistance of 2 or more helpers is required for the patient to complete the activity. If activity was not attempted, code reason: 7-Patient Refused. 9-Not Applicable-not attempted and the patient did not perform the activity before the current illness, exacerbation or injury. 10-Not Attempted due to Environmental Limitations-(lack of equipment, weather restraints, etc.). 88-Not Attempted due to Medical Conditions or Safety Concerns. Self Care: Needed Some Help Functional Cognition: Needed Some Help Drive Self: No OT Current Status Subjective Agreeable to evaluate Mental Status/Objective Patient Orientation: Person, Place, Situation ANXIETY Attachments: Oxygen (Hi Flow 5 liters) Current Hearing Aids: No Hand Dominance: Right Upper Extremity ROM BUE ROM WFLS Upper Extremity Coordination Tremors throughout Upper Extremity Sensation intact Upper Extremity Strength 4/5 Anxious, ADL-Treatment ADL-Current Boyfriend helps w/ all ADLS, and does IADLS Eating (QC): 6 Oral Hygiene (QC): 5 Shower/Bathe Self (QC): 7 (absolutely delines) Upper Body Dressing (QC): 4 Lower Body Dressing (QC): 7 On/Off Footwear (QC): 1 Toileting Hygiene (QC): 4 Education OT Patient Education: Correct positioning, Modified ADL techniques, Progress toward Goal/Update tx plan, Purpose of tx/functional activities, Reviewed precautions, Rehab process, Safety issues, Transfer techniques, Use of adapted equipment Teaching Recipient: Patient, Family Teaching Methods: Demonstration, Discussion Response to Teaching: Reinforcement Needed OT Chcf Goals Chcf Goals 1=Demonstrate adherence to instructed precautions during ADL tasks. 2=Patient will verbalize/demonstrate understanding of assistive devices/modifications for ADL. 3=Patient will improve strength/tolerance for activity to enable patient to perform ADL's. OT Education/Plan Problem List/Assessment Assessment: Decreased Activ Tolerance Discharge Recommendations Plan/Recommendations: Discontinue OT Treatment Plan/Plan of Care Patient would benefit from OT for education, treatment and training to promote independence in ADL's, mobility, safety and/or upper extremity function for ADL's. Plan of Care: OTHER (OT EVAL ONLY) Treatment Duration: Mar 14, 2023 Frequency: 1 time per week Estimated Hrs Per Day: .25 hour per day Agreement: Yes Rehab Potential: Guarded Time Start Time: 11:00 Stop Time: 11:29 DATE: Mar 14, 2023 Total Time Billed (hr/min): 19 Billed Treatment Time EVM 19 min KOLTON CARBAJAL OT Mar 14, 2023 11:41
--- NOTE | 2023-03-14 12:20 | Cardiology Progress Note ---
Subjective Date Seen by Provider: Mar 14, 2023 Time Seen by Provider: 12:16 Subjective/Events-last exam Patient feels better. Out of bed in chair. Converted to sinus rhythm overnight. Review of Systems General: No Chills, No Night Sweats, No Fatigue, No Malaise, No Appetite, No Other HEENT: No Head Aches, No Visual Changes, No Eye Pain, No Ear Pain, No Dysphasia, No Sinus Congestion, No Post Nasal Drip, No Sore Throat, No Other Pulmonary: Dyspnea Cardiovascular: No: Chest Pain, Palpitations, Orthopnea, Paroxysmal Noc. Dyspnea, Edema, Lt Headedness, Other Gastrointestinal: No: Nausea, Vomiting, Abdominal Pain, Diarrhea, Constipation, Melena, Hematochezia, Other Genitourinary: No Dysuria, No Frequency, No Incontinence, No Hematuria, No Retention, No Other Musculoskeletal: No: other, neck pain, shoulder pain, arm pain, back pain, hand pain, leg pain, foot pain Neurological: No: Weakness, Numbness, Incoordination, Change in speech, Confusion, Seizures, Other Exam Vital Signs Vital Signs Date Time Temp Pulse Resp B/P (MAP) Pulse Ox O2 Delivery O2 Flow Rate FiO2 03/14/23 12:00 88 22 104/77 (86) 96 High Flow N/C 5.00 03/14/23 11:47 36.7 03/12/23 20:00 30 Physical Exam Alert oriented, no distress. Neck supple, no JVD. Lungs: Decreased breath sounds bilaterally, mild wheezing. Heart S1-S2, regular rhythm, no murmurs. Abdomen soft nontender. Extremities no edema Labs Laboratory Tests Test 03/14/23 04:15 Range/Units White Blood Count 7.6 4.3-11.0 10^3/uL Red Blood Count 3.33 L 3.80-5.11 10^6/uL Hemoglobin 10.3 L 11.5-16.0 g/dL Hematocrit 32 L 35-52 % Mean Corpuscular Volume 97 80-99 fL Mean Corpuscular Hemoglobin 31 25-34 pg Mean Corpuscular Hemoglobin Concent 32 32-36 g/dL Red Cell Distribution Width 13.8 10.0-14.5 % Platelet Count 235 130-400 10^3/uL Mean Platelet Volume 9.5 9.0-12.2 fL Immature Granulocyte % (Auto) 1 % Neutrophils (%) (Auto) 92 H 42-75 % Lymphocytes (%) (Auto) 6 L 12-44 % Monocytes (%) (Auto) 1 0-12 % Eosinophils (%) (Auto) 0 0-10 % Basophils (%) (Auto) 0 0-10 % Neutrophils # (Auto) 7.0 1.8-7.8 10^3/uL Lymphocytes # (Auto) 0.5 L 1.0-4.0 10^3/uL Monocytes # (Auto) 0.1 0.0-1.0 10^3/uL Eosinophils # (Auto) 0.0 0.0-0.3 10^3/uL Basophils # (Auto) 0.0 0.0-0.1 10^3/uL Immature Granulocyte # (Auto) 0.0 0.0-0.1 10^3/uL Sodium Level 139 135-145 MMOL/L Potassium Level 4.0 3.6-5.0 MMOL/L Chloride Level 103 98-107 MMOL/L Carbon Dioxide Level 25 21-32 MMOL/L Anion Gap 11 5-14 MMOL/L Blood Urea Nitrogen 18 7-18 MG/DL Creatinine 0.80 0.60-1.30 MG/DL Estimat Glomerular Filtration Rate 81 BUN/Creatinine Ratio 23 Glucose Level 172 H 70-105 MG/DL Calcium Level 8.1 L 8.5-10.1 MG/DL Corrected Calcium 8.3 L 8.5-10.1 MG/DL Phosphorus Level 1.9 L 2.3-4.7 MG/DL Magnesium Level 2.2 1.6-2.4 MG/DL Total Bilirubin 0.3 0.1-1.0 MG/DL Aspartate Amino Transf (AST/SGOT) 31 5-34 U/L Alanine Aminotransferase (ALT/SGPT) 24 0-55 U/L Alkaline Phosphatase 88 40-136 U/L Total Protein 6.8 6.4-8.2 GM/DL Albumin 3.8 3.2-4.5 GM/DL A/P-Cardiology Admission Diagnosis Paroxysmal atrial fibrillation. Possible sick sinus syndrome. History of hypertension Mental status changes secondary to hypercapnia. COPD. History of smoking Assessment/Plan Discontinue Cardizem . Continue to monitor. We will start anticoagulation. Will not start antiarrhythmic medications since atrial fibrillation occurred on top of significant respiratory abnormalities and respiratory acidosis. Echo did not show dilated left atrium. Patient will need to follow-up with cardiology as outpatient Continue treatment of COPD as per medical team STEVEN BRANCH MD Mar 14, 2023 12:20
[2023-03-14] MEDS ORDERED: FLUT1DIS26 INH (12:56)
[2023-03-14] MEDS ORDERED: NICO-685 TD (12:56)
[2023-03-14] MEDS ORDERED: FLUT16SP22 NSEACH (12:56)
[2023-03-14] MEDS ORDERED: ALEN70TA80 PO (12:56)
[2023-03-14] MEDS ORDERED: GABA300C PO (12:56)
[2023-03-14] MEDS ORDERED: POTA-185 PO (12:56)
[2023-03-14] MEDS ORDERED: VALS80TA31 PO (12:56)
[2023-03-14] MEDS ORDERED: ATOR40TA70 PO (12:56)
[2023-03-14] MEDS ORDERED: MONT-40 PO (12:56)
[2023-03-14] MEDS ORDERED: AMLO-251 PO (12:56)
[2023-03-14] MEDS ORDERED: METO50TA15 PO (12:56)
[2023-03-14] MEDS ORDERED: CETI10TA17 PO (12:56)
[2023-03-14] MEDS ORDERED: BUPR150T24 PO (12:56)
[2023-03-14] MEDS ORDERED: AMT10T PO (12:56)
[2023-03-14] MEDS ORDERED: ASPI-1238 PO (13:05)
[2023-03-14] MEDS: NOREPINEPHRINE 8 MG/250 ML 250 ML IV SCH (13:08)
[2023-03-14] MEDS: CALCIUM GLUCONATE 1GM IVPB 100 ML IV SCH (13:54)
[2023-03-14] MEDS ORDERED: RT-ALBUTEROL SULF 2.5 MG/3 ML PRE-MIX VIAL INH PRN (14:15)
[2023-03-14] MEDS: hydrOXYzine 25 MG CAPSULE PO PRN (16:51)
--- NOTE | 2023-03-14 17:53 | Physician Query-Final Dx ---
JENNIFER VELAZQUEZ 03/14/23 1753: Final Diagnosis Give Final Diagnosis Please give Final Diagnosis The medical record reflects the following clinical evidence: Clinical Indicators: Dr. Aidee Comer "encephalopathy due to CO2 retention", admission ABG PH 7.21, pCO2 76, p02 184, HCO3 30, PC02 decreased to 58, "symptoms that started about 24 hours ago when she started becoming quite confused." Risk Factor(s): Heavy Smoker admitted with Respiratory failure and Sepsis. UDS pos for Cannabinoids and Tricyclics, Treatment: Bipap, ABG's, Respiratory and neuro monitoring. Metabolic encephalopathy, Likely due to hypercapnia, present on admission, resolving Other explanation of clinical findings Unable to determine (no explanation for clinical findings) Please clarify and document your clinical opinion in the progress notes and discharge summary including the definitive and/or presumptive diagnosis, (suspected or probable), related to the above clinical findings. Please include clinical findings supporting your diagnosis. Jennifer Velazquez, MSN, RN Clinical Director Business [phone] [email or web address] KODY VILLANUEVA DO 03/14/23 2016: Final Diagnosis Give Final Diagnosis Metabolic encephalopathy, Likely due to hypercapnia, present on admission, resolving JENNIFER VELAZQUEZ Mar 14, 2023 17:53 KODY VILLANUEVA DO Mar 14, 2023 20:16
[2023-03-14 19:06] VITALS: BP 143/68
[2023-03-14] MEDS ORDERED: UMECLIDINIUM BROMIDE (INCRUSE ELLIPTA) 7'S IH SCH (21:00)
[2023-03-14] MEDS: MONTELUKAST 10 MG TABLET PO SCH (22:02)
[2023-03-14] MEDS: AMITRIPTYLINE 10 MG TAB PO SCH (22:02)
[2023-03-14] MEDS: buPROPion 100 MG TABLET PO SCH (22:04)
[2023-03-15] MEDS: methylPREDNISolone INJ 40 MG/ML VIAL IV SCH ×4 (00:05→18:25)
[2023-03-15] MEDS: hydrOXYzine 25 MG CAPSULE PO PRN ×2 (01:54→09:23)
[2023-03-15] MEDS: CEFEPIME INJECTION 1,000 MG in NS (IVPB) 50 ML 50 ML IV SCH ×3 (01:59→18:25)
[2023-03-15] MEDS: RT-Ipratropium/Albuterol NEB 3 ML VIAL INH SCH ×6 (02:31→22:00)
[2023-03-15 03:42] LABS: BASOPHILS % (AUTO) 0 % (0-10); EOSINOPHILS % (AUTO) 0 % (0-10); HEMATOCRIT 30 % (35-52); HEMOGLOBIN 9.7 g/dL (11.5-16.0); LYMPHOCYTES # (AUTO) 0.4 10^3/uL (1.0-4.0); LYMPHOCYTES % (AUTO) 3 % (12-44); MEAN CORPUSCULAR HEMOGLOBIN 31 pg (25-34); MEAN CORPUSCULAR HGB CONC 32 g/dL (32-36); MEAN CORPUSCULAR VOLUME 96 fL (80-99); MEAN PLATELET VOLUME 9.5 fL (9.0-12.2); MONOCYTES # (AUTO) 0.5 10^3/uL (0.0-1.0); MONOCYTES % (AUTO) 3 % (0-12); NEUTROPHILS # (AUTO) 14.6 10^3/uL (1.8-7.8); NEUTROPHILS % (AUTO) 93 % (42-75); PLATELET COUNT 232 10^3/uL (130-400); WHITE BLOOD COUNT 15.7 10^3/uL (4.3-11.0)
[2023-03-15 03:49] LABS: ALBUMIN 3.7 GM/DL (3.2-4.5)
[2023-03-15 03:50] LABS: CALCIUM 8.2 MG/DL (8.5-10.1)
[2023-03-15 03:52] LABS: TOTAL PROTEIN 6.3 GM/DL (6.4-8.2)
[2023-03-15 03:53] LABS: BILIRUBIN,TOTAL 0.5 MG/DL (0.1-1.0)
[2023-03-15 03:55] LABS: CREATININE SERUM 0.8 MG/DL (0.60-1.30); PHOSPHORUS 1.5 MG/DL (2.3-4.7)
[2023-03-15 03:58] LABS: MAGNESIUM 2.3 MG/DL (1.6-2.4)
[2023-03-15] MEDS: MAGNESIUM 1 GM/100 ML IVPB 100 ML IV SCH (04:19)
[2023-03-15] MEDS: POTASSIUM CL 10MEQ/50ML IVPB 50 ML IV SCH (04:19)
[2023-03-15] MEDS: POTASSIUM CHLORIDE 20 MEQ TABLET PO SCH (04:20)
[2023-03-15] MEDS: NS IV SCH (07:50)
[2023-03-15] MEDS: EPINEPHRINE IV SCH (07:50)
[2023-03-15] MEDS: buPROPion 100 MG TABLET PO SCH ×2 (08:11→20:00)
[2023-03-15] MEDS: RIVAROXABAN 20 MG TABLET PO SCH (08:11)
[2023-03-15] MEDS: NICOTINE 21 MG PATCH TD SCH (08:12)
[2023-03-15] MEDS: NS IV 1000 ML 1,000 ML IV SCH (08:15)
--- NOTE | 2023-03-15 09:13 | Physical Therapy Daily Note ---
PT Daily Note-Current Subjective Patient incontinent BM without knowledge. PCT in to assist with cleansing patient. Pain Section J - Health Conditions 1. Rarely or not at all 2. Occasionally 3. Frequently 4. Almost constantly 8. Unable to answer Pain Effect on Sleep: 8 Pain Interference with Therapy: 8 Pain Interference w/Day-to-Day: 8 Mental Status Patient Orientation: Confused Attachments: Oxygen, [place]oy Catheter, IV Transfers SCALE: Activities may be completed with or without assistive devices. 6-Lyzvdiseoo-eytxdea completes the activity by him/herself with no assistance from a helper. 5-Set-up or Clean-up Assistance-helper sets up or cleans up; patient completes activity. [place] assists only prior to or following the activity. 4-Supervision or Touching Assistance-helper provides verbal cues and/or touching/steadying and/or contact guard assistance as patient completes activity. Assistance may be provided throughout the activity or intermittently. 3-Partial/Moderate Assistance-helper does LESS THAN HALF the effort. [place] lifts, holds or supports trunk or limbs, but provides less than half the effort. 2-Substantial/Maximal Assistance-helper does MORE THAN HALF the effort. [place] lifts or holds trunk or limbs and provides more than half the effort. 7-Gscyqhvqf-gnhewq does ALL the effort. Patient does none of the effort to complete the activity. Or, the assistance of 2 or more helpers is required for the patient to complete the activity. If activity was not attempted, code reason: 7-Patient Refused. 9-Not Applicable-not attempted and the patient did not perform the activity before the current illness, exacerbation or injury. 10-Not Attempted due to Environmental Limitations-(lack of equipment, weather restraints, etc.). 88-Not Attempted due to Medical Conditions or Safety Concerns. Lying to Sitting/Side of Bed(Q: 6 Sit to Stand (QC): 4 Chair/Nae-uh-Ipbcp Xfer(QC): 4 Toilet Transfer (QC): 4 SBA with all upright activity Gait Training Distance: 10' Walk 10 feet (QC): 4 Gait Assistive Device: FWW Assessment Patient has increase c/o of SOA with O2 in place and SAO2 94% with activity. Patient performed pursed lip breathing with PT direction. Patient up in recliner with needs met. PT Detention Goals Detention Goals PT Detention Goals Time Frame: Mar 26, 2023 Roll Left & Right (QC): 6 Sit to Lying (QC): 6 Lying-Sitting on Side/Bed(QC): 6 Sit to Stand (QC): 6 Chair/Xii-sv-Dcxwh Xfer(QC): 6 Toilet Transfer (QC): 6 Walk 10 feet (QC): 6 Walk 50ft with 2 Turns (QC): 6 PT Plan Treatment/Plan Treatment Plan: Continue Plan of Care Treatment Plan: Bed Mobility, Education, Functional Activity Flavio, Functional Strength, Gait, Safety, Therapeutic Exercise, Transfers Treatment Duration: Mar 26, 2023 Frequency: 5 times per week Estimated Hrs Per Day: .25 hour per day Time Time In: 815 Time Out: 831 DATE: Mar 15, 2023 Total Billed Treatment Time: 16 Total Billed Treatment 1 visit FA 16 min MEDHAT JAMISON PT Mar 15, 2023 09:13
[2023-03-15] MEDS: TIOTROPIUM INH 4 GM (SPIRIVA Respimat) IH SCH (09:34)
[2023-03-15] MEDS: FLUTICASONE/VILANTEROL 100/25 MCG (14 DOSES) IH SCH (09:34)
[2023-03-15] MEDS ORDERED: guaiFENesin SYRUP 100 MG/5 ML 10 ML PO PRN (10:00)
--- NOTE | 2023-03-15 10:32 | Tele-ICU Progress Note ---
Subjective Date Seen by a Provider: Mar 15, 2023 Time Seen by a Provider: 10:32 Subjective/Events-last exam (Tele-ICU Physician , Progress Note ) Service provided via interactive audio and video telecommunications E-CARE system to a patient admitted to ICU bed in [facility]. Patient is seen today due to persistent need of ICU care Available chart/ vitals / labs / Images reviewed Video assessment done using teleICU camera, rest of exam as per RN Discussed with RN Events overnight : Afebrile hemodynamically stable Respiratory - 5 L I/O = ++ Drips: ns 100 Pressors- no Hospital course: (03/12) 67F Admitted for AMS--found unresponsive after accidental OD on her own meds, Bradycardia, hypercapnia/COPD, CY with mild hyperkalemia. Covered for sepsis ??possible aspiraiton A/P acute hypercapneic and hypoxic resp failure with AECOPD - improved , on 5 l now , AAO AECOPD - IV steroids - nebs A fib with RVR - IV Cardizem--> po today -on Xarelto On IV Medrol for COPD, will change to prednisone once wheezing is better Pulm HTN -ECHO RVSP 40-45 - stop IVF CY - resolved Suspected aspiration PNA cefepime empiric Lines : left IF 03/14 , (Central Line Necessity Reviewed) Godoy: OG: Nutrition: Analgesia: Anxiety/ delirium VTE Prophylaxis: xarelto Stress Ulcer Prophylaxis: na Plans in collaboration with bedside consultants and IM MDs. Discussed with RN to reach out if any questions or concerns Case and care daily discussed on multidisciplinary rounds ( RN, PharmD, Turbine Engineer , Respiratory Therapy, yard worker ) A total of _22 minutes of critical care time was devoted to this patient today, required to treat and/or prevent further deterioration of critical care condition ( as above ) . I am remotely monitoring this patient from another state. I am unable to do the bedside exam, and history/physical and pertinent information is taken from other notes in the computer and bedside staff. Sepsis Event Evaluation Height, Weight, BMI Height: 4'11.00" Weight: 136lbs. 0.0oz. [id number]; 22.52 BMI Method: Exam Exam Patient acknowledged, consented, and participated in this virtual visit which was conducted using real time audio/video Vital Signs Date Time Temp Pulse Resp B/P (MAP) Pulse Ox O2 Delivery O2 Flow Rate FiO2 03/15/23 09:39 High Flow N/C 5.00 03/15/23 09:35 High Flow N/C 6.00 03/15/23 09:35 High Flow N/C 6.00 03/15/23 09:34 99 High Flow N/C 6.00 03/15/23 08:00 85 25 124/69 (87) 96 High Flow N/C 6.00 03/15/23 08:00 37.1 03/15/23 08:00 95 High Flow N/C 6.00 03/15/23 07:50 89 137/76 03/15/23 07:00 81 24 146/72 (96) 99 High Flow N/C 6.00 03/15/23 07:00 81 03/15/23 06:45 99 High Flow N/C 6.00 03/15/23 06:30 89 24 137/76 (92) 97 High Flow N/C 6.00 03/15/23 06:15 76 20 133/67 (83) 99 High Flow N/C 6.00 03/15/23 06:00 78 21 129/64 (78) 98 High Flow N/C 6.00 03/15/23 05:45 126/64 (87) 03/15/23 05:30 110 29 152/74 (92) 84 High Flow N/C 6.00 03/15/23 05:15 121/62 (79) 03/15/23 05:00 78 16 123/59 (80) 100 High Flow N/C 6.00 03/15/23 04:45 84 15 133/61 (89) 99 High Flow N/C 6.00 03/15/23 04:30 80 23 125/61 (77) 98 High Flow N/C 6.00 03/15/23 04:23 93 High Flow N/C 6.00 03/15/23 04:15 84 19 139/68 (85) 98 High Flow N/C 6.00 03/15/23 04:00 78 26 133/68 (81) 99 High Flow N/C 6.00 03/15/23 03:45 81 23 137/72 (98) 98 High Flow N/C 6.00 03/15/23 03:30 80 121/63 (79) 99 High Flow N/C 6.00 03/15/23 03:25 35.9 03/15/23 03:15 84 26 129/61 (81) 97 High Flow N/C 6.00 03/15/23 03:00 35.9 24 132/73 (90) 98 High Flow N/C 6.00 03/15/23 02:45 85 22 127/65 (85) 99 High Flow N/C 6.00 03/15/23 02:31 99 High Flow N/C 6.00 03/15/23 02:30 83 21 120/70 (88) 98 High Flow N/C 6.00 03/15/23 02:15 88 25 126/71 (106) 97 High Flow N/C 6.00 03/15/23 02:00 101 31 124/62 (98) 93 High Flow N/C 6.00 03/15/23 01:45 85 22 115/60 (85) 99 High Flow N/C 6.00 03/15/23 01:30 85 23 124/72 (94) 98 High Flow N/C 6.00 03/15/23 01:15 83 17 109/55 (71) 98 High Flow N/C 6.00 03/15/23 01:00 84 03/15/23 01:00 137/65 (103) 03/15/23 00:45 90 21 131/81 (90) High Flow N/C 6.00 03/15/23 00:30 87 18 116/69 (83) 96 High Flow N/C 6.00 03/15/23 00:16 36.8 03/15/23 00:00 90 21 121/57 (72) 97 High Flow N/C 6.00 03/14/23 23:59 95 High Flow N/C 6.00 03/14/23 23:45 90 37 103/64 (67) 93 High Flow N/C 6.00 03/14/23 23:30 88 21 108/90 (94) 96 High Flow N/C 6.00 03/14/23 23:15 85 24 112/64 (80) 98 High Flow N/C 6.00 03/14/23 23:00 88 19 131/96 (102) 98 High Flow N/C 6.00 03/14/23 22:45 80 26 119/68 (77) 97 High Flow N/C 6.00 03/14/23 22:32 105 29 108/76 (81) 95 High Flow N/C 6.00 03/14/23 22:30 120 27 94/68 (73) 97 High Flow N/C 6.00 03/14/23 22:25 105 22 83/61 (73) 88 High Flow N/C 6.00 03/14/23 22:15 81 25 79/69 (72) 99 High Flow N/C 6.00 03/14/23 22:10 97 High Flow N/C 6.00 03/14/23 22:00 30 122/102 (108) 98 High Flow N/C 6.00 03/14/23 21:45 123/76 (88) 03/14/23 21:30 95 28 119/77 (90) 96 High Flow N/C 6.00 03/14/23 21:24 109 143/68 03/14/23 21:15 81 42 127/92 (105) 95 High Flow N/C 6.00 03/14/23 21:00 82 21 122/72 (87) 100 High Flow N/C 6.00 03/14/23 20:45 81 18 99/65 (76) 100 High Flow N/C 6.00 03/14/23 20:30 81 29 130/67 (93) 100 High Flow N/C 6.00 03/14/23 20:15 81 28 119/67 (83) 100 High Flow N/C 6.00 03/14/23 20:00 98 27 135/72 (93) 98 High Flow N/C 6.00 03/14/23 20:00 95 High Flow N/C 6.00 03/14/23 19:45 80 32 129/76 (104) 98 High Flow N/C 6.00 03/14/23 19:30 108 27 106/86 (98) 97 High Flow N/C 6.00 03/14/23 19:29 35.8 03/14/23 19:15 81 20 102/76 (87) 97 High Flow N/C 03/14/23 19:06 36.6 109 97 03/14/23 19:00 99 24 94/72 (76) 96 High Flow N/C 6.00 03/14/23 19:00 129 03/14/23 18:34 109 143/68 03/14/23 18:26 97 High Flow N/C 6.00 03/14/23 18:00 109 15 143/68 (93) 99 High Flow N/C 5.00 03/14/23 17:23 132 03/14/23 17:00 81 19 127/76 (93) 100 High Flow N/C 5.00 03/14/23 16:00 94 High Flow N/C 6.00 03/14/23 16:00 86 49 113/58 (76) 98 High Flow N/C 5.00 03/14/23 15:38 36.6 03/14/23 15:00 82 25 137/64 (88) 99 High Flow N/C 5.00 03/14/23 14:18 97 High Flow N/C 6.00 03/14/23 14:00 91 25 137/107 (117) 90 High Flow N/C 5.00 03/14/23 13:08 84 112/97 03/14/23 13:00 84 25 112/97 (102) 98 High Flow N/C 5.00 03/14/23 12:26 85 03/14/23 12:00 88 22 104/77 (86) 96 High Flow N/C 5.00 03/14/23 11:47 36.7 03/14/23 11:45 95 High Flow N/C 6.00 03/14/23 11:00 83 21 143/70 (94) 98 High Flow N/C 5.00 03/14/23 10:59 High Flow N/C 6.00 I & O 03/15/23 06:59 Intake Total 1225 ml Output Total 1300 ml Balance -75 ml Height & Weight Height: 4'11.00" Weight: 136lbs. 0.0oz. 61.012380dq; 22.52 BMI Method: General Appearance: Anxious, Chronically ill, Mild Distress HEENT: Normal ENT Inspection Neck: Normal Inspection, Non Tender Respiratory: Decreased Breath Sounds, Wheezing Cardiovascular: Irregularly Irregular Capillary Refill: Less Than 3 Seconds Gastrointestinal: normal bowel sounds, non tender, soft Extremity: No Pedal Edema Neurologic/Psychiatric: Alert, Oriented x3, No Motor/Sensory Deficits Skin: Normal Color, Warm/Dry Lymphatic: No Adenopathy Results Lab Laboratory Tests 03/14/23 04:15 03/15/23 03:30 Assessment/Plan Assessment/Plan 1 GARCIA SERRANO MD Mar 15, 2023 10:32
--- NOTE | 2023-03-15 10:40 | Progress Note ---
GHULAM BRUCE MD, RESIDENT 03/15/23 1040: Subjective Subjective/Events-last exam Patient doing well today, notes that her breathing and overall condition is much improved compared to yesterday. Per nurse overnight, patient's diltiazem drip was discontinued however patient did end up going back into A-fib and thus was restarted at a rate of 5 mL/h. Patient was noting that her appetite was decreased yesterday however is working on eating a little bit more today. No other concerns today. Review of Systems General: No Fatigue HEENT: No Head Aches Pulmonary: No Dyspnea, No Cough Cardiovascular: No: Chest Pain, Palpitations, Edema Gastrointestinal: No: Nausea, Vomiting, Diarrhea, Constipation Genitourinary: No Dysuria Objective Exam Last Set of Vital Signs Vital Signs Date Time Temp Pulse Resp B/P (MAP) Pulse Ox O2 Delivery O2 Flow Rate FiO2 03/15/23 09:39 High Flow N/C 5.00 03/15/23 09:34 99 03/15/23 08:00 85 25 03/15/23 08:00 37.1 03/12/23 20:00 30 Capillary Refill : Less Than 3 Seconds I&O Intake and Output 03/15/23 00:00 Intake Total 1125 ml Output Total 1325 ml Balance -200 ml Intake Oral 950 ml IV Total 175 ml Output Urine Total 1325 ml # Bowel Movements 1 General: Alert, Oriented X3 HEENT: Atraumatic, EOMI Neck: Supple Lungs: Normal Air Movement, Other (Wheezing in lung tovar bilaterally) Heart: Regular Rate, No Murmurs Abdomen: Normal Bowel Sounds, No Tenderness Extremities: No Edema Neuro: Normal Speech Psych/Mental Status: Mental Status NL Results/Procedures Lab Laboratory Tests 03/15/23 03:30: White Blood Count 15.7H, Red Blood Count 3.11L, Hemoglobin 9.7L, Hematocrit 30L, Mean Corpuscular Volume 96, Mean Corpuscular Hemoglobin 31, Mean Corpuscular Hemoglobin Concent 32, Red Cell Distribution Width 14.3, Platelet Count 232, [place] n Platelet Volume 9.5, Immature Granulocyte % (Auto) 1, Neutrophils (%) (Auto) 93H, Lymphocytes (%) (Auto) 3L, Monocytes (%) (Auto) 3, Eosinophils (%) (Auto) 0, Basophils (%) (Auto) 0, Neutrophils # (Auto) 14.6H, Lymphocytes # (Auto) 0.4L , Monocytes # (Auto) 0.5, Eosinophils # (Auto) 0.0, Basophils # (Auto) 0.0, Immature Granulocyte # (Auto) 0.1, Sodium Level 140, Potassium Level 4.0, Chloride Level 103, Carbon Dioxide Level 28, Anion Gap 9, Blood Urea Nitrogen 21H, Creatinine 0.80, Estimat Glomerular Filtration Rate 81, BUN/Creatinine Ratio 26, Glucose Level 162H, Calcium Level 8.2L, Corrected Calcium 8.4L, Phosphorus Level 1.5L, Magnesium Level 2.3, Total Bilirubin 0.5, Aspartate Amino Transf (AST/SGOT) 34, Alanine Aminotransferase (ALT/SGPT) 30, Alkaline Phosphatase 77, Total Protein 6.3L, Albumin 3.7 Microbiology 03/12/23 Urine Culture - Final, Complete NO GROWTH 03/12/23 Blood Culture - Preliminary, Resulted Assessment/Plan Assessment/Plan (1) Acute on chronic hypoxic respiratory failure Status: Acute Assessment & Plan: Patient presenting with acute on chronic hypoxic respiratory failure. Uses 2 L of oxygen at baseline. ABG prior to BiPAP concerning. mildly improved 03/12 Plan: - Continue HFNC, currently 5L, wean as tolerated - BiPAP if in respiratory distress - Consulting PT/OT -Continue inhalers (2) Atrial fibrillation with RVR Status: Acute Assessment & Plan: HR 140s sustained this morning (03/13), telemetry demonstrating atrial fibrillation. Pt reports a remote h/o atrial fibrillation, reports being on daily pill for anticoagulation. Patient taken off of diltiazem drip briefly overnight but had recurrence of atrial fibrillation and thus had to be thrown back on. Plan: - Continue Xarelto 20 mg daily - Cardiology consulted - Will start oral Cardizem 60 mg every 6 hours and DC diltiazem drip after the second dose - If rates are well maintained, will likely transfer patient to cardiac stepdown (3) Sepsis Status: Resolved Assessment & Plan: Unclear source of infection at this time however patient is screening in for sepsis. UA negative. Plan: Blood cultures no growth to date (4) HTN (hypertension) Status: Chronic Assessment & Plan: Holding home medications (5) Polypharmacy Status: Acute Assessment & Plan: Concern for polypharmacy due to medication misuse. We will continue to monitor vital signs as mentioned above. Unclear cause of symptoms at this time however patient takes many medications that may be contributing. (6) COPD exacerbation Status: Acute Assessment & Plan: Patient with possible COPD exacerbation due to worsening respiratory status. Evidence of leukocytosis on lab work however chest x-ray n egative. Home oxygen regimen is 2 L of oxygen during the day, 5 L at night. Plan: Continue IV cefepime Continue Decadron 40 mg every 6 hours Continue inhalers NEEL WANG MD 03/16/23 1318: Supervisory-Addendum Brief Supervisory Addendum I personally performed the [place] portions of the visit, discussed case with resid ent and concur with resident documentation of history, physical exam, assessment and treatment plan unless otherwise noted. GHULAM BRUCE MD, RESIDENT Mar 15, 2023 10:40 NEEL WANG MD Mar 16, 2023 13:18
[2023-03-15] MEDS ORDERED: AMIODARONE 200 MG TABLET PO NR (11:00)
--- NOTE | 2023-03-15 12:45 | Cardiology Progress Note ---
Subjective Date Seen by Provider: Mar 15, 2023 Time Seen by Provider: 10:20 Subjective/Events-last exam After the diltiazem drip was stopped patient went back into atrial fibrillation, diltiazem drip was restarted and the patient converted back to sinus rhythm again. Now patient is in sinus rhythm. Denies complaints. Hemodynamically stable Exam Vital Signs Vital Signs Date Time Temp Pulse Resp B/P (MAP) Pulse Ox O2 Delivery O2 Flow Rate FiO2 03/15/23 12:18 81 03/15/23 12:00 36.2 03/15/23 09:39 High Flow N/C 5.00 03/15/23 09:34 99 03/15/23 08:00 25 03/12/23 20:00 30 Physical Exam Alert oriented, no distress. Neck supple no JVD. Lungs: Decreased breath sounds bilaterally, few rhonchi and wheezes. Heart: S1-S2, regular rhythm, no murmurs. Abdomen soft, nontender. Extremities no edema. Labs Laboratory Tests Test 03/15/23 03:30 Range/Units White Blood Count 15.7 H 4.3-11.0 10^3/uL Red Blood Count 3.11 L 3.80-5.11 10^6/uL Hemoglobin 9.7 L 11.5-16.0 g/dL Hematocrit 30 L 35-52 % Mean Corpuscular Volume 96 80-99 fL Mean Corpuscular Hemoglobin 31 25-34 pg Mean Corpuscular Hemoglobin Concent 32 32-36 g/dL Red Cell Distribution Width 14.3 10.0-14.5 % Platelet Count 232 130-400 10^3/uL Mean Platelet Volume 9.5 9.0-12.2 fL Immature Granulocyte % (Auto) 1 % Neutrophils (%) (Auto) 93 H 42-75 % Lymphocytes (%) (Auto) 3 L 12-44 % Monocytes (%) (Auto) 3 0-12 % Eosinophils (%) (Auto) 0 0-10 % Basophils (%) (Auto) 0 0-10 % Neutrophils # (Auto) 14.6 H 1.8-7.8 10^3/uL Lymphocytes # (Auto) 0.4 L 1.0-4.0 10^3/uL Monocytes # (Auto) 0.5 0.0-1.0 10^3/uL Eosinophils # (Auto) 0.0 0.0-0.3 10^3/uL Basophils # (Auto) 0.0 0.0-0.1 10^3/uL Immature Granulocyte # (Auto) 0.1 0.0-0.1 10^3/uL Sodium Level 140 135-145 MMOL/L Potassium Level 4.0 3.6-5.0 MMOL/L Chloride Level 103 98-107 MMOL/L Carbon Dioxide Level 28 21-32 MMOL/L Anion Gap 9 5-14 MMOL/L Blood Urea Nitrogen 21 H 7-18 MG/DL Creatinine 0.80 0.60-1.30 MG/DL Estimat Glomerular Filtration Rate 81 BUN/Creatinine Ratio 26 Glucose Level 162 H 70-105 MG/DL Calcium Level 8.2 L 8.5-10.1 MG/DL Corrected Calcium 8.4 L 8.5-10.1 MG/DL Phosphorus Level 1.5 L 2.3-4.7 MG/DL Magnesium Level 2.3 1.6-2.4 MG/DL Total Bilirubin 0.5 0.1-1.0 MG/DL Aspartate Amino Transf (AST/SGOT) 34 5-34 U/L Alanine Aminotransferase (ALT/SGPT) 30 0-55 U/L Alkaline Phosphatase 77 40-136 U/L Total Protein 6.3 L 6.4-8.2 GM/DL Albumin 3.7 3.2-4.5 GM/DL A/P-Cardiology Admission Diagnosis Paroxysmal atrial fibrillation. Possible sick sinus syndrome. History of hypertension Mental status changes secondary to hypercapnia. COPD. History of smoking Assessment/Plan Discontinue Cardizem . Start amiodarone p.o. Continue anticoagulation Continue to monitor. Echo did not show dilated left atrium. Patient will need to follow-up with cardiology as outpatient Continue treatment of COPD as per medical team STEVEN BRANCH MD Mar 15, 2023 12:45
[2023-03-15] MEDS: NOREPINEPHRINE 8 MG/250 ML 250 ML IV SCH (13:18)
[2023-03-15 16:43] VITALS: BP 132/79
[2023-03-15] MEDS: AMIODARONE 200 MG TABLET PO SCH (19:58)
[2023-03-15] MEDS: MONTELUKAST 10 MG TABLET PO SCH (20:00)
[2023-03-15] MEDS: ACETAMINOPHEN 325 MG TABLET PO PRN (20:00)
[2023-03-15] MEDS: AMITRIPTYLINE 10 MG TAB PO SCH (20:01)
[2023-03-15 20:13] VITALS: BP 157/69
[2023-03-15] MEDS ORDERED: AMIODARONE 200 MG TABLET PO SCH (21:00)
[2023-03-15 23:51] VITALS: BP 123/60
[2023-03-16] VITALS (7 sets, daily range): BP systolic 130–144; BP diastolic 64–76
[2023-03-16] MEDS: methylPREDNISolone INJ 40 MG/ML VIAL IV SCH ×4 (00:49→18:14)
[2023-03-16] MEDS: CEFEPIME INJECTION 1,000 MG in NS (IVPB) 50 ML 50 ML IV SCH ×3 (01:30→18:14)
[2023-03-16] MEDS: RT-Ipratropium/Albuterol NEB 3 ML VIAL INH SCH ×6 (02:29→21:42)
[2023-03-16] MEDS: dilTIAZem ER 120 MG CAPSULE PO SCH ×3 (02:38→20:14)
[2023-03-16 05:41] LABS: ALBUMIN 3.9 GM/DL (3.2-4.5)
[2023-03-16 05:42] LABS: POTASSIUM 4.2 MMOL/L (3.6-5.0)
[2023-03-16] MEDS: hydrOXYzine 25 MG CAPSULE PO PRN ×2 (05:42→20:14)
[2023-03-16 05:43] LABS: CALCIUM 8.4 MG/DL (8.5-10.1)
[2023-03-16 05:44] LABS: TOTAL PROTEIN 6.7 GM/DL (6.4-8.2)
[2023-03-16 05:46] LABS: BILIRUBIN,TOTAL 0.5 MG/DL (0.1-1.0)
[2023-03-16 05:48] LABS: CREATININE SERUM 0.75 MG/DL (0.60-1.30)
[2023-03-16 06:36] LABS: BASOPHILS % (AUTO) 0 % (0-10); EOSINOPHILS % (AUTO) 0 % (0-10); HEMATOCRIT 32 % (35-52); HEMOGLOBIN 10.4 g/dL (11.5-16.0); LYMPHOCYTES # (AUTO) 0.3 10^3/uL (1.0-4.0); LYMPHOCYTES % (AUTO) 2 % (12-44); MEAN CORPUSCULAR HEMOGLOBIN 31 pg (25-34); MEAN CORPUSCULAR HGB CONC 33 g/dL (32-36); MEAN CORPUSCULAR VOLUME 96 fL (80-99); MEAN PLATELET VOLUME 9.6 fL (9.0-12.2); MONOCYTES # (AUTO) 0.5 10^3/uL (0.0-1.0); MONOCYTES % (AUTO) 3 % (0-12); NEUTROPHILS # (AUTO) 13.1 10^3/uL (1.8-7.8); NEUTROPHILS % (AUTO) 94 % (42-75); PLATELET COUNT 250 10^3/uL (130-400); WHITE BLOOD COUNT 13.9 10^3/uL (4.3-11.0)
[2023-03-16] MEDS: FLUTICASONE/VILANTEROL 100/25 MCG (14 DOSES) IH SCH (06:47)
[2023-03-16] MEDS: TIOTROPIUM INH 4 GM (SPIRIVA Respimat) IH SCH (06:47)
[2023-03-16] MEDS: AMIODARONE 200 MG TABLET PO SCH ×2 (08:35→20:15)
[2023-03-16] MEDS: RIVAROXABAN 15 MG TABLET PO SCH (08:35)
[2023-03-16] MEDS: NICOTINE PATCH REMOVAL TP SCH (08:35)
[2023-03-16] MEDS: buPROPion 100 MG TABLET PO SCH ×2 (08:37→20:14)
[2023-03-16] MEDS: NICOTINE 21 MG PATCH TD SCH (08:38)
[2023-03-16] MEDS ORDERED: AMIODARONE 200 MG TABLET PO NR (11:30)
--- NOTE | 2023-03-16 11:40 | Progress Note - Hospitalist ---
Subjective HPI/CC On Admission Date Seen by Provider: Mar 16, 2023 Time Seen by Provider: 11:50 CC: AMS with resp failure HPI: This is a 67yoWF clinic patient of [facility] who apparently took too many pain pills and resulted in hypercapneic resp failure requiring biPAP and remains DNR and DNI per paper work and confirmed with daughter DPOA. We alexandra continue biPAP and Dr Cohen placed CL. Subjective/Events-last exam Patient remains with A-fib not well-controlled Reviewed meds and labs Much improved Lungs are distant Review of Systems General: Fatigue, Malaise Objective Exam Vital Signs Vital Signs Date Time Temp Pulse Resp B/P (MAP) Pulse Ox O2 Delivery O2 Flow Rate FiO2 03/16/23 15:22 36.9 115 20 130/69 (89) 97 High Flow N/C 6.00 03/12/23 20:00 30 Capillary Refill : Less Than 3 Seconds General Appearance: No Apparent Distress, WD/WN, Chronically ill Respiratory: No Accessory Muscle Use, No Respiratory Distress, Decreased Breath Sounds Cardiovascular: Irregularly Irregular, Tachycardia Neurologic/Psychiatric: Alert, Oriented x3, No Motor/Sensory Deficits, Normal Mood/Affect Results/Procedures Lab Laboratory Tests 03/16/23 05:20 Patient resulted labs reviewed. Imaging: Reviewed Imaging Films, Reviewed Imaging Report Assessment/Plan Assessment and Plan Assess & Plan/Chief Complaint A-fib with RVR Acute hypercapnic respiratory failure Plan: Cardiology appreciated Critical Care Critically Ill Patient RICHKODY GARZA Mar 16, 2023 11:40
--- NOTE | 2023-03-16 15:06 | Cardiology Progress Note ---
Subjective Date Seen by Provider: Mar 16, 2023 Time Seen by Provider: 15:01 Subjective/Events-last exam Patient feels okay. On the monitor patient goes in and out of rapid atrial fibrillation Exam Vital Signs Vital Signs Date Time Temp Pulse Resp B/P (MAP) Pulse Ox O2 Delivery O2 Flow Rate FiO2 03/16/23 13:00 129 03/16/23 11:24 37.3 16 134/76 (95) 100 Nasal Cannula 6.00 03/12/23 20:00 30 Physical Exam Alert oriented, no distress. Neck supple, no JVD. Lungs decreased breath sounds, scattered rhonchi. Heart S1-S2, tachycardic, irregular rhythm. Abdomen soft nontender. Extremities no edema Labs Laboratory Tests Test 03/16/23 05:20 Range/Units White Blood Count 13.9 H 4.3-11.0 10^3/uL Red Blood Count 3.33 L 3.80-5.11 10^6/uL Hemoglobin 10.4 L 11.5-16.0 g/dL Hematocrit 32 L 35-52 % Mean Corpuscular Volume 96 80-99 fL Mean Corpuscular Hemoglobin 31 25-34 pg Mean Corpuscular Hemoglobin Concent 33 32-36 g/dL Red Cell Distribution Width 14.3 10.0-14.5 % Platelet Count 250 130-400 10^3/uL Mean Platelet Volume 9.6 9.0-12.2 fL Immature Granulocyte % (Auto) 0 % Neutrophils (%) (Auto) 94 H 42-75 % Lymphocytes (%) (Auto) 2 L 12-44 % Monocytes (%) (Auto) 3 0-12 % Eosinophils (%) (Auto) 0 0-10 % Basophils (%) (Auto) 0 0-10 % Neutrophils # (Auto) 13.1 H 1.8-7.8 10^3/uL Lymphocytes # (Auto) 0.3 L 1.0-4.0 10^3/uL Monocytes # (Auto) 0.5 0.0-1.0 10^3/uL Eosinophils # (Auto) 0.0 0.0-0.3 10^3/uL Basophils # (Auto) 0.0 0.0-0.1 10^3/uL Immature Granulocyte # (Auto) 0.1 0.0-0.1 10^3/uL Sodium Level 142 135-145 MMOL/L Potassium Level 4.2 3.6-5.0 MMOL/L Chloride Level 102 98-107 MMOL/L Carbon Dioxide Level 34 H 21-32 MMOL/L Anion Gap 6 5-14 MMOL/L Blood Urea Nitrogen 20 H 7-18 MG/DL Creatinine 0.75 0.60-1.30 MG/DL Estimat Glomerular Filtration Rate 88 BUN/Creatinine Ratio 27 Glucose Level 171 H 70-105 MG/DL Calcium Level 8.4 L 8.5-10.1 MG/DL Corrected Calcium 8.5 8.5-10.1 MG/DL Total Bilirubin 0.5 0.1-1.0 MG/DL Aspartate Amino Transf (AST/SGOT) 37 H 5-34 U/L Alanine Aminotransferase (ALT/SGPT) 42 0-55 U/L Alkaline Phosphatase 73 40-136 U/L Total Protein 6.7 6.4-8.2 GM/DL Albumin 3.9 3.2-4.5 GM/DL A/P-Cardiology Admission Diagnosis Paroxysmal atrial fibrillation. Possible sick sinus syndrome. History of hypertension Mental status changes secondary to hypercapnia. COPD. History of smoking Assessment/Plan Continue Cardizem p.o. Will give extra dose of amiodarone p.o. Continue anticoagulation Continue to monitor. Patient will need to follow-up with cardiology as outpatient Continue treatment of COPD as per medical team STEVEN BRANCH MD Mar 16, 2023 15:06
--- NOTE | 2023-03-16 15:33 | Physical Therapy Progress Note ---
Therapy Progress Note Attempted to see patient in am and pm. Patient refused both times. Will attempt again tomorrow and progress per patient tolerance. KRISTIN REY PT Mar 16, 2023 15:33
[2023-03-16] MEDS: MONTELUKAST 10 MG TABLET PO SCH (20:14)
[2023-03-16] MEDS: AMITRIPTYLINE 10 MG TAB PO SCH (20:15)
[2023-03-16] MEDS ORDERED: AMIODARONE 200 MG TABLET PO ONE (21:00)
[2023-03-17] MEDS: methylPREDNISolone INJ 40 MG/ML VIAL IV SCH ×4 (01:04→17:38)
[2023-03-17] MEDS: CEFEPIME INJECTION 1,000 MG in NS (IVPB) 50 ML 50 ML IV SCH (01:04)
[2023-03-17] MEDS: RT-Ipratropium/Albuterol NEB 3 ML VIAL INH SCH ×6 (02:23→21:34)
[2023-03-17 03:43] VITALS: BP 131/65
--- NOTE | 2023-03-17 05:18 | Progress Note - Hospitalist ---
Subjective HPI/CC On Admission Date Seen by Provider: Mar 17, 2023 Time Seen by Provider: 10:00 CC: AMS with resp failure HPI: This is a 67yoWF clinic patient of [facility] who apparently took too many pain pills and resulted in hypercapneic resp failure requiring biPAP and remains DNR and DNI per paper work and confirmed with daughter DPOA. We alexandra continue biPAP and Dr Cohen placed CL. Subjective/Events-last exam Remains on O2 at 6L/min AT home she is on 2L/min No falls Moving around ok BM+ Review of Systems General: Fatigue, Malaise Objective Exam Vital Signs Vital Signs Date Time Temp Pulse Resp B/P (MAP) Pulse Ox O2 Delivery O2 Flow Rate FiO2 03/17/23 11:33 36.8 90 16 160/75 (103) 93 Nasal Cannula 6.00 03/12/23 20:00 30 Capillary Refill : Less Than 3 Seconds General Appearance: No Apparent Distress, WD/WN Respiratory: Lungs Clear, Normal Breath Sounds Cardiovascular: Regular Rate, Rhythm Results/Procedures Lab Laboratory Tests 03/17/23 05:45 Patient resulted labs reviewed. Imaging: Reviewed Imaging Films, Reviewed Imaging Report Assessment/Plan Assessment and Plan Assess & Plan/Chief Complaint A-fib with RVR Acute hypercapnic respiratory failure Plan: Cardiology appreciated Wean O2 Critical Care Critically Ill Patient RICHKODY GARZA Mar 17, 2023 05:18
[2023-03-17 05:56] LABS: BASOPHILS % (AUTO) 0 % (0-10); EOSINOPHILS % (AUTO) 0 % (0-10); HEMATOCRIT 33 % (35-52); HEMOGLOBIN 10.5 g/dL (11.5-16.0); LYMPHOCYTES # (AUTO) 0.4 10^3/uL (1.0-4.0); LYMPHOCYTES % (AUTO) 3 % (12-44); MEAN CORPUSCULAR HEMOGLOBIN 31 pg (25-34); MEAN CORPUSCULAR HGB CONC 32 g/dL (32-36); MEAN CORPUSCULAR VOLUME 97 fL (80-99); MEAN PLATELET VOLUME 9.5 fL (9.0-12.2); MONOCYTES # (AUTO) 0.5 10^3/uL (0.0-1.0); MONOCYTES % (AUTO) 4 % (0-12); NEUTROPHILS # (AUTO) 11.7 10^3/uL (1.8-7.8); NEUTROPHILS % (AUTO) 92 % (42-75); PLATELET COUNT 268 10^3/uL (130-400); WHITE BLOOD COUNT 12.8 10^3/uL (4.3-11.0)
[2023-03-17 06:07] LABS: ALBUMIN 3.9 GM/DL (3.2-4.5); POTASSIUM 3.6 MMOL/L (3.6-5.0)
[2023-03-17 06:09] LABS: CALCIUM 8.2 MG/DL (8.5-10.1)
[2023-03-17 06:10] LABS: TOTAL PROTEIN 6.7 GM/DL (6.4-8.2)
[2023-03-17 06:12] LABS: BILIRUBIN,TOTAL 0.6 MG/DL (0.1-1.0)
[2023-03-17 06:13] LABS: CREATININE SERUM 0.76 MG/DL (0.60-1.30)
[2023-03-17] MEDS: TIOTROPIUM INH 4 GM (SPIRIVA Respimat) IH SCH (07:05)
[2023-03-17] MEDS: FLUTICASONE/VILANTEROL 100/25 MCG (14 DOSES) IH SCH (07:05)
[2023-03-17 07:22] VITALS: BP 146/73
--- NOTE | 2023-03-17 08:47 | Physical Therapy Progress Note ---
Therapy Progress Note Patient declined PT on this date. PT will attempt tomorrow. MEDHAT JAMISON PT Mar 17, 2023 08:47
[2023-03-17] MEDS: buPROPion 100 MG TABLET PO SCH ×2 (08:49→21:53)
[2023-03-17] MEDS: AMIODARONE 200 MG TABLET PO SCH ×2 (08:49→21:54)
[2023-03-17] MEDS: RIVAROXABAN 15 MG TABLET PO SCH (08:49)
[2023-03-17] MEDS: NICOTINE 21 MG PATCH TD SCH (08:49)
[2023-03-17] MEDS: dilTIAZem ER 120 MG CAPSULE PO SCH ×2 (08:50→21:54)
[2023-03-17] MEDS: NICOTINE PATCH REMOVAL TP SCH (08:50)
[2023-03-17 11:33] VITALS: BP 160/75
--- NOTE | 2023-03-17 13:46 | Cardiology Progress Note ---
Subjective Date Seen by Provider: Mar 17, 2023 Time Seen by Provider: 13:20 Subjective/Events-last exam Patient feels better. In sinus rhythm. Blood pressure today is slightly elevated Exam Vital Signs Vital Signs Date Time Temp Pulse Resp B/P (MAP) Pulse Ox O2 Delivery O2 Flow Rate FiO2 03/17/23 12:38 75 03/17/23 11:33 36.8 16 160/75 (103) 93 Nasal Cannula 6.00 03/12/23 20:00 30 Physical Exam Alert oriented, no distress. Neck supple, no JVD. Lungs decreased breath sounds bilaterally, scattered rhonchi. Heart: S1-S2, regular rate. Abdomen soft, nontender. Extremities no edema Labs Laboratory Tests Test 03/17/23 05:45 Range/Units White Blood Count 12.8 H 4.3-11.0 10^3/uL Red Blood Count 3.41 L 3.80-5.11 10^6/uL Hemoglobin 10.5 L 11.5-16.0 g/dL Hematocrit 33 L 35-52 % Mean Corpuscular Volume 97 80-99 fL Mean Corpuscular Hemoglobin 31 25-34 pg Mean Corpuscular Hemoglobin Concent 32 32-36 g/dL Red Cell Distribution Width 14.2 10.0-14.5 % Platelet Count 268 130-400 10^3/uL Mean Platelet Volume 9.5 9.0-12.2 fL Immature Granulocyte % (Auto) 1 % Neutrophils (%) (Auto) 92 H 42-75 % Lymphocytes (%) (Auto) 3 L 12-44 % Monocytes (%) (Auto) 4 0-12 % Eosinophils (%) (Auto) 0 0-10 % Basophils (%) (Auto) 0 0-10 % Neutrophils # (Auto) 11.7 H 1.8-7.8 10^3/uL Lymphocytes # (Auto) 0.4 L 1.0-4.0 10^3/uL Monocytes # (Auto) 0.5 0.0-1.0 10^3/uL Eosinophils # (Auto) 0.0 0.0-0.3 10^3/uL Basophils # (Auto) 0.0 0.0-0.1 10^3/uL Immature Granulocyte # (Auto) 0.1 0.0-0.1 10^3/uL Sodium Level 144 135-145 MMOL/L Potassium Level 3.6 3.6-5.0 MMOL/L Chloride Level 97 L 98-107 MMOL/L Carbon Dioxide Level 39 H 21-32 MMOL/L Anion Gap 8 5-14 MMOL/L Blood Urea Nitrogen 18 7-18 MG/DL Creatinine 0.76 0.60-1.30 MG/DL Estimat Glomerular Filtration Rate 86 BUN/Creatinine Ratio 24 Glucose Level 185 H 70-105 MG/DL Calcium Level 8.2 L 8.5-10.1 MG/DL Corrected Calcium 8.3 L 8.5-10.1 MG/DL Total Bilirubin 0.6 0.1-1.0 MG/DL Aspartate Amino Transf (AST/SGOT) 42 H 5-34 U/L Alanine Aminotransferase (ALT/SGPT) 60 H 0-55 U/L Alkaline Phosphatase 69 40-136 U/L Total Protein 6.7 6.4-8.2 GM/DL Albumin 3.9 3.2-4.5 GM/DL A/P-Cardiology Admission Diagnosis Paroxysmal atrial fibrillation. Possible sick sinus syndrome. History of hypertension Mental status changes secondary to hypercapnia. COPD. History of smoking Assessment/Plan Continue Cardizem and amiodarone p.o. Continue anticoagulation Continue to monitor. Patient will need to follow-up with cardiology as outpatient Continue treatment of COPD as per medical team STEVEN BRANCH MD Mar 17, 2023 13:46
[2023-03-17 16:01] VITALS: BP 174/78
[2023-03-17 19:52] VITALS: BP 151/67
[2023-03-17] MEDS: MONTELUKAST 10 MG TABLET PO SCH (21:53)
[2023-03-17] MEDS: AMITRIPTYLINE 10 MG TAB PO SCH (21:53)
[2023-03-18] VITALS (8 sets, daily range): BP systolic 125–157; BP diastolic 64–71
[2023-03-18] MEDS: methylPREDNISolone INJ 40 MG/ML VIAL IV SCH ×5 (00:49→23:20)
[2023-03-18] MEDS: RT-Ipratropium/Albuterol NEB 3 ML VIAL INH SCH ×6 (02:20→21:51)
[2023-03-18 06:11] LABS: BASOPHILS % (AUTO) 0 % (0-10); EOSINOPHILS % (AUTO) 0 % (0-10); HEMATOCRIT 30 % (35-52); HEMOGLOBIN 9.8 g/dL (11.5-16.0); LYMPHOCYTES # (AUTO) 0.3 10^3/uL (1.0-4.0); LYMPHOCYTES % (AUTO) 2 % (12-44); MEAN CORPUSCULAR HEMOGLOBIN 31 pg (25-34); MEAN CORPUSCULAR HGB CONC 32 g/dL (32-36); MEAN CORPUSCULAR VOLUME 96 fL (80-99); MEAN PLATELET VOLUME 9.6 fL (9.0-12.2); MONOCYTES # (AUTO) 0.4 10^3/uL (0.0-1.0); MONOCYTES % (AUTO) 4 % (0-12); NEUTROPHILS # (AUTO) 10.9 10^3/uL (1.8-7.8); NEUTROPHILS % (AUTO) 93 % (42-75); PLATELET COUNT 244 10^3/uL (130-400); WHITE BLOOD COUNT 11.7 10^3/uL (4.3-11.0)
[2023-03-18 06:18] LABS: ALBUMIN 3.7 GM/DL (3.2-4.5)
[2023-03-18 06:19] LABS: POTASSIUM 3.5 MMOL/L (3.6-5.0)
[2023-03-18 06:20] LABS: CALCIUM 7.9 MG/DL (8.5-10.1)
[2023-03-18 06:21] LABS: TOTAL PROTEIN 6.2 GM/DL (6.4-8.2)
[2023-03-18 06:23] LABS: BILIRUBIN,TOTAL 0.6 MG/DL (0.1-1.0)
[2023-03-18 06:25] LABS: CREATININE SERUM 0.68 MG/DL (0.60-1.30)
--- NOTE | 2023-03-18 06:39 | Progress Note - Hospitalist ---
Subjective HPI/CC On Admission Date Seen by Provider: Mar 18, 2023 Time Seen by Provider: 11:00 CC: AMS with resp failure HPI: This is a 67yoWF clinic patient of [facility] who apparently took too many pain pills and resulted in hypercapneic resp failure requiring biPAP and remains DNR and DNI per paper work and confirmed with daughter DPOA. We alexandra continue biPAP and Dr Cohen placed CL. Subjective/Events-last exam Patient remains on 4 L continuous and 7 on exertion Patient still wheezy Very end stage COPD noted Moving around pretty well Eating and drinking well Bowels are moving Review of Systems General: Fatigue Pulmonary: Dyspnea Objective Exam Vital Signs Vital Signs Date Time Temp Pulse Resp B/P (MAP) Pulse Ox O2 Delivery O2 Flow Rate FiO2 03/18/23 14:55 96 High Flow N/C 4.00 03/18/23 13:00 78 03/18/23 11:21 37.1 18 125/66 (85) 03/18/23 07:12 40 Capillary Refill : Less Than 3 Seconds General Appearance: No Apparent Distress, WD/WN, Anxious, Chronically ill Respiratory: No Accessory Muscle Use, No Respiratory Distress, Decreased Breath Sounds, Wheezing Cardiovascular: Regular Rate, Rhythm Neurologic/Psychiatric: Alert, Oriented x3 Results/Procedures Lab Laboratory Tests 03/18/23 05:45 Patient resulted labs reviewed. Imaging: Reviewed Imaging Films, Reviewed Imaging Report Assessment/Plan Assessment and Plan Assess & Plan/Chief Complaint A-fib with RVR Acute hypercapnic respiratory failure Plan: Cardiology appreciated Wean O2 Critical Care Critically Ill Patient RICHKODY GARZA Mar 18, 2023 06:38
[2023-03-18] MEDS: TIOTROPIUM INH 4 GM (SPIRIVA Respimat) IH SCH (07:06)
[2023-03-18] MEDS: FLUTICASONE/VILANTEROL 100/25 MCG (14 DOSES) IH SCH (07:06)
[2023-03-18 07:20] LABS: LYMPHOCYTES % (MANUAL) 2 %; MONOCYTES % (MANUAL) 3 %; NEUTROPHILS % (MANUAL) 95 %; RBC MORPH NORMAL
[2023-03-18] MEDS: dilTIAZem ER 120 MG CAPSULE PO SCH ×2 (08:28→20:07)
[2023-03-18] MEDS: RIVAROXABAN 15 MG TABLET PO SCH (08:28)
[2023-03-18] MEDS: AMIODARONE 200 MG TABLET PO SCH ×2 (08:28→20:07)
[2023-03-18] MEDS: buPROPion 100 MG TABLET PO SCH ×2 (08:28→20:08)
[2023-03-18] MEDS: NICOTINE 21 MG PATCH TD SCH (08:29)
[2023-03-18] MEDS: NICOTINE PATCH REMOVAL TP SCH (08:29)
--- NOTE | 2023-03-18 09:48 | Physical Therapy Daily Note ---
PT Daily Note-Current Subjective Patient lying supine in bed upon PT arrival, agreeable to treatment. Patient rates pain at 0/10 currently. Pain Section J - Health Conditions 1. Rarely or not at all 2. Occasionally 3. Frequently 4. Almost constantly 8. Unable to answer Pain Effect on Sleep: 8 Pain Interference with Therapy: 8 Pain Interference w/Day-to-Day: 8 Transfers SCALE: Activities may be completed with or without assistive devices. 0-Xsropfamzx-fdlthyj completes the activity by him/herself with no assistance from a helper. 5-Set-up or Clean-up Assistance-helper sets up or cleans up; patient completes activity. [place] assists only prior to or following the activity. 4-Supervision or Touching Assistance-helper provides verbal cues and/or touching/steadying and/or contact guard assistance as patient completes activity. Assistance may be provided throughout the activity or intermittently. 3-Partial/Moderate Assistance-helper does LESS THAN HALF the effort. [place] lif ts, holds or supports trunk or limbs, but provides less than half the effort. 2-Substantial/Maximal Assistance-helper does MORE THAN HALF the effort. [place] lifts or holds trunk or limbs and provides more than half the effort. 4-Xwzmmhmmm-lbclsf does ALL the effort. Patient does none of the effort to complete the activity. Or, the assistance of 2 or more helpers is required for the patient to complete the activity. If activity was not attempted, code reason: 7-Patient Refused. 9-Not Applicable-not attempted and the patient did not perform the activity before the current illness, exacerbation or injury. 10-Not Attempted due to Environmental Limitations-(lack of equipment, weather restraints, etc.). 88-Not Attempted due to Medical Conditions or Safety Concerns. Roll Left & Right (QC): 4 Sit to Lying (QC): 4 Lying to Sitting/Side of Bed(Q: 4 Sit to Stand (QC): 3 Chair/Apl-et-Mxkal Xfer(QC): 3 Gait Training Does the Patient Walk?: Yes Distance: 40' Walk 10 feet (QC): 3 Gait Persons Needed: 1 Patient ambulates with [employer]URNED [employer], however would benefit from use of FWW until stronger. Assessment Current Status: Fair Progress Patient tolerated treatment fair. Patient performs all bed mobility with SBA and transfers with Min/mod A. Patient ambulates 40 feet in the room with Min A, verbal cues for safety, posture, progression. Patient reports she has been ambulating herself to the BR, however demonstrates unsafe gait pattern with PT. Patient would benefit from use of FWW for increased balance and safety. Patient in chair post treatment with all needs met, nursing notified, call light in hand. PT Chcf Goals Field Trainer Goals PT Field Trainer Goals Time Frame: Mar 26, 2023 Roll Left & Right (QC): 6 Sit to Lying (QC): 6 Lying-Sitting on Side/Bed(QC): 6 Sit to Stand (QC): 6 Chair/Wrf-mm-Tqafh Xfer(QC): 6 Toilet Transfer (QC): 6 Walk 10 feet (QC): 6 Walk 50ft with 2 Turns (QC): 6 PT Plan Treatment/Plan Treatment Plan: Continue Plan of Care Treatment Plan: Bed Mobility, Education, Functional Activity Flavio, Functional Strength, Gait, Safety, Therapeutic Exercise, Transfers Treatment Duration: Mar 26, 2023 Frequency: 5 times per week Estimated Hrs Per Day: .25 hour per day Safety Risks/Education Patient Education: Gait Training, Transfer Techniques Teaching Recipient: Patient Teaching Methods: Demonstration, Discussion Response to Teaching: Reinforcement Needed Time Time In: 850 Time Out: 900 DATE: Mar 18, 2023 Total Billed Treatment Time: 10 Total Billed Treatment Visit, KRISTIN RODARTE PT Mar 18, 2023 09:48
[2023-03-18] MEDS: MONTELUKAST 10 MG TABLET PO SCH (20:07)
[2023-03-18] MEDS: AMITRIPTYLINE 10 MG TAB PO SCH (20:07)
[2023-03-18] MEDS: hydrOXYzine 25 MG CAPSULE PO PRN (20:08)
[2023-03-19] MEDS: RT-Ipratropium/Albuterol NEB 3 ML VIAL INH SCH ×5 (02:28→22:21)
[2023-03-19 03:28] VITALS: BP 151/74
[2023-03-19 04:59] LABS: BASOPHILS % (AUTO) 0 % (0-10); EOSINOPHILS % (AUTO) 0 % (0-10); HEMATOCRIT 31 % (35-52); LYMPHOCYTES # (AUTO) 0.3 10^3/uL (1.0-4.0); LYMPHOCYTES % (AUTO) 2 % (12-44); MEAN CORPUSCULAR HEMOGLOBIN 31 pg (25-34); MEAN CORPUSCULAR HGB CONC 32 g/dL (32-36); MEAN CORPUSCULAR VOLUME 95 fL (80-99); MEAN PLATELET VOLUME 9.3 fL (9.0-12.2); MONOCYTES # (AUTO) 0.4 10^3/uL (0.0-1.0); MONOCYTES % (AUTO) 3 % (0-12); NEUTROPHILS # (AUTO) 12.9 10^3/uL (1.8-7.8); NEUTROPHILS % (AUTO) 94 % (42-75); PLATELET COUNT 259 10^3/uL (130-400); WHITE BLOOD COUNT 13.7 10^3/uL (4.3-11.0)
[2023-03-19 05:26] LABS: ALBUMIN 3.8 GM/DL (3.2-4.5); BILIRUBIN,TOTAL 0.6 MG/DL (0.1-1.0); CALCIUM 8.2 MG/DL (8.5-10.1); CREATININE SERUM 0.7 MG/DL (0.60-1.30); POTASSIUM 3.3 MMOL/L (3.6-5.0)
[2023-03-19] MEDS: methylPREDNISolone INJ 40 MG/ML VIAL IV SCH ×3 (06:13→20:21)
[2023-03-19] MEDS: ACETAMINOPHEN 325 MG TABLET PO PRN (06:16)
--- NOTE | 2023-03-19 06:20 | Progress Note - Hospitalist ---
Subjective HPI/CC On Admission Date Seen by Provider: Mar 19, 2023 Time Seen by Provider: 11:00 CC: AMS with resp failure HPI: This is a 67yoWF clinic patient of [facility] who apparently took too many pain pills and resulted in hypercapneic resp failure requiring biPAP and remains DNR and DNI per paper work and confirmed with daughter DPOA. We alexandra continue biPAP and Dr Cohen placed CL. Subjective/Events-last exam Still requiring a lot of oxygen Lungs are still wheezy Decreasing steroids to 40 Mg every 12 Replacing potassium Review of Systems General: Fatigue, Malaise Pulmonary: Dyspnea Objective Exam Vital Signs Vital Signs Date Time Temp Pulse Resp B/P (MAP) Pulse Ox O2 Delivery O2 Flow Rate FiO2 03/20/23 03:41 36.2 73 19 150/63 (92) 94 High Flow N/C 4.00 4.00 03/18/23 07:12 40 Capillary Refill : Less Than 3 Seconds General Appearance: No Apparent Distress, WD/WN, Chronically ill Respiratory: Decreased Breath Sounds, Wheezing Cardiovascular: Regular Rate, Rhythm Neurologic/Psychiatric: Alert, Oriented x3, No Motor/Sensory Deficits, Normal Mood/Affect Results/Procedures Lab Patient resulted labs reviewed. Imaging: Reviewed Imaging Films, Reviewed Imaging Report Assessment/Plan Assessment and Plan Assess & Plan/Chief Complaint A-fib with RVR Acute hypercapnic respiratory failure Chronic respiratory failure Plan: Cardiology appreciated Wean O2 Decrease steroids Critical Care Critically Ill Patient RICHKODY GARZA Mar 19, 2023 06:20
[2023-03-19 07:19] VITALS: BP 147/67
[2023-03-19] MEDS: AMIODARONE 200 MG TABLET PO SCH ×2 (08:26→20:21)
[2023-03-19] MEDS: NICOTINE 21 MG PATCH TD SCH (08:26)
[2023-03-19] MEDS: dilTIAZem ER 120 MG CAPSULE PO SCH ×2 (08:27→20:21)
[2023-03-19] MEDS: RIVAROXABAN 15 MG TABLET PO SCH (08:27)
[2023-03-19] MEDS: NICOTINE PATCH REMOVAL TP SCH (08:27)
[2023-03-19] MEDS: buPROPion 100 MG TABLET PO SCH ×2 (08:27→20:21)
[2023-03-19] MEDS: TIOTROPIUM INH 4 GM (SPIRIVA Respimat) IH SCH (10:08)
[2023-03-19] MEDS: FLUTICASONE/VILANTEROL 100/25 MCG (14 DOSES) IH SCH (10:08)
[2023-03-19 11:20] VITALS: BP 117/56
[2023-03-19] MEDS: POTASSIUM CHLORIDE 10 MEQ TABLET PO SCH ×2 (12:11→20:21)
[2023-03-19 16:38] VITALS: BP 133/58
[2023-03-19 20:14] VITALS: BP 138/67
[2023-03-19] MEDS: AMITRIPTYLINE 10 MG TAB PO SCH (20:21)
[2023-03-19] MEDS: hydrOXYzine 25 MG CAPSULE PO PRN (20:21)
[2023-03-19] MEDS: MONTELUKAST 10 MG TABLET PO SCH (20:21)
[2023-03-19 23:06] VITALS: BP 141/66
[2023-03-20] MEDS: RT-Ipratropium/Albuterol NEB 3 ML VIAL INH SCH ×6 (02:47→21:58)
[2023-03-20 03:41] VITALS: BP 150/63
[2023-03-20 05:52] LABS: BASOPHILS % (AUTO) 0 % (0-10); EOSINOPHILS % (AUTO) 0 % (0-10); HEMATOCRIT 31 % (35-52); HEMOGLOBIN 10.2 g/dL (11.5-16.0); LYMPHOCYTES # (AUTO) 0.3 10^3/uL (1.0-4.0); LYMPHOCYTES % (AUTO) 2 % (12-44); MEAN CORPUSCULAR HEMOGLOBIN 31 pg (25-34); MEAN CORPUSCULAR HGB CONC 33 g/dL (32-36); MEAN CORPUSCULAR VOLUME 94 fL (80-99); MEAN PLATELET VOLUME 9.5 fL (9.0-12.2); MONOCYTES # (AUTO) 0.6 10^3/uL (0.0-1.0); MONOCYTES % (AUTO) 4 % (0-12); NEUTROPHILS # (AUTO) 15.9 10^3/uL (1.8-7.8); NEUTROPHILS % (AUTO) 93 % (42-75); PLATELET COUNT 290 10^3/uL (130-400)
[2023-03-20 06:06] LABS: ALBUMIN 3.7 GM/DL (3.2-4.5); POTASSIUM 3.4 MMOL/L (3.6-5.0)
[2023-03-20 06:08] LABS: CALCIUM 8.1 MG/DL (8.5-10.1)
[2023-03-20 06:09] LABS: TOTAL PROTEIN 6.1 GM/DL (6.4-8.2)
[2023-03-20 06:11] LABS: BILIRUBIN,TOTAL 0.7 MG/DL (0.1-1.0)
[2023-03-20 06:13] LABS: CREATININE SERUM 0.72 MG/DL (0.60-1.30)
--- NOTE | 2023-03-20 06:35 | Progress Note - Hospitalist ---
Subjective HPI/CC On Admission Date Seen by Provider: Mar 20, 2023 Time Seen by Provider: 11:00 CC: AMS with resp failure HPI: This is a 67yoWF clinic patient of [facility] who apparently took too many pain pills and resulted in hypercapneic resp failure requiring biPAP and remains DNR and DNI per paper work and confirmed with daughter DPOA. We alexandra continue biPAP and Dr Cohen placed CL. Subjective/Events-last exam Patient doing about the same A bit more short of breath today ABG showed metabolic alkalosis to compensate for the respiratory acidosis so we will start Diamox 500 mg twice daily Chest x-ray was stable Review of Systems General: Fatigue, Malaise Pulmonary: Dyspnea, Cough Objective Exam Vital Signs Vital Signs Date Time Temp Pulse Resp B/P (MAP) Pulse Ox O2 Delivery O2 Flow Rate FiO2 03/20/23 12:17 85 03/20/23 11:52 High Flow N/C 3.00 03/20/23 11:49 97 03/20/23 11:19 36.5 16 138/63 (88) 03/18/23 07:12 40 Capillary Refill : Less Than 3 Seconds General Appearance: Anxious, Chronically ill, Mild Distress Respiratory: No Accessory Muscle Use, No Respiratory Distress, Accessory Muscle Use, Decreased Breath Sounds, Wheezing Cardiovascular: Regular Rate, Rhythm Neurologic/Psychiatric: Alert, Oriented x3 Results/Procedures Lab Laboratory Tests 03/20/23 05:43 Patient resulted labs reviewed. Imaging: Reviewed Imaging Films, Reviewed Imaging Report Assessment/Plan Assessment and Plan Assess & Plan/Chief Complaint A-fib with RVR Acute hypercapnic respiratory failure Chronic respiratory failure Metabolic alkalosis requiring Diamox Plan: Cardiology appreciated Wean O2 Decrease steroids Continue supportive care Critical Care Critically Ill Patient KODY VILLANUEVA DO Mar 20, 2023 06:35
[2023-03-20] MEDS: TIOTROPIUM INH 4 GM (SPIRIVA Respimat) IH SCH (07:10)
[2023-03-20] MEDS: FLUTICASONE/VILANTEROL 100/25 MCG (14 DOSES) IH SCH (07:10)
[2023-03-20 07:30] VITALS: BP 159/55
[2023-03-20] MEDS: NICOTINE 21 MG PATCH TD SCH (08:17)
[2023-03-20] MEDS: methylPREDNISolone INJ 40 MG/ML VIAL IV SCH ×2 (08:17→20:21)
[2023-03-20] MEDS: buPROPion 100 MG TABLET PO SCH ×2 (08:18→20:22)
[2023-03-20] MEDS: dilTIAZem ER 120 MG CAPSULE PO SCH ×2 (08:18→20:22)
[2023-03-20] MEDS: POTASSIUM CHLORIDE 10 MEQ TABLET PO SCH ×2 (08:18→20:22)
[2023-03-20] MEDS: AMIODARONE 200 MG TABLET PO SCH ×2 (08:18→20:22)
[2023-03-20] MEDS: RIVAROXABAN 15 MG TABLET PO SCH (08:18)
[2023-03-20] MEDS: NICOTINE PATCH REMOVAL TP SCH (08:18)
[2023-03-20 11:19] VITALS: BP 138/63
--- NOTE | 2023-03-20 11:42 | Diagnostic Imaging Report ---
EXAMINATION: Chest 1 view HISTORY: Hypoxia COMPARISON: 03/12/2023 FINDINGS: Heart size and pulmonary vasculature are normal. There are mild interstitial opacities within the mid and lower lungs. These are slightly decreased from 03/12/2023. A left-sided central line is unchanged. No significant pleural effusion or pneumothorax. The osseous structures are intact. IMPRESSION: 1. Decreased but persistent interstitial opacities in the lung bases compared to 03/12/2023. Dictated by: Dictated on workstation # [id number]
[2023-03-20 11:51] LABS: ABG OXYGEN SATURATION 99 % (94-100); ABG PCO2 56 MMHG (35-45); ABG PH 7.56 (7.37-7.43); ABG PO2 91 MMHG (79-93)
[2023-03-20 11:56] LABS: ABG TCO2 51.8 MMOL/L (21.0-31.0); INSPIRED O2 4 L; VENTILATOR NO
[2023-03-20] MEDS: acetaZOLAMIDE 250 MG TABLET PO SCH ×2 (12:43→20:22)
[2023-03-20 16:05] VITALS: BP 146/69
[2023-03-20 19:51] VITALS: BP 131/57
[2023-03-20] MEDS: AMITRIPTYLINE 10 MG TAB PO SCH (20:22)
[2023-03-20] MEDS: MONTELUKAST 10 MG TABLET PO SCH (20:26)
[2023-03-20 23:31] VITALS: BP 132/76
[2023-03-21] MEDS ORDERED: meTOprolol TARTRATE (IR) 25 MG TABLET PO ONE (01:30)
[2023-03-21] MEDS ORDERED: DIGOXIN 0.25 MG TABLET PO SCH (01:30)
[2023-03-21] MEDS ORDERED: DIGOXIN INJECTION 0.25 MG/ML 2 ML AMPULE IV SCH (02:00)
[2023-03-21] MEDS ORDERED: DIGOXIN INJECTION 0.25 MG/ML 2 ML AMPULE ONE (02:05)
[2023-03-21] MEDS: RT-Ipratropium/Albuterol NEB 3 ML VIAL INH SCH ×6 (02:57→22:49)
[2023-03-21 03:22] VITALS: BP 148/76
[2023-03-21 03:26] LABS: BASOPHILS % (AUTO) 0 % (0-10); EOSINOPHILS % (AUTO) 0 % (0-10); HEMATOCRIT 33 % (35-52); HEMOGLOBIN 10.6 g/dL (11.5-16.0); LYMPHOCYTES # (AUTO) 0.2 10^3/uL (1.0-4.0); LYMPHOCYTES % (AUTO) 1 % (12-44); MEAN CORPUSCULAR HEMOGLOBIN 31 pg (25-34); MEAN CORPUSCULAR HGB CONC 33 g/dL (32-36); MEAN CORPUSCULAR VOLUME 95 fL (80-99); MEAN PLATELET VOLUME 9.7 fL (9.0-12.2); MONOCYTES # (AUTO) 0.5 10^3/uL (0.0-1.0); MONOCYTES % (AUTO) 2 % (0-12); NEUTROPHILS # (AUTO) 18.1 10^3/uL (1.8-7.8); NEUTROPHILS % (AUTO) 95 % (42-75); PLATELET COUNT 321 10^3/uL (130-400)
[2023-03-21 03:48] LABS: ALBUMIN 3.7 GM/DL (3.2-4.5); BILIRUBIN,TOTAL 0.6 MG/DL (0.1-1.0); CALCIUM 8.3 MG/DL (8.5-10.1); CREATININE SERUM 0.76 MG/DL (0.60-1.30); POTASSIUM 3.5 MMOL/L (3.6-5.0)
[2023-03-21] MEDS: meTOprolol INJECTION 5 MG/5 ML VIAL IV ONE ×2 (05:32→05:44)
[2023-03-21] MEDS: TIOTROPIUM INH 4 GM (SPIRIVA Respimat) IH SCH (07:03)
[2023-03-21] MEDS: FLUTICASONE/VILANTEROL 100/25 MCG (14 DOSES) IH SCH (07:03)
--- NOTE | 2023-03-21 07:04 | Progress Note - Hospitalist ---
Subjective HPI/CC On Admission Date Seen by Provider: Mar 21, 2023 Time Seen by Provider: 09:00 CC: AMS with resp failure HPI: This is a 67yoWF clinic patient of [facility] who apparently took too many pain pills and resulted in hypercapneic resp failure requiring biPAP and remains DNR and DNI per paper work and confirmed with daughter DPOA. We alexandra continue biPAP and Dr Cohen placed CL. Subjective/Events-last exam Patient still not doing well Became dizzy when she got up to go to the bathroom Changed her over to commode at bedside Palliative care nurse consulted senior living placement may be needed Review of Systems General: Fatigue Pulmonary: Dyspnea Objective Exam Vital Signs Vital Signs Date Time Temp Pulse Resp B/P (MAP) Pulse Ox O2 Delivery O2 Flow Rate FiO2 03/21/23 19:10 36.1 66 18 138/71 (93) 97 High Flow N/C 4.00 03/18/23 07:12 40 Capillary Refill : Less Than 3 Seconds General Appearance: No Apparent Distress, WD/WN, Chronically ill Respiratory: No Accessory Muscle Use, No Respiratory Distress, Decreased Breath Sounds Cardiovascular: Regular Rate, Rhythm Neurologic/Psychiatric: Alert, Oriented x3 Results/Procedures Lab Laboratory Tests 03/21/23 03:13 Patient resulted labs reviewed. Imaging: Reviewed Imaging Films, Reviewed Imaging Report Assessment/Plan Assessment and Plan Assess & Plan/Chief Complaint A-fib with RVR Acute hypercapnic respiratory failure Chronic respiratory failure Metabolic alkalosis requiring Diamox Plan: Cardiology appreciated Wean O2 Decrease steroids Continue supportive care Palliative care nurse May need skilled care Critical Care Critically Ill Patient KODY VILLANUEVA DO Mar 21, 2023 07:04
[2023-03-21 07:16] VITALS: BP 132/67
[2023-03-21] MEDS: NICOTINE 21 MG PATCH TD SCH (08:06)
[2023-03-21] MEDS: buPROPion 100 MG TABLET PO SCH ×2 (08:06→21:25)
[2023-03-21] MEDS: acetaZOLAMIDE 250 MG TABLET PO SCH ×2 (08:06→21:25)
[2023-03-21] MEDS: AMIODARONE 200 MG TABLET PO SCH ×2 (08:06→21:25)
[2023-03-21] MEDS: POTASSIUM CHLORIDE 10 MEQ TABLET PO SCH ×2 (08:06→21:25)
[2023-03-21] MEDS: dilTIAZem ER 120 MG CAPSULE PO SCH ×2 (08:06→21:24)
[2023-03-21] MEDS: methylPREDNISolone INJ 40 MG/ML VIAL IV SCH ×2 (08:06→21:24)
[2023-03-21] MEDS: RIVAROXABAN 15 MG TABLET PO SCH (08:06)
[2023-03-21] MEDS: NICOTINE PATCH REMOVAL TP SCH (08:07)
--- NOTE | 2023-03-21 09:40 | Physical Therapy Progress Note ---
Therapy Progress Note Patient refused PT stating, "I'm too weak. I almost fall when I get up." PT attempted to explain that the reason for PT is to assist with making her stronger and to improve mobility, however, patient continued to refuse. MEDHAT JAMISON PT Mar 21, 2023 09:40
--- NOTE | 2023-03-21 09:42 | Cardiology Progress Note ---
Subjective Date Seen by Provider: Mar 21, 2023 Time Seen by Provider: 08:50 Subjective/Events-last exam Patient sitting up in bed, complaining of shakiness. Denies any chest pain. Objective-Cardiology Exam Last Set of Vital Signs Vital Signs 03/18/23 03/21/23 07:12 11:10 Temp 36.5 Pulse 73 Resp 18 B/P (MAP) 171/71 (104) Pulse Ox 99 O2 Delivery High Flow N/C O2 Flow Rate 4.00 FiO2 40 I&O Intake and Output 03/20/23 23:59 Intake Total 1610 ml Balance 1610 ml Intake Oral 1610 ml # Voids 11 General: Alert, Oriented X3 HEENT: Atraumatic, EOMI Neck: Supple Lungs: Normal Air Movement, Other (Wheezing in lung tovar bilaterally) Heart: Normal S1, Normal S2, No Murmurs, Other (irregulary irregular) Abdomen: Normal Bowel Sounds, No Tenderness Extremities: No Clubbing, No Cyanosis, No Edema Skin: No Rashes, No Breakdown Neuro: Normal Speech Psych/Mental Status: Mental Status NL Results Lab Laboratory Tests 03/21/23 03:13 A/P-Cardiology Admission Diagnosis Paroxysmal atrial fibrillation. Possible sick sinus syndrome. History of hypertension Mental status changes secondary to hypercapnia. COPD. History of smoking Assessment/Plan Paroxysmal atrial fibrillation, borderline tachycardic, maintained on Cardizem, amiodarone, Xarelto Continue to monitor heart rate, borderline tachycardic probably due to hypoxemia and respiratory insufficiency Continue on oxygen supplement Accidental overdose resulting in respiratory failure, improved. COPD, oxygen dependent Hypertension, continue to monitor Hyperlipidemia, lipids monitored as outpatient History of abnormal EKG with right bundle branch block, nonspecific T wave abnormality in the anterolateral leads. Continue to monitor Tobaccoism, educated on the importance of smoking cessation Gastroesophageal reflux disease. Supervisory-Addendum Brief Supervisory Addendum Participated in pt care: history, MDM, physical Personally performed: exam, history, MDM Care discussed with: KENRICK Results interpretation: Verified all documentation Notes: Patient was seen and evaluated with Daivd, examination performed, management plan was discussed, agree with the current scribed note, I made few changes to the note using Italic font Patient was seen at bedside, sitting comfortably, still having shortness of breath Borderline tachycardic Still having bilateral wheezing. Continue on Cardizem and amiodarone Monitor heart rate DAVID STEVENS PA-C Mar 21, 2023 09:42 PAULA ELDRIDGE MD Mar 21, 2023 11:44
[2023-03-21 11:10] VITALS: BP 171/71
[2023-03-21 16:07] VITALS: BP 151/68
[2023-03-21 19:10] VITALS: BP 138/71
[2023-03-21] MEDS: MONTELUKAST 10 MG TABLET PO SCH (21:25)
[2023-03-21] MEDS: AMITRIPTYLINE 10 MG TAB PO SCH (21:25)
[2023-03-21] MEDS: ACETAMINOPHEN 325 MG TABLET PO PRN (21:31)
[2023-03-21 23:20] VITALS: BP 140/58
[2023-03-22] MEDS: RT-Ipratropium/Albuterol NEB 3 ML VIAL INH SCH ×6 (02:16→22:18)
[2023-03-22 03:44] LABS: BASOPHILS % (AUTO) 0 % (0-10); EOSINOPHILS % (AUTO) 0 % (0-10); HEMATOCRIT 34 % (35-52); LYMPHOCYTES # (AUTO) 0.3 10^3/uL (1.0-4.0); LYMPHOCYTES % (AUTO) 2 % (12-44); MEAN CORPUSCULAR HEMOGLOBIN 31 pg (25-34); MEAN CORPUSCULAR HGB CONC 32 g/dL (32-36); MEAN CORPUSCULAR VOLUME 95 fL (80-99); MEAN PLATELET VOLUME 9.4 fL (9.0-12.2); MONOCYTES # (AUTO) 0.4 10^3/uL (0.0-1.0); MONOCYTES % (AUTO) 2 % (0-12); NEUTROPHILS % (AUTO) 95 % (42-75); PLATELET COUNT 363 10^3/uL (130-400); WHITE BLOOD COUNT 18.9 10^3/uL (4.3-11.0)
[2023-03-22 04:01] LABS: BILIRUBIN,TOTAL 0.6 MG/DL (0.1-1.0); CALCIUM 8.8 MG/DL (8.5-10.1); CREATININE SERUM 0.89 MG/DL (0.60-1.30); POTASSIUM 3.6 MMOL/L (3.6-5.0); TOTAL PROTEIN 6.3 GM/DL (6.4-8.2)
[2023-03-22 04:03] VITALS: BP 134/75
[2023-03-22] MEDS: TIOTROPIUM INH 4 GM (SPIRIVA Respimat) IH SCH (06:58)
[2023-03-22] MEDS: FLUTICASONE/VILANTEROL 100/25 MCG (14 DOSES) IH SCH (06:59)
[2023-03-22 07:48] VITALS: BP 148/64
--- NOTE | 2023-03-22 08:04 | Cardiology Progress Note ---
Subjective Date Seen by Provider: Mar 22, 2023 Time Seen by Provider: 08:03 Subjective/Events-last exam Patient was seen at bedside, still having some shortness of breath at rest. Oxygen dependent Objective-Cardiology Exam Last Set of Vital Signs Vital Signs 03/18/23 03/22/23 07:12 07:48 Temp 35.4 Pulse 77 Resp 16 B/P (MAP) 148/64 (92) Pulse Ox 99 O2 Delivery Nasal Cannula O2 Flow Rate 4.00 FiO2 40 I&O Intake and Output 03/21/23 23:59 Intake Total 1270 ml Balance 1270 ml Intake Oral 1270 ml # Voids 10 General: Alert, Oriented X3 HEENT: Atraumatic, EOMI Neck: Supple Lungs: Normal Air Movement, Other (Wheezing in lung tovar bilaterally) Heart: Normal S1, Normal S2, No Murmurs, Other (irregulary irregular) Abdomen: Normal Bowel Sounds, No Tenderness Extremities: No Clubbing, No Cyanosis, No Edema Skin: No Rashes, No Breakdown Neuro: Normal Speech Psych/Mental Status: Mental Status NL Results Lab Laboratory Tests 03/22/23 03:39 A/P-Cardiology Admission Diagnosis Paroxysmal atrial fibrillation. Possible sick sinus syndrome. History of hypertension Mental status changes secondary to hypercapnia. COPD. History of smoking Assessment/Plan Paroxysmal atrial fibrillation I will discontinue amiodarone, change Cardizem to CD240 daily and continue Xarelto Monitor heart rate and blood pressure Accidental overdose resulting in respiratory failure, improved. COPD, oxygen dependent Acute exacerbation, managed by medical team Hypertension, continue to monitor Hyperlipidemia, lipids monitored as outpatient History of abnormal EKG with right bundle branch block, nonspecific T wave abnormality in the anterolateral leads. Continue to monitor Tobaccoism, educated on the importance of smoking cessation Gastroesophageal reflux disease. PAULA ELDRIDGE MD Mar 22, 2023 08:04
--- NOTE | 2023-03-22 08:38 | Progress Note - Hospitalist ---
Subjective HPI/CC On Admission Date Seen by Provider: Mar 22, 2023 Time Seen by Provider: 12:00 CC: AMS with resp failure HPI: This is a 67yoWF clinic patient of [facility] who apparently took too many pain pills and resulted in hypercapneic resp failure requiring biPAP and remains DNR and DNI per paper work and confirmed with daughter DPOA. We alexandra continue biPAP and Dr Cohen placed CL. Subjective/Events-last exam Set for discharge tomorrow to [facility] Patient still requiring a lot of oxygen Very limited on activity due to shortness of breath Review of Systems General: Fatigue, Malaise Objective Exam Vital Signs Vital Signs Date Time Temp Pulse Resp B/P (MAP) Pulse Ox O2 Delivery O2 Flow Rate FiO2 03/23/23 02:50 High Flow N/C 5.00 03/23/23 01:00 71 03/22/23 23:22 36.3 20 125/68 (87) 96 03/18/23 07:12 40 Capillary Refill : Less Than 3 Seconds General Appearance: No Apparent Distress, WD/WN, Chronically ill Respiratory: Lungs Clear, Normal Breath Sounds Cardiovascular: Regular Rate, Rhythm Neurologic/Psychiatric: Alert, Oriented x3 Results/Procedures Lab Patient resulted labs reviewed. Imaging: Reviewed Imaging Films, Reviewed Imaging Report Assessment/Plan Assessment and Plan Assess & Plan/Chief Complaint A-fib with RVR Acute hypercapnic respiratory failure Chronic respiratory failure Metabolic alkalosis requiring Diamox Plan: Cardiology appreciated Wean O2 Decrease steroids Continue supportive care Palliative care nurse May need skilled care Critical Care Critically Ill Patient KODY VILLANUEVA DO Mar 22, 2023 08:38
--- NOTE | 2023-03-22 09:41 | Physical Therapy Progress Note ---
Therapy Progress Note Patient has refused skilled PT multiple time. PT to dismiss patient due to noncompliance. MEDHAT JAMISON PT Mar 22, 2023 09:41
[2023-03-22] MEDS: methylPREDNISolone INJ 40 MG/ML VIAL IV SCH ×2 (10:07→19:49)
[2023-03-22] MEDS: POTASSIUM CHLORIDE 10 MEQ TABLET PO SCH ×2 (10:07→19:50)
[2023-03-22] MEDS: dilTIAZem ER 240 MG CAPSULE PO SCH (10:08)
[2023-03-22] MEDS: buPROPion 100 MG TABLET PO SCH ×2 (10:08→19:49)
[2023-03-22] MEDS: NICOTINE 21 MG PATCH TD SCH (10:08)
[2023-03-22] MEDS: AMIODARONE 200 MG TABLET PO SCH ×2 (10:08→19:49)
[2023-03-22] MEDS: RIVAROXABAN 15 MG TABLET PO SCH (10:08)
[2023-03-22] MEDS: acetaZOLAMIDE 250 MG TABLET PO SCH ×2 (10:08→19:49)
[2023-03-22] MEDS: NICOTINE PATCH REMOVAL TP SCH (10:09)
[2023-03-22 11:21] VITALS: BP 147/67
[2023-03-22 15:24] VITALS: BP 143/75
[2023-03-22] MEDS: hydrOXYzine 25 MG CAPSULE PO PRN ×2 (17:05→23:21)
[2023-03-22] MEDS: ACETAMINOPHEN 325 MG TABLET PO PRN ×2 (17:05→23:22)
[2023-03-22 19:16] VITALS: BP 132/58
[2023-03-22] MEDS: MONTELUKAST 10 MG TABLET PO SCH (19:49)
[2023-03-22] MEDS: AMITRIPTYLINE 10 MG TAB PO SCH (19:49)
[2023-03-22 23:22] VITALS: BP 125/68
[2023-03-23] MEDS: RT-Ipratropium/Albuterol NEB 3 ML VIAL INH SCH ×3 (02:50→09:53)
[2023-03-23 04:59] VITALS: BP 126/63
[2023-03-23] MEDS ORDERED: FLUT1DIS26 INH (05:00)
[2023-03-23] MEDS ORDERED: ALEN70TA80 PO (05:00)
[2023-03-23] MEDS ORDERED: AMT10T PO (05:00)
[2023-03-23] MEDS ORDERED: BUPR150T24 PO (05:00)
[2023-03-23] MEDS ORDERED: MONT-40 PO (05:00)
[2023-03-23] MEDS ORDERED: ALBU8.5H6 INH (05:00)
[2023-03-23] MEDS ORDERED: ATOR40TA70 PO (05:00)
[2023-03-23] MEDS ORDERED: POTA-160 PO (05:00)
[2023-03-23] MEDS ORDERED: HYDR-700 PO (05:00)
[2023-03-23] MEDS ORDERED: ACET250T3 PO (05:00)
[2023-03-23] MEDS ORDERED: GABA300C PO (05:00)
[2023-03-23] MEDS ORDERED: CYCL5TAB PO (05:00)
[2023-03-23] MEDS ORDERED: CETI10TA17 PO (05:00)
[2023-03-23] MEDS ORDERED: UMEC62.5 IH (05:00)
[2023-03-23] MEDS ORDERED: RIVA15TA2 PO (05:00)
[2023-03-23] MEDS ORDERED: IPRA3AMP31 INH (05:00)
[2023-03-23] MEDS ORDERED: PRED10TA22 PO (05:00)
[2023-03-23] MEDS ORDERED: AMIO200T65 PO (05:00)
[2023-03-23] MEDS ORDERED: DILT240C91 PO (05:00)
[2023-03-23] MEDS ORDERED: FLUT16SP22 NSEACH (05:00)
[2023-03-23] MEDS ORDERED: NICO-685 TD (05:00)
--- NOTE | 2023-03-23 05:01 | Discharge Summary ---
Discharge Summary Hospital Course Was the Problem List Reviewed?: Yes Problems/Dx: (1) Acute on chronic hypoxic respiratory failure Status: Acute (2) Bradycardia Status: Resolved (3) Hypotension Status: Resolved Qualifiers: Qualified Codes: I95.9 - Hypotension, unspecified (4) COPD exacerbation Status: Acute (5) Sepsis Status: Resolved (6) Acute kidney injury Status: Acute (7) Polypharmacy Status: Acute (8) HTN (hypertension) Status: Chronic Hospital Course Date of Admission: Mar 12, 2023 at 10:59 Admission Diagnosis : Family Physician/Provider: Hardy Adair DO Date of Discharge: 03/23/23 Discharge Diagnosis: [ ] Hospital Course: Patient had an uneventful hospital course after she was admitted for exacerbation of COPD due to overdose requiring BiPAP maintenance. Patient ultimately was were able to wean off BiPAP and transfer from the ICU to fourth floor. Her continued oxygen requirements and dizziness and weakness when moving around was a concern so arrangement was made for usp placement and she finished antibiotics was placed on a long taper dose of steroids she will have close follow-up with usp rounds. Labs and Pending Lab Test: Microbiology 03/12/23 Urine Culture - Final, Complete NO GROWTH 03/12/23 Blood Culture - Final, Complete Home Meds Active Prednisone 10 Mg Tab.ds.pk 10 Mg PO DAILY Take 6 tabs(60mg)daily,decrease by 1 tab(10mg)every other day then remain on 10mg daily until further notice. Acetazolamide 250 Mg Tablet 500 Mg PO BID Klor-Con 10 (Potassium Chloride) 10 Meq Tablet.er 10 Meq PO BID Diltiazem 24Hr ER (Diltiazem HCl) 240 Mg Cap.er.24h 240 Mg PO DAILY Amiodarone HCl 200 Mg Tablet 200 Mg PO BID Xarelto Tablet (Rivaroxaban) 15 Mg Tablet 15 Mg PO DAILY@0900 Iprat-Albut 0.5-3(2.5) mg/3 ml (Ipratropium/Albuterol Sulfate) 0.5 Mg-3 Mg (2.5 Mg Base)/3 Ml Ampul.neb 3 Ml INH RTQ4HR Montelukast Sodium 10 Mg Tablet 10 Mg PO HS Atorvastatin Calcium 40 Mg Tablet 40 Mg PO HS Alendronate Sodium 70 Mg Tablet 70 Mg PO SAT Bupropion Xl (Bupropion HCl) 150 Mg Tab.er.24h 150 Mg PO DAILY Amitriptyline HCl 10 Mg Tablet 10 Mg PO HS Nicotine Patch (Nicotine) 21 Mg/24 Hour Patch.td24 21 Mg TD DAILY Cetirizine HCl 10 Mg Tablet 10 Mg PO DAILY Neurontin (Gabapentin) 300 Mg Capsule 600 Mg PO HS TAKES 2 (300MG) CAPS Fluticasone Propionate 50 Mcg/Actuation [place].susp 1-2 Sprays NSEACH DAILY Advair 250-50 Diskus (Fluticasone/Salmeterol) 250 Mcg-50 Mcg/Dose Blst.w.dev 1 Puff INH BID Ventolin Hfa (Albuterol Sulfate) 90 Mcg Hfa.aer.ad 2 Puff INH Q6H PRN Incruse Ellipta (Umeclidinium [place]) 62.5 Mcg/Actuation Blst.w.dev 1 Puff IH HS Cyclobenzaprine HCl 5 Mg Tablet 5 Mg PO DAILY PRN Hydroxyzine HCl 25 Mg Tablet 25 Mg PO Q6H PRN Reported Aspirin EC (Aspirin) 81 Mg Tablet.dr 81 Mg PO DAILY Valsartan 80 Mg Tablet 80 Mg PO DAILY K-Tab ER (Potassium Chloride) 10 Meq Tablet.er 10 Meq PO DAILY Metoprolol Tartrate 50 Mg Tablet 50 Mg PO BID Amlodipine Besylate 10 Mg Tablet 10 Mg PO DAILY Assessment/Pt Instructions PCP in 1 week Discharge Planning: <30 minutes discharge planning Discharge Instructions Discharge Diet: No Restrictions Discharge Physical Examination Vital Signs Vital Signs Date Time Temp Pulse Resp B/P (MAP) Pulse Ox O2 Delivery O2 Flow Rate FiO2 03/23/23 02:50 High Flow N/C 5.00 03/23/23 01:00 71 03/22/23 23:22 36.3 20 125/68 (87) 96 03/18/23 07:12 40 General Appearance: No Apparent Distress, WD/WN, Chronically ill Respiratory: Lungs Clear, Normal Breath Sounds, Decreased Breath Sounds Allergies: Coded Allergies: NKANo Known Allergies (Verified Allergy, Unknown, 11/27/21) Discharge Summary Date of Admission Mar 12, 2023 at 10:59 Date of Discharge Discharge Date: Mar 23, 2023 Admission Diagnosis Assessment: Acute hypercapneic respiratory failure OD Plan: DNR ICU BIPAP Discharge Diagnosis A-fib with RVR Acute hypercapnic respiratory failure Chronic respiratory failure Metabolic alkalosis requiring Diamox Plan: Cardiology appreciated Wean O2 Decrease steroids Continue supportive care Palliative care nurse May need skilled care (1) Acute on chronic hypoxic respiratory failure Status: Acute Assessment & Plan: Patient presenting with acute on chronic hypoxic respiratory failure. Uses 2 L of oxygen at baseline but is requiring BiPAP due to saturations and signs of respiratory distress. ABG prior to BiPAP start is quite concerning. Plan: Continue BiPAP, wean as tolerated (2) Bradycardia Status: Resolved Assessment & Plan: Patient noted to be bradycardic. May be secondary to medication misuse. Plan: Monitor on telemetry Follow-up UDS Atropine as needed for heart rates less than 35 (3) Hypotension Status: Resolved Assessment & Plan: Patient quite hypotensive with labile blood pressures not responding to fluids. Requiring Levophed in the ED. Plan: Cardiology consulted, appreciate recommendations Recommend dopamine for pressures in the setting of bradycardia Qualifiers: Qualified Codes: I95.9 - Hypotension, unspecified (4) COPD exacerbation Status: Acute Assessment & Plan: Patient with possible COPD exacerbation due to worsening respiratory status. Evidence of leukocytosis on lab work however chest x-ray negative. Plan: Continue IV cefepime (5) Sepsis Status: Resolved Assessment & Plan: Unclear source of infection at this time however patient is screening in for sepsis. Plan: Follow-up blood cultures Follow-up UA (6) Acute kidney injury Status: Acute Assessment & Plan: Patient noted to have CY with creatinine of 1.68. May be secondary to dehydration. Plan: Continue IV fluids. (7) Polypharmacy Status: Acute Assessment & Plan: Concern for polypharmacy due to medication misuse. We will continue to monitor vital signs as mentioned above. Unclear cause of symptoms at this time however patient takes many medications that may be contributing. (8) HTN (hypertension) Status: Chronic Assessment & Plan: Holding home medications VILLANUEVAJACQUI GRANGEREugenia GARZA Mar 23, 2023 05:01
--- NOTE | 2023-03-23 05:01 | Discharge Inst-Skilled Nursing ---
Discharge Inst-Skilled NF Reconcile Patient Problems Problems Reviewed?: Yes Chief Complaint CC: AMS with resp failure HPI: This is a 67yoWF clinic patient of [facility] who apparently took too many pain pills and resulted in hypercapneic resp failure requiring biPAP and remains DNR and DNI per paper work and confirmed with daughter DPSAI. We alexandra continue biPAP and Dr Cohen placed CL. Patient Instructions Patient Problems: Severe copd Goal: return home Consult/Follow Up/Orders Follow Up Appt.: nh rounds Skilled NF Admit to: Via [facility] ([facility]) I certify that [facility] services are required to be given on an inpatient basis because of the above named patient's need for custodial care on a continuing basis for the conditions(s) for which he/she was receiving inpatient hospital services prior to his/her transfer to the [facility]. [facility] Facility Order: Nursing Services, Shopfitter-Evaluate & Treat, Physical Therapy-Evaluate & Treat Oxygen Delivery Method: High Flow N/C Discharge Diet: No Restrictions Resuscitation Status: Do Not Resuscitate New & Resume Previous Orders New Medications: Prednisone (Prednisone) 10 Mg Tab.ds.pk 10 MG PO DAILY, #60 EA Take 6 tabs(60mg)daily,decrease by 1 tab(10mg)every other day then remain on 10mg daily until further notice. Acetazolamide (Acetazolamide) 250 Mg Tablet 500 MG PO BID, #60 TAB Amiodarone HCl (Amiodarone HCl) 200 Mg Tablet 200 MG PO BID, #60 TAB Diltiazem HCl (Diltiazem 24Hr ER) 240 Mg Cap.er.24h 240 MG PO DAILY, #30 CAP Ipratropium/Albuterol Sulfate (Iprat-Albut 0.5-3(2.5) mg/3 ml) 0.5 Mg-3 Mg (2.5 Mg Base)/3 Ml Ampul.neb 3 ML INH RTQ4HR, #60 INHALER Potassium Chloride (Klor-Con 10) 10 Meq Tablet.er 10 MEQ PO BID, #60 TAB Rivaroxaban (Xarelto Tablet) 15 Mg Tablet 15 MG PO DAILY@0900, #30 TAB Continued Medications: Albuterol Sulfate (Ventolin Hfa) 90 Mcg Hfa.aer.ad 2 PUFF INH Q6H PRN for SHORTNESS OF BREATH, #1 EA (This prescription has been renewed) Alendronate Sodium (Alendronate Sodium) 70 Mg Tablet 70 MG PO SAT, #4 TAB (This prescription has been renewed) Amitriptyline HCl (Amitriptyline HCl) 10 Mg Tablet 10 MG PO HS, #30 TAB (This prescription has been renewed) Atorvastatin Calcium (Atorvastatin Calcium) 40 Mg Tablet 40 MG PO HS, #30 TAB (This prescription has been renewed) Bupropion HCl (Bupropion Xl) 150 Mg Tab.er.24h 150 MG PO DAILY, #30 TAB (This prescription has been renewed) Cetirizine HCl (Cetirizine HCl) 10 Mg Tablet 10 MG PO DAILY, #30 TAB (This prescription has been renewed) Cyclobenzaprine HCl (Cyclobenzaprine HCl) 5 Mg Tablet 5 MG PO DAILY PRN for HEADACHE, #30 TAB (This prescription has been renewed) Fluticasone Propionate (Fluticasone Propionate) 50 Mcg/Actuation [place].susp 1-2 SPRAYS NSEACH DAILY, #30 EA (This prescription has been renewed) Fluticasone/Salmeterol (Advair 250-50 Diskus) 250 Mcg-50 Mcg/Dose Blst.w.dev 1 PUFF INH BID, #1 EA (This prescription has been renewed) Gabapentin (Neurontin) 300 Mg Capsule 600 MG PO HS, #60 CAP (This prescription has been renewed) TAKES 2 (300MG) CAPS Hydroxyzine HCl (Hydroxyzine HCl) 25 Mg Tablet 25 MG PO Q6H PRN for ANXIETY, #30 TAB (This prescription has been renewed) Montelukast Sodium (Montelukast Sodium) 10 Mg Tablet 10 MG PO HS, #30 TAB (This prescription has been renewed) Nicotine (Nicotine Patch) 21 Mg/24 Hour Patch.td24 21 MG TD DAILY, #30 PATCH (This prescription has been renewed) Umeclidinium [place]al[place] (Incruse Ellipta) 62.5 Mcg/Actuation Blst.w.dev 1 PUFF IH HS, #1 EA (This prescription has been renewed) Discontinued Medications: Amlodipine Besylate (Amlodipine Besylate) 10 Mg Tablet 10 MG PO DAILY, TAB Aspirin (Aspirin EC) 81 Mg Tablet.dr 81 MG PO DAILY, TAB Metoprolol Tartrate (Metoprolol Tartrate) 50 Mg Tablet 50 MG PO BID, TAB Potassium Chloride (K-Tab ER) 10 Meq Tablet.er 10 MEQ PO DAILY, TAB Valsartan (Valsartan) 80 Mg Tablet 80 MG PO DAILY, TAB Sherri Hardin Mar 23, 2023 05:01 SHERRI HARDIN DO Mar 23, 2023 05:01
[2023-03-23] MEDS: hydrOXYzine 25 MG CAPSULE PO PRN (06:17)
[2023-03-23] MEDS: ACETAMINOPHEN 325 MG TABLET PO PRN (06:17)
[2023-03-23 06:32] LABS: BASOPHILS % (AUTO) 0 % (0-10); EOSINOPHILS % (AUTO) 0 % (0-10); HEMATOCRIT 31 % (35-52); HEMOGLOBIN 10.2 g/dL (11.5-16.0); LYMPHOCYTES # (AUTO) 0.3 10^3/uL (1.0-4.0); LYMPHOCYTES % (AUTO) 1 % (12-44); MEAN CORPUSCULAR HEMOGLOBIN 31 pg (25-34); MEAN CORPUSCULAR HGB CONC 33 g/dL (32-36); MEAN CORPUSCULAR VOLUME 95 fL (80-99); MEAN PLATELET VOLUME 9.9 fL (9.0-12.2); MONOCYTES # (AUTO) 0.5 10^3/uL (0.0-1.0); MONOCYTES % (AUTO) 3 % (0-12); NEUTROPHILS # (AUTO) 17.4 10^3/uL (1.8-7.8); NEUTROPHILS % (AUTO) 95 % (42-75); PLATELET COUNT 335 10^3/uL (130-400); WHITE BLOOD COUNT 18.4 10^3/uL (4.3-11.0)
[2023-03-23 06:52] LABS: ALBUMIN 3.9 GM/DL (3.2-4.5)
[2023-03-23 06:53] LABS: POTASSIUM 3.7 MMOL/L (3.6-5.0)
[2023-03-23 06:54] LABS: CALCIUM 8.6 MG/DL (8.5-10.1)
[2023-03-23 06:55] LABS: TOTAL PROTEIN 6.4 GM/DL (6.4-8.2)
[2023-03-23 06:57] LABS: BILIRUBIN,TOTAL 0.5 MG/DL (0.1-1.0)
[2023-03-23 06:59] LABS: CREATININE SERUM 0.88 MG/DL (0.60-1.30)
[2023-03-23 07:32] VITALS: BP 130/67
[2023-03-23] MEDS: acetaZOLAMIDE 250 MG TABLET PO SCH (08:28)
[2023-03-23] MEDS: NICOTINE 21 MG PATCH TD SCH (08:28)
[2023-03-23] MEDS: methylPREDNISolone INJ 40 MG/ML VIAL IV SCH (08:28)
[2023-03-23] MEDS: buPROPion 100 MG TABLET PO SCH (08:28)
[2023-03-23] MEDS: dilTIAZem ER 240 MG CAPSULE PO SCH (08:29)
[2023-03-23] MEDS: RIVAROXABAN 15 MG TABLET PO SCH (08:29)
[2023-03-23] MEDS: AMIODARONE 200 MG TABLET PO SCH (08:29)
[2023-03-23] MEDS: POTASSIUM CHLORIDE 10 MEQ TABLET PO SCH (08:29)
[2023-03-23] MEDS: NICOTINE PATCH REMOVAL TP SCH (08:29)
--- NOTE | 2023-03-23 09:18 | Cardiology Progress Note ---
Subjective Date Seen by Provider: Mar 23, 2023 Time Seen by Provider: 08:30 Subjective/Events-last exam Patient is sitting up in bed, denies any chest pain or increased dyspnea. Objective-Cardiology Exam Last Set of Vital Signs Vital Signs 03/23/23 03/23/23 06:32 07:32 Temp 35.4 Pulse 79 Resp 18 B/P (MAP) 130/67 (88) Pulse Ox 91 O2 Delivery High Flow N/C O2 Flow Rate 5.00 FiO2 50 I&O Intake and Output 03/23/23 00:00 Intake Total 910 ml Output Total 350 ml Balance 560 ml Intake Oral 910 ml Output Urine Total 350 ml # Voids 5 General: Alert, Oriented X3 HEENT: Atraumatic, EOMI Neck: Supple Lungs: Normal Air Movement, Other (Wheezing in lung tovar bilaterally) Heart: Normal S1, Normal S2, No Murmurs, Other (irregulary irregular) Abdomen: Normal Bowel Sounds, No Tenderness Extremities: No Clubbing, No Cyanosis, No Edema Skin: No Rashes, No Breakdown Neuro: Normal Speech Psych/Mental Status: Mental Status NL Results Lab Laboratory Tests 03/23/23 06:23 A/P-Cardiology Admission Diagnosis Paroxysmal atrial fibrillation. Possible sick sinus syndrome. History of hypertension Mental status changes secondary to hypercapnia. COPD. History of smoking Assessment/Plan Paroxysmal atrial fibrillation I will discontinue amiodarone, change Cardizem to CD240 daily and continue Xarelto Monitor heart rate and blood pressure Accidental overdose resulting in respiratory failure, improved. COPD, oxygen dependent Acute exacerbation, managed by medical team Hypertension, continue to monitor Hyperlipidemia, lipids monitored as outpatient History of abnormal EKG with right bundle branch block, nonspecific T wave abnormality in the anterolateral leads. Continue to monitor Tobaccoism, educated on the importance of smoking cessation Gastroesophageal reflux disease. DAVID STEVENS PA-C Mar 23, 2023 09:18
[2023-03-23] MEDS: FLUTICASONE/VILANTEROL 100/25 MCG (14 DOSES) IH SCH (09:53)
[2023-03-23] MEDS: TIOTROPIUM INH 4 GM (SPIRIVA Respimat) IH SCH (09:53)
[2023-03-23 11:09] VITALS: BP 133/63
== END 2023-03-23 12:00 | DRG 917 ==
LOC: EDUNIT# 08:53 → ER 08:54 → ICU 10:59 → 4TH 03-15 16:31
PROVIDERS: ADMIT Internal Medicine; ATTEND Internal Medicine
PROC: 5A09357 Assistance with Respiratory Ventilation, Less than 24 Consecutive Hours, Continuous Positive Airway Pressure (ICD-10-PCS; principal; 2023-03-12)
PROC: 5A0955A Assistance with Respiratory Ventilation, Greater than 96 Consecutive Hours, High Flow/Velocity Cannula (ICD-10-PCS; 2023-03-12)
PROC: 02HV33Z Insertion of Infusion Device into Superior Vena Cava, Percutaneous Approach (ICD-10-PCS; 2023-03-12)
DX: T50.901A Poisoning by unspecified drugs, medicaments and biological substances, accidental (unintentional), initial encounter (principal); A41.9 Sepsis, unspecified organism; G93.41 Metabolic encephalopathy; J96.21 Acute and chronic respiratory failure with hypoxia; J96.22 Acute and chronic respiratory failure with hypercapnia; J44.1 Chronic obstructive pulmonary disease with (acute) exacerbation; N17.9 Acute kidney failure, unspecified; R00.1 Bradycardia, unspecified; I95.9 Hypotension, unspecified; E86.0 Dehydration; I10 Essential (primary) hypertension; Z66 Do not resuscitate; Z79.82 Long term (current) use of aspirin; E78.00 Pure hypercholesterolemia, unspecified; G43.909 Migraine, unspecified, not intractable, without status migrainosus; K21.9 Gastro-esophageal reflux disease without esophagitis; G89.29 Other chronic pain; M54.9 Dorsalgia, unspecified; F41.9 Anxiety disorder, unspecified; F32.A Depression, unspecified; Z11.52 Encounter for screening for COVID-19; R73.9 Hyperglycemia, unspecified; I48.0 Paroxysmal atrial fibrillation
CPT/HCPCS: 36415; 36600; 71045; 80053; 80061; 80306; 80320; 81000; 82805; 82947; 83605; 83735; 83874; 83880; 84100; 84484; 85007; 85025; 85027; 85610; 85730; 86141; 87040; 87088; 87636; 93005; 93041; 93306; 94640; 94760; 94761; 96361; 96365; 96367; 96375